=== PATIENT | male | born 1965 | race Caucasian/White ===

== ENCOUNTER → 2018-03-30 13:20 | Outpatient (CLI) | payer BC, SELFPAY ==
--- NOTE | 2018-03-30 13:27 | CT_ITS ---
CT abdomen pelvis wo con CLINICAL INDICATION: ITS.REASON: HEMATURIA, LOW ABD PAIN ORDERING PHYSICIAN: Sidney Alvarenga MD PATIENT AGE: 52 years COMPARISON: None TECHNIQUE: Axial images obtained with sagittal and coronal reformats. All CT scans at the facility use one or more dose reduction, viz: automated exposure control; ma/kV adjustment per patient size (including targeted exams where dose is matched to indication; i.e. head); or iterative reconstruction technique. PROCEDURE: Oral Contrast: None IV Contrast: None . FINDINGS: The lung bases are clear. The liver, pancreas, spleen, adrenal glands, and kidneys have an unremarkable unenhanced CT appearance. No calcified gallstones are apparent. There is a small calcific density just superior to the gallbladder fossa does appear to be within the liver at the capsular region. No renal or ureteral calculi. No hydronephrosis. There are a few small retroperitoneal lymph nodes. Unremarkable appendix. No intestinal obstruction or free air is evident. No evidence of appendicitis. No pelvic mass abnormal fluid collection or focal inflammatory change evident there is some minimal central prostate calcifications. There is a 2 mm stone at the left ureteropelvic junction within the trigone of the urinary bladder. No hydronephrosis. There is grade 2 spondylolytic spondylolisthesis of L5 on S1 with degenerative disc disease at that level there is a small cortical defect involves the left femoral head anteriorly. There are mild osteoarthritic changes of the hips. IMPRESSION: 1. 2 mm left ureterovesical junction stone. No hydronephrosis. 2. Grade 2 spondylolytic spondylolisthesis of L5 on S1 with degenerative disc disease
== END ==
PROVIDERS: PCP Family Medicine; Visit Provider Family Medicine
DX: R10.30 Lower abdominal pain, unspecified (principal)
CPT/HCPCS: 74176

== ENCOUNTER → 2018-04-25 14:29 | Outpatient (CLI) | payer BC, SELFPAY ==
[2018-04-25 20:20] LABS: Prostate Specific Ag Screen 0.8 ng/mL (0.0-4.0)
== END ==
PROVIDERS: Visit Provider Urology
DX: Z12.5 Encounter for screening for malignant neoplasm of prostate (principal); N40.0 Benign prostatic hyperplasia without lower urinary tract symptoms; Z80.42 Family history of malignant neoplasm of prostate
CPT/HCPCS: 36415; G0103

== ENCOUNTER → 2018-09-04 18:12 | Outpatient (CLI) | payer BC, SELFPAY | PROVIDERS: Visit Provider Podiatrist | DX: B35.1 Tinea unguium (principal) | CPT/HCPCS: 87102; 87206; 87220 ==

== ENCOUNTER → 2019-03-20 12:38 | Outpatient (CLI) | payer BC, SELFPAY ==
[2019-03-20 15:01] LABS: Prostate Specific Ag, Diagnost 0.46 ng/mL (0.0-4.0)
== END ==
PROVIDERS: Visit Provider Urology
DX: Z12.5 Encounter for screening for malignant neoplasm of prostate (principal); Z80.42 Family history of malignant neoplasm of prostate
CPT/HCPCS: 36415; 84153

== ENCOUNTER → 2019-05-30 11:00 | Outpatient (CLI) | payer OTHER, SELFPAY ==
--- NOTE | 2019-05-30 11:10 | MR_ITS ---
PROCEDURE: MR CERVICAL SPINE WO CON CLINICAL INDICATION: CERVICAL RADICULOPATHY Neck pain, left-sided arm pain numbness and tingling with limited range of motion COMPARISON: No exams were available for comparison TECHNIQUE: Standard multiplanar multiecho sequences are performed without contrast. 3-D MIP and myelographic images are also rendered and reviewed FINDINGS: There is normal alignment. The cranial cervical junction has an unremarkable appearance. Decreased T1 and T2 signal involves the Don toys process suggesting sclerosis of the odontoid process. There is slight reversal of cervical lordosis which could be due to patient positioning or muscle spasm C2-C3: Unremarkable. C3-C4: Mild left foraminal narrowing from uncovertebral hypertrophy. C4-C5: Small central disc protrusion slightly eccentric to the left abutting the central left aspect of the cord with minimal indentation upon the cord. There is canal stenosis at this level at 8 mm. Mild left-sided foraminal narrowing from uncovertebral hypertrophy/disc osteophyte complex in the lateral foraminal area. C5-C6: Degenerate disc disease with bulging disc slightly eccentric to the left with canal stenosis of 8 mm. There is mild flattening upon the central left aspect of the cord with moderate left lateral recess and foraminal narrowing C6-C7: Degenerate disc disease with moderate left-sided foraminal narrowing from uncovertebral hypertrophy/lateral foraminal disc osteophyte complex. There is canal stenosis at this level at 10 mm. C7-T1: Mild degenerative disc disease IMPRESSION: 1. Multilevel cervical spondylosis with degenerative disc disease along with bulging disc and endplate osteophytes and uncovertebral hypertrophy with lateral recess and foraminal narrowing and canal stenosis. Please see above for detailed description at each level. 2. C4-C5: Small central disc protrusion slightly eccentric to the left abutting the central left aspect of the cord with minimal indentation upon the cord. There is canal stenosis at this level at 8 mm. Mild left-sided foraminal narrowing from uncovertebral hypertrophy/disc osteophyte complex in the lateral foraminal area. 3. C5-C6: Degenerate disc disease with bulging disc slightly eccentric to the left with canal stenosis of 8 mm. There is mild flattening upon the central left aspect of the cord with moderate left lateral recess and foraminal narrowing 4. C6-C7: Degenerate disc disease with moderate left-sided foraminal narrowing from uncovertebral hypertrophy/lateral foraminal disc osteophyte complex. There is canal stenosis at this level at 10 mm Dictated by: Alfred Contreras MD 06/01/2019 08:47 Electronically signed by Alfred Contreras MD in [place] 06/01/2019 08:47
== END ==
PROVIDERS: PCP Family Medicine; Referring Provider Family Medicine; Visit Provider Family Medicine
DX: M54.12 Radiculopathy, cervical region (principal)
CPT/HCPCS: 72141; 76376

== ENCOUNTER → 2019-08-16 07:50 | Outpatient (CLI) | payer SELFPAY ==
--- NOTE | 2019-08-16 07:53 | MR_ITS ---
PROCEDURE: MR LUMBAR SPINE WO CON CLINICAL INDICATION: RIGHT LUMBAR RADICULOPATHY Low back pain, bilateral leg pain numbness and tingling, right hip pain, prior surgery [place] [facility] [place]/2017 MR CERVICAL SPINE WO CON from 05/30/2019 TECHNIQUE: Standard multiplanar multiecho sequences are performed without contrast. 3-D MIP and myelographic images are also rendered and reviewed FINDINGS: The the spinal cord ends at the L1 level. T11-T12, T12-L1, and L1-L2 show mild degenerative disc disease with some decrease in the disc space along with mild facet and ligamentum hypertrophy. L2-L3: There is a asymmetric bulging disc eccentric to the right causing mild right lateral recess narrowing. There facet and ligamentum hypertrophy with bilateral foraminal narrowing. Previously noted right paracentral disc protrusion at this level has improved. L3-L4: Bulging disc along with facet and ligamentum hypertrophy with canal stenosis the along with severe bilateral lateral recess and foraminal narrowing from facet and ligamentum hypertrophy. Canal stenosis may be slightly worse in the transverse dimension in the right lateral recess and foraminal narrowing may also be slightly worse. The broad-based central left paracentral disc protrusion is no longer apparent. L4-5: There is retrolisthesis of L4 by 3 mm not significantly change with bulging disc small central disc protrusion is noted with severe bilateral lateral recess and foraminal narrowing. There has been prior laminectomy at L4 and L5. Severe facet hypertrophic changes are present. L5-S1: There is 11 mm anterolisthesis of L5 on S1 with severe degenerative disc disease along with facet and ligamentum hypertrophy with severe bilateral lateral recess and foraminal narrowing. This is not significantly changed. IMPRESSION: 1. L2-L3: There is a asymmetric bulging disc eccentric to the right causing mild right lateral recess narrowing. There facet and ligamentum hypertrophy with bilateral foraminal narrowing. Previously noted right paracentral disc protrusion at this level has improved. 2. L3-L4: Bulging disc along with facet and ligamentum hypertrophy with canal stenosis the along with severe bilateral lateral recess and foraminal narrowing from facet and ligamentum hypertrophy. Canal stenosis may be slightly worse in the transverse dimension and right lateral recess and foraminal narrowing may also be slightly worse. The broad-based central left paracentral disc protrusion is no longer apparent. 3. L4-5: There is retrolisthesis of L4 by 3 mm not significantly change with bulging disc small central disc protrusion is noted with severe bilateral lateral recess and foraminal narrowing. There has been prior laminectomy at L4 and L5. Severe facet hypertrophic changes are present. 4. L5-S1: There is 11 mm anterolisthesis of L5 on S1 with severe degenerative disc disease along with facet and ligamentum hypertrophy with severe bilateral lateral recess and foraminal narrowing. This is not significantly changed. Dictated by: Alfred Contreras MD 08/16/2019 14:03 Electronically signed by Alfred Contreras MD in [place] 08/16/2019 14:03
== END ==
PROVIDERS: PCP Family Medicine; Visit Provider Family Medicine
DX: M54.16 Radiculopathy, lumbar region (principal)
CPT/HCPCS: 72148; 76376

== ENCOUNTER → 2020-02-12 10:21 | Outpatient (CLI) | payer OTHER, SELFPAY ==
[2020-02-12 12:51] LABS: Prostate Specific Ag Screen 0.9 ng/ml (0.0-4.0)
== END ==
PROVIDERS: Visit Provider Urology
DX: Z12.5 Encounter for screening for malignant neoplasm of prostate (principal)
CPT/HCPCS: 36415; G0103

== ENCOUNTER → 2020-04-23 09:53 | Outpatient (CLI) | payer OTHER, MEDICAID, SELFPAY ==
[2020-04-23 12:23] LABS: Coronavirus 19 IgG Antibody Negative (Negative); Coronavirus 19 IgM Antibody Negative (Negative)
== END ==
PROVIDERS: Visit Provider Surgery
DX: Z01.818 Encounter for other preprocedural examination (principal); Z12.11 Encounter for screening for malignant neoplasm of colon
CPT/HCPCS: 36415; 86328

== ENCOUNTER 2020-04-24 08:37 | Day surgery (SDC) | payer OTHER, MEDICAID, SELFPAY ==
[2020-04-23 12:38] VITALS: BMI 28.2
[2020-04-24 08:57] VITALS: BP 166/108; PULSE 66; RESP 18; TEMP 36.7; O2SAT 99
--- NOTE | 2020-04-24 09:16 | HMH.ANESCL ---
[facility] Anesthesia Checklist - Patient Identification Patient Identification: Arm Band - Structural Data Admitted From: Home Planned Operative Procedure/s: colonoscopy Verified Documents: Surgical Consent, History and Physical - NPO Status Verified Time NPO: 00:00 - Additional verifications Anesthesia Reactions: No - Airway Assessment C-Spine Mobility Assessed: Yes (mp2) TMJ Mobility Assessed: Yes Dentition: Good Dentition - Neurological Assessment Level of Consciousness: Awake, Alert - Anesthesia Plan Anesthesia Risk discussed: Yes Anesthesia Plan: Verified ASA Class: I Anesthesia Type: MAC [facility] History Medical History: Reports:: Aneurysm, Cancer (skin) Denies:: Diabetes Mellitus Type 1, Diabetes Mellitus Type 2, Internal Pacemaker, Lung Disease, MRSA, Seizures *Have you ever received a pneumonia vaccine?: No *Have you received a flu vaccine this season?: Yes Anesthesia experience/problems:: nac Laterality Cases: Right: Arthroscopy Knee Other Surgeries: Yes: Colonoscopy, Other. No: Pacemaker Amputation: No Fractures: No - *Social History Last grade of school completed: Advanced degree Smoking Status: Never smoker Tobacco Type: cigarettes #Yrs smoked (if former smoker): 20 Alcohol Intake: never Substance Use Type: former substance user *Occupational Status:: employed Household Members: none *Travel in the last 8 weeks: None Family Hx:: Diabetes, Cancer, Hyperlipidemia, Hypertension
[2020-04-24 09:28] VITALS: O2SAT 99
[2020-04-24 10:10] VITALS: BP 110/60; PULSE 48; RESP 18; TEMP 36.2; O2SAT 94
--- NOTE | 2020-04-24 10:12 | HMH.SCOPE ---
- Procedure: Date: 04/24/20 Procedure Performed:: Colonoscopy with polypectomy Indications:: History of large complex polyp at 15 cm Performing Provider:: Michael Mack MD Referring Provider:: . Sedation:: Monitored anesthesia care Procedure:: After informed consent was obtained the patient was taken to the endoscopy suite. Sedation ensued after the patient was transferred to the left lateral decubitus position. Pulse, blood pressure, and oxygen saturation were monitored throughout the procedure. Digital rectal exam revealed no significant abnormality. The colonoscope was placed in position. The entire colon was evaluated. The colonoscope was carefully removed and the patient was transferred to recovery in stable condition. Please see findings and specimens below for detail. Findings:: Bowel preparation fair to moderate Hemorrhoidal tags Tortuous sigmoid colon Moderate spasticity Complex lobulated polyp at 65 cm Large sessile polyp at 40 cm and adjacent polyp Specimens:: Lobulated polyp at 65 cm (snare) Large sessile polyp at 40 cm and adjacent polyp (snare and biopsy) Recommendations:: Timing of repeat colonoscopy is pending pathology but will likely be between 2-3 years secondary to history of significant complex polyp, slight limitations in visualization, and size/nature of polyps noted on this evaluation. Complications:: No immediate Estimated blood obtained (mL): 1
[2020-04-24 10:20] VITALS: BP 138/70; PULSE 59; RESP 18; O2SAT 98
[2020-04-24 10:26] VITALS: BP 138/96; PULSE 52; RESP 18; O2SAT 98
[2020-04-24 10:35] VITALS: BP 131/92; PULSE 58; RESP 18; O2SAT 98
== END 2020-04-24 10:40 | disposition home or self-care (01) ==
LOC: OUTP 08:39
PROVIDERS: PCP Family Medicine; Visit Provider Surgery
PROC: 0DJD8ZZ Inspection of Lower Intestinal Tract, Via Natural or Artificial Opening Endoscopic (ICD-10-PCS; CPT 45385; principal; 2020-04-24 09:30)
DX: Z12.11 Encounter for screening for malignant neoplasm of colon (principal); K58.9 Irritable bowel syndrome, unspecified; Q43.8 Other specified congenital malformations of intestine; K63.5 Polyp of colon; K64.0 First degree hemorrhoids; Z86.010 Personal history of colon polyps; Z85.828 Personal history of other malignant neoplasm of skin; Z86.79 Personal history of other diseases of the circulatory system; Z87.39 Personal history of other diseases of the musculoskeletal system and connective tissue; Z82.49 Family history of ischemic heart disease and other diseases of the circulatory system; Z83.438 Family history of other disorder of lipoprotein metabolism and other lipidemia; Z80.9 Family history of malignant neoplasm, unspecified
CPT/HCPCS: 45385; J2704

== ENCOUNTER → 2020-05-30 14:41 | Outpatient (CLI) | payer OTHER, MEDICAID, SELFPAY ==
[2020-05-30 15:14] LABS: Basophils % 0.9 % (0.1-2.0); Eosinophils # 0.1 K/mm3 (0.0-0.4); Eosinophils % 1.3 % (0.1-12.0); Hematocrit 47.8 % (42.0-52.0); Hemoglobin 16.7 g/dL (14.1-18.0); Lymphocytes % 19.4 % (10-50); Mean Corpuscular HGB Conc 34.8 g/dL (31.8-35.4); Mean Corpuscular Hemoglobin 30.5 pg (27.0-31.2); Mean Corpuscular Volume 87.6 fl (80-94); Mean Platelet Volume 7.5 fl (7.4-10.4); Monocytes # 0.3 K/mm3 (0.1-1.0); Monocytes % 5.7 % (1.7-9.3); Neutrophils # 3.6 K/mm3 (1.8-7.8); Neutrophils % 72.7 % (37.0-80.0); Platelet Count 292 K/mm3 (142-424); Red Blood Count 5.46 M/mm3 (4.60-6.20); Red Cell Distribution Width 13.3 % (11.5-17.5); White Blood Count 4.9 K/mm3 (4.8-10.8)
[2020-05-30 15:23] LABS: Hemoglobin A1C 5.6 % (4.0-6.0)
[2020-05-30 15:50] LABS: Chloride 103 mmol/L (98-107); Potassium 4.2 mmoL/L (3.5-5.1); Sodium 144 mmol/L (136-145)
[2020-05-30 15:52] LABS: Alanine Aminotransferase 23 U/L (12-78); Aspartate Amino Transferase 32 U/L (17-59); Bilirubin,Total 2.7 mg/dl (0.2-1.3); Blood Urea Nitrogen 20 mg/dl (9-20); Estimated Glomerular Filt Rate 70 ml/min (>60); GFR (African American) 85 ML/MIN (>60)
[2020-05-30 15:53] LABS: Albumin Level 5.1 g/dl (3.5-5.0); Albumin/Globulin Ratio 1.6 (1.1-1.8); Alkaline Phosphatase 76 U/L (38-126); Anion Gap 16.2 mEq/L (5-15); Carbon Dioxide 29 mmol/L (22.0-30.0); Chol/HDL Ratio 2.9 (1-3.5); Cholesterol 205 mg/dl (140-200); Globulin 3.2 g/dL (1.3-3.2); Glucose 112 mg/dl (74-100); HDL Cholesterol 70 mg/dl (40-60); Total Protein,Serum 8.3 g/dl (6.3-8.2); Triglycerides 97 mg/dl (30-150); VLDL Cholesterol 19 mg/dL (0-40)
[2020-05-30 16:04] LABS: Direct LDL Cholesterol 100.88 mg/dL (100-129)
== END ==
PROVIDERS: Visit Provider Family Medicine
DX: Z00.00 Encounter for general adult medical examination without abnormal findings (principal); Z83.3 Family history of diabetes mellitus
CPT/HCPCS: 36415; 80053; 80061; 83036; 85025

== ENCOUNTER → 2020-06-17 08:53 | Outpatient (CLI) | payer OTHER, MEDICAID, SELFPAY ==
--- NOTE | 2020-06-17 08:58 | US_ITS ---
PROCEDURE: US ABDOMEN LIMITED CLINICAL INDICATION: ELEVATED BILIRUBIN COMPARISON: No exams were available for comparison FINDINGS: PANCREAS: Unremarkable. No obvious mass or abnormal fluid collection. No ductal dilatation LIVER: No focal liver lesions demonstrated. Homogeneous echogenicity. No intrahepatic biliary ductal dilatation evident. There is appropriate direction of blood flow within a non dilated portal vein RIGHT KIDNEY: Unremarkable. Normal size and echogenicity. No hydronephrosis GALLBLADDER: No gallstones, gallbladder wall thickening, pericholecystic fluid, or biliary dilatation. IMPRESSION: Unremarkable limited abdominal ultrasound as detailed above disc Dictated by: Alfred Contreras MD 06/17/2020 19:35 Alfred Contreras MD in [place] 06/17/2020 19:35
== END ==
PROVIDERS: PCP Family Medicine; Visit Provider Family Medicine
DX: R17 Unspecified jaundice (principal)
CPT/HCPCS: 76705

== ENCOUNTER → 2021-02-12 14:47 | Outpatient (CLI) | payer MEDICAID, SELFPAY ==
[2021-02-12 16:41] LABS: Prostate Specific Ag Screen 0.8 ng/ml (0.0-4.0)
== END ==
PROVIDERS: Visit Provider Urology
DX: Z12.5 Encounter for screening for malignant neoplasm of prostate (principal)
CPT/HCPCS: 36415; G0103

== ENCOUNTER 2021-03-26 09:13 | Emergency (ER) | payer MEDICAID, SELFPAY ==
[2021-03-26 09:14] VITALS: BP 136/97; PULSE 44; RESP 22; O2SAT 96; BMI 26.6
[2021-03-26 09:31] VITALS: BP 162/89; PULSE 44; RESP 17; O2SAT 96
[2021-03-26 09:31] LABS: Basophils % 0.7 % (0.1-2.0); Eosinophils # 0.1 K/mm3 (0.0-0.4); Eosinophils % 3.5 % (0.1-12.0); Lymphocytes # 1.1 K/mm3 (0.7-4.5); Lymphocytes % 33.2 % (10-50); Mean Corpuscular HGB Conc 34.9 g/dL (31.8-35.4); Mean Corpuscular Hemoglobin 30.2 pg (27.0-31.2); Mean Corpuscular Volume 86.7 fl (80-94); Mean Platelet Volume 7.5 fl (7.4-10.4); Monocytes # 0.2 K/mm3 (0.1-1.0); Monocytes % 5.6 % (1.7-9.3); Neutrophils # 1.9 K/mm3 (1.8-7.8); Neutrophils % 57.1 % (37.0-80.0); Platelet Count 278 K/mm3 (142-424); Red Blood Count 5.31 M/mm3 (4.60-6.20); Red Cell Distribution Width 13.5 % (11.5-17.5); White Blood Count 3.3 K/mm3 (4.8-10.8)
--- NOTE | 2021-03-26 09:31 | CT_ITS ---
PROCEDURE: CT ABDOMEN PELVIS W CON CLINICAL INDICATION: abdominal pain Severe lower abdominal pain COMPARISON: CT ABDPELWO CT abdomen pelvis wo con from 03/30/2018 TECHNIQUE: IV Contrast: 75ML Isovue 370 Oral Contrast None Axial images obtained with sagittal and coronal reformats. All CT scans at the facility use one or more dose reduction, viz: automated exposure control, ma/kV adjustment per patient size (including targeted exams where dose is matched to indication, i.e. head), or iterative reconstruction technique. FINDINGS: LOWER THORAX: No acute finding ABDOMEN & PELVIS: Along the inferior margin of the liver on the right segment 6 there is a hypodense lesion measuring 20 x 19 mm. There may be some peripheral puddling of contrast at this area. Nonemergent MRI with hemangioma protocol suggested for further evaluation. The liver has an otherwise unremarkable appearance. The gallbladder, spleen, adrenal glands, and pancreas are unremarkable. There is mild right hydronephrosis and hydroureter. A 3 mm stone is present in the right trigone of the urinary bladder region. No renal calculi parent. Left kidney has an unremarkable appearance. Unremarkable appearing appendix. No intestinal obstruction or free air. Prostate is slightly enlarged at 4.5 cm with some central calcification. No pelvic mass or abnormal fluid collection. There is grade 2 spondylitic spondylolisthesis at L5-S1 with degenerative disc disease at that level. There are mild osteoarthritic changes of the hips. IMPRESSION: 1. 3 mm calculus in the right aspect of the urinary bladder at the region of the trigone with mild right hydronephrosis and hydroureter. 2. Indeterminate liver lesion segment 6 inferior tip. Suggest nonemergent MRI without and with gadolinium enhancement for further evaluation. This may represent a hemangioma. Further evaluation suggested. Dictated by: Alfred Contreras MD 03/26/2021 10:41 Alfred Contreras MD in [place] 03/26/2021 10:41
--- NOTE | 2021-03-26 09:37 | ECG_ITS ---
APPROVED REPORT Exam: Resting ECG HR:47 bpm ECG Measurements Heart Rate 47 AXES IL 144 P 56 QRSd 104 QRS 38 QT 520 T 25 QTc 460 Conclusion Marked sinus bradycardia Minimal voltage criteria for LVH, may be normal variant Abnormal ECG Electronically signed by : Juan Manuel Lyn, 03/26/2021 17:00:37
[2021-03-26 09:40] LABS: Chloride 105 mmol/L (98-107); Potassium 3.4 mmoL/L (3.5-5.1); Sodium 141 mmol/L (136-145)
[2021-03-26 09:43] LABS: Alanine Aminotransferase 18 U/L (12-78); Albumin Level 4.7 g/dl (3.5-5.0); Albumin/Globulin Ratio 1.8 (1.1-1.8); Alkaline Phosphatase 66 U/L (38-126); Anion Gap 14.4 mEq/L (5-15); Aspartate Amino Transferase 30 U/L (17-59); Bilirubin,Total 2.9 mg/dl (0.2-1.3); Blood Urea Nitrogen 17 mg/dl (9-20); Calcium 8.9 mg/dl (8.4-10.2); Carbon Dioxide 25 mmol/L (22.0-30.0); Creatinine Clearance Estimated 100 mL/min (50-200); Estimated Glomerular Filt Rate 88 ml/min (>60); GFR (African American) 107 ML/MIN (>60); Globulin 2.6 g/dL (1.3-3.2); Glucose 126 mg/dl (74-100); Total Protein,Serum 7.3 g/dl (6.3-8.2)
--- NOTE | 2021-03-26 10:04 | HMH.EDABDPAI ---
ED Disposition Clinical Impression: Renal lithiasis Disposition: Home, Self-Care Condition on Discharge: Good Instructions: DI for Acute Abdominal Pain Additional Instructions: Follow-up with your primary care and return to the ED for any new or worsening symptoms. Recommend discussing with Dr. Alvarenga the lesion seen in your liver for further imaging. Prescriptions: Ondansetron [Zofran 4mg ODT] 4 mg PO TIDP PRN #9 tab PRN Reason: Nausea Transmission Status: Pending to Clinic Pharm[facility] Referrals: Sidney Alvarenga MD [Primary Care Provider] - - Critical Care Critical Care Time: No Attestation: On 03/26/21, the high probability of a clinically significant, sudden or life threatening deterioration of the following system(s) required my full and direct attention, intervention and personal management. The time I documented below is in addition to time spent performing reported procedures but includes the following listed in this critical care notation. Medical Decision Making - Medical Records Medical records reviewed: Yes: I reviewed the patient's medical records. - Sourav Inquiry Pt receiving controlled substance: No Vital Signs: 03/26/21 09:14 03/26/21 09:31 03/26/21 10:20 Pulse Rate 44 L 51 L Pulse Rate [Radial] 44 L Respiratory Rate 22 17 Blood Pressure 162/89 H 190/94 H Blood Pressure [Right Radial Artery] 136/97 H Blood Pressure Mean 113 104 Blood Pressure Mean [Right Radial Artery] 110 Blood Pressure Position [Right Radial Artery] Sitting 02 Sat by Pulse Oximetry 96 96 100 Oxygen Delivery Method Room Air 03/26/21 10:30 03/26/21 11:01 Pulse Rate 39 L 40 L Pulse Rate [Radial] Respiratory Rate 16 18 Blood Pressure 182/102 H 150/81 H Blood Pressure [Right Radial Artery] Blood Pressure Mean 128 104 Blood Pressure Mean [Right Radial Artery] Blood Pressure Position [Right Radial Artery] 02 Sat by Pulse Oximetry 97 98 Oxygen Delivery Method - Lab Data Lab Results 03/26/21 09:21: WBC 3.3 L, RBC 5.31, Hgb 16.0, Hct 46.0, MCV 86.7, MCH 30.2, MCHC 34.9, RDW 13.5, Plt Count 278, MPV 7.5, Neut % (Auto) 57.1, Lymph % (Auto) 33.2, [place] % (Auto) 5.6, Eos % (Auto) 3.5, Baso % (Auto) 0.7, Neut # (Auto) 1.9, Lymph # (Auto) 1.1, [place] # (Auto) 0.2, Eos # (Auto) 0.1, Baso # (Auto) 0.0 03/26/21 09:21: Sodium 141, Potassium 3.4 L, Chloride 105, Carbon Dioxide 25, Anion Gap 14.4, BUN 17, Creatinine 0.90, Estimated Creat Clear 100, Estimated GFR 88, Est GFR ( Amer) 107, Glucose 126 H, Calcium 8.9, Total Bilirubin 2.9 H, AST 30, ALT 18, Alkaline Phosphatase 66, Total Protein 7.3, Albumin 4.7, Globulin 2.6, Albumin/Globulin Ratio 1.8 03/26/21 12:48: Urine Color Yellow, Urine Appearance Clear, Urine pH 5.0, Ur Specific [place] 1.015, Urine Protein Negative, Urine Glucose (UA) Negative, Urine Ketones Negative, Urine Blood 3+, Urine Nitrate Negative, Urine Bilirubin Negative, Urine Urobilinogen 0.2, Ur Leukocyte Esterase Negative, Urine RBC 5-10, Urine WBC None, Ur Squamous Epith Cells Occasional, Urine Bacteria None Result diagrams: 03/26/21 09:21 03/26/21 09:21 Orders (Tests/Meds): ED MEDICATIONS Generic Name Dose Route Start Last Admin Trade Name Vitaliy PRN Reason Stop Dose Admin Morphine Sulfate 4 mg 03/26/21 09:31 03/26/21 09:40 Morphine 4mg/Ml Syringe IV 04/25/21 09:30 4 mg Q4HP PRN Administration Mild to Moderate Pain Discontinued Medications Generic Name Dose Route Start Last Admin Trade Name Juan Pabloq PRN Reason Stop Dose Admin Hydromorphone HCl 1 mg 03/26/21 09:58 03/26/21 09:59 Hydromorphone 2mg/Ml Syringe IV 03/26/21 09:59 1 mg ONCE ONE Administration Sodium Chloride 1,000 mls @ 999 mls/hr 03/26/21 09:30 03/26/21 09:30 Sod Chlor 0.9% 1000ml Bag IV 03/26/21 10:30 999 mls/hr .Q1H1M ADEBAYO Administration Sodium Chloride 1,000 mls @ 999 mls/hr 03/26/21 11:15 Sod Chlor 0.9% 1000ml Bag IV 03/26/21 12:15 .Q1H1M
[2021-03-26 10:20] VITALS: BP 190/94; PULSE 51; O2SAT 100
--- NOTE | 2021-03-26 10:24 | PC.NURSE ---
bladder scanner 40ML
[2021-03-26 10:30] VITALS: BP 182/102; PULSE 39; RESP 16; O2SAT 97
[2021-03-26 11:01] VITALS: BP 150/81; PULSE 40; RESP 18; O2SAT 98
[2021-03-26 12:51] LABS: Microscopic, Urine URINE MICROSCOPIC (MICROSCOPIC)
[2021-03-26 12:56] LABS: Appearance,Urine CLEAR (Clear); Bilirubin,Urine Negative (Negative); Blood, Urine 3+ (Negative); Color,Urine YELLOW (Yellow); Glucose,Urine (UA) Negative (Negative); Ketones,Urine Negative (Negative); Leukocyte Esterase,Urine Negative (Negative); Nitrate,Urine Negative (Negative); Protein,Urine Negative (Negative); Specific Gravity, Urine 1.015 (1.005-1.030); Urobilinogen,Urine 0.2 EU/dl (0.2)
[2021-03-26 13:12] LABS: Squamous Epithelial Cell,Urine Occasional #/hpf (0-5)
[2021-03-26 14:18] VITALS: BP 150/98; PULSE 44; RESP 16; TEMP 36.6; O2SAT 98
== END 2021-03-26 14:19 | disposition home or self-care (01) ==
PROVIDERS: Emergency Provider Student in an Organized Health Care Education/Training Program; PCP Family Medicine
DX: N20.0 Calculus of kidney (principal); Z87.891 Personal history of nicotine dependence
CPT/HCPCS: 74177; 80053; 81001; 85025; 93005; 96365; 96366; 96375; 96376; 99283; J2405; Q9967

== ENCOUNTER → 2022-02-06 11:02 | Outpatient (CLI) | payer MEDICAID, SELFPAY | PROVIDERS: Visit Provider Surgery | DX: Z01.812 Encounter for preprocedural laboratory examination (principal); Z11.52 Encounter for screening for COVID-19; Z12.11 Encounter for screening for malignant neoplasm of colon; Z86.010 Personal history of colon polyps | CPT/HCPCS: C9803; U0003; U0005 ==

== ENCOUNTER 2022-02-09 09:22 | Day surgery (SDC) | payer MEDICAID, SELFPAY ==
[2022-02-08 12:32] VITALS: BMI 26.6
[2022-02-09 09:40] VITALS: BP 161/101; PULSE 71; RESP 16; TEMP 37.2; O2SAT 99
[2022-02-09 10:27] VITALS: O2SAT 97
--- NOTE | 2022-02-09 10:48 | HMH.SCOPE ---
- Procedure: Date: 02/09/22 Patient Date of :: 1965 Procedure Performed:: Colonoscopy Indications:: History of colon polyps Patient has a documented history of complex adenomatous polyp at 15 cm. His most recent colonoscopy in March 2020 revealed adenomatous polyps at 65 cm and at 40 cm. Performing Provider:: Michael Mack MD Referring Provider:: . Sedation:: Monitored anesthesia care Procedure:: After informed consent was obtained the patient was taken to the endoscopy suite. Sedation ensued after the patient was transferred to the left lateral decubitus position. Pulse, blood pressure, and oxygen saturation were monitored throughout the procedure. Digital rectal exam revealed no significant abnormality. The colonoscope was placed in position. The entire colon was evaluated. The colonoscope was carefully removed and the patient was transferred to recovery in stable condition. Please see findings and specimens below for detail. Findings:: Bowel preparation fair Hemorrhoidal tags Moderate lack of relaxation/spasticity Specimens:: none Recommendations:: Repeat colonoscopy in 3-5 years Complications:: No immediate Estimated blood obtained (mL): 0
[2022-02-09 10:50] VITALS: BP 111/67; PULSE 55; RESP 16; TEMP 36.3; O2SAT 94
--- NOTE | 2022-02-09 10:50 | HMH.ANESCL ---
[facility] Anesthesia Checklist - Structural Data Admitted From: Home Planned Operative Procedure/s: colonoscopy Consent for Planned Operative Procedure(s) Verified: Yes - Additional verifications Anesthesia Reactions: No - Airway Assessment C-Spine Mobility Assessed: Yes TMJ Mobility Assessed: Yes Dentition: Good Dentition - Neurological Assessment Level of Consciousness: Awake, Alert, Appropriate - Anesthesia Plan Anesthesia Risk discussed: Yes Anesthesia Plan: Verified ASA Class: II Anesthesia Type: MAC [facility] History I have reviewed the patient's past medical history: Yes Medical History: Reports:: Aneurysm Denies:: Cancer, Diabetes Mellitus Type 1, Diabetes Mellitus Type 2, Internal Pacemaker, Lung Disease, MRSA, Seizures *Have you ever received a pneumonia vaccine?: Yes *Have you received a flu vaccine this season?: Yes Anesthesia experience/problems:: none Laterality Cases: Right: Arthroscopy Knee Other Surgeries: Yes: No Previous Surgery, Colonoscopy, Other (lower lumbar diskectomy and laminectomy). No: Pacemaker Amputation: No Fractures: No - *Social History Last grade of school completed: Advanced degree Smoking Status: Never smoker Tobacco Type: cigarettes #Yrs smoked (if former smoker): 20 Alcohol Intake: never Substance Use Type: former substance user *Occupational Status:: unemployed Housing: house Household Members: none *Travel in the last 8 weeks: None Family Hx:: Diabetes, Cancer, Hyperlipidemia, Hypertension
[2022-02-09 11:00] VITALS: BP 104/60; PULSE 52; RESP 16; O2SAT 95
[2022-02-09 11:10] VITALS: BP 102/66; PULSE 51; RESP 16; O2SAT 95
[2022-02-09 11:40] VITALS: BP 119/54; PULSE 55; RESP 16; TEMP 36.3; O2SAT 98
== END 2022-02-09 11:40 | disposition home or self-care (01) ==
LOC: OUTP 09:23
PROVIDERS: PCP Family Medicine; Visit Provider Surgery
PROC: 0DJD8ZZ Inspection of Lower Intestinal Tract, Via Natural or Artificial Opening Endoscopic (ICD-10-PCS; CPT 45378; principal; 2022-02-09 10:30)
DX: Z12.11 Encounter for screening for malignant neoplasm of colon (principal); K58.9 Irritable bowel syndrome, unspecified; K64.9 Unspecified hemorrhoids; Z87.19 Personal history of other diseases of the digestive system; Z86.79 Personal history of other diseases of the circulatory system; Z83.3 Family history of diabetes mellitus; Z80.9 Family history of malignant neoplasm, unspecified; Z82.49 Family history of ischemic heart disease and other diseases of the circulatory system; Z83.438 Family history of other disorder of lipoprotein metabolism and other lipidemia
CPT/HCPCS: 45378

== ENCOUNTER → 2022-02-16 15:28 | Outpatient (CLI) | payer MEDICAID, SELFPAY ==
[2022-02-16 17:36] LABS: Prostate Specific Ag Screen 0.9 ng/ml (0.0-4.0)
== END ==
PROVIDERS: Visit Provider Urology
DX: Z12.5 Encounter for screening for malignant neoplasm of prostate (principal)
CPT/HCPCS: 36415; G0103

== ENCOUNTER 2022-04-29 14:53 | Emergency (ER) | payer MEDICAID, SELFPAY ==
[2022-04-29 15:14] VITALS: BP 140/85; PULSE 82; RESP 15; TEMP 36.7; O2SAT 96; BMI 27.4
[2022-04-29 15:22] VITALS: BP 140/95; PULSE 82; RESP 15; TEMP 36.7
== END 2022-04-29 15:25 | disposition home or self-care (01) ==
LOC: UTC 14:55
PROVIDERS: Emergency Provider Nurse Practitioner Family; PCP Family Medicine
DX: Z23 Encounter for immunization (principal)
CPT/HCPCS: 90471; 90632; 90714; 99212; G0463

== ENCOUNTER → 2023-01-24 13:33 | Outpatient (CLI) | payer OTHER, SELFPAY | PROVIDERS: PCP Family Medicine; Visit Provider Urology | DX: R97.20 Elevated prostate specific antigen [PSA] (principal); Z12.5 Encounter for screening for malignant neoplasm of prostate | CPT/HCPCS: 36415; G0103 ==

== ENCOUNTER → 2023-03-30 10:53 | Outpatient (CLI) | payer OTHER, SELFPAY ==
--- NOTE | 2023-03-30 11:00 | XR_ITS ---
FINAL REPORT CLINICAL HISTORY: COVID SYMPTOMS FINDINGS: SINGLE VIEW CHEST The heart size is normal. The mediastinum is normal. The lungs are clear. There is no pneumothorax. IMPRESSION: No acute cardiopulmonary process. Reviewed, Interpreted and Dictated by Arnold Tate III, MD Transcribed by Samuel Soriano Authenticated and . [facility]
[2023-03-30 11:21] LABS: Coronavirus 19, PCR Not Detected (NotDetected); Influenza A, PCR Not Detected (NotDetected); Influenza B, PCR Not Detected (NotDetected)
[2023-03-30 11:29] LABS: Basophils % 0.6 % (0.1-2.0); Eosinophils # 0.1 K/mm3 (0.0-0.4); Eosinophils % 2.4 % (0.1-12.0); Hematocrit 49.3 % (42.0-52.0); Hemoglobin 16.1 g/dL (14.1-18.0); Lymphocytes # 0.8 K/mm3 (0.7-4.5); Lymphocytes % 20.9 % (10-50); Mean Corpuscular HGB Conc 32.6 g/dL (31.8-35.4); Mean Corpuscular Hemoglobin 28.2 pg (27.0-31.2); Mean Corpuscular Volume 86.5 fl (80-94); Mean Platelet Volume 7.6 fl (7.4-10.4); Monocytes # 0.3 K/mm3 (0.1-1.0); Monocytes % 7.3 % (1.7-9.3); Neutrophils # 2.6 K/mm3 (1.8-7.8); Neutrophils % 68.9 % (37.0-80.0); Platelet Count 235 K/mm3 (142-424); Red Cell Distribution Width 13.4 % (11.5-17.5); White Blood Count 3.7 K/mm3 (4.8-10.8)
[2023-03-30 11:35] LABS: Alanine Aminotransferase 32 U/L (12-78); Albumin Level 4.7 g/dl (3.5-5.0); Albumin/Globulin Ratio 1.5 (1.1-1.8); Alkaline Phosphatase 80 U/L (38-126); Anion Gap 13.6 mEq/L (5-15); Aspartate Amino Transferase 39 U/L (17-59); Bilirubin,Total 2.1 mg/dl (0.2-1.3); Blood Urea Nitrogen 13 mg/dl (9-20); Calcium 9.5 mg/dl (8.4-10.2); Carbon Dioxide 31 mmol/L (22.0-30.0); Chloride 100 mmol/L (98-107); Estimated Glomerular Filt Rate 78 ml/min (>60); GFR (African American) 94 ML/MIN (>60); Globulin 3.2 g/dL (1.3-3.2); Glucose 95 mg/dl (74-100); Potassium 3.6 mmoL/L (3.5-5.1); Sodium 141 mmol/L (136-145); Total Protein,Serum 7.9 g/dl (6.3-8.2)
[2023-03-30 12:06] LABS: Thyroid Stimulating Hormone 1.42 uIU/mL (0.465-4.68)
== END ==
PROVIDERS: PCP Family Medicine; Visit Provider Physician Assistant
DX: Z20.822 Contact with and (suspected) exposure to COVID-19 (principal)
CPT/HCPCS: 36415; 71045; 80053; 84443; 85025; 87636

== ENCOUNTER → 2023-04-01 13:52 | Outpatient (CLI) | payer OTHER, SELFPAY ==
[2023-04-01 14:20] LABS: Adenovirus,PCR Not Detected (NotDetected); Bordetella Pertussis Not Detected (NotDetected); Chlamydophila Pneumoniae, PCR Not Detected (NotDetected); Coronavirus 19, PCR Not Detected (NotDetected); Coronavirus 229E Not Detected (NotDetected); Coronavirus NL63 Not Detected (NotDetected); Coronavirus OC43 Not Detected (NotDetected); Coronovirus HKU1,PCR Not Detected (NotDetected); Human Metapneumovirus Not Detected (NotDetected); Influenza A, PCR Not Detected (NotDetected); Influenza AH1, 2009 Not Detected (NotDetected); Influenza AH1, PCR Not Detected (NotDetected); Influenza AH3,PCR Not Detected (NotDetected); Influenza B, PCR Not Detected (NotDetected); Mycoplasma Pneumoniae, PCR Not Detected (NotDetected); Parainfluenza 1, PCR Not Detected (NotDetected); Parainfluenza 2, PCR Not Detected (NotDetected); Parainfluenza 3, PCR Not Detected (NotDetected); Parainfluenza 4, PCR Not Detected (NotDetected); Respiratory Syncytial Virus Not Detected (NotDetected); Rhinovirus/Enterovirus Not Detected (NotDetected)
[2023-04-01 14:57] LABS: Basophils % 0.7 % (0.1-2.0); Eosinophils # 0.1 K/mm3 (0.0-0.4); Eosinophils % 2.8 % (0.1-12.0); Hematocrit 47.3 % (42.0-52.0); Hemoglobin 15.8 g/dL (14.1-18.0); Lymphocytes # 0.9 K/mm3 (0.7-4.5); Mean Corpuscular HGB Conc 33.4 g/dL (31.8-35.4); Mean Corpuscular Volume 84.1 fl (80-94); Monocytes # 0.3 K/mm3 (0.1-1.0); Monocytes % 6.9 % (1.7-9.3); Neutrophils # 2.7 K/mm3 (1.8-7.8); Neutrophils % 67.6 % (37.0-80.0); Platelet Count 258 K/mm3 (142-424); Red Blood Count 5.63 M/mm3 (4.60-6.20); Red Cell Distribution Width 13.5 % (11.5-17.5); White Blood Count 3.9 K/mm3 (4.8-10.8)
[2023-04-01 15:09] LABS: D-Dimer 0.72 ug/mL (0.0-0.5)
[2023-04-01 15:33] LABS: Erythrocyte Sedimentation Rate 5 mm/hr (0-20)
[2023-04-01 16:28] LABS: Alanine Aminotransferase 26 U/L (12-78); Albumin Level 4.9 g/dl (3.5-5.0); Albumin/Globulin Ratio 1.8 (1.1-1.8); Alkaline Phosphatase 68 U/L (38-126); Aspartate Amino Transferase 29 U/L (17-59); Blood Urea Nitrogen 16 mg/dl (9-20); Calcium 9.7 mg/dl (8.4-10.2); Carbon Dioxide 29 mmol/L (22.0-30.0); Chloride 100 mmol/L (98-107); Estimated Glomerular Filt Rate 88 ml/min (>60); GFR (African American) 106 ML/MIN (>60); Globulin 2.8 g/dL (1.3-3.2); Glucose 83 mg/dl (74-100); Sodium 139 mmol/L (136-145); Total Protein,Serum 7.7 g/dl (6.3-8.2); Uric Acid 5.4 mg/dl (3.5-8.5)
[2023-04-03 08:18] LABS: Cytomegalovirus (CMV) Ab, IgG <0.60 U/mL (0.00-0.59); RA Latex Turbid. 10.8 IU/mL (<14.0)
[2023-04-03 10:26] LABS: Lyme Ab CIA Negative (Negative)
[2023-04-04 20:42] LABS: Antinuclear Antibodies, IFA Negative (.)
[2023-04-09 19:08] LABS: Testosterone, Total, LC/MS 634 ng/dL (.)
[2023-05-09 14:02] LABS: Epstein-Barr DNA Quant, PCR Negative
== END ==
PROVIDERS: PCP Physician Assistant; Visit Provider Physician Assistant
DX: R06.02 Shortness of breath (principal); R53.81 Other malaise; R68.83 Chills (without fever); R17 Unspecified jaundice; H15.103 Unspecified episcleritis, bilateral
CPT/HCPCS: 36415; 80053; 84403; 84550; 85025; 85378; 85651; 86038; 86431; 86618; 86644; 87581; 87632; 87798; 87799

== ENCOUNTER → 2023-04-06 08:20 | Outpatient (CLI) | payer OTHER, SELFPAY ==
--- NOTE | 2023-04-06 08:25 | US_ITS ---
FINAL REPORT CLINICAL HISTORY: ELEVATED LFT FINDINGS: RIGHT UPPER QUADRANT ULTRASOUND Sonographic images of the right upper quadrant were obtained. The pancreas is partially obscured. There is fatty infiltration of the liver. There is mild gallbladder wall thickening measuring 4 mm, nonspecific. The common duct was not measured but appears normal. Limited images of the right kidney are normal. IMPRESSION: Mild nonspecific gallbladder wall thickening. Fatty liver. Reviewed, Interpreted and Dictated by Arnold Tate III, MD Transcribed by Kaycee Fay Authenticated and [facility]
--- NOTE | 2023-04-06 08:25 | CT_ITS ---
FINAL REPORT TECHNIQUE: Then section axial CT images of the chest were obtained with contrast. Three-D reformatted images were also obtained.This study was performed with techniques to keep radiation doses as low as reasonably achievable (ALARA). Individualized dose reduction techniques using automated exposure control or adjustment of mA and/or kV according to the patient''s size were employed. CLINICAL HISTORY: SOB ON EXERTION COMPARISON: None FINDINGS: There is a 27 mm heterogeneous nodule in the left thyroid lobe. There is no evidence of pulmonary embolism. There is no evidence of thoracic aortic aneurysm or dissection. There is no evidence of mediastinal or hilar mass or adenopathy. There is no evidence of pulmonary mass or suspicious nodule. No localized inflammatory process is seen within the lungs. Calcified granuloma posterior left upper lobe. Limited images of the upper abdomen demonstrate questionable small stones in the gallbladder. IMPRESSION: No evidence of pulmonary embolism. No mass or localized inflammatory process. 27 mm left thyroid nodule. Recommend thyroid ultrasound. Questionable small stones in the gallbladder. If indicated, gallbladder ultrasound may be helpful. Reviewed, Interpreted and Dictated by Arnold Tate III, MD Transcribed by Amrita Xie Authenticated and [facility]
--- NOTE | 2023-04-06 08:30 | CT_ITS ---
FINAL REPORT TECHNIQUE: Pre-and postcontrast images of the abdomen and pelvis were performed by computed tomography. Extensive 3-D reconstruction images were performed. A CTA was performed. This study was performed with techniques to keep radiation doses as low as reasonably achievable (ALARA). Individualized dose reduction techniques using automated exposure control or adjustment of mA and/or kV according to the patient''s size were employed. CLINICAL HISTORY: dyspnea, HTN FINDINGS: ABDOMEN: The lung bases are clear. Precontrast images demonstrate no evidence of nephrolithiasis. No adrenal masses are identified. The liver, spleen and pancreas are unremarkable. There are questionable small gallstones. CTA: The abdominal aorta is proper caliber. The SMA, celiac axis, and LIBERTAD are patent. There is no significant stenosis or calcification. The renal arteries are patent bilaterally. PELVIS: The appendix is normal. The external and internal common iliac arteries are normal. There is mild nonspecific bladder wall thickening, likely inflammatory. There is a small left inguinal hernia containing fat. There is right L5 pars defect. IMPRESSION: No evidence of renal vascular hypertension or significant renal artery stenosis. Questionable gallstones. Reviewed, Interpreted and Dictated by Arnold Tate III, MD Transcribed by Kaycee Fay Authenticated and [facility]
--- NOTE | 2023-04-06 08:30 | US_ITS ---
FINAL REPORT TECHNIQUE: Ultrasound images of the kidneys and bladder were obtained. CLINICAL HISTORY: R06.00 - Dyspnea, unspecified FINDINGS: The right kidney measures 10.9 cm in length. It is normal in echogenicity. There is no hydronephrosis. The left kidney measures 10.6 cm in length. It is normal in echogenicity. There is no hydronephrosis. The spleen is unremarkable. IMPRESSION: Unremarkable renal ultrasound. Reviewed, Interpreted and Dictated by Arnold Tate III, MD Transcribed by Kaycee Fay Authenticated and [facility]
== END ==
PROVIDERS: PCP Physician Assistant; Visit Provider Physician Assistant
DX: I10 Essential (primary) hypertension; R94.31 Abnormal electrocardiogram [ECG] [EKG]; R06.02 Shortness of breath; R79.89 Other specified abnormal findings of blood chemistry
CPT/HCPCS: 71275; 74174; 76705; 76770; Q9967

== ENCOUNTER → 2023-04-14 07:21 | Outpatient (CLI) | payer OTHER, SELFPAY ==
--- NOTE | 2023-04-14 | CA_ITS ---
APPROVED REPORT Exam: Pharmacologic Technologist: Fatimah Cooley, Ht: 5 ft 6 in Wt: 191 lbs BSA: 1.96 m2 HR: 57 bpm BP: 149/89 mmHg Rhythm: SINUS NATY, ST-T ABNS IN LEADS III, AVF Medical History Medical History: HTN Medications: Amlodipine,,,,, Irbesartan,,,,, BenzNATATE,,,,, Allergies: No known drug allergies Cardiac Risk Factors: HTN Stress Test Details Test: Devin HR Resting HR: 65 bpm Max Heart Rate (APMHR): 165 bpm Max HR Achieved: 182 bpm Target HR (85% APMHR): 140 bpm % of APMHR: 110 Recovery HR: 105 bpm HR response to stress: Normal HR response to stress BP Resting BP: 149.0/89 mmHg Max BP: 220/80 mmHg Recovery BP: 173.0/80.0 mmHg BP response to stress: Abnormal hypertensive response to stress. ECG Resting ECG: SINUS NATY. ST-T ABNS IN LEADS III, AVF Stress EC.[address] depression in inferolateral leads Arrhythmia: PVCs Recovery ECG: Return to baseline within 5 minutes of recovery Recovery Arrhythmia: PVCs, bigeminy Clinical Exercise duration: 11:01 min Highest Stage Achieved: Exercise capacity: 12.8 METs Overall Exercise Capacity for Age: Good Stress ECG Conclusion PT EXERCISED 11:00 ON A DEVIN PROTOCOL, ACHIEVING A TOTAL OF 12.8 METS. HE HAS GOOD EXERCISE CAPACITY COMPARED TO AGE AND SEX MATCHED PEERS. HE HAS A NORMAL HR, BUT EXAGGERATED BP, RESPONSE TO EXERCISE. O2 SAT MONITOR SUGGESTED A DROP IN SATS WHILE ON TREADMILL, BUT THE ACCURACY OF THE READINGS WAS QUESTIONABLE MAX HR: 182 % OF PM: 110% MAX BP: 220/80 METS: 12.8 TEST STOPPED DUE TO: SOA NO CP OCC ISOLATED PVCS. IN RECOVERY THERE IS A BRIEF PERIOD OF VENTRICULAR BIGEMINY APPRX 1.[address] DEPRESSION INFEROLATERALLY CONCLUSION GOOD EXERCISE CAPACITY EXAGGERATED BP RESPONSE TO EXERCISE POSSIBLE HYPOXIA WITH EXERCISE (SPO2 READ MAY BE INACCURATE) EKG CHANGES SUGGESTIVE OF ISCHEMIA MYOVIEW IMAGES REPORTED SEPARATELY Test Summary REST . . . . . . . Standing REST . . . . . . . Sitting REST 04:54 0.0 0.0 65 . 149/ 89 . . Stage 1 01:00 10.0 1.7 95 . . . . Stage 1 02:00 10.0 1.7 96 . . . . Stage 1 03:00 10.0 1.7 103 . 182/ 80 . . Stage 2 01:00 12.0 2.5 111 . . . . Stage 2 02:00 12.0 2.5 121 . . . . Stage 2 03:00 12.0 2.5 126 . 204/ 86 . . Stage 3 01:00 14.0 3.4 144 . . . . Stage 3 02:00 14.0 3.4 153 . . . . Stage 3 03:00 14.0 3.4 164 . 220/ 80 . . Stage 4 01:00 16.0 4.2 179 . . . . Stage 4 02:00 16.0 4.2 181 . . . . Stage 4 02:01 16.0 4.2 181 . . . Stop exercise at 11:01 RECOVERY 01:00 0.0 0.0 155 . . . . RECOVERY 02:00 0.0 0.0 126 . . . . RECOVERY 03:00 0.0 0.0 111 . 176/ 83 . . RECOVERY 04:00 0.0 0.0 107 . 180/ 93 . . RECOVERY 05:00 0.0 0.0 109 . 180/ 93 . . RECOVERY 06:00 0.0 0.0 103 . 173/ 80 . . RECOVERY 07:00 0.0 0.0 106 . 173/ 80 . . RECOVERY 08:00 0.0 0.0 103 . 143/ 89 . . RECOVERY 09:00 0.0 0.0 103 . 143/ 89 . . RECOVERY 09:38 0.0 0.0 99 . 143/ 89 . . Electronically signed by : Amanda Keys, 04/15/2023 12:57:46
--- NOTE | 2023-04-14 07:45 | NM_ITS ---
APPROVED REPORT Exam: Nuclear Stress Test Indication: HTN, C.P., SOB, FATIGUE Patient Location: Outpatient Stress Tech: Fatimah Cooley PA Tech:Lauren MajanoOLLIE RT(R)(N) Ht: 5 ft 6 in Wt: 185 lbs HR: 65 bpm BP: 149/89 mmHg BSA: 1.93 m2 Rhythm: NSR TID: 0.84 BMI: 29.8 History: HTN, C.P., SOB, FATIGUE Procedure: Patient exercised on Devin protocol 11:01 minutes and sec, resting heart rate 65 bpm, resting blood pressure 149/89 mmHg, with exercise maximum heart rate achived was 182 bpm which is 110 % of the maximum predicted heart rate and blood pressure was 220/80 mmHg. Test was stopped due to FATIGUE. Patient denied any complaint of chest pain. Patient has Good exercise capacity, achieved 12.8 METs of workload on treadmill, the blood pressure response to exercise was Exaggerated. Cardiac Stress and Resting SPECT Images: Cardiac Stress and Resting SPECT images were obtained using technetium 99m Myoview 32.5 mCi stress and 10.22 mCi at rest. Resting and stress imaging in both supine and prone positions demonstrate a medium sized, moderate, fixed perfusion defect in the basal to mid inferior and inferoseptal LV lane. The imaging demonstrates a low normal LV global systolic function. LVEF is calculated at 52%. Conclusion: Medium sized, moderate, fixed perfusion defect in the basal to mid inferior and inferoseptal LV lane. No evidence of reversible ischemia. The imaging demonstrates a low normal LV global systolic function. LVEF is calculated at 52%. Electronically signed by : Amanda Keys, 04/15/2023 13:00:48
== END ==
LOC: RAD 07:21
PROVIDERS: PCP Physician Assistant; Visit Provider Physician Assistant
DX: R06.00 Dyspnea, unspecified (principal); I10 Essential (primary) hypertension; R94.31 Abnormal electrocardiogram [ECG] [EKG]
CPT/HCPCS: 78452; 93017; 93306; A9502

== ENCOUNTER → 2023-04-19 13:30 | Outpatient (CLI) | payer OTHER, SELFPAY ==
--- NOTE | 2023-04-19 13:36 | US_ITS ---
FINAL REPORT CLINICAL HISTORY: THYROID NODULE COMPARISON: None FINDINGS: Thyroid ultrasound: The right lobe of the thyroid measures 4.1 x 1.3 x 2.2 cm in size. The right lobe is homogeneous without evidence of any mass or nodule. The left lobe of the thyroid measures 4.8 x 1.9 x 3.5 cm in size. There is a dominant nodule in the left lobe of the thyroid gland, hypoechoic, measuring 3.2 x 1.5 x 2.5 cm in size. This is a TI-RADS 4 category nodule. No other left lobe nodules are seen. The isthmus of the thyroid gland measures 4 mm in thickness. IMPRESSION: Dominant nodule left lobe of the thyroid measuring 3.2 cm in greatest diameter. This is a TI-RADS category 4 nodule, and would recommend fine-needle aspiration under ultrasound guidance for further evaluation. Reviewed, Interpreted and Dictated by Leobardo Peck MD Transcribed by Alejandra Macias Authenticated and [facility]
== END ==
PROVIDERS: PCP Physician Assistant; Visit Provider Physician Assistant
DX: E04.1 Nontoxic single thyroid nodule (principal)
CPT/HCPCS: 76536

== ENCOUNTER → 2023-04-25 14:00 | Outpatient (CLI) | payer OTHER, SELFPAY ==
[2023-04-25 17:07] LABS: Alanine Aminotransferase 27 U/L (12-78); Alkaline Phosphatase 82 U/L (38-126); Aspartate Amino Transferase 29 U/L (17-59); Bilirubin,Direct 0.1 mg/dl (0.0-0.4); Bilirubin,Indirect 1.7 mg/dL (0.0-0.9); Bilirubin,Total 1.8 mg/dl (0.2-1.3); Bilirubin,Unconjugated 1.8 mg/dL (0.0-1.1); Chol/HDL Ratio 4.5 (1-3.5); Cholesterol 205 mg/dl (140-200); HDL Cholesterol 46 mg/dl (40-60); Total Protein,Serum 7.9 g/dl (6.3-8.2); Triglycerides 236 mg/dl (30-150); VLDL Cholesterol 47 mg/dL (0-40)
[2023-04-25 17:18] LABS: Direct LDL Cholesterol 97.52 mg/dL (100-129)
== END ==
PROVIDERS: Visit Provider Internal Medicine
DX: R06.00 Dyspnea, unspecified (principal); I10 Essential (primary) hypertension; R05.9 Cough, unspecified; R20.0 Anesthesia of skin; R94.31 Abnormal electrocardiogram [ECG] [EKG]; Z79.899 Other long term (current) drug therapy
CPT/HCPCS: 80061; 80076

== ENCOUNTER → 2023-04-25 15:21 | Outpatient (CLI) | payer OTHER, SELFPAY | PROVIDERS: PCP Family Medicine; Visit Provider Internal Medicine | DX: R06.00 Dyspnea, unspecified (principal); I10 Essential (primary) hypertension; R05.9 Cough, unspecified; R20.0 Anesthesia of skin; R94.31 Abnormal electrocardiogram [ECG] [EKG] | CPT/HCPCS: 93270 ==

== ENCOUNTER → 2023-04-28 08:34 | Outpatient (CLI) | payer OTHER, SELFPAY ==
--- NOTE | 2023-04-28 08:40 | CA_ITS ---
FINAL REPORT TECHNIQUE: Color Doppler, duplex Doppler and blount scale sonography of the bilateral neck vasculature was performed. Velocities were measured in the carotid arteries. Stenosis evaluation based on velocity criteria. CLINICAL HISTORY: facial numbness COMPARISON: None FINDINGS: The peak systolic velocity of the right common carotid artery is 108 cm/sec and internal carotid artery 88 cm/sec. The diastolic velocity in the internal carotid artery is 35 cm/sec. The ICA/CCA ratio is 0.8. Visually, a small amount of plaque is seen. These findings are consistent with less than 50% stenosis. The external carotid artery is patent. The right vertebral artery is patent with antegrade flow. The peak systolic velocity of the left common carotid artery is 127 cm/sec and internal carotid artery 103 cm/sec. The diastolic velocity in the internal carotid artery is 36 cm/sec. The ICA/CCA ratio is 1.13. Visually, a small amount of plaque is seen. These findings are consistent with less than 50% stenosis. The external carotid artery is patent. The left vertebral artery is patent with antegrade flow. IMPRESSION: No evidence of significant carotid stenosis. Bilateral patent vertebral arteries. If indicated, CTA or MRA could further evaluate. Reviewed, Interpreted and Dictated by Arnold Tate III, MD Transcribed by Alejandra Macias Authenticated and . [facility]
== END ==
PROVIDERS: PCP Family Medicine; Visit Provider Internal Medicine
DX: R06.00 Dyspnea, unspecified (principal); R20.0 Anesthesia of skin; R05.9 Cough, unspecified; I10 Essential (primary) hypertension; R94.31 Abnormal electrocardiogram [ECG] [EKG]
CPT/HCPCS: 93880

== ENCOUNTER → 2023-04-29 07:44 | Outpatient (CLI) | payer OTHER, SELFPAY ==
--- NOTE | 2023-04-29 08:03 | US_ITS ---
FINAL REPORT CLINICAL HISTORY: nodule left lobe thyroid FNA Hesham SALGADO FINDINGS: Ultrasound guided thyroid biopsy. HISTORY: Thyroid mass. PROCEDURE: After informed consent was obtained and a time-out was performed, the patient was prepped and draped in usual sterile fashion over the anterior neck. Utilizing local anesthesia and sterile technique with a 25-gauge needle, access to the lesion was obtained. Four passes were made. The patient received no conscious sedation. The patient tolerated procedure well and left the department in good condition. IMPRESSION: Status post ultrasound guided biopsy of a thyroid nodule without immediate complication. Films reviewed , interpreted and dictated by Dr. Tate Transcribed by Hesham Cruz PA-C. Reviewed, Interpreted and Dictated by Arnold Tate III, MD Transcribed by DAMIAN Landa Authenticated and . [facility]
== END ==
PROVIDERS: PCP Family Medicine; Visit Provider Physician Assistant
DX: E04.1 Nontoxic single thyroid nodule (principal)
CPT/HCPCS: 10005; 76536

== ENCOUNTER → 2023-05-05 12:33 | Outpatient (CLI) | payer OTHER, SELFPAY ==
[2023-05-05 14:40] LABS: Vitamin B12 201 pg/mL (239-931)
== END ==
PROVIDERS: PCP Family Medicine; Visit Provider Physician Assistant
DX: R20.2 Paresthesia of skin (principal)
CPT/HCPCS: 36415; 82607

== ENCOUNTER → 2023-05-23 09:52 | Outpatient (CLI) | payer OTHER, SELFPAY | PROVIDERS: PCP Physician Assistant; Visit Provider Internal Medicine Pulmonary Disease | DX: R06.09 Other forms of dyspnea (principal) | CPT/HCPCS: 94060; 94618; 94726; 94729 ==

== ENCOUNTER → 2023-06-06 12:45 | Outpatient (CLI) | payer OTHER, SELFPAY ==
[2023-06-06 14:10] LABS: Amphetamine/Metha Screen,Urine Negative ng/ml (<1000)
[2023-06-06 14:11] LABS: Barbiturates Screen,Urine Negative ng/ml (<200); Benzodiazepines Screen,Urine Negative ng/ml (<200)
[2023-06-06 14:12] LABS: Cannabinoid Screen,Urine Negative ng/ml (<50); Cocaine Screen,Urine Negative ng/ml (<300)
[2023-06-06 14:13] LABS: Methadone Screen,Urine Negative ng/ml (<300)
[2023-06-06 14:14] LABS: Opiate Screen,Urine Negative ng/ml (<300); Phencyclidine Screen,Urine Negative ng/ml (<25)
== END ==
PROVIDERS: PCP Family Medicine; Visit Provider Nurse Practitioner Family
DX: F19.11 Other psychoactive substance abuse, in remission (principal)
CPT/HCPCS: 80305

== ENCOUNTER → 2023-06-16 07:52 | Outpatient (CLI) | payer OTHER, SELFPAY ==
--- NOTE | 2023-06-16 08:28 | MR_ITS ---
FINAL REPORT CLINICAL HISTORY: RIGHT SIDED facial numbness. NUMBNESS IN RIGHT ARM TO WRIST. FINDINGS: Multiplanar MR imaging of the brain was performed without and with contrast. There are few small scattered foci of increased signal in the deep white matter. There is no evidence of intracranial hemorrhage or mass. No abnormal extra-axial fluid collection is seen. The ventricular size is within normal limits. There is no evidence of shift of the midline structures. The posterior fossa and brainstem have an unremarkable appearance. No area of abnormal restricted diffusion is identified. No abnormal contrast enhancement is seen. Normal major vessel vascular flow voids are noted. IMPRESSION: No acute intracranial abnormality identified. Few small scattered foci of increased signal in the deep white matter consistent with mild chronic microvascular ischemia. Reviewed, Interpreted and Dictated by Gabriel Bah MD Transcribed by Kaycee Fay Authenticated and . [facility]
--- NOTE | 2023-06-16 08:28 | MR_ITS ---
FINAL REPORT CLINICAL HISTORY: RIGHT SIDED facial numbness. NUMBNESS IN RIGHT ARM TO WRIST. FINDINGS: Multiple projection images of the brain arterial vasculature were obtained without contrast. raw data images were also reviewed. There is normal intracranial branching pattern. No segmental stenosis identified. There is no evidence of aneurysm. IMPRESSION: No major vessel occlusion. Reviewed, Interpreted and Dictated by Gabriel Bah MD Transcribed by Kaycee Fay Authenticated and [facility]
--- NOTE | 2023-06-16 08:28 | MR_ITS ---
FINAL REPORT CLINICAL HISTORY: neck pain, facial numbness, brisk reflexes. NUMBNESS IN RIGHT ARM TO WRIST FINDINGS: Multi planar MR imaging was obtained of the cervical spine. There is abnormal decreased signal throughout the cervical discs. The vertebrae are of normal height. There is mild reversal of the cervical lordosis. There is no malalignment. The cervical cord demonstrates normal signal and configuration. C2-C3: There is no evidence of significant disc bulge or protrusion. There is no significant facet hypertrophy. C3-C4: There is no evidence of significant disc bulge or protrusion. There is no significant facet hypertrophy. C4-C5: Mild diffuse disc bulge and endplate hypertrophy are present. There is a small left paracentral disc protrusion with mild compromise of the left side of the spinal canal. There is moderate bilateral neural foraminal narrowing. C5-C6: Moderate diffuse disc bulge and endplate hypertrophy are present. There is mild to moderate compromise of the left side of the spinal canal. There is moderate bilateral neural foraminal narrowing. C6-C7: Mild diffuse disc bulge is present with mild bilateral neural foraminal narrowing. C7-T1: There is no evidence of significant disc bulge or protrusion. There is no significant facet hypertrophy. IMPRESSION: Diffuse disc bulges at C4-5 and C5-6 with endplate hypertrophy and compromise of the left side of the spinal canal. Reviewed, Interpreted and Dictated by Gabriel Bah MD Transcribed by Kaycee Fay Authenticated and . [facility]
[2023-06-16 08:34] LABS: Blood Urea Nitrogen 17 mg/dl (9-20); Estimated Glomerular Filt Rate 69 ml/min (>60); GFR (African American) 84 ML/MIN (>60)
== END ==
PROVIDERS: PCP Family Medicine; Visit Provider Nurse Practitioner Family
DX: F19.11 Other psychoactive substance abuse, in remission (principal); R20.0 Anesthesia of skin; M54.2 Cervicalgia
CPT/HCPCS: 36415; 70544; 70553; 72141; 76376; 82565; 84520; A9576

== ENCOUNTER → 2023-08-22 15:32 | Outpatient (CLI) | payer OTHER, SELFPAY ==
[2023-08-22 15:56] LABS: Basophils % 0.9 % (0.1-2.0); Eosinophils # 0.1 K/mm3 (0.0-0.4); Eosinophils % 2.1 % (0.1-12.0); Hematocrit 46.5 % (42.0-52.0); Hemoglobin 15.6 g/dL (14.1-18.0); Lymphocytes # 1.1 K/mm3 (0.7-4.5); Lymphocytes % 26.6 % (10-50); Mean Corpuscular HGB Conc 33.6 g/dL (31.8-35.4); Mean Corpuscular Hemoglobin 29.4 pg (27.0-31.2); Mean Corpuscular Volume 87.5 fl (80-94); Mean Platelet Volume 7.7 fl (7.4-10.4); Monocytes # 0.3 K/mm3 (0.1-1.0); Monocytes % 6.3 % (1.7-9.3); Neutrophils # 2.6 K/mm3 (1.8-7.8); Neutrophils % 64.1 % (37.0-80.0); Platelet Count 233 K/mm3 (142-424); Red Blood Count 5.32 M/mm3 (4.60-6.20); Red Cell Distribution Width 13.1 % (11.5-17.5); White Blood Count 4.1 K/mm3 (4.8-10.8)
[2023-08-22 16:19] LABS: Alanine Aminotransferase 31 U/L (12-78); Albumin Level 4.9 g/dl (3.5-5.0); Alkaline Phosphatase 63 U/L (38-126); Aspartate Amino Transferase 32 U/L (17-59); Bilirubin,Indirect 2.5 mg/dL (0.0-0.9); Bilirubin,Total 2.5 mg/dl (0.2-1.3); Bilirubin,Unconjugated 2.8 mg/dL (0.0-1.1); Blood Urea Nitrogen 10 mg/dl (9-20); Calcium 9.3 mg/dl (8.4-10.2); Carbon Dioxide 30 mmol/L (22.0-30.0); Chloride 101 mmol/L (98-107); Chol/HDL Ratio 3.3 (1-3.5); Cholesterol 140 mg/dl (140-200); Estimated Glomerular Filt Rate 77 ml/min (>60); GFR (African American) 94 ML/MIN (>60); Glucose 96 mg/dl (74-100); HDL Cholesterol 43 mg/dl (40-60); Sodium 139 mmol/L (136-145); Total Protein,Serum 7.6 g/dl (6.3-8.2); Triglycerides 130 mg/dl (30-150); VLDL Cholesterol 26 mg/dL (0-40)
[2023-08-22 16:36] LABS: Free T4 (Free Thyroxine) 1.08 ng/dl (0.78-2.19)
== END ==
PROVIDERS: PCP Family Medicine; Visit Provider Internal Medicine
DX: I10 Essential (primary) hypertension (principal); R06.02 Shortness of breath; R06.00 Dyspnea, unspecified
CPT/HCPCS: 80048; 80061; 80076; 84439; 84443; 85025

== ENCOUNTER → 2023-08-24 15:41 | Outpatient (CLI) | payer OTHER, SELFPAY | PROVIDERS: PCP Family Medicine; Visit Provider Internal Medicine | DX: R00.1 Bradycardia, unspecified (principal); R94.31 Abnormal electrocardiogram [ECG] [EKG] | CPT/HCPCS: 93270 ==

== ENCOUNTER 2023-10-18 13:15 | Outpatient (CLI) | payer OTHER, SELFPAY ==
[2023-10-18 13:46] LABS: Basophils % 1.3 % (0.1-2.0); Eosinophils # 0.1 K/mm3 (0.0-0.4); Eosinophils % 3.3 % (0.1-12.0); Hematocrit 45.4 % (42.0-52.0); Hemoglobin 15.5 g/dL (14.1-18.0); Lymphocytes # 0.9 K/mm3 (0.7-4.5); Lymphocytes % 26.8 % (10-50); Mean Corpuscular HGB Conc 34.1 g/dL (31.8-35.4); Mean Corpuscular Hemoglobin 29.8 pg (27.0-31.2); Mean Corpuscular Volume 87.4 fl (80-94); Mean Platelet Volume 7.2 fl (7.4-10.4); Monocytes # 0.2 K/mm3 (0.1-1.0); Monocytes % 5.8 % (1.7-9.3); Neutrophils # 2.1 K/mm3 (1.8-7.8); Neutrophils % 62.7 % (37.0-80.0); Platelet Count 279 K/mm3 (142-424); Red Blood Count 5.19 M/mm3 (4.60-6.20); Red Cell Distribution Width 13.5 % (11.5-17.5); White Blood Count 3.3 K/mm3 (4.8-10.8)
[2023-10-18 14:44] LABS: Chloride 101 mmol/L (98-107); Potassium 4.2 mmoL/L (3.5-5.1); Sodium 137 mmol/L (136-145)
[2023-10-18 14:46] LABS: Bilirubin,Unconjugated 1.8 mg/dL (0.0-1.1); Blood Urea Nitrogen 15 mg/dl (9-20); Estimated Glomerular Filt Rate 87 ml/min (>60); GFR (African American) 106 ML/MIN (>60)
[2023-10-18 14:47] LABS: Alanine Aminotransferase 34 U/L (12-78); Albumin Level 4.5 g/dl (3.5-5.0); Alkaline Phosphatase 76 U/L (38-126); Aspartate Amino Transferase 31 U/L (17-59); Bilirubin,Indirect 1.9 mg/dL (0.0-0.9); Bilirubin,Total 1.9 mg/dl (0.2-1.3); Calcium 9.2 mg/dl (8.4-10.2); Chol/HDL Ratio 4.5 (1-3.5); Cholesterol 170 mg/dl (140-200); Glucose 94 mg/dl (74-100); HDL Cholesterol 38 mg/dl (40-60); Magnesium 1.9 mg/dl (1.6-2.3); Total Protein,Serum 7.1 g/dl (6.3-8.2); Triglycerides 77 mg/dl (30-150); VLDL Cholesterol 15 mg/dL (0-40)
[2023-10-18 15:04] LABS: Direct LDL Cholesterol 106.94 mg/dL (100-129); Free T4 (Free Thyroxine) 1.21 ng/dl (0.78-2.19)
[2023-10-18 18:20] LABS: Anion Gap 10.2 mEq/L (5-15); Carbon Dioxide 30 mmol/L (22.0-30.0)
== END 2023-10-18 23:59 ==
LOC: LAB 13:16
PROVIDERS: PCP Family Medicine; Visit Provider Internal Medicine
DX: I10 Essential (primary) hypertension (principal); R00.1 Bradycardia, unspecified; R20.0 Anesthesia of skin; R94.31 Abnormal electrocardiogram [ECG] [EKG]
CPT/HCPCS: 36415; 80048; 80061; 80076; 83735; 84439; 84443; 85025

== ENCOUNTER → 2023-10-27 14:08 | Outpatient (POV) | payer OTHER, SELFPAY ==
--- NOTE | 2023-10-27 14:17 | A.OFFVIS_ITS ---
HPI Data of Consult Patient: new to practice Consult date: 10/27/23 Requesting Physician: Radha Colbert APRN Primary Care Provider: Sidney Alvarenga MD Consult Narrative Reason for consult: Low back pain, bilateral hip pain, History of present illness: Mr. Clark is a 58 year old male who presents today as a new patient. He is a referral from Dr. Alvarenga's office. Today he rates his pain a 7 out of 10. Patient states he has pain in multiple areas however was really bothering him lately is his low back and hip symptoms that do also down into and around his groin. Patient states that he has had low back pain for years that has progressively worsened. Patient states this is a constant aching, throbbing sensation with occasional sharp shooting pains. He does state that the pain is worse with certain positioning. He does state that the hip pain is newer. He does state the pain is interfering with his ability perform activities of daily living such as cooking and cleaning. Patient has tried [id number] Tylenol and ibuprofen along with heat and ice and topicals with minimal relief. Patient has also done injection therapy in the past including lumbar facet blocks and lumbar epidurals and states these would sometimes provide better improvement but they could be hit or miss. Patient has been to physical therapy multiple sessions and continues to do at home stretching and exercise for longer than 6 weeks. Patient states that he has been to see neurosurgery and that Dr. Green out of [place] was recommending a 4 level fusion and sent him to Dr. Wu in [place]. Patient states that he did see this provider and was told it was a very extensive procedure and that whenever he was ready to proceed forward he would just have to call. Patient has had previous lumbar laminectomy in the past. Patient does have a history of heart attack and drug abuse in the past. 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 His Sourav has been reviewed and is appropriate. CC: Radha Colbert APRN [facility] Disclaimer: The information contained in this section may have been updated after the patient was seen, as this information can be updated by other users. Medical History Bradycardia Chronic cough Cough Facial numbness High diffusion capacity of lung History of heart attack Right facial numbness Surgical History History of lumbar surgery History of surgery on lower extremity Family History Other Cancer Diabetes Hypertension Social History Smoking Status: Never smoker alcohol intake: never substance use type: former substance user and crack/cocaine current occupational status: unemployed Travel in the last 8 weeks: None household members: none housing: house number of children: 1 current occupation: current occupational exposures/hazards: No caffeine: Yes Review of Systems Review of Systems Review of systems:: pertinent systems reviewed and negative unless documented below Review of systems (narrative): Review of Systems: General: No recent weight changes, no fever, no sleep disturbances Respiratory: No cough, no shortness of air, no recurring pulmonary infections Cardiovascular/peripheral vascular: No chest pain, no palpitations, no edema, no shortness of breath Gastrointestinal: No new onset incontinence, normal bowel movements reported Genitourinary: No new onset incontinence Musculoskeletal: Low back pain, bilateral hip pain, groin pain Psychiatric: [Normal mood/affect] Neurological: [Denies weakness in extremities], [denies balance issues] Meds Home Medications and Allergies Home Medications Medication Instructions Recorded Confirmed Type amlodipine 5 mg tablet 5 mg PO DAILY 03/31/23 10/24/23 History irbesartan 150 mg tablet 150 mg PO DAILY 03/31/23 10/24/23 History aspirin 81 mg tablet,delayed 81 mg PO DAILY #30 tabs 10/18/23 10/24/23 Rx release (Adult Low Dose Aspirin) folic acid 1 mg tablet 1 mg PO DAILY 10/24/23 10/24/23 History methotrexate sodium 2.5 mg tablet 15 mg PO WEEKLY 10/24/23 10/24/23 History prednisolone acetate 1 % eye 2 drp Eye-Left ONCE 10/24/23 10/24/23 History drops,suspension New Prescriptions to Start Prescriptions: Allergies Allergy/AdvReac Type Severity Reaction Status Date / Time No Known Allergies Allergy Verified 10/24/23 14:54 Objective Narrative: Physical Exam: General: Alert and oriented x3, no acute distress, pleasant and cooperative Lungs: Respirations even and unlabored, symmetrical chest expansion Eyes: PERRL Musculoskeletal: Flexion and extension of lumbar [spine] somewhat guarded secondary to pain, [antalgic gait noted] point tenderness along bilateral SIs with positive bilateral Jojo's, Emre's, Gaenslen's, compression and distraction exam Neurological: Speech clear, no gross sensory deficit Additional findings Additional findings: FINAL REPORT CLINICAL HISTORY: neck pain, facial numbness, brisk reflexes. NUMBNESS IN RIGHT ARM TO WRIST FINDINGS: Multi planar MR imaging was obtained of the cervical spine. There is abnormal decreased signal throughout the cervical discs. The vertebrae are of normal height. There is mild reversal of the cervical lordosis. There is no malalignment. The cervical cord demonstrates normal signal and configuration. C2-C3: There is no evidence of significant disc bulge or protrusion. There is no significant facet hypertrophy. C3-C4: There is no evidence of significant disc bulge or protrusion. There is no significant facet hypertrophy. C4-C5: Mild diffuse disc bulge and endplate hypertrophy are present. There is a small left paracentral disc protrusion with mild compromise of the left side of the spinal canal. There is moderate bilateral neural foraminal narrowing. C5-C6: Moderate diffuse disc bulge and endplate hypertrophy are present. There is mild to moderate compromise of the left side of the spinal canal. There is moderate bilateral neural foraminal narrowing. C6-C7: Mild diffuse disc bulge is present with mild bilateral neural foraminal narrowing. C7-T1: There is no evidence of significant disc bulge or protrusion. There is no significant facet hypertrophy. IMPRESSION: Diffuse disc bulges at C4-5 and C5-6 with endplate hypertrophy and compromise of the left side of the spinal canal. Reviewed, Interpreted and Dictated by Gabriel Bah MD Transcribed by Kaycee Fay Authenticated and [facility] FINDINGS: The the spinal cord ends at the L1 level. T11-T12, T12-L1, and L1-L2 show mild degenerative disc disease with some decrease in the disc space along with mild facet and ligamentum hypertrophy. L2-L3: There is a asymmetric bulging disc eccentric to the right causing mild right lateral recess narrowing. There facet and ligamentum hypertrophy with bilateral foraminal narrowing. Previously noted right paracentral disc protrusion at this level has improved. L3-L4: Bulging disc along with facet and ligamentum hypertrophy with canal stenosis the along with severe bilateral lateral recess and foraminal narrowing from facet and ligamentum hypertrophy. Canal stenosis may be slightly worse in the transverse dimension in the right lateral recess and foraminal narrowing may also be slightly worse. The broad-based central left paracentral disc protrusion is no longer apparent. L4-5: There is retrolisthesis of L4 by 3 mm not significantly change with bulging disc small central disc protrusion is noted with severe bilateral lateral recess and foraminal narrowing. There has been prior laminectomy at L4 and L5. Severe facet hypertrophic changes are present. L5-S1: There is 11 mm anterolisthesis of L5 on S1 with severe degenerative disc disease along with facet and ligamentum hypertrophy with severe bilateral lateral recess and foraminal narrowing. This is not significantly changed. IMPRESSION: 1. L2-L3: There is a asymmetric bulging disc eccentric to the right causing mild right lateral recess narrowing. There facet and ligamentum hypertrophy with bilateral foraminal narrowing. Previously noted right paracentral disc protrusion at this level has improved. 2. L3-L4: Bulging disc along with facet and ligamentum hypertrophy with canal stenosis the along with severe bilateral lateral recess and foraminal narrowing from facet and ligamentum hypertrophy. Canal stenosis may be slightly worse in the transverse dimension and right lateral recess and foraminal narrowing may also be slightly worse. The broad-based central left paracentral disc protrusion is no longer apparent. 3. L4-5: There is retrolisthesis of L4 by 3 mm not significantly change with bulging disc small central disc protrusion is noted with severe bilateral lateral recess and foraminal narrowing. There has been prior laminectomy at L4 and L5. Severe facet hypertrophic changes are present. 4. L5-S1: There is 11 mm anterolisthesis of L5 on S1 with severe degenerative disc disease along with facet and ligamentum hypertrophy with severe bilateral lateral recess and foraminal narrowing. This is not significantly changed. Dictated by: Alfred Contreras MD 08/16/2019 14:03 Electronically signed by Alfred Contreras MD in [place] 08/16/2019 14:03 Assessment and Plan *Assessment and plan (1) Degenerative disc disease, lumbar: Status: Acute Category: Medical Code(s): M51.36 - Other intervertebral disc degeneration, lumbar region (2) Bilateral hip pain: Status: Acute Category: Medical Code(s): M25.551 - Pain in right hip; M25.552 - Pain in left hip (3) Chronic low back pain: Status: Acute Qualifiers: Back pain laterality: bilateral Sciatica presence: with sciatica Sciatica laterality: bilateral sciatica Qualified Code(s): M54.42 - Lumbago with sciatica, left side; M54.41 - Lumbago with sciatica, right side; G89.29 - Other chronic pain Category: Medical Code(s): M54.50 - Low back pain, unspecified; G89.29 - Other chronic pain (4) Bilateral sacroiliitis: Status: Acute Category: Medical Code(s): M46.1 - Sacroiliitis, not elsewhere classified Plan Patient is experiencing significant pain in his low back and bilateral hips with limited range of motion of his lumbar spine. Patient did have point tenderness along his bilateral SIs with a positive bilateral Jojo's, Emre's, Gaenslen's, compression and distraction exam. Patient has been counseled that he may benefit from a bilateral SI injection. Risk and benefits were discussed with patient and he would like to proceed forward with this plan of care. I have also discussed with the patient due to his severe degenerative disc disease in his lumbar spine with previous laminectomy and severe stenosis that he may benefit from a intrathecal pain pump trial in the future with bupivacaine. We will follow-up with this at future visits. I will order the patient a compo unded cream. Patient will be scheduled for bilateral SI injections under fluoroscopy. Patient has been instructed to contact the clinic with any concerns before the next appointment. Dr. Hoff has reviewed this note and agrees with this plan of care. This note was dictated using voice recognition software and make contain errors or omissions.
[2023-10-27 15:35] VITALS: BP 157/95; PULSE 81; RESP 18; O2SAT 95; BMI 33.0
== END ==
LOC: SC.PAIN 14:08
PROVIDERS: PCP Family Medicine; Visit Provider Nurse Practitioner Family
DX: M51.36 Other intervertebral disc degeneration, lumbar region (principal); M25.551 Pain in right hip; M25.552 Pain in left hip; M54.42 Lumbago with sciatica, left side; M54.41 Lumbago with sciatica, right side; G89.29 Other chronic pain; M46.1 Sacroiliitis, not elsewhere classified
CPT/HCPCS: 99202; G0463

== ENCOUNTER → 2023-11-21 14:54 | Outpatient (POV) | payer OTHER, SELFPAY ==
--- NOTE | 2023-11-21 15:42 | EXP.PAIN.SOA ---
[facility] Pain Management SOAP Note Subjective:: Patient is a pleasant 58-year-old male who presents today for follow-up SI injection denial. We are currently treating the patient for bilateral sacroiliitis, low back pain, chronic pain syndrome, bilateral hip pain. Today he rates his pain a 6 out of 10. Patient denies any new trauma or injury. He still states he continues to have pain in and around his bilateral hips and does believe it is his sacral ileitis flaring up. Patient was prescribed compounded cream at his last visit and he does state that this did help some of his pain however it is more noticeable at the end of the day when he is able to put his feet up and rest. He states during the day it is not as impressive. His Sourav has been reviewed and is appropriate. Review of Systems: General: No recent weight changes, no fever, no sleep disturbances Respiratory: No cough, no shortness of air, no recurring pulmonary infections Cardiovascular/peripheral vascular: No chest pain, no palpitations, no edema, no shortness of breath Gastrointestinal: No new onset incontinence, normal bowel movements reported Genitourinary: No new onset incontinence Musculoskeletal: Low back pain, bilateral hip pain Psychiatric: [Normal mood/affect] Neurological: [Denies weakness in extremities], [denies balance issues] Objective:: Physical Exam: General: Alert and oriented x3, no acute distress, pleasant and cooperative Lungs: Respirations even and unlabored, symmetrical chest expansion Eyes: PERRL Musculoskeletal: Flexion and extension of lumbar [spine] somewhat guarded secondary to pain, [antalgic gait noted] point tenderness along bilateral SIs with positive bilateral Jojo's, Emre's, Gaenslen's, compression and distraction exam Neurological: Speech clear, no gross sensory deficit Assessment:: Degenerative disc disease of lumbar spine with lumbar radiculopathy symptoms, chronic pain syndrome, bilateral hip pain, bilateral sacroiliitis Plan:: Patient continues to have bilateral sacroiliitis symptoms with limited range of motion of his lumbar spine and point tenderness at his bilateral SIs. Patient was denied the SI injections due to not having updated imaging. I have reviewed with the patient that I will order x-ray of his lumbar spine and bilateral SIs as well as more advanced imaging of MRI without contrast of his lumbar spine. Patient will return to clinic in 1 month following this imaging for reevaluation of symptoms and plan of care. Patient has been instructed to contact the clinic with any concerns before the next appointment. Dr. Hoff has reviewed this note and agrees with this plan of care. This note was dictated using voice recognition software and make contain errors or omissions. [facility] Disclaimer: The information contained in this section may have been updated after the patient was seen, as this information can be updated by other users. Medical History Bradycardia Chronic cough Cough Facial numbness High diffusion capacity of lung History of heart attack Right facial numbness Surgical History History of lumbar surgery History of surgery on lower extremity Family History Other Cancer Diabetes Hypertension Social History (Updated 10/27/23 @ 15:36 by Julieth Amaya RN) Smoking Status: Never smoker alcohol intake: never substance use type: former substance user and crack/cocaine current occupational status: employed Travel in the last 8 weeks: None household members: none housing: house number of children: 1 current occupation: current occupational exposures/hazards: No caffeine: Yes
[2023-11-21 16:10] VITALS: BP 141/97; PULSE 80; RESP 18; O2SAT 95; BMI 33.0
== END ==
LOC: SC.PAIN 14:55
PROVIDERS: PCP Family Medicine; Visit Provider Nurse Practitioner Family
DX: M51.16 Intervertebral disc disorders with radiculopathy, lumbar region (principal); G89.4 Chronic pain syndrome; M25.551 Pain in right hip; M25.552 Pain in left hip; M46.1 Sacroiliitis, not elsewhere classified
CPT/HCPCS: 99212; G0463

== ENCOUNTER 2023-11-22 11:50 | Outpatient (CLI) | payer OTHER, SELFPAY ==
--- NOTE | 2023-11-22 | XR_ITS ---
FINAL REPORT CLINICAL HISTORY: lower back pain x 20 yrs COMPARISON: None FINDINGS: AP, lateral, and oblique views of the lumbar spine were obtained. There is grade 2 anterolisthesis of L5 on S1.. Vertebral body height is preserved. There is multilevel degenerative disc disease present, most pronounced at the L5-S1 level.. No acute paraspinal abnormality is identified. IMPRESSION: Grade 2 anterolisthesis of L5 on S1. There is also multilevel degenerative disc disease present, most pronounced at the L5-S1 level. No acute osseous abnormalities lumbar spine. Reviewed, Interpreted and Dictated by Dionne Colby MD Transcribed by Alejandra Macias Authenticated and . [facility]
--- NOTE | 2023-11-22 | XR_ITS ---
FINAL REPORT CLINICAL HISTORY: lower back pain x 20 years COMPARISON: None FINDINGS: SACROILIAC JOINTS: 3 views of the sacroiliac joints reveal that there may be a tiny erosion involving the superior iliac side of the right SI joint. The sacroiliac joints are otherwise unremarkable in appearance. No acute bony abnormality is identified. IMPRESSION: Questionable tiny erosion of the superior iliac side of the right SI joint. Reviewed, Interpreted and Dictated by Dionne Colby MD Transcribed by Alejandra Macias Authenticated and [facility]
== END 2023-11-22 23:59 ==
LOC: RAD 11:51
PROVIDERS: PCP Family Medicine; Visit Provider Nurse Practitioner Family
DX: M54.50 Low back pain, unspecified (principal); M46.1 Sacroiliitis, not elsewhere classified
CPT/HCPCS: 72110; 72202

== ENCOUNTER → 2023-11-30 14:08 | Outpatient (POV) | payer OTHER, SELFPAY ==
[2023-11-30 14:13] VITALS: BP 140/93; PULSE 69; RESP 20; BMI 32.3
--- NOTE | 2023-11-30 14:27 | EXP.PAIN.SOA ---
[facility] Pain Management SOAP Note Subjective:: Patient is a pleasant 58-year-old male who presents today for insurance denial of MRI. We are currently treating the patient for degenerative disc disease of lumbar spine with lumbar radiculopathy symptoms, bilateral hip pain, bilateral sacroiliitis, chronic pain syndrome. Today he rates his pain a 7 out of 10. Patient denies any new trauma or injury. He states he continues to have the same pains he has been experiencing. Patient was denied this imaging due to not having recent physical therapy. Patient does state that he feels like that would possibly make his symptoms worse. Patient in the past and did do exactly that causing worsening pain to his overall low back. He states that this episode has been going on since September and he did just finally get the spasms to ease up. He states he is still sleeping on the floor due to the worsening pain. Patient did have prior back surgery and has not had any updated imaging since 2019. His Sourav has been reviewed and is appropriate. Review of Systems: General: No recent weight changes, no fever, no sleep disturbances Respiratory: No cough, no shortness of air, no recurring pulmonary infections Cardiovascular/peripheral vascular: No chest pain, no palpitations, no edema, no shortness of breath Gastrointestinal: No new onset incontinence, normal bowel movements reported Genitourinary: No new onset incontinence Musculoskeletal: Low back pain, hip pain Psychiatric: [Normal mood/affect] Neurological: [Denies weakness in extremities], [denies balance issues] Objective:: Physical Exam: General: Alert and oriented x3, no acute distress, pleasant and cooperative Lungs: Respirations even and unlabored, symmetrical chest expansion Eyes: PERRL Musculoskeletal: Flexion and extension of lumbar [spine] somewhat guarded secondary to pain, [antalgic gait noted] Neurological: Speech clear, no gross sensory deficit Assessment:: Degenerative disc disease of lumbar spine with lumbar radiculopathy symptoms, bilateral hip pain, bilateral sacroiliitis, chronic pain syndrome Plan:: Patient continues to experience significant pain throughout his low back and hips. I have discussed with the patient that we can order physical therapy however due to the patient's previous episode of worsening pain after physical therapy he would like to hold off on this option. Patient does state that he may end up just calling his neurosurgeon back. I have counseled the patient that he can call and schedule his next follow-up appointment as needed with our office. Patient has been instructed to contact the clinic with any concerns before the next appointment. Dr. Hoff has reviewed this note and agrees with this plan of care. This note was dictated using voice recognition software and make contain errors or omissions. [facility] Disclaimer: The information contained in this section may have been updated after the patient was seen, as this information can be updated by other users. Medical History Bradycardia Chronic cough Cough Facial numbness High diffusion capacity of lung History of heart attack Right facial numbness Surgical History History of lumbar surgery History of surgery on lower extremity Family History Other Cancer Diabetes Hypertension Social History (Updated 10/27/23 @ 15:36 by Julieth Amaya RN) Smoking Status: Never smoker alcohol intake: never substance use type: former substance user and crack/cocaine current occupational status: other Travel in the last 8 weeks: None household members: none housing: house number of children: 1 current occupation: current occupational exposures/hazards: No caffeine: Yes
== END ==
LOC: SC.PAIN 14:08
PROVIDERS: PCP Family Medicine; Visit Provider Nurse Practitioner Family
DX: M51.16 Intervertebral disc disorders with radiculopathy, lumbar region (principal); M25.551 Pain in right hip; M25.552 Pain in left hip; M46.1 Sacroiliitis, not elsewhere classified; G89.4 Chronic pain syndrome
CPT/HCPCS: 99212; G0463

== ENCOUNTER 2024-01-27 12:14 | Outpatient (CLI) | payer OTHER, SELFPAY ==
[2024-01-27 14:36] LABS: Prostate Specific Ag Screen 1.1 ng/ml (0.0-4.0)
== END 2024-01-27 23:59 | disposition home or self-care (01) ==
LOC: LAB 12:19
PROVIDERS: PCP Family Medicine; Visit Provider Urology
DX: Z12.5 Encounter for screening for malignant neoplasm of prostate (principal)
CPT/HCPCS: 36415; G0103

== ENCOUNTER 2024-06-04 13:48 | Outpatient (CLI) | payer OTHER, SELFPAY ==
--- NOTE | 2024-06-04 | MR_ITS ---
FINAL REPORT CLINICAL HISTORY: LBP COMPARISON: 08/16/2019 FINDINGS: Multiplanar MR imaging of the lumbar spine was performed without contrast. There is motion on many sequences which somewhat limits overall image quality. On the sagittal T2-weighted images, disc degeneration is seen at multiple levels. There is 11 mm of anterolisthesis of L5 on S1, stable. There is mild retrolisthesis of L3 on L4 and L4 on L5. Severe degenerative endplate changes present at the L5-S1 level. There is no evidence of fracture. No bony mass is identified. The conus has an unremarkable appearance. T12-L1: An annular bulge is present without significant canal stenosis or neural foraminal narrowing. L1-2: An annular bulge is present with facet arthropathy. There is mild right neural foraminal narrowing. L2-3: An annular bulge is present with facet arthropathy. There is a right paracentral annular tear and small disc protrusion with moderate bilateral neural foraminal narrowing and mild canal stenosis, with an AP canal diameter of 7 mm. L3-4: An annular bulge is present with facet arthropathy and osteophytes. There is moderate bilateral neural foraminal narrowing, right lateral recess stenosis, and mild canal stenosis with an AP canal diameter of 7 mm. L4-5: An annular bulge is present with facet arthropathy and osteophytes. There are bilateral L4 laminectomies present, with bilateral lateral recess stenosis. There is severe bilateral neural foraminal narrowing, present on the previous exam. L5-S1: An annular bulge is present with facet arthropathy and osteophytes. Bilateral L5 laminectomies have been performed. There is severe bilateral neural foraminal narrowing, bilateral L5 pars defects, and grade 2 anterolisthesis. This is similar to those findings on the previous exam of 2019. IMPRESSION: Multilevel degenerative disc disease and spondylosis as described, with multilevel moderate to severe neural foraminal narrowing and mild canal stenosis at the L2-3 and L3-4 levels. Reviewed, Interpreted and Dictated by Arnold Tate III, MD Transcribed by Alejandra Macias Authenticated and . [facility]
== END 2024-06-04 23:59 | disposition home or self-care (01) ==
LOC: RAD 13:49
PROVIDERS: PCP Physician Assistant; Visit Provider Physician Assistant
DX: M48.07 Spinal stenosis, lumbosacral region (principal); M43.17 Spondylolisthesis, lumbosacral region; R29.898 Other symptoms and signs involving the musculoskeletal system; R20.2 Paresthesia of skin
CPT/HCPCS: 72148

== ENCOUNTER 2024-06-14 11:09 | Outpatient (POV) | payer OTHER, SELFPAY ==
[2024-06-14 11:33] VITALS: BP 132/83; PULSE 62; RESP 16; O2SAT 100; BMI 30.7
--- NOTE | 2024-06-14 12:12 | A.OFFVIS_ITS ---
[facility] Disclaimer: The information contained in this section may have been updated after the patient was seen, as this information can be updated by other users. Medical History Bradycardia High diffusion capacity of lung Right facial numbness History of heart attack Chronic cough Facial numbness Cough Surgical History History of surgery on lower extremity History of lumbar surgery Family History Other Cancer Diabetes Hypertension Social History Smoking Status: Never smoker alcohol intake: never substance use type: former substance user and crack/cocaine current occupational status: employed Travel in the last 8 weeks: None household members: none housing: house number of children: 1 current occupation: current occupational exposures/hazards: No caffeine: Yes PM Subjective & Objective Subjective Subjective:: Patient is a pleasant 58-year-old male who presents today for follow-up. Today he rates his pain a 9 out of 10. Patient states from his last visit with our office he has had a lot that is gone on. Patient states that back in November when he saw his last he was having more spasms and pain however it did seem like it eased off from December to February. He states that he ended up getting COVID during the summer and had a pretty severe cough. He states that this did continue and he feels like at that time he caused worsening pain in his overall back. He states he saw primary care and they did get an MRI approved that did show an annular tear. Patient states since then he has continued conservative treatment including continued at home exercise and stretching that was physician guided with minimal relief. He does state that he is also still looking into having back surgery and has narrowed it down to a neurosurgeon Dr. Lewis and an orthospine doctor Dr. Xie out of [place]. Patient had been last seen from a provider in [place] however he states he does not have the support that he had prior and does not have a way to get to this location. Patient does state that he is trying to do the conservative treatment first and that he is interested in injection therapy. Patient does state the pain is constant and feels like it is in his low back that does radiate down both his legs with nu mbness and tingling. He states he has loss of sensation in his lower extremities and really feels like he is not able to do his normal activity. Patient states the pain does interfere with activities of daily living such as cooking and cleaning. His Sourav has been reviewed and is appropriate. Review of Systems: General: No recent weight changes, no fever, no sleep disturbances Respiratory: No cough, no shortness of air, no recurring pulmonary infections Cardiovascular/peripheral vascular: No chest pain, no palpitations, no edema, no shortness of breath Gastrointestinal: No new onset incontinence, normal bowel movements reported Genitourinary: No new onset incontinence Musculoskeletal: Low back pain, leg pain Psychiatric: [Normal mood/affect] Neurological: [Denies weakness in extremities], [denies balance issues] Pain at rest (0-10 scale): 9 Objective Objective:: Physical Exam: General: Alert and oriented x3, no acute distress, pleasant and cooperative Lungs: Respirations even and unlabored, symmetrical chest expansion Eyes: PERRL Musculoskeletal: Flexion and extension of lumbar [spine] somewhat guarded secondary to pain, [antalgic gait noted] Neurological: Speech clear, no gross sensory deficit Has patient had previous pain injection?: No Conservative treatment options previously tried: Home exercise plan Length of treatment: Longer than 12 weeks Meds Home Medications and Allergies Home Medications ?Medication ?Instructions ?Recorded ?Confirmed ?Type amlodipine 5 mg tablet 5 mg PO DAILY 03/31/23 06/14/24 History irbesartan 150 mg tablet 150 mg PO DAILY 03/31/23 06/14/24 History folic acid 1 mg tablet 1 mg PO DAILY 10/24/23 06/14/24 History prednisolone acetate 1 % eye 2 drp Eye-Left ONCE 10/24/23 06/14/24 History drops,suspension aspirin 81 mg tablet,delayed See Rx Instructions .Route 04/16/24 06/14/24 Rx release .COMPLEX #90 tabs methotrexate sodium 2.5 mg tablet 20 mg PO WEEKLY 04/23/24 06/14/24 History New Prescriptions to Start Prescriptions: Allergies Allergy/AdvReac Type Severity Reaction Status Date / Time No Known Allergies Allergy Verified 06/14/24 11:36 Assessment and Plan *Assessment and plan (1) Chronic low back pain: Status: Acute Qualifiers: Back pain laterality: bilateral Sciatica presence: with sciatica Sciatica laterality: bilateral sciatica Qualified Code(s): M54.42 - Lumbago with sciatica, left side; M54.41 - Lumbago with sciatica, right side; G89.29 - Other chronic pain Category: Medical Code(s): M54.50 - Low back pain, unspecified; G89.29 - Other chronic pain (2) Bilateral hip pain: Status: Acute Category: Medical Code(s): M25.551 - Pain in right hip; M25.552 - Pain in left hip (3) Degenerative disc disease, lumbar: Status: Acute Category: Medical Code(s): M51.36 - Other intervertebral disc degeneration, lumbar region (4) Lumbar radiculopathy: Status: Acute Category: Medical Code(s): M54.16 - Radiculopathy, lumbar region (5) Lumbar spinal stenosis: Status: Acute Category: Medical Code(s): M48.061 - Spinal stenosis, lumbar region without neurogenic claudication Plan Patient is experiencing significant pain throughout his low back with radiating numbness and tingling into his bilateral lower extremities. Patient did have limited range of motion with decreased sensation during today's exam. I did discuss with patient that he may benefit from a lumbar epidural steroid injection. Risk and benefits were discussed with patient and he would like to proceed forward with this plan of care. Patient has not on any blood thinners. I have also discussed with the patient in future he may benefit from a spinal cord stimulator trial. Educational handouts and risk and benefits were discussed regarding this procedure and we will follow-up with this in future visits. Patient has tried and failed conservative therapy including continued at home stretching exercise that was physician guided for longer than 12 weeks. Patient will be scheduled for an LESI L4-L5 under fluoroscopy. Patient has been instructed to contact the clinic with any concerns before the next appointment. Dr. Hoff has reviewed this note and agrees with this plan of care. This note was dictated using voice recognition software and make contain errors or omissions. All injections are used with Lidocaine or Bupivacaine and Depo Medrol.
== END 2024-06-14 23:59 | disposition home or self-care (01) ==
LOC: SC.PAIN 11:10
PROVIDERS: PCP Family Medicine; Visit Provider Nurse Practitioner Family
DX: M51.16 Intervertebral disc disorders with radiculopathy, lumbar region (principal); G89.29 Other chronic pain; M25.551 Pain in right hip; M25.552 Pain in left hip; M48.061 Spinal stenosis, lumbar region without neurogenic claudication; Z73.89 Other problems related to life management difficulty
CPT/HCPCS: 99212; G0463

== ENCOUNTER 2024-07-17 08:02 | Day surgery (SDC) | payer OTHER, SELFPAY ==
[2024-07-17 08:42] VITALS: BP 144/83; BP 148/100; PULSE 67; PULSE 71; PULSE 83; RESP 16; RESP 18; TEMP 36.6; O2SAT 97; O2SAT 98; BMI 30.7
[2024-07-17] MEDS: methylPREDNISolone ACETATE 80MG/ML VIAL 80 MG (08:43)
[2024-07-17] MEDS: IOPAMIDOL-200 (41%);10ML VIAL 10 ML IV (08:54)
[2024-07-17 09:03] VITALS: BP 141/88; PULSE 62; RESP 16; O2SAT 98
--- NOTE | 2024-07-17 09:29 | EXP.PAIN.PRO ---
Procedure Date: 07/17/24 Time: 09:00 Anesthesiologist:: Karan Prado CRNA Complications:: None Pre-procedure Diagnosis:: Degenerative disc lumbar spine multilevels. Lumbar radiculopathy. Lumbar disc bulge L3-4 and L4-5, lumbar postlaminectomy syndrome. Post-procedure Diagnosis:: Same. Indications for Procedure:: Patient is a very pleasant 59-year-old male who comes our clinic today for lumbar epidural steroid injection at the L4-5 level. Patient describes low lumbar back pain as constant, dull, aching. Patient also reports bilateral hip and leg radicular symptoms at times. Epidural scheduled at L4-5. However, after further review under fluoroscopy the injection will be given at the L3-4 level due to previous surgeries at the L4-5 and L5-S1 level. Procedure Details:: Procedure: Lumbar epidural steroid injection under fluoroscopy Informed consent was obtained and the risks and benefits of the procedure were explained to the patient. The patient was taken to the procedure room and noninvasive monitors placed, including noninvasive blood pressure cuff and pulse oximeter. The back was viewed using C-arm Fluoroscopy and prepped using Chloraprep as a cleansing solution and the L3-4 interspace was palpated. Skin and subcutaneous tissues were anesthetized using lidocaine 1.5% and a 25-gauge needle. After this, an 18-gauge Touhy epidural needle was placed into the L3-4 interspace and advanced using fluoroscopic guidance and loss of resistance to air until the epidural space was encountered. After confirmation of needle placement in the epidural space, with dye, a solution containing normal saline, 3 mL and Depo-Medrol 80 mg were incrementally injected into the lumbar epidural space. The patient tolerated the procedure well with no complications. The patient was observed in the Pain Clinic and then discharged home neurologically intact. Plan and Disposition:: Patient was discharged without incident.
== END 2024-07-17 09:03 | disposition home or self-care (01) ==
LOC: SC.PAINP 08:03
PROVIDERS: PCP Family Medicine; Visit Provider Nurse Anesthetist, Certified Registered
DX: M51.16 Intervertebral disc disorders with radiculopathy, lumbar region (principal); M96.1 Postlaminectomy syndrome, not elsewhere classified
CPT/HCPCS: 62323; J1010; Q9966

== ENCOUNTER 2024-08-01 09:22 | Outpatient (POV) | payer OTHER, SELFPAY ==
[2024-08-01 09:53] VITALS: BP 118/90; PULSE 66; RESP 16; O2SAT 100; BMI 32.9
--- NOTE | 2024-08-01 11:27 | EXP.PAIN.SOA ---
[facility] Disclaimer: The information contained in this section may have been updated after the patient was seen, as this information can be updated by other users. Medical History Bradycardia High diffusion capacity of lung Right facial numbness History of heart attack Chronic cough Facial numbness Cough Surgical History History of surgery on lower extremity History of lumbar surgery Family History Other Cancer Diabetes Hypertension Social History Smoking Status: Never smoker alcohol intake: never substance use type: former substance user and crack/cocaine current occupational status: other Travel in the last 8 weeks: None household members: none housing: house number of children: 1 current occupation: current occupational exposures/hazards: No caffeine: Yes PM Subjective & Objective Subjective Subjective:: Patient is a pleasant 59-year-old male who presents today for follow-up of lumbar epidural steroid injection L3-L4 on 07/17/2024. Today he rates his pain a 7 out of 10. Patient does state that he approximately had 50% relief the first day however then the injection did start to decrease down and he is rating it about 33% improvement currently. Patient does state that he did feel like it helped some and that he was able to do more however just the extent of his overall back does play a significant role. Patient does have chronic pain throughout multiple areas and does state he recently went to spine and that they did do updated imaging with the plan to order additional CTs in the future. He does state that that doctor was recommending a second epidural and that possibly did discuss about additional surgery in the future including possible cage. Patient is currently starting physical therapy. His Sourav has been reviewed and is appropriate. Review of Systems: General: No recent weight changes, no fever, no sleep disturbances Respiratory: No cough, no shortness of air, no recurring pulmonary infections Cardiovascular/peripheral vascular: No chest pain, no palpitations, no edema, no shortness of breath Gastrointestinal: No new onset incontinence, normal bowel movements reported Genitourinary: No new onset incontinence Musculoskeletal: Chronic neck and low back pain Psychiatric: [Normal mood/affect] Neurological: [Denies weakness in extremities], [denies balance issues] Pain at rest (0-10 scale): 7 Objective Objective:: Physical Exam: General: Alert and oriented x3, no acute distress, pleasant and cooperative Lungs: Respirations even and unlabored, symmetrical chest expansion Eyes: PERRL Musculoskeletal: Flexion and extension of lumbar [spine] somewhat guarded secondary to pain, [antalgic gait noted] Neurological: Speech clear, no gross sensory deficit Has patient had previous pain injection?: Yes Percent improvement in pain since last injection: 50% Conservative treatment options previously tried: Home exercise plan Length of treatment: Longer than 12 weeks Meds Home Medications and Allergies Home Medications ?Medication ?Instructions ?Recorded ?Confirmed ?Type amlodipine 5 mg tablet 5 mg PO DAILY 03/31/23 08/01/24 History irbesartan 150 mg tablet 150 mg PO DAILY 03/31/23 08/01/24 History folic acid 1 mg tablet 1 mg PO DAILY 10/24/23 08/01/24 History prednisolone acetate 1 % eye 2 drp Eye-Left ONCE 10/24/23 08/01/24 History drops,suspension aspirin 81 mg tablet,delayed See Rx Instructions .Route 04/16/24 08/01/24 Rx release .COMPLEX #90 tabs methotrexate sodium 2.5 mg tablet 20 mg PO WEEKLY 04/23/24 08/01/24 History New Prescriptions to Start Prescriptions: Allergies Allergy/AdvReac Type Severity Reaction Status Date / Time No Known Allergies Allergy Verified 06/14/24 11:36 Assessment and Plan *Assessment and plan (1) Lumbar spinal stenosis: Status: Acute Category: Medical Code(s): M48.061 - Spinal stenosis, lumbar region without neurogenic claudication (2) Lumbar radiculopathy: Status: Acute Category: Medical Code(s): M54.16 - Radiculopathy, lumbar region (3) Chronic low back pain: Status: Acute Qualifiers: Back pain laterality: bilateral Sciatica presence: with sciatica Sciatica laterality: bilateral sciatica Qualified Code(s): M54.42 - Lumbago with sciatica, left side; M54.41 - Lumbago with sciatica, right side; G89.29 - Other chronic pain Category: Medical Code(s): M54.50 - Low back pain, unspecified; G89.29 - Other chronic pain Plan Patient was reviewed over all the possibilities in future or what we could tried to give overall improvement. Patient will return to clinic in 2 months for reevaluation of symptoms and plan of care. Patient has been instructed to contact the clinic with any concerns before the next appointment. Dr. Hoff has reviewed this note and agrees with this plan of care. This note was dictated using voice recognition software and make contain errors or omissions. All injections are used with Lidocaine or Bupivacaine and Depo Medrol.
== END 2024-08-01 23:59 | disposition home or self-care (01) ==
LOC: SC.PAIN 09:24
PROVIDERS: PCP Family Medicine; Visit Provider Nurse Practitioner Family
DX: M48.061 Spinal stenosis, lumbar region without neurogenic claudication (principal); M54.16 Radiculopathy, lumbar region; M54.42 Lumbago with sciatica, left side; M54.41 Lumbago with sciatica, right side; G89.29 Other chronic pain
CPT/HCPCS: 99212; G0463

== ENCOUNTER 2024-09-06 10:00 | Outpatient (RCR) | payer OTHER, SELFPAY | END 2024-09-06 23:59 | disposition home or self-care (01) | LOC: PT 10:00 | PROVIDERS: Visit Provider Nurse Practitioner Family | DX: M51.369 Other intervertebral disc degeneration, lumbar region without mention of lumbar back pain or lower extremity pain (principal); M48.07 Spinal stenosis, lumbosacral region; M51.26 Other intervertebral disc displacement, lumbar region; M48.061 Spinal stenosis, lumbar region without neurogenic claudication; M43.17 Spondylolisthesis, lumbosacral region | CPT/HCPCS: 20561; 97010; 97014; 97110; 97163; 97535; G0283 ==

== ENCOUNTER 2024-10-04 13:42 | Outpatient (CLI) | payer OTHER, SELFPAY ==
[2024-10-04 15:58] LABS: Prostate Specific Ag, Diagnost 0.749 ng/ml (0.0-4.0)
== END 2024-10-04 23:59 | disposition home or self-care (01) ==
LOC: LAB 13:43
PROVIDERS: PCP Family Medicine; Visit Provider Urology
DX: R97.20 Elevated prostate specific antigen [PSA] (principal)
CPT/HCPCS: 36415; 84153

== ENCOUNTER 2024-10-24 15:58 | Outpatient (CLI) | payer OTHER, SELFPAY ==
--- NOTE | 2024-10-24 16:00 | CA_ITS ---
APPROVED REPORT EXAM: Comprehensive 2D, Doppler, and color-flow Echocardiogram Chemical Maker: Elidia Sierra RVT Ht: 5 ft 6 in Wt: 214lbs BSA: 2.06 BP: 132/102 mmHg Indications: pre-op,abn ekg,cp,htn 2D Dimensions LA Volume 38.60 mL LA Volume Index 18.74 mL/m2 (M/F) 16-34 M-Mode Dimensions RVDd 2.97 cm (0.9-2.6) LA Diam 4.09 cm (1.9-4.0) LVDd 5.44 cm (3.5-5.7) LVDs 3.27 cm (3.5-5.7) IVSd 0.89 cm (0.6-1.1) PWd 0.76 cm (0.6-1.1) EF (Teich) 69.90% FS 39.90% EDV (Teich) 143.70 mL TAPSE 2.26 (<1.7) ESV (Teich) 43.20 mL LV Diastology E Decel Time 207 (160-240 msec) E/A Ratio 0.9 Aortic Valve DARIUSZ Index 1.43 cm2/m2 AoV Peak Raoul. 117.0 (50-130 cm/s) AO Peak GR. 5.50 mmHg AO Mean GR. 3.10 (<5 mmHg) AO VTI 21.1 (18-25 cm) DARIUSZ (VTI) 3.02 (2.5-4.5 cm2) Mitral Valve MV E Max Raoul. 64.0 (40-130 cm/s) MV A Velocity 70.0 (40-130 cm/s) E/A Ratio 0.91 MV PHT 61.0 ms Pulmonary Valve PV Peak Velocity 110.0 (50-150 cm/s) Tricuspid Valve TR P. Velocity 282.00 cm/s RAP Estimate 10.00 mmHg RVSP 41.80 mmHg Left Ventricle The left ventricle is normal size. The left ventricular systolic function is normal. The left ventricular ejection fraction is within the normal range. There is increased LV wall thickness. There is normal LV segmental wall motion. The left ventricular diastolic function is normal. LVEF is 55%. Right Ventricle The right ventricle is normal size. The right ventricular systolic function is normal. Atria The left atrium size is normal. The right atrium size is normal. There is no Doppler evidence of interatrial shunt. Aortic Valve The aortic valve is opens well. Mild aortic regurgitation. There is no aortic valvular stenosis. Mitral Valve The mitral valve is normal in structure. No evidence of mitral valve stenosis. Mild mitral regurgitation. Tricuspid Valve Tricuspid valve is grossly normal in structure and function. Trace tricuspid regurgitation. There is insufficient TR jet to estimate RVSP. Trace pulmonic regurgitation. Pulmonic Valve The pulmonary valve is normal in structure. Great Vessels The aortic root is normal in size. The ascending aorta is not well-visualized. IVC is normal in size and collapses >50% with inspiration. Pericardium There is no pericardial effusion. Other Information Study Quality: Adequate Conclusion Normal biventricular systolic function. Mild AI, mild MR. Compared to prior study from 04/14/2023, there are no significant changes. Electronically signed by : Amanda Keys MD 10/25/2024 11:49:12
== END 2024-10-24 23:59 | disposition home or self-care (01) ==
LOC: RT 15:59
PROVIDERS: PCP Family Medicine; Visit Provider Internal Medicine
DX: Z01.810 Encounter for preprocedural cardiovascular examination (principal); I35.1 Nonrheumatic aortic (valve) insufficiency; I34.0 Nonrheumatic mitral (valve) insufficiency; R07.9 Chest pain, unspecified
CPT/HCPCS: 93306

== ENCOUNTER 2024-10-25 14:17 | Outpatient (POV) | payer OTHER, SELFPAY ==
[2024-10-25 15:11] VITALS: BP 133/94; PULSE 69; RESP 14; O2SAT 97; BMI 34.7
--- NOTE | 2024-10-25 15:13 | A.OFFVIS_ITS ---
[facility] Disclaimer: The information contained in this section may have been updated after the patient was seen, as this information can be updated by other users. Medical History Bradycardia High diffusion capacity of lung Right facial numbness History of heart attack Chronic cough Facial numbness Cough Surgical History History of surgery on lower extremity History of lumbar surgery Family History Other Cancer Diabetes Hypertension Social History Smoking Status: Never smoker alcohol intake: never substance use type: former substance user and crack/cocaine current occupational status: other Travel in the last 8 weeks: None household members: none housing: house number of children: 1 current occupation: current occupational exposures/hazards: No caffeine: Yes Have you lived/traveled outside [place] in past 30 days?: No Contact w/someone who lives/traveled outside US past 30 days?: No Exposure to someone with infectious disease in past 14 days?: No Do you have a fever (greater than 100.4 F or 38 C)?: No Have you tested positive for COVID-19: No Exposed to someone with COVID-19 in past 14 days?: No Do you have a sore throat?: No Do you have a cough?: No Do you have any weakness?: No Do you have any diarrhea?: No Are you experiencing any unusual bleeding?: No Do you have any muscle aches/pain?: No Do you have any abdominal pain?: No Are you experiencing loss of taste or smell?: No PM Subjective & Objective Subjective Subjective:: Patient is a pleasant 59-year-old male who presents today for follow-up. Today he rates his pain a 9 out of 10. He denies any new trauma or injury. He does state from our last visit he has found a good surgeon to see from Pat's recommendations. He states that he did see Dr. Juliano Diaz and they are planning on doing a surgery from his L3-S1 with a cage, plates and screws. He does state that he is in the process of getting his ducks in a row with cardiology sign off and everything along those lines. He does state that he is still having chronic low back and neck symptoms. Patient states that from her last appointment he has been having to shovel snow and just realized how limited he is due to the chronic pain. His Sourav has been reviewed and is appropriate. Review of Systems: General: No recent weight changes, no fever, no sleep disturbances Respiratory: No cough, no shortness of air, no recurring pulmonary infections Cardiovascular/peripheral vascular: No chest pain, no palpitations, no edema, no shortness of breath Gastrointestinal: No new onset incontinence, normal bowel movements reported Genitourinary: No new onset incontinence Musculoskeletal: Low back pain, neck pain Psychiatric: [Normal mood/affect] Neurological: [Denies weakness in extremities], [denies balance issues] Pain at rest (0-10 scale): 9 Objective Objective:: Physical Exam: General: Alert and oriented x3, no acute distress, pleasant and cooperative Lungs: Respirations even and unlabored, symmetrical chest expansion Eyes: PERRL Musculoskeletal: Flexion and extension of lumbar [spine] somewhat guarded secondary to pain, [antalgic gait noted] Neurological: Speech clear, no gross sensory deficit Has patient had previous pain injection?: No Conservative treatment options previously tried: Home exercise plan Length of treatment: Longer than 12 weeks Meds Home Medications and Allergies Home Medications ?Medication ?Instructions ?Recorded ?Confirmed ?Type amlodipine 5 mg tablet 5 mg PO DAILY 03/31/23 10/25/24 History irbesartan 150 mg tablet 150 mg PO DAILY 03/31/23 10/25/24 History folic acid 1 mg tablet 1 mg PO DAILY 10/24/23 10/25/24 History aspirin 81 mg tablet,delayed See Rx Instructions .Route 04/16/24 10/25/24 Rx release .COMPLEX #90 tabs methotrexate sodium 2.5 mg tablet 25 mg PO WEEKLY 10/24/24 10/25/24 History New Prescriptions to Start Prescriptions: Allergies Allergy/AdvReac Type Severity Reaction Status Date / Time No Known Allergies Allergy Verified 10/24/24 15:04 Assessment and Plan *Assessment and plan (1) Lumbar radiculopathy: Status: Acute Category: Medical Code(s): M54.16 - Radiculopathy, lumbar region (2) Lumbar spinal stenosis: Status: Acute Category: Medical Code(s): M48.061 - Spinal stenosis, lumbar region without neurogenic claudication (3) Bilateral sacroiliitis: Status: Acute Category: Medical Code(s): M46.1 - Sacroiliitis, not elsewhere classified (4) Chronic low back pain: Status: Acute Qualifiers: Back pain laterality: bilateral Sciatica presence: with sciatica Sciatica laterality: bilateral sciatica Qualified Code(s): M54.42 - Lumbago with sciatica, left side; M54.41 - Lumbago with sciatica, right side; G89.29 - Other chronic pain Category: Medical Code(s): M54.50 - Low back pain, unspecified; G89.29 - Other chronic pain Plan I did review over with the patient that we are glad to help with any additional injections that he may need however due to his major back surgery coming up that we would be limited till after before he proceeded forward with this option. Patient acknowledges understanding. I did debt and budget counselor him that we will wait and let him give us a call for his next appointment. Patient does not officially have a surgery date yet scheduled but is anticipating by November. Patient has been instructed to contact the clinic with any concerns before the next appointment. Dr. Hoff has reviewed this note and agrees with this plan of care. This note was dictated using voice recognition software and make contain errors or omissions. All injections are used with Lidocaine, Bupivacaine and Depo Medrol. Occasionally urine drug screen is needed to verify patient's compliance with our office pain contract. This is ordered based off specific treatments related to chronic pain with the potential to abuse certain medications.
== END 2024-10-25 23:59 | disposition home or self-care (01) ==
LOC: SC.PAIN 14:19
PROVIDERS: PCP Family Medicine; Visit Provider Nurse Practitioner Family
DX: M54.16 Radiculopathy, lumbar region (principal); M48.061 Spinal stenosis, lumbar region without neurogenic claudication; M46.1 Sacroiliitis, not elsewhere classified; M54.42 Lumbago with sciatica, left side; M54.41 Lumbago with sciatica, right side; G89.29 Other chronic pain
CPT/HCPCS: 99212; G0463

== ENCOUNTER 2024-10-30 06:43 | Outpatient (CLI) | payer OTHER, SELFPAY ==
--- NOTE | 2024-10-30 | CA_ITS ---
APPROVED REPORT Exam: Pharmacologic Technologist: Fatimah Joyce Ht: 5 ft 6 in Wt: 215 lbs BSA: 2.06 m2 HR: 55 bpm BP: 145/87 mmHg Stress Test Details Test: Lexiscan HR Resting HR: 55 bpm Max Heart Rate (APMHR): 163.217149 bpm Max HR Achieved: 91 bpm Target HR (85% APMHR): 138.666592 bpm % of APMHR: 55.83 Recovery HR: 64 bpm BP Resting BP: 145.0/87.0 mmHg Max BP: 140.0/93.0 mmHg Recovery BP: 119.0/74.0 mmHg ECG Resting ECG: Sinus Bradycardia Stress ECG Conclusion Symptoms: - Arrhythmias/Ectopy: - ST-T Changes: Less than [address] depression Conclusion: EKG portion unremarkable due to Lexiscan infusion. Electronically signed by : Amanda Keys MD 10/30/2024 12:06:52
--- NOTE | 2024-10-30 06:54 | NM_ITS ---
APPROVED REPORT Exam: Nuclear Stress Test Indication: HTN, Hx of NC, Pre op Patient Location: Outpatient Stress Tech: Fatimah Joyce NM Tech:Lucy Plasencia, ARRT, RT (R)(N) Ht: 5 ft 6 in Wt: 215 lbs HR: 53 bpm BP: 145/87 mmHg BSA: 2.06 m2 TID: 1.04 BMI: 34.6 History: HTN, Hx of NC, Pre op Procedure: Patient received 0.4 mg of intravenous Lexiscan, resting heart rate 53 bpm, resting blood pressure 145/87 mmHg, with Lexiscan maximum heart rate achieved was 92 bpm which is % of the maximum predicted heart rate and blood pressure was 140/93 mmHg. With Lexiscan, patient denied any complaint of chest pain. Cardiac Stress and Resting SPECT Images: Cardiac Stress and Resting SPECT images were obtained using technetium 99m Myoview 29.8 mCi stress and 9.92 mCi at rest. Resting and stress imaging in supine positions demonstrate small sized, mild, tapered perfusion defect in the basal inferior LV wall. This is no longer visualized with prone stress imaging. Findings are suggestive of diaphragmatic attenuation. Gated imaging demonstrates normal global and regional LV systolic function. LVEF is calculated at 52%. Conclusion: Diaphragmatic attenuation is present. No evidence of fixed or reversible perfusion defects. Gated imaging demonstrates normal global and regional LV systolic function. LVEF is calculated at 52%. Electronically signed by : Amanda Keys MD 10/30/2024 12:00:59
[2024-10-30] MEDS: SODIUM CHLORIDE 0.9% 10ML SYR (RAD ONLY) 10 ML IV ×2 (08:35)
[2024-10-30] MEDS: REGADENOSON 0.4MG/5ML SYRINGE 0.4 MG IV (08:35)
[2024-10-30] MEDS: ISOTOPE MYOVIEW (PER STUDY) 1 DOSE IV (08:35)
== END 2024-10-30 23:59 | disposition home or self-care (01) ==
LOC: RAD 06:48
PROVIDERS: PCP Family Medicine; Visit Provider Internal Medicine
DX: R07.9 Chest pain, unspecified (principal); I10 Essential (primary) hypertension
CPT/HCPCS: 78452; 93017; 93018; A9502; J2785

== ENCOUNTER 2024-11-01 09:06 | Outpatient (CLI) | payer OTHER, SELFPAY ==
--- NOTE | 2024-11-01 09:09 | MR_ITS ---
FINAL REPORT CLINICAL HISTORY: arm weakness and neck pain from an old injury left arm p/n/t COMPARISON: 06/16/2023 FINDINGS: Multi planar MR imaging was obtained of the cervical spine. There is abnormal decreased signal in the C4-5 and C5-6 discs. The vertebrae are of normal height. There is reversal of the normal lordosis of the cervical spine. The cervical cord demonstrates normal signal and configuration. C2-C3: There is no evidence of significant disc bulge or protrusion. There is no significant facet hypertrophy. C3-C4: There is no evidence of significant disc bulge or protrusion. There is no significant facet hypertrophy. C4-C5: A moderate annular bulge is present with endplate hypertrophy, moderate canal stenosis, and moderate to severe bilateral neural foraminal narrowing. C5-C6: A moderate annular bulge is present, with endplate hypertrophy, moderate canal stenosis, and moderate to severe bilateral neural foraminal narrowing. C6-C7: A mild to moderate annular bulge is present with moderate bilateral neural foraminal narrowing. C7-T1: There is no evidence of significant disc bulge or protrusion. There is no significant facet hypertrophy. Note is made of a 3.7 cm left thyroid mass, which may represent a complicated cyst. IMPRESSION: Degenerative change as described above, with multilevel neuroforaminal narrowing, and moderate canal stenosis at the C4-5 and C5-6 levels. 3.7 cm left thyroid mass, that may represent a complicated cyst. Correlation with thyroid ultrasound is suggested for further evaluation. Reviewed, Interpreted and Dictated by Gabriel Bah MD Transcribed by Alejandra Macias Authenticated and [facility]
== END 2024-11-01 23:59 | disposition home or self-care (01) ==
LOC: RAD 09:06
PROVIDERS: PCP Family Medicine; Visit Provider Nurse Practitioner Family
DX: R29.898 Other symptoms and signs involving the musculoskeletal system (principal)
CPT/HCPCS: 72141

== ENCOUNTER 2025-04-09 06:27 | Day surgery (SDC) | payer OTHER, SELFPAY ==
[2025-04-05 11:18] VITALS: BMI 34.3
[2025-04-09 06:43] VITALS: BP 137/73; PULSE 70; RESP 18; TEMP 36.3; O2SAT 98
--- NOTE | 2025-04-09 06:53 | EXP.GEN.HP ---
HPI HPI HPI: This is a 59-year-old gentleman who returns for repeat colonoscopy. His most recent colonoscopy in January 2022 was somewhat complicated by moderate lack of relaxation. His bowel preparation was fair and he did have stable hemorrhoidal tags noted. In March 2020 a tubular adenoma at 65 cm and a tubular adenoma at 40 cm was excised. During her prior colonoscopy a complex tubular adenoma at 15 cm was excised. [facility] Disclaimer: The information contained in this section may have been updated after the patient was seen, as this information can be updated by other users. Medical History (Updated 04/09/25 @ 06:55 by Micheal Mack MD) Bradycardia High diffusion capacity of lung Right facial numbness History of heart attack Chronic cough Facial numbness Cough Surgical History (Updated 04/05/25 @ 11:06 by Jennifer Chamberlain RN) H/O laminectomy S/P left knee arthroscopy History of surgery on lower extremity History of lumbar surgery Family History Other Cancer Diabetes Hypertension Social History Smoking Status: Never smoker alcohol intake: never substance use type: former substance user and crack/cocaine current occupational status: other Travel in the last 8 weeks?: None household members: none housing: house number of children: 1 current occupation: current occupational exposures/hazards: No caffeine: Yes Have you lived/traveled outside US in past 30 days?: No Contact w/someone who lives/traveled outside US past 30 days?: No Exposure to someone with infectious disease in past 14 days?: No Do you have a fever (greater than 100.4 F or 38 C)?: No Have you tested positive for COVID-19?: No Exposed to someone with COVID-19 in past 14 days?: No Do you have a sore throat?: No Do you have a cough?: No Do you have any weakness?: No Do you have any diarrhea?: No Are you experiencing any unusual bleeding?: No Do you have any muscle aches/pain?: No Do you have any abdominal pain?: No Are you experiencing loss of taste or smell?: No Other Medical History Have you received the Flu Vaccine for this season: Yes Have you received the Pneumonia Vaccine: Yes Review of Systems Review of Systems Review of systems:: pertinent systems reviewed and negative unless documented below Meds Home Medications and Allergies Home Medications ?Medication ?Instructions ?Recorded ?Confirmed ?Type amlodipine 5 mg tablet 5 mg PO DAILY 03/31/23 04/05/25 History irbesartan 150 mg tablet 150 mg PO DAILY 03/31/23 04/05/25 History folic acid 1 mg tablet 1 mg PO DAILY 10/24/23 04/05/25 History aspirin 81 mg tablet,delayed See Rx Instructions .Route 04/16/24 04/05/25 Rx release .COMPLEX #90 tabs methotrexate sodium 2.5 mg tablet 25 mg PO WEEKLY 10/24/24 04/05/25 History New Prescriptions to Start Prescriptions: Allergies Allergy/AdvReac Type Severity Reaction Status Date / Time No Known Allergies Allergy Verified 04/05/25 11:08 Exam Constitutional Constitutional: no acute distress *Routine HEENT Exam Head: Present normocephalic Eye: Present EOMI ENT: Present mucous membranes moist *Routine Neck Exam Neck: Present full ROM *Routine Respiratory Exam Respiratory: Absent respiratory distress *Routine Cardiovascular Exam Cardiovascular: Absent tachycardia *Routine Abdominal Exam Abdominal: Present soft *Routine Rectal Exam Rectal:: deferred *Routine Genitalia Exam Genitalia:: deferred *Routine Extremities Exam Extremities: Present full ROM *Routine Skin Exam Skin: Absent erythema *Routine Neurological Exam Neurological: Present alert Assessment and Plan *Assessment and plan (1) History of colon polyps: Status: Acute Category: Medical Code(s): Z86.0100 - Personal history of colon polyps, unspecified Plan: Colonoscopy today I have discussed the risks and benefits including, but not limited to: Bleeding Infection Damage to surrounding tissue Inherent risks of sedation The patient agrees to proceed.
--- NOTE | 2025-04-09 06:55 | P.PCN_ITS ---
Procedure: Date: 04/09/25 Patient Date of :: 1965 Procedure Performed:: Colonoscopy Indications:: History of colon polyps Note: His most recent colonoscopy in January 2022 was somewhat complicated by mode rate lack of relaxation. His bowel preparation was fair and he had stable hemorrhoidal tags noted. In March 2020 a tubular adenoma at 65 cm and a tubular adenoma at 40 cm were excised. During a prior colonoscopy a complex tubular adenoma at 15 cm was excised. Performing Provider:: Michael Mack MD Referring Provider:: . Sedation:: Monitored anesthesia care Procedure:: After informed consent was obtained the patient was taken to the endoscopy suite. Sedation ensued after the patient was transferred to the left lateral decubitus position. Pulse, blood pressure, and oxygen saturation were monitored throughout the procedure. Digital rectal exam revealed no significant abnormality. The colonoscope was placed in position. The entire colon was evaluated. The colonoscope was carefully removed and the patient was transferred to recovery in stable condition. Please see findings and specimens below for detail. Findings:: Bowel preparation [id number] Unchanged hemorrhoidal tag/cushions Specimens:: None Recommendations:: Repeat colonoscopy in 3 to 5 years secondary to history of complex polyps and [id number] bowel prep. Complications:: No immediate Estimated blood obtained (mL): 0 Colonoscopy Component Colonoscopy Component Was a colonoscopy performed during today's procedure?: Yes Recommended follow up colonoscopy of at least 10 years?: No If no, follow up colonoscopy recommended in ___ years?: (See above) Reason for not recommending >/= 10 yr follow-up interval?: (See above)
[2025-04-09] MEDS: LACTATED RINGERS 1000ML 1,000 ML 50 ML IV (06:57)
--- NOTE | 2025-04-09 07:17 | EXP.ANES.CKL ---
[facility] Disclaimer: The information contained in this section may have been updated after the patient was seen, as this information can be updated by other users. Medical History Bradycardia High diffusion capacity of lung Right facial numbness History of heart attack Chronic cough Facial numbness Cough Surgical History H/O laminectomy S/P left knee arthroscopy History of surgery on lower extremity History of lumbar surgery Family History Other Cancer Diabetes Hypertension Social History Smoking Status: Never smoker alcohol intake: never substance use type: former substance user and crack/cocaine current occupational status: other Travel in the last 8 weeks?: None household members: none housing: house number of children: 1 current occupation: current occupational exposures/hazards: No caffeine: Yes Have you lived/traveled outside US in past 30 days?: No Contact w/someone who lives/traveled outside US past 30 days?: No Exposure to someone with infectious disease in past 14 days?: No Do you have a fever (greater than 100.4 F or 38 C)?: No Have you tested positive for COVID-19?: No Exposed to someone with COVID-19 in past 14 days?: No Do you have a sore throat?: No Do you have a cough?: No Do you have any weakness?: No Are you experiencing any nausea/vomitting?: No Do you have any diarrhea?: No Are you experiencing any unusual bleeding?: No Do you have any muscle aches/pain?: No Do you have any abdominal pain?: No Are you experiencing loss of taste or smell?: No [facility] Anesthesia Checklist Patient Identification Patient Identification: Arm Band and Verbal (Name & ) Structural Data Admitted From: Home Planned Operative Procedure/s: colonscopy Consent for Planned Operative Procedure(s) Verified: Yes Verified Documents: Surgical Consent and History and Physical NPO Status Verified Time NPO: 00:00 Additional verifications Anesthesia Reactions: No Previous Colonoscopy: Yes Airway Assessment Mallampati Score:: Class II Neurological Assessment Level of Consciousness: Awake, Alert and Appropriate Hx Seizures: No Numbness or tingling in extremities: No Anesthesia Plan Anesthesia Risk discussed: Yes Anesthesia Plan: Verified ASA Class: II Anesthesia Type: MAC
[2025-04-09 07:41] VITALS: BP 91/58; PULSE 62; RESP 16; TEMP 36.1; O2SAT 95
[2025-04-09 07:51] VITALS: BP 93/60; PULSE 60; RESP 16; TEMP 36.3; O2SAT 97
[2025-04-09 08:01] VITALS: BP 112/60; PULSE 56; RESP 16; TEMP 36.3; O2SAT 97
[2025-04-09 08:11] VITALS: BP 114/63; PULSE 62; RESP 17; TEMP 36.4; O2SAT 97
== END 2025-04-09 08:15 | disposition home or self-care (01) ==
PROVIDERS: PCP Family Medicine; Visit Provider Surgery
PROC: 0DJD8ZZ Inspection of Lower Intestinal Tract, Via Natural or Artificial Opening Endoscopic (ICD-10-PCS; CPT 45378; principal; 2025-04-09 07:30)
DX: Z12.11 Encounter for screening for malignant neoplasm of colon (principal); Z86.0101 Personal history of adenomatous and serrated colon polyps; K64.9 Unspecified hemorrhoids; I25.2 Old myocardial infarction; Z79.899 Other long term (current) drug therapy; Z79.82 Long term (current) use of aspirin; Z79.631 Long term (current) use of antimetabolite agent
CPT/HCPCS: 45378; J2003; J2704; J7120

== ENCOUNTER 2025-04-22 10:00 | Outpatient (RCR) | payer OTHER, SELFPAY | END 2025-04-22 23:59 | disposition home or self-care (01) | LOC: PT 10:00 | PROVIDERS: PCP Family Medicine; Visit Provider Orthopaedic Surgery | DX: Z48.89 Encounter for other specified surgical aftercare (principal); Z98.1 Arthrodesis status | CPT/HCPCS: 97110; 97112; 97163; 97530 ==

== ENCOUNTER 2025-04-24 10:40 | Outpatient (CLI) | payer OTHER, SELFPAY ==
--- OUTSIDE RECORDS SUMMARY | 2025-03-04 13:30 | XMS_ITS | Encounter Summary ---
Author Organization [facility] Address [address] [place] [address] Care Team Providers Care Route Returner Name Role Phone Sidney Alvarenga MD Primary Care Provider [phone] Reason for Visit * Reason Comments Follow-up Encounter Details Date Type Department Care Team (Latest Contact Info) Description 03/04/2025 1:30 PM EDT Office Visit [facility] [address] [place] [address] Jayce Rangel W, BILL COLLECTOR [address] [place] [address] Scleritis and episcleritis of both eyes (Primary Dx); Lumbar radiculopathy; Other secondary osteoarthritis of multiple sites; High risk medication use Social History Tobacco Use Types Packs/Day Years Used Date Smoking Tobacco: Former Cigarettes 1 20.2 0 03/26/1985 - 05/27/2005 Smokeless Tobacco: Former Chew Quit: 02/24/1991 Alcohol Use Standard Drinks/Week Comments Not Currently 0 (1 standard drink = 0.6 oz pur e alcohol) Sobriety Date: 01.10.2005 PHQ-2 Answer Date Recorded Patient Health Questionnaire-2 Score 0 03/04/2025 PHQ-9 Answer Date Recorded Patient Health Questionnaire-9 Score 18 09/03/2024 AUDIT-C Answer Date Recorded Frequency of Alcohol Consumption Not on file 03/04/2025 Q2: How many drinks containi ng alcohol do you have on a typical day when you are drinking? Patient does not drink Frequency of Binge Drinking Not on file 05/2025 Sex and Gender Information Value Date Recorded Sex Assigned at Male 09/13/2023 5:12 PM EST Legal Sex Male 7:54 PM EDT Gender Identity Male 09/13/2023 5:12 PM EST Sexual Orientation Straight 09/13/2023 5: 12 PM EST documented as of this encounter Last Filed Vital Signs Vital Sign Reading Time Taken Comments Blood Pressure 130/88 03/04/2025 1:22 PM EDT Pulse 102 03/04/2025 1:22 PM EDT Temperature 36.7 C (98 F) 03/04/2025 1:22 PM EDT Respiratory Rate 16 03/04/2025 1:22 PM EDT Oxygen Saturation 95% 03/04/2025 1:22 PM EDT Inhaled Oxygen Concentration - - Weight 91.4 kg (201 lb 8 oz) 03/04/2025 1:22 PM EDT Height 167.6 cm (5' 6 ) 03/04/2025 1:22 PM EDT Body Mass Index 32.52 03/04/2025 1:22 PM EDT documented in this encounter Functional Status * Over the past 2 weeks, how often have you been bothered by any of the following problems? Question Answer Date of Assessment Author Little interest or pleasure in doing things Not at all 03/04/2025 1:27 PM EDT Lora Peters Feeling down, depressed, or hopeless Not at all 03/04/2025 1:27 PM EDT Lora Peters Patient Health Questionnaire -2 Score 0 03/04/2025 1:27 PM EDT Lora Peters documented as of this encounter Miscellaneous Notes * Progress Notes - Jayce Rangel APRN - 03/04/2025 1:30 PM EDT Images from the original note were not included. Varghese Clark Jr. is a 59 y.o. male Chief complaint: Scleritis/episcleritis Subjective HPI Varghese Clark Jr. is a 59 y.o. male with PMH significant for coronary artery disease, hypertension,vitamin B12 deficiency, chronic low back pain, spinal stenosis, thyroid nodule following with Endocrinology who was last seen back in April of this year for episcleritis/scleritis. He developed left eye episcleritis, scleritis in 2014 that was initially treated with topical prednisone and improved. He then had a relapse in 2018 which was treated with topical steroids and NSAIDsorally PRN. From 2018 to 2022 had an bilateral scleritis, episcleritis at least twice a year with each episode treated with steroid eyedrops and NSAIDs. Thinks his last attack was possible posterior left eye scleritis and was treated with 4 weeks of steroid eyedrops. This time he did not get any dramatic improvement with steroid eyedrops. He has had complaints of lumbar back pain. He had an MRI of the lumbar spine in February of 2020 with an EMG/NCS around that time that showed some neurological deficit from impingement. He does have significant degenerative arthritis. Pruritus/episcleritis has been maintained on methotrexate 15, then initially 20 mg weekly secondaryto flares. He was still on prednisolone eyedrops 3 times a week at the time of his last visit and was seeing Ophthalmology. 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 Weekend of 07/14/2024 he is off prednisolone gtt, last flare 11/2023. Hoping without flares 06/2026. Lumbar spine pain worsened since 03/2024- acute on chronic. Surgical timetable mid-September 2024. 03/04/25: Had lumbar fusion (note reviewed). Had to hold his meds/Methotrexate once. Denies any symptoms of the eyes- pain, discharge or change in vision. Questions his immunosuppression affecting his spine issues. Back surgery had no improvement; sleeping only 2 hours at night; taking gbp and he can sleep for 4131-1716. Vaccine questions. Joints affected: Lower back- pain all the time- worse with activity; AMS noted but not better. Rheum medication hx: Methotrexate % improvement on current medication: 95 Review of Systems Constitutional: Negative for chills, fatigue and fever. Eyes: Negative for pain. Respiratory: Negative for shortness of breath. Cardiovascular: Negative for chest pain. Genitourinary: Negative for hematuria. Musculoskeletal: Positive for back pain. Negative for myalgias. Neurological: Negative for seizures. The following portions of the chart were reviewed this encounter and updated as appropriate: Past Medical History: Diagnosis Date Acquired spondylolisthesis of lumbosacral region 12/25/1986 Alcoholism ([facility]) 09.26.1982 Anxiety 1996 Arthritis 09/28/2022 Arthropathy of thoracic facet joint 04/05/2017 Back pain 03/28/2017 Lumbar/Thoracic Back pain Cervical disc disorder ..1994 Chronic cough 09/03/2024 Degenerative disc disease, lumbar ..1988 Depression 1995 Depressive disorder 09/28/2022 Displacement of lumbar intervertebral disc 04/05/2017 Dyspnea 09/03/2024 Facial numbness 09/03/2024 Foraminal stenosis of lumbosacral region 03/06/2020 History of substance abuse 04/05/2017 Hypertension 03.30.2023 Irregular heart beat 09/28/2022 Kidney stone 09/28/2022 Low back pain ..1986 Lumbar postlaminectomy syndrome 01/31/2020 Mild obesity 04/05/2017 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 Osteoarthritis of spine with radiculopathy, lumbosacral region 03/06/2020 Pain in right leg Bilateral leg pain Pain in right leg Lower extremity pain, right Plantar fasciitis 06..2005 Radiculopathy ..1988 Radiculopathy, lumbar region Lumbar radiculitis Rotator cuff syndrome 09.26.1999 Sciatica 09.26.1986 Scleritis 10/17/2015 Spinal stenosis 09.26.1986 Substance abuse 09.26.1982 Thoracic disc herniation 04/05/2017 Past Surgical History: Procedure Laterality Date KNEE ARTHROPLASTY 02.24.1982 LUMBAR DISCECTOMY 10.10.2001 LUMBAR LAMINECTOMY OTHER SURGICAL HISTORY Social History Socioeconomic History Marital status: Single Spouse name: Not on file Number of children: Not on file Years of education: Not on file Highest education level: Not on file Occupational History Not on file Tobacco Use Smoking status: Former Current packs/day: 0.00 Average packs/day: 1 pack/day for 20.2 years (20.2 ttl pk-yrs) Types: Cigarettes Start date: 03/26/1985 Quit date: 05/27/2005 Years since quittin.7 Smokeless tobacco: Former Types: Chew Quit date: 02/24/1991 Vaping Use Vaping status: Never Used Substance and Sexual Activity Alcohol use: Not Currently Comment: Sobriety Date: 01.10.2005 Drug use: Not Currently Types: Crack cocaine, Cocaine, LSD, Marijuana, MDMA (ecstacy), Methamphetamines, Nitrous oxide Comment: Sobriety Date: 01.10.2005 Sexual activity: Not Currently Partners: Female control/protection: Condom Male, Injection, I.U.D. Other Topics Concern Not on file Social History Narrative Not on file Social Drivers of Health Financial Resource Strain: Not on file Food Insecurity: Not on file Transportation Needs: Not on file Physical Activity: Not on file Stress: Not on file Social Connections: Unknown (07/04/2023) Received from [facility] Family and Community Support Help with Day-to-Day Activities: Not on file Lonely or Isolated: Not on file Intimate Partner Violence: Not At Risk (02/01/2025) Received from [facility] Abuse Screen Feels Unsafe at Home or Work/School: no Feels Threatened by Someone: no Does Anyone Try to Keep You From Having Contact with Others or Doing Things Outside Your Home?: no Physical Signs of Abuse Present: no Housing Stability: Unknown (02/02/2025) Received from [facility] Housing Stability Current Living Arrangements: home Potentially Unsafe Housing Conditions: Not on file Family History Problem Relation Name Age of Onset Cancer Mother Dilia Depression Mother Dilia Diabetes Mother Dilia Mental illness Mother Dilia Obesity Mother Dilia Diabetes type I Mother Dilia Hypertension Mother Dilia Cancer Father Varghese Diabetes Father Varghese Intellectual Disability Father Varghese Diabetes type I Father Varghese Hypertension Father Varhgese Heart disease Father Varghese Alcohol abuse Father's Brother Konrad Arthritis Mother's Sister Jewels Autoimmune disease Mother's Sister Jewels Depression Mother's Sister Jewels Drug abuse Mother's Sister Jewels Early natural Mother's Sister Jewels Obesity Mother's Sister Jewels Arthritis Mother's Sister Vivien Autoimmune disease Mother's Sister Vivien Obesity Mother's Sister Vivien No Known Allergies Current Outpatient Medications Medication Sig Dispense Refill amLODIPine (Norvasc) 5 MG tablet 1 tablet (5 mg). ASPIRIN 81 MG chewable tablet Cyanocobalamin (B-12 COMPLIANCE INJECTION IJ) Infuse into a venous catheter every 15 (fifteen) days. Twice a month folic acid (Folvite) 1 MG tablet Take 1 tablet (1 mg) by mouth 1 (one) time each day. 90 tablet 1 gabapentin (Neurontin) 100 MG capsule TAKE ONE CAPSULE BY MOUTH UP TO THREE TIMES DAILY NEEDED MAY CAUSE DROWSINESS irbesartan (Avapro) 150 MG tablet 1 tablet (150 mg) 1 (one) time each day. methotrexate 2.5 MG tablet Take 10 tablets (25 mg total) by mouth 1 time per week. Follow directions carefully, and ask to explain any part you do not understand. Take exactly as directed. 40 tablet 2 No current facility-administered medications for this visit. Objective Last visit labs: Appointment on 09/03/2024 Component Date Value Ref Range Status Glucose, Plasma 09/03/2024 89 74 - 99 mg/dL Final BUN, Plasma 09/03/2024 11 7 - 21 mg/dL Final Creatinine, Plasma 09/03/2024 1.01 0.70 - 1.20 mg/dL Final BUN/Creatinine Ratio 09/03/2024 11 Final Sodium, Plasma 09/03/2024 144 136 - 145 mmol/L Final Potassium, Plasma 09/03/2024 4.0 3.6 - 4.9 mmol/L Final Chloride, Plasma 09/03/2024 105 97 - 107 mmol/L Final CO2, Plasma 09/03/2024 27 22 - 29 mmol/L Final Anion Gap 09/03/2024 12 6 - 16 mmol/L Final Total Calcium, Plasma 09/03/2024 9.7 8.9 - 10.2 mg/dL Final Total Protein 09/03/2024 7.4 6.3 - 7.9 g/dL Final Albumin, Plasma 09/03/2024 4.8 3.5 - 5.2 g/dL Final AST, Plasma 09/03/2024 28 10 - 50 U/L Final ALT, Plasma 09/03/2024 39 10 - 50 U/L Final Alkaline Phosphatase, Plasma 09/03/2024 92 40 - 115 U/L Final Total Bilirubin, Plasma 09/03/2024 1.7 (H) 0.2 - 1.1 mg/dL Final eGFRcr 09/03/2024 86.7 mL/min/1.73m*2 Final Reported eGFRcr in mL/min/1.73m2 is based the CKD-EPI 2020 equation that does not use a race coefficient. WBC Count 09/03/2024 4.62 3.70 - 10.30 10*3/uL Final RBC Count 09/03/2024 4.77 4.60 - 6.10 10*6/uL Final HGB 09/03/2024 14.9 13.7 - 17.5 g/dL Final HCT 09/03/2024 42.9 40.0 - 51.0 % Final Platelet Count 09/03/2024 344 155 - 369 10*3/uL Final MCV 09/03/2024 90 79 - 98 fL Final MCH 09/03/2024 31.2 26.0 - 32.0 pg Final MCHC 09/03/2024 34.7 30.7 - 35.5 g/dL Final RDW 09/03/2024 13.0 11.5 - 14.5 % Final MPV 09/03/2024 9.3 8.8 - 12.5 fL Final nRBC 09/03/2024 0.0 <=0.0 per 100 WBCs Final Differential Type 09/03/2024 Automated Final Neutrophils % 09/03/2024 70 % Final Lymphocytes % 09/03/2024 20 % Final Monocytes % 09/03/2024 7 % Final Eosinophils % 09/03/2024 2 % Final Basophils % 09/03/2024 1 % Final Immature Granulocytes % 09/03/2024 0 % Final Neutrophils Absolute 09/03/2024 3.22 1.60 - 6.10 10*3/uL Final Lymphocytes Absolute 09/03/2024 0.91 (L) 1.20 - 3.90 10*3/uL Final Monocytes Absolute 09/03/2024 0.34 0.30 - 0.90 10*3/uL Final Eosinophils Absolute 09/03/2024 0.09 0.00 - 0.50 10*3/uL Final Basophils Absolute 09/03/2024 0.04 0.00 - 0.10 10*3/uL Final Immature Granulocytes Absolute 09/03/2024 0.02 0.00 - 0.06 10*3/uL Final Sedimentation Rate 09/03/2024 6 <20 mm/hr Final CRP, Plasma 09/03/2024 <3.0 <=8.0 mg/L Final Conjugated Bilirubin, Plasma 09/03/2024 0.3 <=0.3 mg/dL Final Vitals: 03/04/25 1322 BP: 130/88 Pulse: 102 Resp: 16 Temp: 36.7 ??C (98 ??F) SpO2: 95% Physical Exam Vitals reviewed. Constitutional: General: He is not in acute distress. Appearance: Normal appearance. HENT: Head: Normocephalic. Mouth/Throat: Mouth: Mucous membranes are moist. Eyes: Conjunctiva/sclera: Conjunctivae normal. Cardiovascular: Rate and Rhythm: Normal rate and regular rhythm. Pulses: Normal pulses. Heart sounds: No murmur heard. Pulmonary: Effort: Pulmonary effort is normal. Breath sounds: Normal breath sounds. Abdominal: Palpations: Abdomen is soft. Musculoskeletal: General: No swelling or tenderness. Normal range of motion. Right lower leg: No edema. Left lower leg: No edema. Skin: General: Skin is warm. Findings: No rash. Neurological: General: No focal deficit present. Mental Status: He is alert and oriented to person, place, and time. Psychiatric: Mood and Affect: Mood normal. Behavior: Behavior normal. Thought Content: Thought content normal. Judgment: Judgment normal. Joint Exam 03/04/2025 All documented joints were normal 09/03/2024 03/04/2025 ROBERTSON-28 (ESR) -- -- ROBERTSON-28 (CRP) -- -- Tender (ROBERTSON-28) 0 / 28 0 / 28 Swollen (ROBERTSON-28) 0 / 28 0 / 28 Provider Global -- -- Patient Global -- -- ESR -- -- CRP -- -- Swollen Joint Count: Swollen: 0 Tender Joint Count: Tender: 0 Patient global assessment: 3/10 Rapid 3 score: Assessment/Plan 1. Scleritis and episcleritis of both eyes First episode in 2014. Had recurrent attacks involving both eyes in 2018 and then at least every 6 months. Most recent attack in 07/2023 had posterior sclera involvement. He doesn't have history or exam suggestive of rheumatoid arthritis, GPA, behcet's disease, Julian disease, relapsing polychondritis, SLE, SpA or Psoriasis. ROS positive for mechanical back pain, shoulder pain, knee pain, dry eye. Labs ( 04/17) : RF, ESR, CRP, HARDY negative. Labs ( 09/28/2023) : HARDY by IFA, RF, CCP, Álvarez, SM/STREET LIGHT REPAIRER HELPER, SSA 52, SSA 60, SSB, ANCA by IFA, MPO, [place]-3,CRP, ESR, Complement C3, C4 all negative. Hepatitis panel, CBC, CMP, Quantiferon negative/normal. - Started on methotrexate 15 mg weekly on 09/2023, increased to 20 mg weekly on 12/2023 due to flaresand then 04/2024 to 25mg qw. - Tolerating methotrexate- plan 06/2026 remission without flare in between now. - plans for vaccines the day before his normal dose and then hold the dose the following day for a week - continue Methotrexate/FA - basic blood work and APR today 2. Lumbar radiculopathy 3. Other secondary osteoarthritis of multiple sites He repaired his meniscus in 1984, and back surgery ( L5/S1 laminectomy) in 2001 for spinal stenosis. He has residual chronic back pain. He was recommended to have L2-S1 spinal surgery by [facility] spinal surgery team, but he is trying to manage it conservatively. His last MRI lumbar spine was February2020. His EMG/NCS around that time also showed some neurological deficit from impingement. He has undergone PT in summer 2019. He also has chronic neck pain. His prior injury from [place] caused C4/C5,and managed conservatively. 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 - Tylenol, topical NSAID PRN. - failed formal PHYSICAL THERAPY - now post-op 1 month from fusion and he is struggling 4. High risk medication use CBC, CMP 04/18 within normal limits. No alcohol use. Hepatitis panel, Quantiferon negative. - basic blood work and APR today - folic acid - cmp/cbc RTC 6 months Thanks so much for allowing me to participate in the care of this patient. If you have any questions or concerns please feel free to reach out for further clarification. Jayce Rangel, YOSELIN The patient was counseled about diagnostic results, instruction for management, risk factors reduction, prognosis, compliance with visits and treatment, risks and benefits of treatments options. Prior notes (by external physicians) and results were reviewed by me with independent interpretation of labs and imaging. My note will be sent to PCP and other consulting physicians. documented in this encounter Plan of Treatment Upcoming Encounters Date Type Department Care Team (Late st Contact Info) Description 05/13/2025 2:20 PM EDT Office Visit [facility] [address] [place] [phone] Bob Wolf MD [address] [place] [address] 09/03/2025 1:30 PM EST Office Visit [facility] [address] [place] [address] Jayce Rangel APRN [address] [place] [address] documented as of this encounter Results * T4, free (03/04/2025 2:32 PM EDT) Free T4, Plasma 1.3 0.8 - 1.7 ng/dL 03/04/2025 4:25 PM EDT [facility] Blood Venous blood specimen / Unknown Venipuncture / Unknown 03/04/2025 2:32 PM EDT 03/04/2025 2:32 PM EDT us Jayce Rangel APRN LAB BLOOD ORDERABLES Final Res ult [facility] [address] [place] [address] * Thyroid Stimulating Hormone, Plasma (03/04/2025 2:32 PM EDT) Thyroid Stimulating Hormone, Plasma 1.16 0.40 - 4.20 uIU/mL 03/04/2025 4:25 PM EDT [facility] Blood Venous blood specimen / Unknown Venipuncture / Unknown 03/04/2025 2:32 PM EDT 03/04/2025 2:32 PM EDT us Jayce Omer Juan Carlos BILL COLLECTOR LAB BLOOD ORDERABLES Final Res ult [facility] [address] [place] [address] documented in this encounter Visit Diagnoses Diagnosis Scleritis and episcleritis of both eyes- Primary Lumbar radiculopathy Thoracic or lumbosacral neuritis or radiculitis, unspecified Other secondary osteoarthritis of multiple sites High risk medication use documented in this encounter Additional Health Concerns Assessment Noted Time PHQ-9 Depression Total Score: 18 024 12:49 PM EST A fall risk assessment has been complete d for the patient 03/04/2025 1:28 PM EDT A Body Mass Index follow-up plan has been documented for the patient 03/04/2025 2:48 PM EDT documented as of this encounter Care Teams Route Returner Relationship Specialty Start Date End Date Sidney Alvarenga MD [address] [place] [address] PCP - General 02/06/21 documented as of this encounter
--- OUTSIDE RECORDS SUMMARY | 2025-04-03 09:00 | XMS_ITS ---
Author Organization Emiliano Address [facility] [address] [place] [phone] Care Team Providers Care Technical Recruiter Name Role Phone Roberto Alvarenga Primary Care Provider REASON FOR VISIT B12 shot Medications Medication [...] Encounters Encounter Location Date Provider Diagnosis Emiliano [address] [place] [address] AM[place] [phone] 04/03/2025 Roberto Alvarenga Vitamin B 12 deficiency [...] :1965 A ge:59 Y S ex:Male Date:04/03/2025 Address:[address] [place] [address] YAD[place]EL ANTHONY [id number] Subjective: * Chief Complaints: * 1 . [...] deficiency) * Procedure Codes: J 3420 B-12, 98098 ADMINISTRATION OF INJECTION * Images: Billing Information: * Visit Code: * Procedure Codes: J3420 B-12. 51489 ADMINISTRATION OF INJECTION. * Electronic signature of Roberto Alvarenga MD on 04/25/2025 at 10:43 AM EDT Sign off status: Pending * Provider: Roberto Alvarenga M.D. Date: 04/03/2025 Generated for Stefany perez/Olu/Sin on: 04/25/2025 10:43 AM EDT
--- OUTSIDE RECORDS SUMMARY | 2025-04-17 07:45 | XMS_ITS ---
Author Organization Emiliano Address [address] [facility] [address] [place] [phone] Care Team Providers Care Securities Teller Name Role Phone Roberto Alvarenga Primary Care Provider Tanvi Capps [phone] REASON FOR VISIT B12 shot Medications Medication SIG (Take, Route, Frequency, Duration) Notes Start Date End Date Status Methotrexate Sodium 2.5 MG 10 tabs Orall y once a week Active amLODIPine Besylate 5 mg 1 tablet orally once a day; Duration: 30 days Active Aspirin 81 MG 1 tablet Orally Once a day; Duration: 30 day(s) Active Folic Acid 1 MG 1 tablet Orally Once a day; Duration: 30 day(s) Active Irbesartan 150 mg 1 tablet orally once a day; Duration: 30 days Active Encounters Encounter Location Date Provider Diagnosis Emiliano [facility] [address] [place] [phone] 04/17/2025 Tanvi Capps Vitamin B 12 deficie ncy E53.8 Assessments Encounter Date Diagnosis (ICD Code) Assessment Notes Treatment Notes Treatment Clinical Notes Section Notes 04/17/2025 Vitamin B 12 deficiency (ICD-10 - E53.8) Plan Of Treatment No Information Medications Administered Medication Instructions Date of Administration Dosage Notes B-12 04/17/2025 1 mL Progress Notes * RAMA MARESDOB: [birth year] (59 yo M)Acc No.[id number]:04/17/2025 Patient: Juve RAMA WEAVER Provider: DAMIAN Marie :1965 A ge:59 Y S ex:Male Date:04/17/2025 Address:[address] [place] [address] , Y[place] GE[place], [id number] Pcp:Roberto Alvarenga Subjective: * Chief Complaints: * 1 . B12 shot. * Medical History: * Medications: T aking Aspirin 81 MG Tablet Delayed Release 1 tablet Orally Once a day , Taking Folic Acid 1 MG Tablet 1 tablet Orally Once a day , Taking Methotrexate Sodium 2.5 MG Tablet 10 tabs Orally once a week , Taking amLODIPine Besylate 5 mg Tablet 1 tablet orally once a day , Taking Irbesartan 150 mg Tablet 1 tablet orally once a day , Medication List reviewed and reconciled with the patient Objective: * Vitals: Assessment: * Assessment: 1. V itamin B 12 deficiency - E53.8 (Primary) Plan: * Treatment: * Therapeutic Injections: B-12 : 1 mL (Route: Intramuscular) given by MAYNOR Dickens on left gluteus (Vitamin B 12 deficiency) * Procedure Codes: J 3420 B-12, 02675 ADMINISTRATION OF INJECTION * Images: Billing Information: * Visit Code: * Procedure Codes: J3420 B-12. 88822 ADMINISTRATION OF INJECTION. * Electronic signature of DAMIAN Christiansen on 04/25/2025 at 10:43 AM EDT Sign off status: Pending * Provider: DAMIAN Marie Date: 04/17/2025 Generated for Stefany perez/Olu/Sin on: 04/25/2025 10:43 AM EDT
--- OUTSIDE RECORDS SUMMARY | 2025-04-18 11:00 | XMS_ITS ---
Author Organization [facility] 1210 [facility] [address] [place] [id number] Care Team Providers Care Traveling Crane Operator Name Role Phone Roberto Alvarenga Primary Care Provider Tanvi Capps Unavailable [phone] Allergies Allergen (clinical drug ingredient) Drug/Non Drug [...] [address] [place] [phone] 04/18/2025 Tanvi Capps Acute URI J06.9 Assessments [...] Reason: Progress Notes * RAMA MARESDOB: [birth year] (59 yo M)Acc No.[id number]:04/18/2025 Progress Notes Patient: RAMA HUBBARD Provider: DAMIAN Marie :1965 A ge:59 Y S ex:Male Date:04/18/2025 Address:[address] [place] [address] [address] [place], [id number] Pcp:Roberto Alvarenga Subjective: * Chief Complaints: * [...] and alcoholic - clean since admission to [facility] in 2004, Lumbar spinal stenosis, [...] Flu Test- Nasal Swab, Modifiers: QW , 87582 COVID TEST IN HOUSE, Modifiers: QW , 46021 CAPILLARY BLOOD DRAW, 22384 CBC WITH AUTO DIFF, 1036F TOBACCO NON-USER, 3074F SYST BP LT 130 MM HG, 3078F DIAST BP < 80 MM HG * Follow Up: p rn * Images: Billing Information: * Visit Code: 42764 Office Visit, Est Pt., Level 3. * Procedure Codes: 54911 Flu Test- Nasal Swab. Modifiers: QW 84504 COVID TEST IN HOUSE. Modifiers: QW 95402 CAPILLARY BLOOD DRAW. 63450 CBC WITH AUTO DIFF. 1036F TOBACCO NON-USER. 3074F SYST BP LT 130 MM HG. 3078F DIAST BP < 80 MM HG. * Electronic signature of DAMIAN Christiansen on 04/25/2025 at 10:44 AM EDT Sign off status: Pending * Provider: DAMIAN Marie Date: 04/18/2025 Generated for Stefany perez/Olu/Sin on: 04/25/2025 10:44 AM EDT History and Physical Notes * HPI (History [...]
[2025-04-24 14:48] LABS: Coronavirus 19, PCR Not Detected (NotDetected); Influenza A, PCR Not Detected (NotDetected); Influenza B, PCR Not Detected (NotDetected)
--- OUTSIDE RECORDS SUMMARY | 2025-04-25 10:43 | XMS_ITS | Encounter Summary ---
Author Organization [facility] Address [address] [place] [address] Care Team Providers Care Living Coach Name Role Phone [place] Alvarenga MD Primary Care Provider +1- [phone] Encounter Details Date Type Department Care Team (Late st Contact Info) Description 06/16/2023 Orders Only External Location [address] [place] [phone] Provider, External Social History Tobacco Use Types Packs/Day Years Used Date Smoking Tobacco: Never Sex and Gender Information Value Date Recorded Sex Assigned at Male 09/13/2023 5:12 PM EST Legal Sex Male 7:54 PM EDT Gender Identity Male 09/13/2023 5:12 PM EST Sexual Orientation Straight 09/13/2023 5: 12 PM EST documented as of this encounter Plan of Treatment Upcoming Encounters Date Type Department Care Team (Late st Contact Info) Description 05/13/2025 2:20 PM EDT Office Visit [facility] Endocrinology [address] [place] [address] Bob Wolf MD [address] [place] [address] 09/03/2025 1:30 PM EST Office Visit [facility] [address], [address] [place] [address] Jayce Rangel, TRUCK HOPPER [address] [place] [address] documented as of this encounter Procedures Procedure Name Priority Date/Time Associated Diagnosis Comments MR NEURO OUTSIDE IMAGES 06/16/2023 8:25 AM EDT documented in this encounter Results * MR NEURO OUTSIDE IMAGES (06/16/2023 8:25 AM EDT) Anatomical Region Laterality Modality Magnetic Resonan ce 06/16/2023 8:25 AM EDT us External Provider IMG MRI PROCEDURES Final Resul t documented in this encounter Visit Diagnoses Not on filedocumented in this encounter Care Teams Living Coach Relationship Specialty Start Date End Date [place] Alvarenga MD [address] [place] [address] PCP - General 02/06/21 documented as of this encounter
--- OUTSIDE RECORDS SUMMARY | 2025-04-25 10:43 | XMS_ITS | Clinical Summary ---
Author Organization [facility] Address [address] [place] [address] Care Team Providers Care Hot Tar Roofer Helper Name Role Phone [place] Alvarenga MD Primary Care Provider +1- [phone] Allergies No known active allergies Medications amLODIPine (Norvasc) 5 MG tablet 1 tablet (5 mg). 3 Active ASPIRIN 81 MG chewable tablet 3 Active irbesartan (Avapro) 150 MG tablet 1 tablet (150 mg) 1 (one) time each day. 3 Active Cyanocobalamin (B-12 COMPLIANCE INJECTION IJ) Infuse into a venous catheter every 15 (fifteen) days. Twice a month Active folic acid (Folvite) 1 MG tabletIndications :High risk medication use Take 1 tablet (1 mg) by mouth 1 (one) time each day. 90 tablet 1 4 Active gabapentin (Neurontin) 100 MG capsule TAKE ONE CAPSULE BY MOUTH UP TO THREE TIMES DAILY NEEDED MAY CAUSE DROWSINESS 5 Active methotrexate 2.5 MG tabletIndications :Scleritis and episcleritis of both eyes Take 10 tablets (25 mg total) by mouth 1 time per week. Follow directions carefully, and ask to explain any part you do not understand. Take exactly as directed. 40 tablet 2 5 Active Resolved Problems Problem Noted Date Diagnosed Date Resolved Date Chronic cough 09/03/2024 09/03/2024 Dyspnea 09/03/2024 09/03/2024 Facial numbness 09/03/2024 09/03/2024 Arthritis 09/28/2022 09/03/2024 Depressive disorder 09/28/2022 09/03/20 Irregular heart beat 09/28/2022 024 Kidney stone 09/28/2022 09/03/2024 Osteoarthritis of spine with radiculopathy, lumbosacral region 03/06/2020 09/03/2024 Foraminal stenosis of lumbosacral region 03/06/2020 09/03/2024 Lumbar postlaminectomy syndrome 01/31/2020 09/03/2024 Myofascial pain 01/31/2020 09/03/2024 Arthropathy of thoracic facet joint 04/05/2017 09/03/2024 Displacement of lumbar intervertebral disc 04/05/2017 09/03/2024 History of substance abuse 04/05/2017 1 11/04/2023 Mild obesity 04/05/2017 09/03/2024 Thoracic disc herniation 04/05/201705/2024 Back pain 03/28/2017 09/03/2024 Overview (09/03/2024): Lumbar/Thoracic Scleritis 10/17/2015 09/03/2024 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 09/03/2024 Acquired spondylolisthesis o f lumbosacral region 12/25/1986 09/03/2024 Encounters Date Type Department Care Team Description 03/04/2025 1:30 PM EDT Office Visit [facility] Medicine Specialties [address] [place] [address] Jayce Rangel, YOSELIN Scleritis and episcleritis of both eyes (Primary Dx); Lumbar radiculopathy; Other secondary osteoarthritis of multiple sites; High risk medication use 03/04/2025 Travel 02/25/2025 Travel 02/22/2025 Refill [facility] Medicine Specialties [address] [place] [address] Jade Vicente, PharmD Scleritis and episcleritis of both eyes from Last 3 Months Immunizations Immunization Administration Dates Next Due Hep A, Adult 04/29/2022,03/05/2019,08/30/2018 Influenza, Unspecified 07/05/2017 Influenza, injectable, MDCK, preservative free, quadrivalent 06/21/2022 Influenza, injectable, quadrivalent 05/31/2020 Influenza, recombinant, quad rivalent, injectable, preservative free 06/08/2021 Influenza, seasonal, injecta ble, preservative free 06/14/2018 Moderna Covid-19 Vaccine 12y +, Barry Protein, Preservative free 06/27/2023 Td (adult) 04/29/2022 Family History Medical History Relation Name Comments Cancer Father Varghese Diabetes Father Varghese Diabetes type I Father Varghese Heart disease Father Varghese Hypertension Father Varghese Intellectual Disability Father Varghese Alcohol abuse Father's Brother Konrad Cancer Mother Dilia Depression Mother Dilia Diabetes Mother Dilia Diabetes type I Mother Dilia Hypertension Mother Dilia Mental illness Mother Dilia Obesity Mother Dilia Arthritis Mother's Sister 1 Jewels Autoimmune disease Mother's Sister 1 Jewels Depression Mother's Sister 1 Jewels Drug abuse Mother's Sister 1 Jewels Early natural Mother's Sister 1 Jewels Obesity Mother's Sister 1 Jewels Arthritis Mother's Sister 2 Vivien Autoimmune disease Mother's Sister 2 Vivien Obesity Mother's Sister 2 Vivien Relation Name Status Comments Father Varghese Father's Brother Konrad Mother Dilia Mother's Sister 1 Jewels Mother's Sister 2 Vivien Social History Tobacco Use Types Packs/Day Years Used Date Smoking Tobacco: Former Cigarettes 1 20.2 0 03/26/1985 - 05/27/2005 Smokeless Tobacco: Former Chew Quit: 02/24/1991 Tobacco Cessation:Counseling Given: Not Answered Alcohol Use Standard Drinks/Week Comments Not Currently [...] Orientation Straight 09/13/2023 5: 12 PM EST Last Filed Vital Signs Vital Sign Reading [...] Mass Index 32.52 03/04/2025 1:22 PM EDT Plan of Treatment Upcoming Encounters Date Type Department Care Team (Late st Contact Info) Description 05/13/2025 2:20 PM EDT Office Visit [facility] Endocrinology [address] [place] [address] Bob Wolf MD [address] [place] [address] 09/03/2025 1:30 PM EST Office Visit [facility] [address] [place] [address] Jayce Rangel, YOSELIN [address] [place] [address] Health Maintenance Due Date Last Done Comments [facility]-HIV Screening 1967 [facility]-/Child/Adol SDOH Screenings 1967 [facility]- SDOH Screenings 1985 [facility]-Adult SDOH Screenings 1985 [facility]-Hepatitis B Vaccines (1 of 3 - 19+ 3-dose series) 1986 [facility]-Zoster Vaccines (1 of 2) 1986 CT Colonography 2012 Colonoscopy 2012 FIT-DNA 2012 FIT 2012 FOBT 2012 Sigmoidoscopy 2012 [facility]-Colorectal Cancer Screening 2012 [facility]-Pneumococcal Vaccine: 50+ Years (1 of 1 - PCV) 2017 [facility]-DTaP,Tdap,and Td Vaccines (1 - Tdap) 04/30/2022 04/29/2022 [id number] Vaccine (7 - 2023-25 season) 2024 06/27/2023, 06/09/2022, 12/23/2021, Additional history exists [facility]-Influenza Vaccine (#1) 05/27/202507/27, 06/21/2022, 06/08/2021, Additional history exists [facility]-Depression Screening 03/04/2026 03/04/2025, 12/0 05/2024 [facility]-Hepatitis A Vaccines Completed 022, 03/05/2019, 08/30/2018 [facility]-Hepatitis C Screening Completed 09/28/2023 [facility]-RSV Vaccine: 60+ Years or Discontinued 07/27/2024 [facility]-Obesity Intervention Completed 025, 12/07/2024, 10/19/2024, Additional history exists HPV Vaccines Aged Out No longer eligi ble based on patient's age to complete this topic [facility]-HIB Vaccines Aged Out No longer e ligible based on patient's age to complete this topic [facility]-IPV Vaccines Aged Out No longer e ligible based on patient's age to complete this topic [facility]-Rotavirus Vaccines Aged Out No lo nger eligible based on patient's age to complete this topic Procedures Procedure Name Priority Date/Time Associated Diagnosis Comments TSH Routine 03/04/2025 2:32 PM EDT Scleritis and episcleritis of both eyes High risk medication use FREE T4, PLASMA Routine 03/04/2025 2:32 PM EDT Scleritis and episcleritis of both eyes High risk medication use ACUTE HEPATITIS PANEL Routine 09/28/2023 5:04 PM EST High risk medication use from Last 3 Months or Most Recently Relevant to Health Maintenance Results * Thyroid Stimulating Hormone, Plasma (03/04/2025 2:32 PM EDT) Thyroid Stimulating Hormone, Plasma 1.16 0.40 - 4.20 uIU/mL 03/04/2025 4:25 PM EDT [facility] Blood Venous blood specimen / Unknown Venipuncture / Unknown 03/04/2025 2:32 PM EDT 03/04/2025 2:32 PM EDT Jayce Rangel HATCHERY WORKER LAB BLOOD ORDERABLES Final Res ult Performing Organization Address City/[facility] Co de Phone Number [facility] [address] [place] [address] * T4, free (03/04/2025 2:32 PM EDT) Pathologist [facility] Free T4, Plasma 1.3 0.8 - 1.7 ng/dL 03/04/2025 4:25 PM EDT [facility] Blood Venous blood specimen / Unknown Venipuncture / Unknown 03/04/2025 2:32 PM EDT 03/04/2025 2:32 PM EDT Jayce Rangel APRN LAB BLOOD ORDERABLES Final Res ult Performing Organization Address City/[facility]/ZIP Co de Phone Number [facility] [address] [place] [address] * Hepatitis panel, acute (09/28/2023 5:04 PM EST) Pathologist [facility] Hepatitis B Surf Antigen Negative Negative 09/28/2023 8:01 PM EST [facility] Hepatitis C Antibody Negative Negative 09/28/2023 8:01 PM EST [facility] Hepatitis A Antibody IgM Negative Negative 09/28/2023 8:01 PM EST [facility] Hepatitis B Core Antibody IgM Negative Negative 09/28/2023 8:01 PM EST [facility] Blood Venous blood specimen / Unknown Venipuncture / Unknown 09/28/2023 5:04 PM EST 09/28/2023 5:05 PM EST us Noris Martins MD LAB BLOOD ORDERABLES Fi nal Result [facility] [address] [place] [address] from Last 3 Months or Most Recently Relevant to Health Maintenance Insurance [place] [id number] [employer] [facility] MEDICAID Care Teams Hot Tar Roofer Helper Relationship Specialty Start Date End Date [place] Alvarenga MD [address] [place] [address] PCP - General 02/06/21
--- OUTSIDE RECORDS SUMMARY | 2025-04-25 10:43 | XMS_ITS | Encounter Summary ---
Author Organization [facility] Address [address] [place] [address] Care Team Providers Care Oliver Filter Operator Name Role Phone [place] Alvarenga MD Primary Care Provider +1- [phone] Encounter Details Date Type Department Care Team (Late st Contact Info) Description 06/04/2024 Orders Only External Location [address] [place] [address] Tanvi Capps [place] [address] [facility] [address] [place] [id number] Social History Tobacco Use Types Packs/Day Years Used Date Smoking Tobacco: Former Cigarettes 1 20.2 0 03/26/1985 - 05/27/2005 Smokeless Tobacco: Former Chew Quit: 02/24/1991 Alcohol Use Standard Drinks/Week Comments Not Currently 0 (1 standard drink = 0.6 oz pur e alcohol) PHQ-2 Answer Date Recorded Patient Health Questionnaire-2 Score 0 05/15/2024 PHQ-9 Answer Date Recorded Patient Health Questionnaire-9 Score 16 12/29/2023 Sex and Gender Information Value Date Recorded Sex Assigned at Male 09/13/2023 5:12 PM EST Legal Sex Male 7:54 PM EDT Gender Identity Male 09/13/2023 5:12 PM EST Sexual Orientation Straight 09/13/2023 5: 12 PM EST documented as of this encounter Plan of Treatment Upcoming Encounters Date Type Department Care Team (Late st Contact Info) Description 05/13/2025 2:20 PM EDT Office Visit [facility] Endocrinology [address] [place] [address] Bob Wolf MD [address] [place] [address] 09/03/2025 1:30 PM EST Office Visit [place] [facility] [address] [place] [address] Jayce Rangel, WAITER/WAITRESS INFORMAL [address] [place] [address] documented as of this encounter Procedures Procedure Name Priority Date/Time Associated Diagnosis Comments MR OUTSIDE IMAGES 06/04/2024 1:56 PM EDT documented in this encounter Results * MR transfer of outside films (06/04/2024 1:56 PM EDT) Anatomical Region Laterality Modality Magnetic Resonan ce 06/04/2024 1:56 PM EDT us Tanvi SALGADO IMG MRI PROCEDURES Final Result documented in this encounter Visit Diagnoses Not on filedocumented in this encounter Additional Health Concerns Assessment Noted Time PHQ-9 Depression Total Score: 16 12/28/ 024 10:19 AM EDT A fall risk assessment has been complete d for the patient 05/15/2024 12:32 PM EDT A Body Mass Index follow-up plan has been documented for the patient 05/15/2024 1:11 PM EDT documented as of this encounter Care Teams Oliver Filter Operator Relationship Specialty Start Date End Date [place] Alvarenga MD [address] [place] [address] PCP - General 02/06/21 documented as of this encounter
--- OUTSIDE RECORDS SUMMARY | 2025-04-25 10:43 | XMS_ITS | Encounter Summary ---
Author Organization [facility] Address [address] [place] [address] Care Team Providers Care Hr Internship Name Role Phone [place] Alvarenga MD Primary Care Provider +1- [phone] Encounter Details Date Type Department Care Team (Late st Contact Info) Description 06/16/2023 Orders Only External Location [address] [place] [address] Provider, External Social History Tobacco Use Types [...] Description 05/13/2025 2:20 PM EDT Office Visit [facility] Endocrinology [address] [place] [address] Bob Wolf MD [address] [place] [address] 09/03/2025 1:30 PM EST Office Visit [place] [facility] [address], [address] [place] [address] Jayce Rangel, ASSISTANT FINANCE MANAGER [address] [place] [address] documented as of this encounter Procedures Procedure [...] on filedocumented in this encounter Care Teams Hr Internship Relationship Specialty Start Date End Date [place] Alvarenga MD [address] [place] [address] PCP - General 02/06/21 documented as of this encounter
--- OUTSIDE RECORDS SUMMARY | 2025-04-25 10:43 | XMS_ITS | Encounter Summary ---
Author Organization [facility] Address [address] [place] [address] Care Team Providers Care Brazer Controlled Atmospheric Furnace Name Role Phone [place] Alvarenga MD Primary Care Provider +1- [phone] Encounter Details Date Type Department Care Team (Late st Contact Info) Description 09/01/2010 Orders Only External Location [address] [place] [address] Provider, External Social History Tobacco Use Types Packs/Day Years Used Date Smoking Tobacco: Never Assessed Sex and Gender Information Value Date Recorded Sex Assigned at Male 09/13/2023 5:12 PM EST Legal Sex Male 7:54 PM EDT Gender Identity Male 09/13/2023 5:12 PM EST Sexual Orientation Straight 09/13/2023 5: 12 PM EST documented as of this encounter Plan of Treatment Upcoming Encounters Date Type Department Care Team (Late st Contact Info) Description 05/13/2025 2:20 PM EDT Office Visit [facility] Endocrinology [address] [place] [address] Bob Wolf MD [address] [place] [address] 09/03/2025 1:30 PM EST Office Visit [place] [facility] [address] [place] [address] Jayce Rangel, CLINICAL ADMINISTRATIVE COORDINATOR [address] [place] [address] documented as of this encounter Procedures Procedure Name Priority Date/Time Associated Diagnosis Comments MR OUTSIDE IMAGES 09/01/2010 10:11 AM EST documented in this encounter Results * MR transfer of outside films (09/01/2010 10:11 AM EST) Anatomical Region Laterality Modality Magnetic Resonan ce 09/01/2010 10:1 1 AM EST us External Provider IMG MRI PROCEDURES Final Resul t documented in this encounter Visit Diagnoses Not on filedocumented in this encounter Care Teams Brazer Controlled Atmospheric Furnace Relationship Specialty Start Date End Date [place] Alvarenga MD [address] [place] [address] PCP - General 02/06/21 documented as of this encounter
--- OUTSIDE RECORDS SUMMARY | 2025-04-25 10:43 | XMS_ITS | Clinical Summary ---
Author Organization [facility] Address [address] [place] [address] Care Team Providers Care Filemaker Developer Name Role Phone None, Physician Primary Care Provider Unavailabl e Medications No known medications Active Problems Problem Noted Date Diagnosed Date Spondylolisthesis of lumbosacral region 03/06/20 20 Hx of decompressive lumbar laminectomy 0 Spinal stenosis of lumbar re gion with neurogenic claudication 03/06/2020 Osteoarthritis of spine with radiculopathy, lumbosacral region 03/06/2020 Foraminal stenosis of lumbosacral region 020 Immunizations Immunization Administration Dates Next Due Influenza, Injectable, MDCK, Preservative Free 1 09/26/2023 Family History Medical History Relation Comments Cancer, Other or Unknown Type Father Diabetes Father Cancer, Other or Unknown Type Mother Diabetes Mother Heart disease Mother Relation Status Comments Father Mother Social History Tobacco Use Types Packs/Day Years Used Date Smoking Tobacco: Former Smokeless Tobacco: Former Chew Alcohol Use Standard Drinks/Week Comments Not Currently 0 (1 standard drink = 0.6 oz pur e alcohol) Sex and Gender Information Value Date Recorded Sex Assigned at Male 06/19/2022 3:03 PM EDT Legal Sex Male 11:47 AM EDT Gender Identity Male 06/19/2022 3:03 PM EDT Sexual Orientation Straight 06/19/2022 3: 03 PM EDT Last Filed Vital Signs Vital Sign Reading Time Taken Comments Blood Pressure - - Pulse - - Temperature - - Respiratory Rate - - Oxygen Saturation - - Inhaled Oxygen Concentration - - Weight 86.6 kg (191 lb) 03/06/2020 2:26 PM EDT Height 167.6 cm (5' 6 ) 03/06/2020 2:26 PM EDT Body Mass Index 30.83 03/06/2020 2:26 PM EDT Plan of Treatment Health Maintenance Due Date Last Done Comments CT Colonography 1967 Colonoscopy 1967 Colorectal Cancer Screening 1967 FIT-DNA 1967 FIT 1967 FOBT 1967 Sigmoidoscopy 1967 Hepatitis B (HepB) Vaccine (1 of 3 - 19+ 3-dose series) 1986 Pneumococcal Vaccines >50 yo (1 of 1 - PCV) 2017 Shingles (Shingrix) (1 of 2) 2017 Tdap/Td Vaccine >11 yo (1 - Tdap) 04/30/2022 04/29/2022 Annual SDOH Screening 09/26/2024 Influenza Vaccine (#1) 2025 , 06/21/2022, 06/08/2021, Additional history exists Hepatitis A (HepA) Vaccine Completed 04/29, 03/05/2019, 08/30/2018 Haemophilus Influenzae Type B (Hib) Vaccine Aged Out No longer eligible based on patient's age to complete this topic Meningococcal ACWY Aged Out No longer eligible based on patient's age to complete this topic Polio (IPV) Aged Out No longer eligi ble based on patient's age to complete this topic Rotavirus (RV) Vaccine Aged Out No lo nger eligible based on patient's age to complete [place] [address] [facility] EXCH[facility] Advance Directives Documents on File Type Date Recorded Patient Radiation Therapy Technician Expl anation Living Will 02/04/2020 Care Teams Filemaker Developer Relationship Specialty Start Date End Date None, Physician PCP - General 02/04/20
--- OUTSIDE RECORDS SUMMARY | 2025-04-25 10:43 | XMS_ITS | Encounter Summary ---
Author Organization [facility] Address [address] [place] [address] Care Team Providers Care Service Worker Name Role Phone [place] Alvarenga MD Primary Care Provider +1- [phone] Reason for Referral * Consultation (Routine) - Closed Specialty Diagnoses / Procedures Referred By Nghia pantoja Referred To Contact Rheumatology Diagnoses Episcleritis of left eye Rubio Zhou MD [address] [place] [address] Phone: tel: fax: [facility] [address] [place] [address] Phone: tel: fax: Referral ID Status Reason Start Date Expiration Date V isits Requested Visits Authorized [id number] Closed Specialty Services Required 09/13/2023 03/14/2025 1 1 Encounter Details Date Type Department Care Team (Latest Contact Info) Description 09/13/2023 Community [facility] [address] [place] [address] Rubio Zhou MD [address] [place] [address] Episcleritis of left eye (Primary Dx) Social History Tobacco Use Types Packs/Day Years [...] Description 05/13/2025 2:20 PM EDT Office Visit [facility] Endocrinology [address] [place] [address] Bob Wolf MD [address] [place] [address] 09/03/2025 1:30 PM EST Office Visit [facility] [address] [place] [address] Jayce Rangel APRN [address] [place] [address] Scheduled Referrals Name Type Priority Associated Diagnoses Order Schedule Ambulatory referral to Rheumatology Outpatient Referral Routine Episcleritis of left eye Expected: 09/13/2023 (Approximate), Expires: 03/14/2025 documented as of this encounter Visit Diagnoses Diagnosis Episcleritis of left eye- Primary documented in this encounter Care Teams Service Worker Relationship Specialty Start Date End Date [place] Alvarenga MD [address] [place] [address] PCP - General 02/06/21 documented as of this encounter
--- OUTSIDE RECORDS SUMMARY | 2025-04-25 10:43 | XMS_ITS | Encounter Summary ---
Author Organization [facility] Address [address] [place] [address] Care Team Providers Care Lighting Engineer Name Role Phone [place] Alvarenga MD Primary Care Provider +1- [phone] Encounter Details Date Type Department Care Team (Late st Contact Info) Description 06/16/2023 Orders Only External Location [address] [place] [phone] Provider, External Social History Tobacco Use Types [...] Description 05/13/2025 2:20 PM EDT Office Visit [facility] Endocrinology [address] [place] [address] Bob Wolf MD [address] [place] [address] 09/03/2025 1:30 PM EST Office Visit [place] [facility] [address] [place] [address] Jayce Rangel, CONTROL CLERK SUBASSEMBLY [address] [place] [address] documented as of this encounter Procedures Procedure [...] on filedocumented in this encounter Care Teams Lighting Engineer Relationship Specialty Start Date End Date [place] Alvarenga MD [address] [place] [address] PCP - General 02/06/21 documented as of this encounter
--- OUTSIDE RECORDS SUMMARY | 2025-04-25 10:44 | XMS_ITS | Clinical Summary ---
Author Organization [facility] Address [address] [place] [address] Care Team Providers Care Instrument Checker Name Role Phone Tanvi Capps Primary Care Provider [phone] Allergies Active Allergy Reactions Criticality Noted Date Comments Morphine Itching 01/25/2025 Medications amLODIPine (NORVASC) 5 MG tablet 1 tablet. 03/31/2023 Active aspirin 81 MG EC tablet 1 tablet. 04/25/2023 Active irbesartan (AVAPRO) 150 MG tablet 1 tablet Daily. 03/31/2023 Active Cyanocobalamin (B-12 COMPLIANCE INJECTION IJ) Inject as directed Every 30 (Thirty) Days. Active folic acid (FOLVITE) 1 MG tablet Take 1 tablet by mouth Daily. Active methotrexate 2.5 MG tablet Take 10 tablets by mouth 1 (One) Time Per Week. Take 12.5 mg PO Tuesday QHS. 12.5mg Sun AM. 09/03/2024 Active Active Problems Problem Noted Date Diagnosed Date HTN (hypertension) 02/02/2025 S/P lumbar fusion 02/02/2025 Post-operative state 02/01/2025 Spondylolisthesis of lumbar region 01/31/2020 Myofascial pain 01/31/2020 Lumbar postlaminectomy syndrome 01/31/2020 Thoracic disc herniation 04/05/2017 Foraminal stenosis of thoracic region 04/05/2017 Arthropathy of thoracic facet joint 04/05/2017 History of substance abuse 04/05/2017 History of lumbar laminectomy 04/05/2017 Mild obesity 04/05/2017 Displacement of lumbar intervertebral disc 04/05 Lumbar foraminal stenosis 04/05/2017 Spondylosis of lumbar region without myelopathy or radiculopathy 04/05/2017 Lumbar stenosis without neurogenic claudication 04/05/2017 Back pain 03/28/2017 Overview (03/28/2017): Lumbar/Thoracic Encounters Date Type Department Care Team Description 02/01/2025 7:36 AM EDT Anesthesia Event [facility] [address] [place] [place] [address] Arnold Gray Jr., MD Meacham, Chad, HARISH 02/01/2025 7:00 AM EDT - 02/01/2025 12:00 PM EDT Surgery [facility] [address] [place] [address] Hussein Hastings MD ANTERIOR LUMBAR INTERBODY FUSION L5-S1 [80143 (CPT )] 02/01/2025 5:38 AM EDT - 02/05/2025 3:51 PM EDT Hospital Encounter [facility] 3H [address] [place] [address] Hussein Hastings MD Discharge Disposition: Home or Self Care 02/01/2025 Travel 01/25/2025 12:30 PM EDT Pre-Admission Testing [facility] PREAD[facility] T [address] [place] [address] Laboratory test (Primary Dx) 01/25/2025 Travel from Last 3 Months Family History Medical History Relation Name Comments Arthritis Father skin Cancer Father skin Diabetes Father skin Heart disease Father skin Hypertension Father skin Cancer Mother colon Diabetes Mother colon Hypertension Mother colon Relation Name Status Comments Father skin Alive Mother colon Alive Social History Tobacco Use Types Packs/Day Years Used Date Smoking Tobacco: Former Cigarettes 0.5 21.2 0 02/1985 - 05/01/2006 Smokeless Tobacco: Never Tobacco Cessation:Counseling Given: Not Answered Alcohol Use Standard Drinks/Week Comments No 0 (1 standard drink = 0.6 oz pur e alcohol) Abuse Screen Answer Date Recorded Feels Unsafe at Home or Work/School no 02/01/2025 Feels Threatened by Someone no 05/2025 Does Anyone Try to Keep You From Having Contact with Others or Doing Things Outside Your Home? no 02/01/2025 Physical Signs of Abuse Present no 02/01/2025 Housing Stability Answer Date Recorded Current Living Arrangements home 01/24 Potentially Unsafe Housing Conditions Not on laverne e 02/02/2025 Education Answer Date Recorded Help with school or training? Not on file Preferred Language Croatian 01/25/2025 Sex and Gender Information Value Date Recorded Sex Assigned at Not on file Legal Sex Male 10:17 AM EDT Gender Identity Not on file Sexual Orientation Not on file Last Filed Vital Signs Vital Sign Reading Time Taken Comments Blood Pressure 107/61 02/05/2025 11:12 AM EDT Pulse 85 02/05/2025 11:12 AM EDT Temperature 36.8 C (98.3 F) 02/05/2025 11:12 AM EDT Respiratory Rate 16 02/05/2025 11:12 AM EDT Oxygen Saturation 91% 02/05/2025 11:12 AM EDT Inhaled Oxygen Concentration - - Weight 98 kg (216 lb) 02/01/2025 6:15 AM EDT Height 165.1 cm (5' 5 ) 02/01/2025 6:15 AM EDT Body Mass Index 35.94 02/01/2025 6:15 AM EDT Plan of Treatment Health Maintenance Due Date Last Done Comments COLOGUARD 2012 COLON CANCER SCREENING 5 YEA R SIGMOIDOSCOPY 2012 COLONOSCOPY 2012 [address]AL CANCER SCREENING 2012 CT COLONOGRAPHY 2012 FECAL OCCULT BLOOD TEST 2012 FIT Testing (1 year) 2012 ANNUAL PHYSICAL 03/28/2017 PT PLAN OF CARE 04/01/2017 Pneumococcal Vaccine 50+ (1 of 1 - PCV) 2017 ZOSTER VACCINE (1 of 2) 2017 TDAP/TD VACCINES (1 - Tdap) 04/30/2022 04/29/2022 COVID-19 Vaccine (6 - 2023-2 5 season) 2024 06/27/2023, 12/23/2021, 07/06/2021, Additional history exists INFLUENZA VACCINE 06/26/2025 07/27/2024, , 06/08/2021, Additional history exists HEPATITIS C SCREENING Completed 09/28/2023 Medical Devices Implanted Type Area Corporate Securities Research Analyst Device Identifier Shelf Expiration Date Model / Serial / Lot Hemost Abs Surgifoam Sz100 8x12 10mm - [id number] Implanted:Qt y: 1 on 02/01/2025 by Hussein Solano MD at [facility] Implant N/A: Spine Lumbar ETH[employer] DIV OF J AND J [id number] 11/01/2028 [id number] / / [id number] Scrw Anti/Backout Bowti Ti 25mm - [id number] Implanted:Qt y: 1 on 02/01/2025 by Hussein Solano MD at [facility] Implant N/A: Spine Lumbar DEPUY SPINE [id number] / / Stpl Bone Bowti Ti 24mm - [id number] Implanted:Qt y: 1 on 02/01/2025 by Hussein Solano MD at [facility] Implant N/A: Spine Lumbar DEPUY SPINE [id number] / / Allogrft Bone Vivigen Celluar Matrx Formable 10cc - [id number] Implanted:Qt y: 1 on 02/01/2025 by Hussein Solano MD at [facility] Implant N/A: Spine Lumbar [facility] 12/25/2025 [id number] / / [id number] Allogrft Bone Vivigen Celluar Matrx Formable 5cc - [id number] Implanted:Qt y: 1 on 02/01/2025 by Hussein Solano MD at [facility] Implant N/A: Spine Lumbar [facility] [id number] 01/14/2026 [id number] / / Scrw Pa Fen 6.5x50mm - [id number] Implanted:Qt y: 2 on 02/01/2025 by Hussein Solano MD at [facility] Implant N/A: Spine Lumbar DEPUY SPINE [id number] / / Scrw Trialtis A/Poly 7.5x40mm - [id number] Implanted:Qt y: 2 on 02/01/2025 by Hussein Solano MD at [facility] Implant N/A: Spine Lumbar DEPUY SPINE [id number] / / Nikhil Trialtis Ti 5.5x95mm - [id number] Implanted:Qt y: 2 on 02/01/2025 by Hussein Solano MD at [facility] Implant N/A: Spine Lumbar DEPUY SPINE [id number] / / Scrw St Trialtis - [id number] Implanted:Qt y: 8 on 02/01/2025 by Hussein Solano MD at [facility] Implant N/A: Spine Lumbar DEPUY SYNTHES [id number] / / Wax Bone Hemo Lukens Sharpoint 2.5gm Wht - [id number] Implanted:Qt y: 1 on 02/01/2025 by Hussein Solano MD at [facility] Implant N/A: Spine Lumbar [employer]DA [id number] 03/27/2029 [id number] / / [id number] Scrw Fen Trialtis 6.5x45mm - [id number] Implanted:Qt y: 4 on 02/01/2025 by Hussein Solano MD at [facility] Implant N/A: Spine Lumbar DEPUY SPINE [id number] / / Kt Seal Hemos Abs Floseal Matrx Fast/Prep 10ml - [id number] Implanted:Qt y: 1 on 02/01/2025 by Hussein Solano MD at [facility] Implant N/A: Spine Lumbar Izzui [id number] 08/30/2026 [id number] / / [id number] Chiquis M/ Endo Ligaclip 20clp 11in - [id number] Implanted:Qt y: 1 on 02/01/2025 by Junior Broderick MD at [facility] Implant N/A: Spine Lumbar [employer] END[employer] DIV OF J AND J 09/25/2029 [id number] / / [id number] Clipapplr M/ Endo Ligaclip 13in Yahir - [id number] Implanted:Qt y: 1 on 02/01/2025 by Junior Broderick MD at [facility] Implant N/A: Spine Lumbar [employer] ENDO SURGERY DIV OF J AND J 08/25/2027 [id number] / / [id number] Allogrft Bone Vivigen Celluar Matrx Formable 1cc - [id number] Implanted:Qt y: 1 on 02/01/2025 by Hussein Solano MD at [facility] Implant N/A: Spine Lumbar [facility] [id number] 12/11/2025 [id number] / / Allogrft Bone Vivigen Celluar Matrx Formable 1cc - [id number] Implanted:Qt y: 1 on 02/01/2025 by Hussein Solano MD at [facility] Implant N/A: Spine Lumbar [facility] [id number] / / Cage Ib Alif Conduit Ti 3d/Prnt 20deg 16mm Lg - [id number] Implanted:Qt y: 1 on 02/01/2025 by Hussein Solano MD at [facility] Implant N/A: Spine Lumbar DEPUY SPINE 11/23/2034 [id number] / / [id number] Explanted Type Area Corporate Securities Research Analyst Device Identifier Shelf Expiration Date Model / Serial / Lot Stpl Bone Bowti Ti 24mm - [id number] Explanted:Qty : 1 on 02/01/2025 by Hussein Weaver MD at [facility] Implant N/A: Spine Lumbar DEPUY SPINE [id number] / / Scrw Anti/Backout Bowti Butrs/Plt Ti 20mm - [id number] Explanted:Qty : 1 on 02/01/2025 by Hussein Weaver MD at [facility] Implant N/A: Spine Lumbar DEPUY SPINE [id number] / / Cage Ib Alif Conduit Ti 3d/Prnt 20deg 14mm Lg - [id number] Explanted:Qty : 1 on 02/01/2025 by Hussein Weaver MD at [facility] Implant N/A: Spine Lumbar DEPUY SPINE 09/25/2034 [id number] / / [id number] Procedures Procedure Name Priority Date/Time Associated Diagnosis Comments CBC AND DIFFERENTIAL Routine 02/02/2025 12:13 PM EDT CBC WITH AUTO DIFFERENTIAL Routine 02/02/2025 12:13 PM EDT BASIC METABOLIC PANEL Routine 02/02/2025 12:13 PM EDT FL C ARM DURING SURGERY Routine 02/01/2025 1:41 PM EDT POCT SURGERY LABS Routine 02/01/2025 1:1 2 PM EDT FL O ARM DURING SURGERY Routine 02/01/2025 12:26 PM EDT XR LOST NEEDLE/INSTRUMENT Routine 02/01/2025 11:00 AM EDT ANESTHESIA INTUBATION Routine 02/01/2025 8:04 AM EDT HI WYATT FACETECTOMY & FORAMOTOMY 1 VRT SGM LUMBAR 02/01/2025 7:05 AM EDT Special Needs * HI ARTHRD ANT INTERBODY MIN DSC THORACIC 02/01/2025 7:05 AM EDT Special Needs * TYPE AND SCREEN STAT 02/01/2025 6:00 AM EDT SCANNED EKG 02/01/2025 ABORH 2ND SPECIMEN VERIFICATION Routine 01/25/2025 1:43 PM EDT Laboratory test CBC AND DIFFERENTIAL Routine 01/25/2025 1:08 PM EDT CBC WITH AUTO DIFFERENTIAL Routine 01/25/2025 1:08 PM EDT COMPREHENSIVE METABOLIC PANEL Routine 01/25/2025 1:08 PM EDT from Last 3 Months Results * (ABNORMAL) CBC Auto Differential (02/02/2025 12:13 PM EDT) Only the most recent of2 resultswithin the time period is included. WBC 11.49(H) 3.40 - 10.80 10*3/mm3 02/02/2025 1:11 PM EDT [facility] RBC 3.36(L) 4.14 - 5.80 10*6/mm3 02/02/2025 1:11 PM EDT [facility] Hemoglobin 10.3(L) 13.0 - 17.7 g/dL 02/02/2025 1:11 PM EDT [facility] Hematocrit 30.8(L) 37.5 - 51.0 % [facility] MCV 91.7 79.0 - 97.0 fL 02/[facility]2025 [facility] MCH 30.7 26.6 - 33.0 pg 02/02/2025 1:11 PM EDT [facility] MCHC 33.4 31.5 - 35.7 g/dL 02/[facility]2025 [facility] RDW 14.1 12.3 - 15.4 % 02/02/2025 [facility] RDW-SD 46.6 37.0 - 54.0 fl 02/02/2025 [facility] MPV 9.3 6.0 - 12.0 fL 02/02/2025 1:11 PM EDT [facility] Platelets 282 140 - 450 10*3/mm3 02/02/2025 1:11 PM EDT [facility] Neutrophil % 85.5(H) 42.7 - 76.0 % 02/02/2025 1:11 PM EDT [facility] Lymphocyte % 4.3(L) 19.6 - 45.3 % [facility] Monocyte % 9.6 5.0 - 12.0 % 02/02/2025 1:11 PM EDT [facility] Eosinophil % 0.0(L) 0.3 - 6.2 % 02/02/2025 1:11 PM EDT [facility] Basophil % 0.1 0.0 - 1.5 % 02/02/2025 1:11 PM EDT [facility] Immature Grans % 0.5 0.0 - 0.5 % 02/02/2025 1:11 PM EDT [facility] Neutrophils, Absolute 9.83(H) 1.70 - 7.00 10*3/mm3 02/02/2025 1:11 PM EDT [facility] Lymphocytes, Absolute 0.49(L) 0.70 - 3.10 10*3/mm3 02/02/2025 1:11 PM EDT [facility] Monocytes, Absolute 1.10(H) 0.10 - 0.90 10*3/mm3 02/02/2025 1:11 PM EDT [facility] Eosinophils, Absolute 0.00 0.00 - 0.40 10*3/mm3 02/02/2025 1:11 PM EDT [facility] Basophils, Absolute 0.01 0.00 - 0.20 10*3/mm3 02/02/2025 1:11 PM EDT [facility] Immature Grans, Absolute 0.06(H) 0.00 - 0.05 10*3/mm3 02/02/2025 1:11 PM EDT [facility] nRBC 0.0 0.0 - 0.2 /100 WBC 02/02/2025 1:11 PM EDT [facility] Blood Venipuncture / Unknown 02/02/2025 12:13 PM EDT 02/02/2025 1:06 PM EDT [facility] Mike Hastings MD LAB BLOOD ORDER BALTAZAR Final Result [facility]
[address] [place] [address], [place] [phone] * (ABNORMAL) Basic Metabolic Panel (02/02/2025 12:13 PM EDT) Glucose 114(H) 65 - 99 mg/dL 02/02/2025 1:32 PM EDT [facility] BUN 14 6 - 20 mg/dL 02/02/2025 1:32 PM EDT [facility] Creatinine 1.10 0.76 - 1.27 mg/dL 02/02/2025 1:32 PM EDT [facility] Sodium 136 136 - 145 mmol/L 02/02/2025 1:32 PM EDT [facility] Potassium 4.2 3.5 - 5.2 mmol/L 02/02/2025 1:32 PM EDT [facility] Chloride 100 98 - 107 mmol/L 02/02/2025 1:32 PM EDT [facility] CO2 26.0 22.0 - 29.0 mmol/L 02/02/2025 1:32 PM EDT [facility] Calcium 8.8 8.6 - 10.5 mg/dL 02/02/2025 1:32 PM EDT [facility] BUN/Creatinine Ratio 12.7 7.0 - 25.0 02/02/2025 1:32 PM EDT [facility] Anion Gap 10.0 5.0 - 15.0 mmol/L 02/02/2025 1:32 PM EDT [facility] eGFR 78.3 >60.0 mL/min/1.7 3 02/02/2025 1:32 PM EDT [facility] Blood Venipuncture / Unknown 02/02/2025 12:13 PM EDT 02/02/2025 1:05 PM EDT [facility] - 02/02/2025 1:32 PM EDT GFR Categories in Chronic Kidney Disease (CKD) GFR Category GFR (mL/min/1.73) Interpretation G1 90 or greater Normal or high (1) G2 60-89 Mild decrease (1) G3a 45-59 Mild to moderate decrease G3b 30-44 Moderate to severe decrease G4 15-29 Severe decrease G5 14 or less Kidney failure (1)In the absence of evidence of kidney disease, neither GFR category G1 or G2 fulfill the criteria for CKD. eGFR calculation 2020 CKD-EPI creatinine equation, which does not include race as a factor us Hussein Hastings MD LAB BLOOD ORDER BALTAZAR Final Result [facility]
[address] [place] [address], * FL C Arm During Surgery (02/01/2025 1:41 PM EDT) Narrative SYSTEMGENERATED, DOCUMENTATION - 02/01/2025 1:43 PM EDT This procedure was auto-finalized with no dictation required. Hussein Hastings MD IMG FLUOROSCOPY ORDERABLES Final Result * (ABNORMAL) POC Surgery Labs (02/01/2025 1:12 PM EDT) Ionized Calcium 1.11(L) 1.20 - 1.32 mmol/L 02/01/2025 7:18 PM EDT [facility] POC Potassium 3.5 3.5 - 4.9 mmol/L 02/01/2025 7:18 PM EDT [facility] Sodium 136(L) 138 - 146 mmol/L 02/01/2025 7:18 PM EDT [facility] Total CO2 20(L) 24 - 29 mmol/L 02/01/2025 7:18 PM EDT [facility] Hemoglobin 10.2(L) 12.0 - 17.0 g/dL 02/01/2025 7:18 PM EDT [facility] Hematocrit 30(L) 38 - 51 % 02/01/2025 7:18 PM EDT [facility] pCO2, Arterial 30.7(L) 35 - 45 mm Hg 02/01/2025 7:18 PM EDT [facility] pO2, Arterial 467(H) 80 - 105 mmHg 02/01/2025 7:18 PM EDT [facility] Comment:Serial Number: [id number]: [id number] Base Excess -5.0000 -5 - 5 mmol/L 02/01/2025 7:18 PM EDT [facility] O2 Saturation, Arterial 100(H) 95 - 98 % 02/01/2025 7:18 PM EDT [facility] pH, Arterial 7.41 7.35 - 7.6 pH units 02/01/2025 7:18 PM EDT [facility] HCO3, Arterial 19.3(L) 22 - 26 mmol/L 02/01/2025 7:18 PM EDT [facility] Glucose 189(H) 70 - 130 mg/dL 02/01/2025 7:18 PM EDT [facility] Blood 02/01/2025 1:12 PM EDT 02/01/2025 7:18 PM EDT Hussein Hastings MD POINT OF CARE T EST ORDERABLES Final Result [facility]
[address] [place] [address], * FL O Arm During Surgery (02/01/2025 12:26 PM EDT) Narrative SYSTEMGENERATED, DOCUMENTATION - 02/01/2025 12:30 PM EDT This procedure was auto-finalized with no dictation required. Hussein Hastings MD IMG FLUOROSCOPY ORDERABLES Final Result * XR Surgical Count Protocol (02/01/2025 11:00 AM EDT) Anatomical Region Laterality Modality Body N/A Radiographic Ailyn ging 02/05/2025 3:25 PM EDT Impressions 02/05/2025 3:32 PM EDT Impression: Alonso catheter is noted. ALIF hardware is seen. No unexpected unexplained foreign body. Electronically Signed: Philip Garland MD 02/05/2025 3:32 PM EDT Workstation ID: [id number] Narrative 02/05/2025 3:32 PM EDT XR SURGICAL COUNT PROTOCOL Date of Exam: 02/01/2025 10:48 AM EDT Indication: L5-S1 ALIF Comparison: None available. Findings: Alonso catheter is noted. ALIF hardware is seen. No unexpected unexplained foreign body. There is evidence of laminectomy. Procedure Note Philip Garland MD - 02/05/2025 XR SURGICAL COUNT PROTOCOL Date of Exam: 02/01/2025 10:48 AM EDT Indication: L5-S1 ALIF Comparison: None available. Findings: Alonso catheter is noted. ALIF hardware is seen. No unexpected unexplainedforeign body. There is evidence of laminectomy. IMPRESSION: Impression: Alonso catheter is noted. ALIF hardware is seen. No unexpected unexplainedforeign body. Electronically Signed: Philip Garland MD 02/05/2025 3:32 PM EDT Workstation ID: [id number] [facility] Mike Hastings MD IMG DIAGNOSTIC IMAGING ORDERABLES Final Result * BH AN ETT AIRWAY (02/01/2025 8:04 AM EDT) Narrative Pa James CRNA - 02/01/2025 8:04 AM EDT Pa James CRNA 02/01/2025 8:04 AM Airway Reason: elective Date/Time: 02/01/2025 7:46 AM Airway not difficult General Information and Staff Patient location during procedure: OR PRESSROOM SUPERVISOR/CAA: Pa James CRNA Indications and Patient Condition Indications for airway management: airway protection Preoxygenated: yes MILS not maintained throughout Mask difficulty assessment: 2 - vent by mask + OA or adjuvant +/- NMBA Final Airway Details Final airway type: endotracheal airway Successful airway: ETT Cuffed: yes Successful intubation technique: video laryngoscopy Endotracheal tube insertion site: oral Blade: Johnson Blade size: 3 ETT size (mm): 7.5 Cormack-Lehane Classification: grade I - full view of glottis Placement verified by: chest auscultation and capnometry Cuff volume (mL): 10 Measured from: lips ETT/EBT to lips (cm): 22 Number of attempts at approach: 1 Assessment: lips, teeth, and gum same as pre-op and atraumatic intubation Additional Comments Negative epigastric sounds, Breath sound equal bilaterally with symmetric chest rise and fall Arnold Gray Jr., MD ANESTHESIA ORDERABLES F inal Result * Type & Screen (02/01/2025 6:00 AM EDT) ABO Type O 02/01/2025 6:51 AM EDT [facility] RH type Positive 02/01/2025 6:51 AM EDT [facility] Antibody Screen Negative 02/01/2025 6:51 AM EDT [facility] T&S Expiration Date 02/04/2025 11:59:59 PM 02/01/2025 6:51 AM EDT [facility] Blood 02/01/2025 6:00 AM EDT 02/01/2025 6:18 AM EDT Hussein Hastings MD BLOOD BANK TEST ORDERABLES Edited Result - Final [facility]
[address] [place] [address], * ECG Scan (02/01/2025) [facility] ECG ORDERABLES Final Result * ABORH 2ND SPECIMEN VERIFICATION (01/25/2025 1:43 PM EDT) ABO Type O 01/25/2025 10:33 PM EDT [facility] RH type Positive 01/25/2025 10:33 PM EDT [facility] Blood Venipuncture / Unknown 01/25/2025 1:43 PM EDT 01/25/2025 2:07 PM EDT [facility] Mike Hastings MD BLOOD BANK TEST ORDERABLES Final Result [facility]
[address] [place] [address], * (ABNORMAL) Comprehensive Metabolic Panel (01/25/2025 1:08 PM EDT) Glucose 100(H) 65 - 99 mg/dL 01/25/2025 2:11 PM EDT [facility] BUN 13 6 - 20 mg/dL 01/25/2025 2:11 PM EDT [facility] Creatinine 0.91 0.76 - 1.27 mg/dL 01/25/2025 2:11 PM EDT [facility] Sodium 140 136 - 145 mmol/L 01/25/2025 2:11 PM EDT [facility] Potassium 4.4 3.5 - 5.2 mmol/L 01/25/2025 2:11 PM EDT [facility] Comment:Slight hemolysis det ected by analyzer. Result may be falsely elevated. Chloride 101 98 - 107 mmol/L 01/25/2025 2:11 PM EDT [facility] CO2 25.0 22.0 - 29.0 mmol/L 01/25/2025 2:11 PM EDT [facility] Calcium 9.5 8.6 - 10.5 mg/dL 01/25/2025 2:11 PM EDT [facility] Total Protein 7.1 6.0 - 8.5 g/dL 01/25/2025 2:11 PM EDT [facility] Albumin 5.0 3.5 - 5.2 g/dL 01/25/2025 2:11 PM EDT [facility] ALT (SGPT) 47(H) 1 - 41 U/L 01/25/2025 2:11 PM EDT [facility] AST (SGOT) 27 1 - 40 U/L 01/25/2025 2:11 PM EDT [facility] Alkaline Phosphatase 88 39 - 117 U/L 01/25/2025 2:11 PM EDT [facility] Total Bilirubin 1.7(H) 0.0 - 1.2 mg/dL 01/25/2025 2:11 PM EDT [facility] Globulin 2.1 gm/dL 01/25/2025 2:11 PM EDT [facility] Comment:Calculated Result A/G Ratio 2.4 g/dL 01/25/2025 2:11 PM EDT [facility] BUN/Creatinine Ratio 14.3 7.0 - 25.0 01/25/2025 2:11 PM EDT [facility] Anion Gap 14.0 5.0 - 15.0 mmol/L 01/25/2025 2:11 PM EDT [facility] eGFR 98.3 >60.0 mL/min/1.7 3 01/25/2025 2:11 PM EDT [facility] Blood Venipuncture / Unknown 01/25/2025 1:08 PM EDT 01/25/2025 1:48 PM EDT Narrative [facility] - 01/25/2025 2:11 PM EDT GFR Categories in Chronic Kidney Disease (CKD) GFR Category GFR (mL/min/1.73) Interpretation G1 90 or greater Normal or high (1) G2 60-89 Mild decrease (1) G3a 45-59 Mild to moderate decrease G3b 30-44 Moderate to severe decrease G4 15-29 Severe decrease G5 14 or less Kidney failure (1)In the absence of evidence of kidney disease, neither GFR category G1 or G2 fulfill the criteria for CKD. eGFR calculation 2020 CKD-EPI creatinine equation, which does not include race as a factor [facility] Mike Hastings MD LAB BLOOD ORDER BALTAZAR Final Result [facility]
[address] [place] [address], [place] [phone] from Last 3 Months Insurance [facility] Advance Directives * CPR (Attempt to Resuscitate) (Latest Code Status on File) Date Activated Date Inactivated Comments 02/01/2025 3:51 PM 02/05/2025 5:57 PM Question Answer Comments Code Status (Patient has no pulse and is not breathing): CPR (Attempt to Resuscitate) Medical Interventions (Patie nt has pulse or is breathing): Full Support Level Of Support Discussed With: Patient Care Teams Instrument Checker Relationship Specialty Start Date End Date Tanvi Capps PA [address] [place] [address] [facility] [address] [place] [id number] PCP - General Physician [employer] Specialist 06/30/23
--- OUTSIDE RECORDS SUMMARY | 2025-04-25 10:44 | XMS_ITS | Encounter Summary ---
Author Organization [facility] Address [address] [place] [address] Care Team Providers Care Metal Control Worker Name Role Phone Sidney Alvarenga MD Primary Care Provider [phone]- [phone] Encounter Details Date Type Department Care Team (Latest Contact Info) Description 03/04/2025 Travel Social History Tobacco Use Types Packs/Day Years [...] PM EST documented as of this encounter Functional Status * Over the [...] Lora Peters documented as of this encounter Plan of Treatment Upcoming Encounters Date Type Department Care Team (Late st Contact Info) Description 05/13/2025 2:20 PM EDT Office Visit [facility] Endocrinology [address] [place] [phone] Bob Wolf MD [address] [place] [phone] 09/03/2025 1:30 PM EST Office Visit [facility] [address] [place] [address] Jayce Rangel, GLOBAL MOBILITY SPECIALIST [address] [place] [address] documented as of this encounter Visit Diagnoses Not on filedocumented in this encounter Additional Health Concerns Assessment Noted Time PHQ-9 Depression Total Score: 18 024 12:49 PM EST A fall risk assessment has been complete d for the patient 03/04/2025 1:28 PM EDT A Body Mass Index follow-up plan has been documented for the patient 03/04/2025 2:48 PM EDT documented as of this encounter Care Teams Metal Control Worker Relationship Specialty Start Date End Date Sidney Alvarenga MD [address] [place] [address] PCP - General 02/06/21 documented as of this encounter
--- OUTSIDE RECORDS SUMMARY | 2025-04-25 10:44 | XMS_ITS | Patient Health Record ---
[facility] [address] [facility] [address] [place], [place] [id number] Care Team Providers Care Environmental Journalist Name Role Phone Roberto Alvarenga Primary Care Provider [phone] Wilson Pacheco Unavailable [phone] Tanvi Capps Unavailable [phone] Allergies Allergen (clinical drug ingredient) Drug/Non Drug Allergy documented on EMR Reaction Allergy Type Onset Date Status hydrocodone HYDROcodone Unknown Drug Allergy Act amanda Results Component Value Reference Range Notes P-Comprehensive Metabolic Pa geronimo (CMP) Reviewed date:03/20/2025 04:02:08 PM Interpretation:Satisfactory Performing Lab: Notes/Report: Test performed by [facility], [facility] [address] [place] [address] , [address], [place] [address] Johnathan Whiteside MD, Chief Dog License Inspector CLIA: [id number] Sodium 141 135-145 mmol/L Potassium 4.1 3.5-5.3 mmol/L Chloride 103 97-108 mmol/L CO2 26 22-32 mmol/L Glucose 94 65-99 mg/dL BUN 12 6-20 mg/dL Creatinine 0.95 0.70-1.30 mg/dL Calcium 9.9 8.6-10.4 mg/dL eGFR by Creatinine 93 >59 mL/min/1.73m2 Protein 7.1 6.0-8.3 g/dL Albumin 4.7 3.5-5.3 g/dL Alkaline Phosphatase 137 40-129 IU/L ALT (SGPT) 29 <5-55 IU/L AST (SGOT) 20 <5-46 IU/L Bilirubin, Total 1.0 <0.2-1.2 mg/dL A/G Ratio 2.0 1.1-2.5 Influenza Screen (in house) Reviewed date:04/18/2025 04:32:23 [...] PM Interpretation: Performing Lab: Notes/Report: Result: neg MRI : Spine, Lumbosacral, wi thout contrast Reviewed date:06/06/2024 01:00:54 PM Interpretation:multilevel DDD and spondylosis, moderate to severe foraminal narrowing and mild stenosis Performing Lab: Notes/Report: multilevel DDD and spondylosis, moderate to severe foraminal narrowing and mild stenosis CBC Venipuncture (in house) Reviewed date:02/20/2025 06:03:37 PM Interpretation: Performing Lab: Notes/Report: wbc 4.5 3.5 - 10 lymph 23.4 15 - 50 mid 5.7 2 - 15 gran 70.9 35 - 80 rbc 4.05 3.5 - 5.5 hgb 12.2 11.5 - 16.5 hct 35.9 35 - 55 mcv 88.7 75 - 100 mch 30.1 25 - 35 mchc 33.9 31 - 38 platlet 690 100 - 400 P-Vitamin B12 Reviewed date:02/22/2025 09:34:23 AM Interpretation: Performing Lab: Notes/Report: Test performed by [facility] [address] [place], [place] [address] [place] , [address], [place] [address] Johnathan Whiteside MD, Chief Dog License Inspector CLIA: [id number] Vitamin B12 1953 555-8276 pg/mL P-Comprehensive Metabolic Pa geronimo (CMP) Reviewed date:02/22/2025 09:34:23 AM Interpretation: Performing Lab: Notes/Report: Test performed by [facility] [address] [facility] , [place] [address] Johnathan Whiteside MD, Chief Dog License Inspector CLIA: [id number] Sodium 133 135-145 mmol/L Potassium 3.9 3.5-5.3 mmol/L Chloride 93 97-108 mmol/L CO2 28 22-32 mmol/L Glucose 117 65-99 mg/dL BUN 22 6-20 mg/dL Creatinine 1.33 0.70-1.30 mg/dL Calcium 10.3 8.6-10.4 mg/dL eGFR by Creatinine 62 >59 mL/min/1.73m2 Protein 7.5 6.0-8.3 g/dL Albumin 4.6 3.5-5.3 g/dL Alkaline Phosphatase 143 40-129 IU/L ALT (SGPT) 19 <5-55 IU/L AST (SGOT) 26 <5-46 IU/L Bilirubin, Total 1.6 <0.2-1.2 mg/dL A/G Ratio 1.6 1.1-2.5 P-T4 Free (thyroxine) Reviewed date:02/22/2025 09:34:23 AM Interpretation: Performing Lab: Notes/Report: Test performed by [facility] [address] [place] [address] , [place] [address] Johnathan Whiteside MD, Chief Dog License Inspector CLIA: [id number] Thyroxine Free (free T4) 1.89 0.86-1.76 ng/dL P-Lipid Panel Reviewed date:02/22/2025 09:34:24 AM Interpretation: Performing Lab: Notes/Report: Test performed by [facility] [address] [place] [address] , [address], [place] [address] Johnathan Whiteside MD, Chief Dog License Inspector CLIA: [id number] Cholesterol 232 <200 mg/dL Triglycerides 179 <150 mg/dL HDL Cholesterol 34 >39 mg/dL Cholesterol / HDL Ratio 6.82 0.00-4.99 Ratio Non-HDL Cholesterol 198 <130 mg/dL LDL Cholesterol (Calculation) 162 <130 mg/dL LDL Cholesterol Levels* Less than 100 mg/dL Optimal 100 to 129 mg/dL Near Optimal/ Above Optimal 130 to 159 mg/dL Borderline High 160 to 189 mg/dL High 190 mg/dL and above Very High * Categories as recommended by the 2004 ATPIII guidelines LDL/HDL Ratio 4.8 <3.3 Ratio LDL Cholesterol Patient History Test Date: 02/20/2025 LDL Results: 162 Units: mg/dL % Change: - P-TSH Reviewed date:02/22/2025 09:34:24 AM Interpretation: Performing Lab: Notes/Report: Test performed by [facility] [address] [place], [place] [address] [place] [address] Johnathan Whiteside MD, Chief Dog License Inspector CLIA: [id number] TSH 0.94 0.43-5.25 mU/L Intrinsic Factor Blocking An tibody Reviewed date:05/04/2024 12:00:19 PM Interpretation:Negative Performing Lab: Notes/Report: Intrinsic Factor Blocking Antibody Negative Negative Performed By: [facility] [address] [place] [address] Chief Dog License Inspector: Madi Bueno MD, PhD CLIA Number: [id number] P-Intrinsic Factor Blocking Antibody Reviewed date:05/02/2024 08:37:17 AM Interpretation: Performing Lab: Notes/Report: P-Vitamin B12 Reviewed date:06/13/2024 12:33:25 PM Interpretation:Normal Performing Lab: Notes/Report: Test performed by [facility] [address] [place], [place] [address] [place] [id number] Johnathan Whiteside MD, Chief Dog License Inspector CLIA: [id number] Vitamin B12 540 613-6280 pg/mL P-Comprehensive Metabolic Pa geronimo (CMP) Reviewed date:06/13/2024 12:33:25 PM Interpretation:bili 1.4 Performing Lab: Notes/Report: Test performed by [facility], [address] , [address], [place] [address] Johnathan Whiteside MD, Chief Dog License Inspector CLIA: [id number] Sodium 142 135-145 mmol/L Potassium 4.1 3.5-5.3 mmol/L Chloride 103 97-108 mmol/L CO2 29 22-32 mmol/L Glucose 92 65-99 mg/dL BUN 12 6-20 mg/dL Creatinine 0.91 0.70-1.30 mg/dL Calcium 9.9 8.6-10.4 mg/dL eGFR by Creatinine 98 >59 mL/min/1.73m2 Protein 6.8 6.0-8.3 g/dL Albumin 4.7 3.5-5.3 g/dL Alkaline Phosphatase 102 40-129 IU/L ALT (SGPT) 28 <5-55 IU/L AST (SGOT) 17 <5-46 IU/L Bilirubin, Total 1.4 <0.2-1.2 mg/dL A/G Ratio 2.2 1.1-2.5 Medications Medication SIG (Take, Route, Frequency, Duration) [...] once a day; Duration: 30 days Active Benzonatate 200 MG 1 capsule Orally Thr ee times a day, prn 04/18/2025 Active Cefdinir 300 MG 1 cap(s) Orally Two times a day; Duration: 10 days 04/18/2025 Active Immunizations Vaccine Route Administration Date Status Comme nts xFluzone Intradermal (18-64yrs)-trivalent ID Intradermal 07/12/2013 Administered xFlu shot- 6months-36 months of ttt-ESPC-VOER-trivalent Unknown 06/14/2018 Administered MMR IM Intramuscular 04/04/2008 Administered Hepatitis A (adult) Unknown 08/30/2018 Administered Hepatitis A (adult) Unknown 03/05/2019 Administered Hepatitis A (adult) Unknown 04/29/2022 Administered Fluzone Quad (6months&older) Unknown 06/25/2019 Administered Fluzone Quad (6months&older) Unknown 05/30/2020 Pending Fluzone Quad (6months&older) IM Intramuscular 05/31/2020 Administered Fluzone Quad (6months&older) IM Intramuscular 06/06/2023 Administered COVID 19 Pfizer Unknown 12/02/2020 Administered COVID 19 Pfizer Unknown 12/24/2020 Administered COVID 19 Pfizer Unknown 07/06/2021 Administered Problems Problem Type SNOMED Code ICD Code Onset Dates Problem Status W/U Status Risk Notes Problem Murmur (154228835) Murmur (785.2) Active confir med Problem Benign prostatic hypertrophy (842722989) Benign prostatic hypertrophy NOS (600.00) Active confirmed Problem BMI 30+ - obesity (478349441) BMI 32.0-32.9,adult (Z68.32) Active confirmed Problem Vitamin B12 deficiency (non anemic) (96104547) Vitamin B 12 deficiency (E53.8) Active confirmed Problem Thyroid nodule (489363016) Thyroid nodule (E04.1) Active confirmed Problem Kidney stone (48517127) Kidney stone on left side (N20.0) Active confirmed Problem Displacement of lumbar intervertebral disc without myelopathy (00969717) Protrusion of lumbar intervertebral disc (M51.26) Active confirmed Problem Annular tear of lumbar disc (378170067) Annular tear of lumbar disc (M51.36) Active confirmed Problem Rhinosinusitis (374986631) Rhinosinusitis (J32.9) Active confirmed Problem Prolapsed thoracic intervertebral disc (014658676) Thoracic disc herniation (M51.24) Active confirmed Problem Degenerative lumbar spinal stenosis (511021179) Degenerative lumbar spinal stenosis (M48.061) Active confirmed Problem Facial paresthesia (84296132) Facial paresthesia (R20.2) Active confirmed Problem Primary hypertension (78582291) Primary hypertension (I10) Active confirmed Problem Acquired spondylolisthesis (736171105) Anterolisthesis of lumbosacral spine (M43.17) Active confirmed Problem Skin sensation disturbance (91252850) Left leg paresthesias (R20.2) Active confirmed Vital Signs Heart Rate 74 /min 04/18/2025 Blood pressure diastolic 70 mm Hg 04/18/2025 Height 65.25 in 04/18/2025 Blood pressure systolic 122 mm Hg 04/18/2025 Weight 210.6 lbs 04/18/2025 BMI 34.77 kg/m2 04/18/2025 Encounters Encounter Location Date Provider Diagnosis Ke 1210 [facility] [address] [place] [id number] 04/25/2024 Wilson Davenport Acute left-sided low back pain without sciatica M54.50 and Muscle spasm of back M62.830 [facility]10 [facility] [address] [place] [id number] 04/27/2024 Wilson Davenport Vitamin B 12 deficie ncy E53.8 [facility] [address] [place] [id number] 05/11/2024 Tanvi Crowdy Vitamin B 12 deficie ncy E53.8 [facility] [address] [place], [place] [id number] 05/16/2024 Tanvi Crowdy Spinal stenosis of lumbosacral region M48.07 ; Anterolisthesis of lumbosacral spine M43.17 ; Weakness of left leg R29.898 and Left leg paresthesias R20.2 [facility] [address] [place] [id number] 05/31/2024 Tanvi Crowdy Vitamin B 12 deficie ncy E53.8 [facility] 121 [facility] [address] [place], [place] [id number] 06/08/2024 Atnvi Crowdy Annular tear of lumb ar disc M51.36 ; Protrusion of lumbar intervertebral disc M51.26 ; Leg weakness, bilateral R29.898 ; Numbness of leg R20.0 ; Spinal stenosis of lumbar region, unspecified whether neurogenic claudication present M48.061 ; Elevated bilirubin R17 and Vitamin B12 deficiency E53.8 [facility] [address] [place], [place] [id number] 06/14/2024 Tanvi Crowdy Vitamin B 12 deficie ncy E53.8 [facility] [address] [place], [place] [id number] 06/29/2024 Tanvi Crowdy Vitamin B 12 deficie ncy E53.8 [facility] [address] [place], [place] [id number] 07/13/2024 R Gianni Lyle Vitamin B 12 deficie ncy E53.8 [facility] [address] [place], [place] [id number] 07/27/2024 Tanvi Crowdy Vitamin B 12 deficie ncy E53.8 [facility] [address] [place], [place] [id number] 08/09/2024 R Gianni Lyle Vitamin B 12 deficie ncy E53.8 [facility] [address] [place], [place] [id number] 08/28/2024 R Gianni Lyle Vitamin B 12 deficie ncy E53.8 [facility] [address] [place], [place] [id number] 09/14/2024 Tanvi Crowdy Vitamin B 12 deficie ncy E53.8 [facility] [address] [place], [place] [id number] 09/28/2024 R Gianni Lyle [facility] [address] [place], [place] [id number] 10/12/2024 R Gianni Lyle Vitamin B 12 deficie ncy E53.8 [facility] [address] [place], [place] [id number] 10/30/2024 R Gianni Lyle Vitamin B 12 deficie ncy E53.8 [facility] [address] [place], [place] [id number] 11/16/2024 R Gianni Lyle Vitamin B 12 deficie ncy E53.8 [facility] [address] [place], [place] [id number] 11/30/2024 R Gianni Lyle Vitamin B 12 deficie ncy E53.8 [facility] [address] [place], [place] [id number] 12/14/2024 R Gianni Lyle Vitamin B 12 deficie ncy E53.8 [facility] [address] [place], [place] [id number] 12/28/2024 Tanvi Crowdy Vitamin B 12 deficie ncy E53.8 [facility] [address] [place], [place] [id number] 01/11/2025 Tanvi Crowdy Vitamin B 12 deficie ncy E53.8 [facility] [address] [place], [place] [id number] 01/24/2025 Tanvi Crowdy Vitamin B 12 deficie ncy E53.8 [facility] [address] [place], [place] [id number] 02/20/2025 Tanvi Crowdy Vitamin B 12 deficie ncy E53.8 ; Primary hypertension I10 ; Elevated bilirubin R17 ; Degenerative lumbar spinal stenosis M48.061 ; Elevated LFTs R79.89 ; Thyroid nodule E04.1 ; Screening for prostate cancer Z12.5 ; Screening, lipid Z13.220 and BMI 32.0-32.9,adult Z68.32 [facility] [address] [place], [place] [id number] 03/08/2025 Tanvi Crowdy Primary hypertension I10 and Vitamin B 12 deficiency E53.8 [facility] [address] [place], [place] [id number] 03/22/2025 Tanvi Crowdy Vitamin B 12 deficie ncy E53.8 [facility] [address] [place], [place] [id number] 04/03/2025 R Gianni Lyle Vitamin B 12 deficie ncy E53.8 [facility] [address] [place] [id number] 04/17/2025 Tanvi Ariasstewart Vitamin B 12 deficie ncy E53.8 [facility] [address] [place], [place] [id number] 04/18/2025 Tanvi Ariasstewart Acute URI J06.9 [facility] [address] [place], [place] [id number] 05/04/2024 Tanviazul Capps [facility] [address] [place], [place] [id number] 06/06/2024 Tanviazul Capps [facility] [address] [place], [place] [id number] 06/13/2024 Tanvi Capps [facility] [address] [place], [place] [id number] 02/08/2025 Roberto Alvarenga [facility] [address] [place], [place] [id number] 02/22/2025 Tanvi Ariasstewart Assessments Encounter Date Diagnosis (ICD Code) Assessment Notes Treatment Notes Treatment Clinical Notes Section Notes 04/25/2024 Muscle spasm of back (ICD-10 - M62.830) 04/25/2024 Acute left-sided low back pain without sciatica (ICD-10 - M54.50) 05/11/2024 Vitamin B 12 deficiency (ICD-10 - E53.8) 05/16/2024 Spinal stenosis of lumbosacral region (ICD-10 - M48.07) 05/16/2024 Anterolisthesis of lumbosacral spine (ICD-10 - M43.17) 06/08/2024 Protrusion of lumbar intervertebral disc (ICD-10 - M51.26) 06/08/2024 Annular tear of lumbar disc (ICD-10 - M51.36) 06/14/2024 Vitamin B 12 deficiency (ICD-10 - E53.8) 06/29/2024 Vitamin B 12 deficiency (ICD-10 - E53.8) 07/13/2024 Vitamin B 12 deficiency (ICD-10 - E53.8) 07/27/2024 Vitamin B 12 deficiency (ICD-10 - E53.8) 08/09/2024 Vitamin B 12 deficiency (ICD-10 - E53.8) 08/28/2024 Vitamin B 12 deficiency (ICD-10 - E53.8) 09/14/2024 Vitamin B 12 deficiency (ICD-10 - E53.8) 10/12/2024 Vitamin B 12 deficiency (ICD-10 - E53.8) 10/30/2024 Vitamin B 12 deficiency (ICD-10 - E53.8) 11/16/2024 Vitamin B 12 deficiency (ICD-10 - E53.8) 11/30/2024 Vitamin B 12 deficiency (ICD-10 - E53.8) 05/31/2024 Vitamin B 12 deficiency (ICD-10 - E53.8) 12/14/2024 Vitamin B 12 deficiency (ICD-10 - E53.8) 12/28/2024 Vitamin B 12 deficiency (ICD-10 - E53.8) 01/11/2025 Vitamin B 12 deficiency (ICD-10 - E53.8) 01/24/2025 Vitamin B 12 deficiency (ICD-10 - E53.8) 02/20/2025 Vitamin B 12 deficiency (ICD-10 - E53.8) 03/08/2025 Primary hypertension (ICD-10 - I10) 03/22/2025 Vitamin B 12 deficiency (ICD-10 - E53.8) 04/03/2025 Vitamin B 12 deficiency (ICD-10 - E53.8) 04/17/2025 Vitamin B 12 deficiency (ICD-10 - E53.8) 04/18/2025 Acute URI (ICD-10 - J06.9) 02/20/2025 Primary hypertension (ICD-10 - I10) 03/08/2025 Vitamin B 12 deficiency (ICD-10 - E53.8) 06/08/2024 Leg weakness, bilateral (ICD-10 - R29.898) 05/16/2024 Weakness of left leg (ICD-10 - R29.898) 04/27/2024 Vitamin B 12 deficiency (ICD-10 - E53.8) 05/16/2024 Left leg paresthesias (ICD-10 - R20.2) 06/08/2024 Numbness of leg (ICD-10 - R20.0) 02/20/2025 Elevated bilirubin (ICD-10 - R17) 02/20/2025 Degenerative lumbar spinal stenosis (ICD-10 - M48.061) 06/08/2024 Spinal stenosis of lumbar region, unspecified whether neurogenic claudication present (ICD-10 - M48.061) 06/08/2024 Elevated bilirubin (ICD-10 - R17) 02/20/2025 Elevated LFTs (ICD-10 - R79.89) 06/08/2024 Vitamin B12 deficiency (ICD-10 - E53.8) 02/20/2025 Thyroid nodule (ICD-10 - E04.1) 02/20/2025 Screening for prostate cancer (ICD-10 - Z12.5) 02/20/2025 Screening, lipid (ICD-10 - Z13.220) 02/20/2025 BMI 32.0-32.9,adult (ICD-10 - Z68.32) Plan Of Treatment Pending Test Test Name Order Date P-Bilirubin, Total 06/06/2023 P-Bilirubin, Total 08/08/2023 P-Bilirubin, Total 11/25/2023 Insurance Providers Payer Name Payer Address Payer Phone Subscriber Number Group Number Insured Name Patient Relationship to Insured Coverage Start Date Coverage End Date [facility] [address] [place], [place] [id number] RAMA MARES Self - patient is the insured Medications Administered Medication Instructions Date of Administration Dosage Notes B-12 05/11/2023 1 mL B-12 05/18/2023 1 mL Pt requested i njection in the right hip again B-12 05/25/2023 1 mL B-12 06/01/2023 1 mL B-12 07/01/2023 1 mL B-12 08/02/2023 1 mL B-12 08/31/2023 1 mL B-12 09/29/2023 1 mL B-12 10/28/2023 1 mL B-12 11/25/2023 1 mL B-12 12/28/2023 1 mL B-12 01/27/2024 1 mL B-12 03/02/2024 1 mL B-12 03/26/2024 1 mL B-12 04/27/2024 1 mL B-12 05/11/2024 1 mL B-12 05/31/2024 1 mL B-12 06/14/2024 1 mL B-12 06/29/2024 1 mL B-12 07/13/2024 1 mL B-12 07/27/2024 1 mL B-12 08/09/2024 1 mL B-12 08/28/2024 1 mL B-12 09/14/2024 1 mL B-12 09/28/2024 1 mL B-12 10/12/2024 1 mL B-12 10/30/2024 1 mL B-12 11/16/2024 1 mL B-12 11/30/2024 1 mL B-12 12/14/2024 1 mL B-12 12/28/2024 1 mL B-12 01/11/2025 1 mL B-12 01/24/2025 1 mL B-12 02/20/2025 1 mL B-12 03/08/2025 1 mL B-12 03/22/2025 1 mL B-12 04/03/2025 1 mL B-12 04/17/2025 1 mL Medical (General) History Medical History History ICD Code hypomania recovering drug(cocaine) add ict 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 knee 1985 laminectomy and lumbar disc L5 S1 2001 Lumbar Fusion 02/01/25 Hospitalization History Reason Date(Month/Year)
--- OUTSIDE RECORDS SUMMARY | 2025-04-25 10:44 | XMS_ITS | Encounter Summary ---
Author Organization [facility] Address [address] [place] [address] Care Team Providers Care Sports Attorney Name Role Phone Sidney Alvarenga MD Primary Care Provider [phone]- [phone] Encounter Details Date Type Department Care Team (Latest Contact Info) Description 02/25/2025 Travel Social History Tobacco Use Types Packs/Day Years Used Date Smoking Tobacco: Former Cigarettes 1 20.2 0 03/26/1985 - 05/27/2005 Smokeless Tobacco: Former Chew Quit: 02/24/1991 Alcohol Use Standard Drinks/Week Comments Not Currently 0 (1 standard drink = 0.6 oz pur e alcohol) Sobriety Date: 01.10.2005 PHQ-2 Answer Date Recorded Patient Health Questionnaire-2 Score 5 09/03/2024 PHQ-9 Answer Date Recorded Patient Health Questionnaire-9 Score 18 09/03/2024 Sex and Gender Information Value Date Recorded Sex Assigned at Male 09/13/2023 5:12 PM EST Legal Sex Male 7:54 PM EDT Gender Identity Male 09/13/2023 5:12 PM EST Sexual Orientation Straight 09/13/2023 5: 12 PM EST documented as of this encounter Plan of Treatment Upcoming Encounters Date Type Department Care Team (Late st Contact Info) Description 05/13/2025 2:20 PM EDT Office Visit [facility] [address] [place] [phone] Bob Wolf MD [address] [place] [address] 09/03/2025 1:30 PM EST Office Visit [facility] [address] [place] [address] Jayce Rangel, YOSELIN [address] [place] [address] documented as of this encounter Visit Diagnoses Not on filedocumented in this encounter Additional Health Concerns Assessment Noted Time PHQ-9 Depression Total Score: 18 024 12:49 PM EST A fall risk assessment has been complete d for the patient 12/07/2024 8:44 AM EDT A Body Mass Index follow-up plan has been documented for the patient 12/09/2024 9:31 PM EDT documented as of this encounter Care Teams Sports Attorney Relationship Specialty Start Date End Date Sidney Alvarenga MD [address] [place] [address] PCP - General 02/06/21 documented as of this encounter
== END 2025-04-24 23:59 | disposition home or self-care (01) ==
LOC: LAB.DROPOF 04-25 10:33
PROVIDERS: PCP Student in an Organized Health Care Education/Training Program; Visit Provider Student in an Organized Health Care Education/Training Program
DX: J06.9 Acute upper respiratory infection, unspecified (principal)
CPT/HCPCS: 87631

== ENCOUNTER 2025-05-20 10:00 | Outpatient (RCR) | payer OTHER, SELFPAY | END 2025-05-20 23:59 | disposition home or self-care (01) | LOC: PT 10:00 | PROVIDERS: PCP Family Medicine; Visit Provider Orthopaedic Surgery | DX: Z47.89 Encounter for other orthopedic aftercare (principal); Z98.1 Arthrodesis status | CPT/HCPCS: 97032; 97110; 97112; 97164 ==

== ENCOUNTER 2025-05-31 11:02 | Outpatient (CLI) | payer OTHER, SELFPAY ==
--- OUTSIDE RECORDS SUMMARY | 2025-04-03 09:00 | XMS_ITS ---
Author Organization [facility] Address [facility] [address] [place] [id number] Care Team Providers Care Medical Authorization Specialist Name Role Phone Roberto Alvarenga Primary Care Provider [phone] REASON FOR VISIT B12 shot Medications Medication SIG (Take, Route, Frequency, Duration) Notes Start Date End Date Status Folic Acid 1 MG 1 tablet Orally Once a day; Duration: 30 day(s) Active Methotrexate Sodium 2.5 MG 10 tabs Orall y once a week Active Aspirin 81 MG 1 tablet Orally Once a day; Duration: 30 day(s) Active Irbesartan 150 mg TAKE ONE TABLET BY M OUTH EVERY DAY; Duration: 30 Active amLODIPine Besylate 5 mg TAKE ONE TABLET BY MOUTH EVERY DAY; Duration: 30 Active Encounters Encounter Location Date Provider Diagnosis [facility] [address] [place] [address] [place] [id number] 04/03/2025 Roberto Alvarenga Vitamin B 12 deficiency E53.8 Assessments Encounter Date Diagnosis (ICD Code) Assessment Notes Treatment Notes Treatment Clinical Notes Section Notes 04/03/2025 Vitamin B 12 deficiency (ICD-10 - E53.8) Plan Of Treatment No Information Medications Administered Medication Instructions Date of Administration Dosage Notes B-12 04/03/2025 1 mL Progress Notes * RAMA MARESDOB: [birth year] (59 yo M)Acc No.[id number]:04/03/2025 Patient: Juve WEAVERRAMA Provider: Roberto Alvarenga M.D. :1965 A ge:59 Y S ex:Male Date:04/03/2025 Address:[address] [place] [address] [place]THONY [id number] Subjective: * Chief Complaints: * 1 . B12 shot. * Medical History: * Medications: T aking Aspirin 81 MG Tablet Delayed Release 1 tablet Orally Once a day , Taking Folic Acid 1 MG Tablet 1 tablet Orally Once a day , Taking Methotrexate Sodium 2.5 MG Tablet 10 tabs Orally once a week , Taking Irbesartan 150 mg Tablet TAKE ONE TABLET BY MOUTH EVERY DAY , Taking amLODIPine Besylate 5 mg Tablet TAKE ONE TABLET BY MOUTH EVERY DAY , Medication List reviewed and reconciled with the patient Objective: * Vitals: Assessment: * Assessment: 1. V itamin B 12 deficiency - E53.8 (Primary) Plan: * Treatment: * Therapeutic Injections: B-12 : 1 mL (Route: Intramuscular) given by Rosey Hampton on left gluteus (Vitamin B 12 deficiency) * Procedure Codes: J 3420 B-12, 16991 ADMINISTRATION OF INJECTION * Images: Billing Information: * Visit Code: * Procedure Codes: J3420 B-12. 27489 ADMINISTRATION OF INJECTION. * Electronic signature of Roberto Alvarenga MD on 05/31/2025 at 11:05 AM EDT Sign off status: Pending * Provider: Roberto Alvarenga M.D. Date: 0 04/03/2025 Generated for Stefany perez/Olu/Sin on: 05/31/2025 11:05 AM EDT
--- OUTSIDE RECORDS SUMMARY | 2025-04-17 07:45 | XMS_ITS ---
Author Organization Emiliano Address 12[address] [facility] [address] [place] [phone] Care Team Providers Care Paper Bag Maker Name Role Phone Roberto Alvarenga Primary Care Provider Tanvi Capps [phone] REASON FOR VISIT B12 shot Medications Medication [...] Encounter Location Date Provider Diagnosis Emiliano [address] [facility] [address] [place] [phone] 04/17/2025 Tanvi Capps Vitamin B 12 deficie [...] :1965 A ge:59 Y S ex:Male Date:04/17/2025 Address:[address] [place] [address] , [place] GE[place], [id number] Pcp:Roberto Alvarenga Subjective: * Chief Complaints: * [...] deficiency) * Procedure Codes: J 3420 B-12, 25585 ADMINISTRATION OF INJECTION * Images: Billing Information: * Visit Code: * Procedure Codes: J3420 B-12. 81242 ADMINISTRATION OF INJECTION. * Electronic signature of DAMIAN Christiansen on 05/31/2025 at 11:06 AM EDT Sign off status: Pending * Provider: DAMIAN Marie Date: 0 04/17/2025 Generated for Stefany perez/Olu/Sin on: 0 05/31/2025 11:06 AM EDT
--- OUTSIDE RECORDS SUMMARY | 2025-04-18 11:00 | XMS_ITS ---
Author Organization [facility] 12[facility] [address] [place] [phone] Care Team Providers Care Sizing End Bander Name Role Phone Roberto Alvarenga Primary Care Provider Tanvi Capps Unavailable [phone] Allergies Allergen (clinical drug ingredient) Drug/Non Drug [...] [address] [place] [phone] 04/18/2025 Tanvi Capps Acute URI J06.9 Assessments [...] A ge:59 Y S ex:Male Date:04/18/2025 Address:[address] [place] [address] [address] [place], [id number] Pcp:Roberto Alvarenga Subjective: * Chief Complaints: * [...] and alcoholic - clean since admission to [facility] in 2004, Lumbar spinal stenosis, Chronic [...] Flu Test- Nasal Swab, Modifiers: QW , 20444 COVID TEST IN HOUSE, Modifiers: QW , 23773 CAPILLARY BLOOD DRAW, 19225 CBC WITH AUTO DIFF, 1036F TOBACCO NON-USER, 3074F SYST BP LT 130 MM HG, 3078F DIAST BP < 80 MM HG * Follow Up: p rn * Images: Billing Information: * Visit Code: 64199 Office Visit, Est Pt., Level 3. * Procedure Codes: 06278 Flu Test- Nasal Swab. Modifiers: QW 21924 COVID TEST IN HOUSE. Modifiers: QW 29181 CAPILLARY BLOOD DRAW. 41823 CBC WITH AUTO DIFF. 1036F TOBACCO NON-USER. 3074F SYST BP LT 130 MM HG. 3078F DIAST BP < 80 MM HG. * Electronic signature of DAMIAN Christiansen on 05/31/2025 at 11:06 AM EDT Sign off status: Pending * Provider: DAMIAN Marie Date: 0 04/18/2025 Generated for Stefany perez/Olu/Sin on: 0 05/31/2025 11:06 AM EDT History and Physical Notes * [...]
--- OUTSIDE RECORDS SUMMARY | 2025-05-03 07:30 | XMS_ITS ---
Author Organization [facility] Address 1210 [facility] [address] [place] [phone] Care Team Providers Care Egg Tester Name Role Phone Roberto Alvarenga Primary Care Provider Tanvi Capps Unavailable [phone] Allergies Allergen (clinical drug ingredient) Drug/Non Drug [...] Provider Diagnosis [facility] [address] [place] [address] [place] [phone] 05/03/2025 Tanvi Capps B12 deficiency E53.8 and [...] * RAMA MARESDOB: [birth year] (59 yo M)Acc No.[id number]:05/03/2025 Progress Notes Patient: RAMA HUBBARD Provider: DAMIAN Marie :1965 A ge:59 Y S ex:Male Date:05/03/2025 Address:[address] [place] [address] , [place]-[id number] Pcp:Roberto Alvarenga Subjective: * [...] and alcoholic - clean since admission to [facility] in 2004, Lumbar spinal stenosis, Chronic [...] Procedure Codes: 3 6416 CAPILLARY BLOOD DRAW, 26931 CBC WITH AUTO DIFF, 91991 Flu Test- Nasal Swab, Modifiers: QW , 07062 COVID TEST IN HOUSE, Modifiers: QW , J3420 B-12, 54919 ADMINISTRATION OF INJECTION, 1036F TOBACCO NON-USER, 3074F SYST BP LT 130 MM HG, 3078F DIAST BP < 80 MM HG * Follow Up: v ia phone to report test results * Images: Billing Information: * Visit Code: 20983 Office Visit, Est Pt., Level 3. * Procedure Codes: 52498 CAPILLARY BLOOD DRAW. 51342 CBC WITH AUTO DIFF. 80920 Flu Test- Nasal Swab. Modifiers: QW 08280 COVID TEST IN HOUSE. Modifiers: QW J3420 B-12. 08457 ADMINISTRATION OF INJECTION. 1036F TOBACCO NON-USER. 3074F SYST BP LT 130 MM HG. 3078F DIAST BP < 80 MM HG. * Electronic signature of DAMIAN Christiansen on 05/31/2025 at 11:05 AM EDT Sign off status: Pending * Provider: DAMIAN Marie Date: 0 05/03/2025 Generated for Stefany perez/Olu/Demetrioitting on: 0 05/31/2025 11:05 AM EDT History and Physical Notes * [...]
--- OUTSIDE RECORDS SUMMARY | 2025-05-17 11:45 | XMS_ITS ---
Author Organization [facility] Address 1210 [facility] [address] [place] [phone] Care Team Providers Care Horizontal Boring Mill Set Up Operator Name Role Phone Roberto Alvarenga Primary Care Provider Tanvi Capps [phone] Allergies Allergen (clinical drug ingredient) Drug/Non Drug [...] Active Encounters Encounter Location Date Provider Diagnosis [facility] [place] [address] [place] [phone] 05/17/2025 Tanvi Capps Vitamin B 12 deficie ncy E53.8 Assessments Encounter Date Diagnosis (ICD Code) Assessment Notes Treatment Notes Treatment Clinical Notes Section Notes 05/17/2025 Vitamin B 12 deficiency (ICD-10 - E53.8) Plan Of Treatment No Information Medications Administered Medication Instructions Date of Administration Dosage Notes B-12 05/17/2025 1 mL Progress Notes * RAMA MARESDOB: [birth year] (59 yo M)Acc No.[id number]:05/17/2025 Patient: RAMA HUBBARD Provider: DAMIAN Marie :1965 A ge:59 Y S ex:Male Date:05/17/2025 Address:[address] [place] [address] , [place], [id number] Pcp:Roberto Alvarenga Subjective: * Chief Complaints: * 1 . B12. * Medical History: H ypomania, recovering drug(cocaine) addict and alcoholic - clean since admission to [facility] in 2004, Lumbar spinal stenosis, Chronic [...] deficiency) * Procedure Codes: J 3420 B-12, 59810 ADMINISTRATION OF INJECTION * Images: Billing Information: * Visit Code: * Procedure Codes: J3420 B-12. 41696 ADMINISTRATION OF INJECTION. * Electronic signature of DAMIAN Christiansen on 05/31/2025 at 11:06 AM EDT Sign off status: Pending * Provider: DAMIAN Marie Date: 0 05/17/2025 Generated for Stefany perez/Olu/Sin on: 0 05/31/2025 11:06 AM EDT
--- NOTE | 2025-05-31 11:00 | US_ITS ---
FINAL REPORT TECHNIQUE: Sonographic images of the thyroid gland were obtained in the longitudinal and transverse planes. CLINICAL HISTORY: Thyroid nodule COMPARISON: 04/19/2023 FINDINGS: The right lobe measures 2.5 x 4.7 x 1.6 cm. The right lobe is homogeneous. There are no cystic or solid nodules. The left lobe measures 3.8 x 4.6 x 2.3 cm. There is a hypoechoic nodule which has increased in size now measuring 41 mm, was 32 mm. Nodule is wider than tall. No calcification identified. This is consistent with TR 4. The isthmus measures 3 mm. This is normal. IMPRESSION: Interval increase in size in left thyroid lobe nodule. If this has not already been biopsied, biopsy is recommended. Reviewed, Interpreted and Dictated by Dionne Colby MD Transcribed by Kaycee Fay Authenticated and [facility]
--- OUTSIDE RECORDS SUMMARY | 2025-05-31 11:06 | XMS_ITS | Encounter Summary ---
Author Organization [facility] Address [address] [place] [address] Care Team Providers Care Water Sander Name Role Phone iSdney Alvarenga MD Primary Care Provider [phone] Reason for Referral * Consultation (Routine) - Closed Specialty Diagnoses / Procedures Referred By Nghia pantoja Referred To Contact Rheumatology Diagnoses Episcleritis of left eye Rubio Zhou MD [address] [place] [address] Phone: tel: fax: [facility] [address] [place] [address] Phone: tel: fax: Referral ID Status Reason Start Date Expiration Date V isits Requested Visits Authorized [id number] Closed Specialty Services Required 09/13/2023 03/14/2025 1 1 Encounter Details Date Type Department Care Team (Latest Contact Info) Description 09/13/2023 [facility] [address] [place] [address] Rubio Zhou MD [address] [place] [address] Episcleritis of left eye (Primary [...] Care Team (Late st Contact Info) Description 09/03/2025 1:30 PM EST Office Visit [facility] [address] [place] [address] Jayce Rangel, MANUFACTURING ENGINEER AUTOMOTIVE [address] [place] [address] Scheduled Referrals Name Type Priority Associated Diagnoses Order Schedule Ambulatory referral to Rheumatology Outpatient Referral Routine Episcleritis of left eye Expected: 09/13/2023 (Approximate), Expires: 03/14/2025 documented as of this encounter Visit Diagnoses Diagnosis Episcleritis of left eye- Primary documented in this encounter Care Teams Water Sander Relationship Specialty Start Date End Date Sidney Alvarenga MD [address] [place] [address] PCP - General 02/06/21 documented as of this encounter
--- OUTSIDE RECORDS SUMMARY | 2025-05-31 11:06 | XMS_ITS | Patient Health Record ---
Author [facility] Address [address] [facility] [address] [facility] [address] [place], [place] [address] Care Team Providers Care Technical Instructor Course Developer Name Role Phone Roberto Alvarenga Primary Care Provider [phone] Tanvi Capps Unavailable [phone] Allergies Allergen (clinical drug ingredient) Drug/Non Drug Allergy documented on EMR Reaction Allergy Type Onset Date Status hydrocodone HYDROcodone Unknown Drug Allergy Act amanda Results Component Value Reference Range Notes P-Comprehensive Metabolic Pa geronimo (CMP) Reviewed date:03/20/2025 04:02:08 PM Interpretation:Satisfactory Performing Lab: Notes/Report: Test performed by [employer] [facility] , [address], [place] [address] Johnathan Whiteside MD, Corrections Corporal CLIA: [id number] Sodium 141 135-145 mmol/L Potassium 4.1 3.5-5.3 [...] 1.0 <0.2-1.2 mg/dL A/G Ratio 2.0 1.1-2.5 CBC Fingerstick (in house) Reviewed date:04/18/2025 04:36:07 [...] PM Interpretation: Performing Lab: Notes/Report: Result: neg Influenza Screen (in house) Reviewed date:05/06/2025 09:38:46 [...] Interpretation:neg Performing Lab: Notes/Report: neg Result: neg Influenza Screen (in house) Reviewed date:04/18/2025 04:32:23 PM Interpretation: Performing Lab: Notes/Report: results neg P-TSH Reviewed date:02/22/2025 09:34:24 AM Interpretation: Performing Lab: Notes/Report: Test performed by [employer], [employer] [address] [place] [address] , [address], [place] [address] Johnathan Whiteside MD, Corrections Corporal CLIA: [id number] TSH 0.94 0.43-5.25 mU/L P-Lipid Panel Reviewed date:02/22/2025 09:34:24 AM Interpretation: Performing Lab: Notes/Report: Test performed by [facility] [address] [facility] , [address], [place] [address] Johnathan Whiteside MD, Corrections Corporal CLIA: [id number] Cholesterol 232 <200 mg/dL Triglycerides 179 <150 [...] Results: 162 Units: mg/dL % Change: - P-T4 Free (thyroxine) Reviewed date:02/22/2025 09:34:23 AM Interpretation: Performing Lab: Notes/Report: Test performed by [facility] [address] [facility] , [address], [place] [address] Johnathan Whiteside MD, Corrections Corporal SHAIIA: [id number] Thyroxine Free (free T4) 1.89 0.86-1.76 ng/dL P-Comprehensive Metabolic Pa geronimo (CMP) Reviewed date:02/22/2025 09:34:23 AM Interpretation: Performing Lab: Notes/Report: Test performed by [facility] [address] [place] [address] , [address], [place] [address] Johnathan Whiteside MD, Corrections Corporal CLIA: [id number] Sodium 133 135-145 mmol/L Potassium 3.9 3.5-5.3 [...] 1.6 <0.2-1.2 mg/dL A/G Ratio 1.6 1.1-2.5 P-Vitamin B12 Reviewed date:02/22/2025 09:34:23 AM Interpretation: Performing Lab: Notes/Report: Test performed by [facility] [address] [place] [address] , [address], [place] [address] Johnathan Whiteside MD, Corrections Corporal CLIA: [id number] Vitamin B12 5975 848-3242 pg/mL CBC Venipuncture (in house) Reviewed date:02/20/2025 06:03:37 [...] 690 100 - 400 P-Vitamin B12 Reviewed date:06/13/2024 12:33:25 PM Interpretation:Normal Performing Lab: Notes/Report: Test performed by [employer], [address] , [address], [place] [address] Johnathan Whiteside MD, Corrections Corporal CLIA: [id number] Vitamin B12 724 088-6331 pg/mL P-Comprehensive Metabolic Pa geronimo ([facility]) Reviewed date:06/13/2024 12:33:25 PM Interpretation:bili 1.4 Performing Lab: Notes/Report: Test performed by [employer], [address] , [address], [place] [address] Johnathan Whiteside MD, Corrections Corporal CLIA: [id number] Sodium 142 135-145 mmol/L Potassium 4.1 3.5-5.3 [...] Duration) Notes Start Date End Date Status Aspirin 81 MG 1 tablet Orally Once a day; Duration: 30 day(s) Active Folic Acid 1 MG 1 tablet Orally Once a day; Duration: 30 day(s) Active Zithromax Z-Sergio 250 MG as directed Orally [...] Orally every 6 hours, prn 05/03/2025 Not-Taking Methotrexate Sodium 2.5 MG 10 tabs Orally once a week Active amLODIPine Besylate 5 mg 1 tablet orally once a day; Duration: 30 days Active Immunizations Vaccine Route Administration Date Status Commivan nts xFluzone Intradermal (18-64yrs)-trivalent ID Intradermal 07/12/2013 Administered xFlu shot- 6months-36 months of tzx-MIJO-FYZO-trivalent Unknown 06/14/2018 Administered MMR IM Intramuscular 04/04/2008 [...] Status W/U Status Risk Notes Problem Murmur (499781463) Murmur (785.2) Active confir med Problem Benign prostatic hypertrophy (654138304) Benign prostatic hypertrophy NOS (600.00) Active confirmed Problem BMI 30+ - obesity (032989013) BMI 32.0-32.9,adult (Z68.32) Active confirmed Problem Vitamin B12 deficiency (non anemic) (12389432) Vitamin B 12 deficiency (E53.8) Active confirmed Problem Thyroid nodule (738216830) Thyroid nodule (E04.1) Active confirmed Problem Kidney stone (21860783) Kidney stone on left side (N20.0) Active confirmed Problem Displacement of lumbar intervertebral disc without myelopathy (73121696) Protrusion of lumbar intervertebral disc (M51.26) Active confirmed Problem Annular tear of lumbar disc (077897940) Annular tear of lumbar disc (M51.36) Active confirmed Problem Rhinosinusitis (191236247) Rhinosinusitis (J32.9) Active confirmed Problem Prolapsed thoracic intervertebral disc (611117080) Thoracic disc herniation (M51.24) Active confirmed Problem Degenerative lumbar spinal stenosis (871217208) Degenerative lumbar spinal stenosis (M48.061) Active confirmed Problem Facial paresthesia (18214332) Facial paresthesia (R20.2) Active confirmed Problem Primary hypertension (70353169) Primary hypertension (I10) Active confirmed Problem Acquired spondylolisthesis (700910741) Anterolisthesis of lumbosacral spine (M43.17) Active confirmed Problem Skin sensation disturbance (21895617) Left leg paresthesias (R20.2) Active confirmed Vital Signs Heart Rate 68 /min 05/03/2025 Blood pressure diastolic 68 mm Hg 05/03/2025 Height 65.25 in 05/03/2025 Blood pressure systolic 124 mm Hg 05/03/2025 Weight 211.0 lbs 05/03/2025 BMI 34.84 kg/m2 05/03/2025 Encounters Encounter Location Date Provider Diagnosis [facility] 12[address] [facility] [address] [id number] 05/31/2024 Tanvi Crowdy Vitamin B 12 deficie ncy E53.8 [facility] [address] [id number] 06/08/2024 Tanvi Crowdy Annular tear of lumb ar disc M51.36 ; Protrusion of lumbar intervertebral disc M51.26 ; Leg weakness, bilateral R29.898 ; Numbness of leg R20.0 ; Spinal stenosis of lumbar region, unspecified whether neurogenic claudication present M48.061 ; Elevated bilirubin R17 and Vitamin B12 deficiency E53.8 [facility] 1210 [facility] [address] [place] [id number] 06/14/2024 Tanvi Crowdy Vitamin B 12 deficie ncy E53.8 [facility] [address] [id number] 06/29/2024 Tanvi Crowdy Vitamin B 12 deficie ncy E53.8 [facility] [address] [place], [place] [id number] 07/13/2024 R Gianni Lyle Vitamin B 12 deficie ncy E53.8 [facility] [address] [place], [place] [id number] 07/27/2024 Tanvi Crowdy Vitamin B 12 deficie ncy E53.8 [facility] [address] [place], [place] [id number] 08/09/2024 R Gianni Lyle Vitamin B 12 deficie ncy E53.8 [facility] [address] [place], [place] [id number] 08/28/2024 R Gianni Lyle Vitamin B 12 deficie ncy E53.8 [facility] [address] [place], [place] [id number] 09/14/2024 Tanvi Crowdy Vitamin B 12 deficie ncy E53.8 [facility] [address] [place], [place] [id number] 09/28/2024 R Gianni Lyle [facility] [address] [place], [place] [id number] 10/12/2024 R Gianni Lyel Vitamin B 12 deficie ncy E53.8 [facility] [address] [place], [place] [id number] 10/30/2024 R Gianni Lyle Vitamin B 12 deficie ncy E53.8 [facility] [address] [place], [place] [id number] 11/16/2024 R Gianni Lyle Vitamin B 12 deficie ncy E53.8 [facility] [address] [place] [id number] 11/30/2024 R Gianni Lyle Vitamin B 12 deficie ncy E53.8 [facility] [address] [place] [id number] 12/14/2024 R Gianni Lyle Vitamin B 12 deficie ncy E53.8 [facility] [address] [place], [place] [id number] 12/28/2024 Tanvi Crowdy Vitamin B 12 deficie ncy E53.8 [facility] [address] [place], [place] [id number] 01/11/2025 Tanvi Crowdy Vitamin B 12 deficie ncy E53.8 [facility] [address] [place] [id number] 01/24/2025 Tanvi Crowdy Vitamin B 12 deficie ncy E53.8 [facility] [address] [place] [id number] 02/20/2025 Tanvi Crowdy Vitamin B 12 deficie ncy E53.8 ; Primary hypertension I10 ; Elevated bilirubin R17 ; Degenerative lumbar spinal stenosis M48.061 ; Elevated LFTs R79.89 ; Thyroid nodule E04.1 ; Screening for prostate cancer Z12.5 ; Screening, lipid Z13.220 and BMI 32.0-32.9,adult Z68.32 [facility] [address] [facility] [address] [place], [place] [id number] 03/08/2025 Tanvi Crowdy Primary hypertension I10 and Vitamin B 12 deficiency E53.8 [facility] [address] [place] [id number] 03/22/2025 Tanvi Crowdy Vitamin B 12 deficie ncy E53.8 [facility] [address] [facility] [address] [place] [id number] 04/03/2025 R Gianni Alvarenga Vitamin B 12 deficie ncy E53.8 [facility] [address] [place] [id number] 04/17/2025 Tanvi Crowdy Vitamin B 12 deficie ncy E53.8 [facility] [address] [place], [place] [id number] 04/18/2025 Tanvi Crowdy Acute URI J06.9 [facility] [address] [place], [place] [id number] 05/03/2025 Tanvi Crowdy B12 deficiency E53.8 and Acute URI J06.9 [facility] [address] [place], [place] [id number] 05/17/2025 Tanvi Capps Vitamin B 12 deficie ncy E53.8 [facility] [address] [place] [id number] 06/06/2024 Tanvi Crowdy [facility] [address] [place] [id number] 06/13/2024 Tanvi Génesis [facility] [address] [place] [id number] 02/08/2025 R Gianni Lyle [facility] [address] [place] [id number] 02/22/2025 Tanvi Crowstewart [facility] [address] [place] [id number] 04/30/2025 R Gianni Lyle [facility] [address] [place] [id number] 05/06/2025 Tanvi Génesis [facility] [address] [place] [id number] 05/21/2025 R Gianni Lyle [facility] [address] [place], [place] [id number] 05/01/2025 Tanvi Capps Assessments Encounter Date Diagnosis (ICD Code) Assessment Notes Treatment Notes Treatment Clinical Notes Section Notes 03/08/2025 Primary hypertension (ICD-10 - I10) 03/22/2025 Vitamin B 12 deficiency (ICD-10 - E53.8) 04/03/2025 Vitamin B 12 deficiency (ICD-10 - E53.8) 04/17/2025 Vitamin B 12 deficiency (ICD-10 - E53.8) 04/18/2025 Acute URI (ICD-10 - J06.9) 05/17/2025 Vitamin B 12 deficiency (ICD-10 - E53.8) 05/03/2025 B12 deficiency (ICD-10 - E53.8) 05/03/2025 Acute URI (ICD-10 - J06.9) 05/31/2024 Vitamin B 12 deficiency (ICD-10 - E53.8) 06/14/2024 Vitamin B 12 deficiency (ICD-10 - [...] B 12 deficiency (ICD-10 - E53.8) 06/08/2024 Protrusion of lumbar intervertebral disc (ICD-10 - M51.26) 06/08/2024 Annular tear of lumbar disc (ICD-10 - M51.36) 02/20/2025 Vitamin B 12 deficiency (ICD-10 - E53.8) 01/11/2025 Vitamin B 12 deficiency (ICD-10 - E53.8) 02/20/2025 Primary hypertension (ICD-10 - I10) 03/08/2025 Vitamin B 12 deficiency (ICD-10 - E53.8) 06/08/2024 Leg weakness, bilateral (ICD-10 - R29.898) 02/20/2025 Elevated bilirubin (ICD-10 - R17) 06/08/2024 Numbness of leg (ICD-10 - R20.0) 02/20/2025 Degenerative lumbar spinal stenosis (ICD-10 - M48.061) 06/08/2024 Spinal stenosis of lumbar region, unspecified whether neurogenic claudication present (ICD-10 - M48.061) 06/08/2024 Elevated bilirubin (ICD-10 - R17) 02/20/2025 Elevated LFTs (ICD-10 - R79.89) 02/20/2025 Thyroid nodule (ICD-10 - E04.1) 06/08/2024 Vitamin B12 deficiency (ICD-10 - E53.8) 02/20/2025 Screening for prostate cancer (ICD-10 - Z12.5) 02/20/2025 Screening, lipid (ICD-10 - Z13.220) 02/20/2025 BMI 32.0-32.9,adult (ICD-10 - Z68.32) Plan Of Treatment Pending Test Test Name Order Date P-Bilirubin, Total 06/06/2023 P-Bilirubin, Total 08/08/2023 P-Bilirubin, Total 11/25/2023 Insurance Providers Payer Name Payer Address Payer Phone Subscriber Number Group Number Insured Name Patient Relationship to Insured Coverage Start Date [facility]age End Date [facility] [address] [place], [place] [id number] [phone] [id number] RAMA MARES Self - patient is the [...] 04/03/2025 1 mL B-12 04/17/2025 1 mL B-12 05/03/2025 1 mL B-12 05/17/2025 1 mL Medical (General) History Medical History History ICD Code 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 knee 1985 laminectomy and lumbar disc L5 S1 2001 Lumbar Fusion 02/01/25 Hospitalization History Reason Date(Month/Year)
--- OUTSIDE RECORDS SUMMARY | 2025-05-31 11:06 | XMS_ITS | Encounter Summary ---
Author Organization [facility] Address [address] [place] [address] Care Team Providers Care Detacher Name Role Phone Sidney Alvarenga MD Primary Care Provider [phone] Encounter Details Date Type Department Care Team (Late st Contact Info) Description 06/16/2023 Orders Only External Location [address] [place] [address] Provider, External Social History Tobacco Use Types [...] Description 09/03/2025 1:30 PM EST Office Visit [facility] [address] [place] [address] Jayce Rangel, ELECTRICIAN YARD [address] [place] [address] documented as of this encounter Procedures Procedure [...] on filedocumented in this encounter Care Teams Detacher Relationship Specialty Start Date End Date Sidney Alvarenga MD [address] [place] [address] PCP - General 02/06/21 documented as of this encounter
--- OUTSIDE RECORDS SUMMARY | 2025-05-31 11:06 | XMS_ITS | Clinical Summary ---
Author Organization [facility] Address [address] [place] [address] Care Team Providers Care Marine Electrician Name Role Phone Sidney Alvarenga MD Primary Care Provider [phone] Allergies No known active allergies Medications amLODIPine [...] Arthritis 09/28/2022 09/03/2024 Depressive disorder 09/28/2022 09/03/20 24 Irregular heart beat 09/28/2022 024 Kidney stone [...] Description 03/04/2025 1:30 PM EDT Office Visit [facility] [address] [place] [address] Jayce Rangel, YOSELIN Scleritis and episcleritis of both eyes (Primary Dx); Lumbar radiculopathy; Other secondary osteoarthritis of multiple sites; High risk medication use 03/04/2025 Travel from Last 3 Months Immunizations Immunization Administration [...] Description 09/03/2025 1:30 PM EST [facility] [address] [place] [address] Jayce Rangel, NURSE ADVISOR [address] [place] [address] Health Maintenance Due Date Last Done Comments [...] Td Vaccines (1 - Tdap) 04/30/2022 04/29/2022 [id number] Vaccine ( season) 2024 06/27/2023, 06/09/2022, 12/23/2021, Additional history exists [facility]-Influenza Vaccine (#1) 05/27/202507/27, 06/21/2022, 06/08/2021, Additional history exists [facility]-Depression Screening 03/04/2026 03/04/2025, 12/05/2024 [facility]-Hepatitis A Vaccines Completed 022, 03/05/2019, 08/30/2018 [...] - 4.20 uIU/mL 03/04/2025 4:[address] [facility] Blood Venous blood specimen / Unknown Venipuncture / Unknown 03/04/2025 2:32 PM EDT 03/04/2025 2:32 PM EDT Jayce Rangel APRN LAB BLOOD ORDERABLES Final Res ult [facility] [address] [place] [address] * T4, free (03/04/2025 2:32 PM EDT) Pathologist [facility] Free T4, Plasma 1.3 0.8 - 1.7 ng/dL 03/04/2025 4:[address] [facility] Blood Venous blood specimen / Unknown Venipuncture / Unknown 03/04/2025 2:32 PM EDT 03/04/2025 2:32 PM EDT Jayce Tello Juan Carlos COATSN LAB BLOOD ORDERABLES Final Res ult Performing Organization Address City/[facility]/ZIP Co de Phone Number [facility] [address] [place] [address] * Hepatitis panel, acute (09/28/2023 5:04 PM EST) [facility] Hepatitis B Surf Antigen Negative Negative 09/28/2023 8:01 PM EST [facility] Hepatitis C Antibody Negative Negative 09/28/2023 8:01 PM EST [facility] Hepatitis A Antibody IgM Negative Negative 09/28/2023 8:01 PM EST [facility] Hepatitis B Core Antibody IgM Negative Negative 09/28/2023 8:01 PM EST [facility] Blood Venous blood specimen / Unknown Venipuncture / Unknown 09/28/2023 5:04 PM EST 09/28/2023 5:05 PM EST Noris Martins MD LAB BLOOD ORDERABLES Fi nal Result [facility] [address] [place] [address] from Last 3 Months or Most Recently Relevant to Health [place] [address] [place] [address] [facility] [facility] MEDICAID Care Teams Marine Electrician Relationship Specialty Start Date End Date Sidney Alvarenga MD [address] [place] [address] PCP - General 02/06/21
--- OUTSIDE RECORDS SUMMARY | 2025-05-31 11:06 | XMS_ITS | Clinical Summary ---
Author Organization [facility] Address [address] [place] [address] Care Team Providers Care Test Inspection Engineer Name Role Phone Tanvi Capps Primary Care Provider [phone] Allergies Active Allergy Reactions Criticality Noted Date [...] 04/05/2017 Back pain 03/28/2017 Overview (03/28/2017): Lumbar/Thoracic Family History Medical History Relation Name Comments [...] or training? Not on file Preferred Language Dominican 01/25/2025 Sex and Gender Information Value Date [...] Tdap) 04/30/2022 04/29/2022 COVID-19 Vaccine (6 - 2024-2 6 season) 2025 06/27/2023, 12/23/2021, 07/06/2021, Additional history exists INFLUENZA VACCINE 06/26/2025 07/27/2024, , 06/08/2021, Additional history exists HEPATITIS C SCREENING Completed 09/28/2023 Medical Devices Implanted Type Area Grooving Lathe Tender Device Identifier Shelf Expiration Date Model / Serial / Lot Hemost Abs Surgifoam Sz100 8x12 10mm - [id number] Implanted:Qt y: 1 on 02/01/2025 by Hussein Solano MD at [facility] Implant N/A: Spine Lumbar [employer] DIV OF J AND J [id number] 11/01/2028 [id number] / / [id number] Scrw Anti/Backout Bowti Ti 25mm - [id number] Implanted:Qt y: 1 on 02/01/2025 by Hussein Solano MD at [facility] Implant N/A: Spine Lumbar DEPUY SPINE [id number] / / Stpl Bone Bowti Ti 24mm - [id number] Implanted:Qt y: 1 on 02/01/2025 by Hussein Solano MD at [facility] Implant N/A: Spine Lumbar DEPU[employer] SPINE [id number] / / Allogrft Bone Vivigen Celluar Matrx Formable 10cc - [id number] Implanted:Qt y: 1 on 02/01/2025 by Hussein Solano MD at [facility] Implant N/A: Spine Lumbar [facility] 12/25/2025 [id number] / / [id number] Allogrft Bone Vivigen Celluar Matrx Formable 5cc - [id number] Implanted:Qt y: 1 on 02/01/2025 by Hussein Solano MD at [facility] Implant N/A: Spine Lumbar [facility] [id number] 01/14/2026 [id number] / / Scrw Pa Fen 6.5x50mm - [id number] Implanted:Qt y: 2 on 02/01/2025 by Hussein Solano MD at [facility] Implant N/A: Spine Lumbar DEPUY SPINE [id number] / / Scrw Trialtis A/Poly 7.5x40mm - [id number] Implanted:Qt y: 2 on 02/01/2025 by Hussein Solano MD at [facility] Implant N/A: Spine Lumbar DEPUY SPINE [id number] / / Nikhil Trialtis Ti 5.5x95mm - [id number] Implanted:Qt y: 2 on 02/01/2025 by Hussein Solano MD at [facility] Implant N/A: Spine Lumbar DEPUY SPINE [id number] / / Scrw St Trialtis - [id number] Implanted:Qt y: 8 on 02/01/2025 by Hussein Solano MD at [facility] Implant N/A: Spine Lumbar DEPUY SYNTHES [id number] / / Wax Bone Hemo Lukens Sharpoint 2.5gm Wht - [id number] Implanted:Qt y: 1 on 02/01/2025 by Hussein Solano MD at [facility] Implant N/A: Spine Lumbar [employer] [facility] [id number] 03/27/2029 901 / / [id number] Scrw Fen Trialtis 6.5x45mm - [id number] Implanted:Qt y: 4 on 02/01/2025 by Hussein Solano MD at [facility] Implant N/A: Spine Lumbar DEPUY SPINE [id number] / / Kt Seal Hemos Abs Floseal Matrx Fast/Prep 10ml - [id number] Implanted:Qt y: 1 on 02/01/2025 by Hussein Solano MD at [facility] Implant N/A: Spine Lumbar [facility] [id number] 08/30/2026 [id number] / / [id number] Clipapplr M/ Endo Ligaclip 20clp 11in Md - [id number] Implanted:Qt y: 1 on 02/01/2025 by Junior Broderick MD at [facility] Implant N/A: Spine Lumbar [employer] [facility] DIV OF J AND J 09/25/2029 [id number] / / [id number] Clipapplr M/ Endo Ligaclip 13in Lg - [id number] Implanted:Qt y: 1 on 02/01/2025 by Junior Broderick MD at [facility] Implant N/A: Spine Lumbar [employer] [facility] DIV OF J AND J 08/25/2027 [id number] / / [id number] Allogrft Bone Vivigen Celluar Matrx Formable 1cc - [id number] Implanted:Qt y: 1 on 02/01/2025 by Hussein Solano MD at [facility] Implant N/A: Spine Lumbar [facility] [id number] 12/11/2025 [id number] / / Allogrft Bone Vivigen Celluar Matrx Formable 1cc - [id number] Implanted:Qt y: 1 on 02/01/2025 by Hussein Solano MD at [facility] Implant N/A: Spine Lumbar [facility] [id number] / / Cage Ib Alif Conduit Ti 3d/Prnt 20deg 16mm Lg - [id number] Implanted:Qt y: 1 on 02/01/2025 by Hussein Solano MD at [facility] Implant N/A: Spine Lumbar DEPUY SPINE 11/23/2034 [id number] / / [id number] Explanted Type Area Grooving Lathe Tender Device Identifier Shelf Expiration Date Model / Serial / Lot Stpl Bone Bowti Ti 24mm - [id number] Explanted:Qty : 1 on 02/01/2025 by Hussein Weaver MD at [facility] Implant N/A: Spine Lumbar DEPUY SPINE [id number] / / Scrw Anti/Backout Bowti Butrs/Plt Ti 20mm - [id number] Explanted:Qty : 1 on 02/01/2025 by Hussein Weaver MD at [facility] Implant N/A: Spine Lumbar DEPUY SPINE [id number] / / Cage Ib Alif Conduit Ti 3d/Prnt 20deg 14mm Lg - [id number] Explanted:Qty : 1 on 02/01/2025 by Hussein Weaver MD at [facility] Implant N/A: Spine Lumbar DEPUY SPINE 09/25/2034 [id number] / / [id number] Insurance Advance Directives * CPR (Attempt to Resuscitate) (Latest Code Status on File) Date Activated Date Inactivated Comments 02/01/2025 3:51 PM 02/05/2025 5:57 PM Question Answer Comments Code Status (Patient has no pulse and is not breathing): CPR (Attempt to Resuscitate) Medical Interventions (Patie nt has pulse or is breathing): Full Support Level Of Support Discussed With: Patient Care Teams Test Inspection Engineer Relationship Specialty Start Date End Date Tanvi Capps PA [address] [facility] [address] [address] PCP - General Physician Cloth Bolt Bander 06/30/23
--- OUTSIDE RECORDS SUMMARY | 2025-05-31 11:06 | XMS_ITS | Encounter Summary ---
Author Organization [facility] Address [address] [place] [address] Care Team Providers Care Trainman Name Role Phone Sidney Alvarenga MD Primary Care Provider +1- [phone] Encounter Details Date Type Department Care Team (Late st Contact Info) Description 06/04/2024 Orders Only External Location [address] [place] [address] Tanvi Capps [place] [address] [facility] [address] [place] [address] Social History Tobacco Use Types Packs/Day Years [...] Description 09/03/2025 1:30 PM EST Office Visit [facility] [address] [place] [address] BiJayce jacinto W, PANEL GLUER [address] [place] [address] documented as of this encounter Procedures Procedure Name Priority Date/Time Associated Diagnosis Comments MR OUTSIDE IMAGES 06/04/2024 1:56 PM EDT documented in this encounter Results * MR transfer of outside films (06/04/2024 1:56 PM EDT) Anatomical Region Laterality Modality Magnetic Resonan ce 06/04/2024 1:56 PM EDT Tanvi SALGADO IMG MRI PROCEDURES Final Result documented in this encounter Visit Diagnoses Not on filedocumented in this encounter Additional Health Concerns Assessment Noted Time PHQ-9 Depression Total Score: 16 04/2 024 10:19 AM EDT A fall risk assessment has been complete d for the patient 05/15/2024 12:32 PM EDT A Body Mass Index follow-up plan has been documented for the patient 05/15/2024 1:11 PM EDT documented as of this encounter Care Teams Trainman Relationship Specialty Start Date End Date Sidney Alvarenga MD [address] [place] [address] PCP - General 02/06/21 documented as of this encounter
--- OUTSIDE RECORDS SUMMARY | 2025-05-31 11:06 | XMS_ITS | Clinical Summary ---
Author Organization [facility] Address [address] [place] [address] Care Team Providers Care Patent Agent Name Role Phone None, Physician Primary Care [...] complete [place] [address] [facility] Directives Documents on File Type Date Recorded Patient Fund Accounting Manager Expl anation Living Will 02/04/2020 Care Teams Patent Agent Relationship Specialty Start Date End Date None, Physician PCP - General 02/04/20
--- OUTSIDE RECORDS SUMMARY | 2025-05-31 11:06 | XMS_ITS | Encounter Summary ---
Author Organization [facility] Address [address] [place] [address] Care Team Providers Care Informatica Mdm Developer Name Role Phone Sidney Alvarenga MD Primary Care Provider +1- [phone] Encounter Details Date Type Department Care Team (Late st Contact Info) Description 09/01/2010 Orders Only External Location [address] [place] [address] Provider, External Social History Tobacco Use Types [...] Description 09/03/2025 1:30 PM EST Office Visit [place] [facility] [address] [place] [address] Jayce Rangel, CLINICAL LABORATORY TECHNOLOGIST [address] [place] [address] documented as of this encounter Procedures Procedure [...] on filedocumented in this encounter Care Teams Informatica Mdm Developer Relationship Specialty Start Date End Date Sidney Alvarenga MD [address] [place] [address] PCP - General 02/06/21 documented as of this encounter
--- OUTSIDE RECORDS SUMMARY | 2025-05-31 11:06 | XMS_ITS | Encounter Summary ---
Author Organization [facility] Address [address] [place] [address] Care Team Providers Care Sdv Pilot/Navigator/Dds Operator Name Role Phone Sidney Alvarenga MD Primary Care Provider +1- [phone] Encounter Details Date Type Department Care Team (Late st Contact Info) Description 06/16/2023 Orders Only External Location [address] [place] [address] Provider, External Social History Tobacco Use Types [...] Description 09/03/2025 1:30 PM EST Office Visit [place] [facility] [address] [place] [address] Jayce Rangel, TRANSPORTATION EQUIPMENT PAINTER [address] [place] [address] documented as of this encounter Procedures Procedure [...] on filedocumented in this encounter Care Teams Sdv Pilot/Navigator/Dds Operator Relationship Specialty Start Date End Date Sidney Alvarenga MD [address] [place] [address] PCP - General 02/06/21 documented as of this encounter
--- OUTSIDE RECORDS SUMMARY | 2025-05-31 11:06 | XMS_ITS | Encounter Summary ---
Author Organization [facility] Address [address] [place] [address] Care Team Providers Care Behavioral Health Counselor Name Role Phone Sidney Alvarenga MD Primary Care Provider +1- [phone] Encounter Details Date Type Department Care Team (Late st Contact Info) Description 06/16/2023 Orders Only External Location [address] [place] [address] Provider, External Social History Tobacco Use Types [...] Description 09/03/2025 1:30 PM EST Office Visit [facility] [address] [place] [address] Jayce Rangel, HEEL CEMENTER MACHINE [address] [place] [address] documented as of this encounter Procedures Procedure [...] on filedocumented in this encounter Care Teams Behavioral Health Counselor Relationship Specialty Start Date End Date Sidney Alvarenga MD [address] [place] [address] PCP - General 02/06/21 documented as of this encounter
== END 2025-05-31 23:59 | disposition home or self-care (01) ==
LOC: RAD 11:03
PROVIDERS: PCP Family Medicine; Visit Provider Student in an Organized Health Care Education/Training Program
DX: E04.1 Nontoxic single thyroid nodule (principal)
CPT/HCPCS: 76536

== ENCOUNTER 2025-06-20 10:00 | Outpatient (RCR) | payer OTHER, SELFPAY | END 2025-06-20 23:59 | disposition home or self-care (01) | LOC: PT 10:00 | PROVIDERS: PCP Family Medicine; Visit Provider Orthopaedic Surgery | DX: Z47.89 Encounter for other orthopedic aftercare (principal); Z98.1 Arthrodesis status | CPT/HCPCS: 97110; 97112; 97164 ==

== ENCOUNTER 2025-07-25 10:00 | Outpatient (RCR) | payer OTHER, SELFPAY | END 2025-07-25 23:59 | disposition home or self-care (01) | LOC: PT 10:00 | PROVIDERS: PCP Family Medicine; Visit Provider Orthopaedic Surgery | DX: Z47.89 Encounter for other orthopedic aftercare (principal); Z98.1 Arthrodesis status | CPT/HCPCS: 97014; 97110; 97112; 97140; G0283 ==

== ENCOUNTER 2025-08-12 09:00 | Outpatient (RCR) | payer OTHER, SELFPAY | END 2025-08-12 23:59 | disposition home or self-care (01) | LOC: PT 09:00 | PROVIDERS: PCP Family Medicine; Visit Provider Orthopaedic Surgery | DX: M54.50 Low back pain, unspecified (principal); G89.29 Other chronic pain; Z98.1 Arthrodesis status | CPT/HCPCS: 97110; 97112; 97140 ==

== ENCOUNTER 2025-09-11 12:39 | Outpatient (CLI) | payer OTHER, SELFPAY ==
--- OUTSIDE RECORDS SUMMARY | 2025-04-18 10:00 | XMS_ITS ---
[facility] [address] [place] [phone] Care Team Providers Care Career And Guidance Counselor Name Role Phone Roberto Alvarenga Primary Care Provider [phone] Tanvi Capps Unavailable [phone] Allergies Allergen (clinical drug ingredient) Drug/Non Drug Allergy documented on EMR Reaction Allergy Type Onset Date Status hydrocodone HYDROcodone Unknown Drug Allergy Act amanda Results Component Value Reference Range Notes Influenza Screen (in house) Reviewed date:04/18/2025 04:32:23 PM Interpretation: Performing Lab: Notes/Report: results neg CBC Fingerstick (in house) Reviewed date:04/18/2025 04:36:07 PM Interpretation: Performing Lab: Notes/Report: wbc 6.0 3.5 - 10 lym 17.7 15 - 50 mid 5.4 2 - 15 gran 76.9 35 - 80 rbc 4.54 3.5 - 5.5 hgb 13.3 11.5 - 16.5 hct 40.2 35 - 55 mcv 88.4 75 - 100 mch 29.4 25 - 35 mchc 33.3 31 - 38 plat 345 100 - 400 Covid test (in house) Reviewed date:04/18/2025 04:32:31 PM Interpretation: Performing Lab: Notes/Report: Result: neg REASON FOR VISIT flu like symptoms, sweating, fever Medications Medication SIG (Take, Route, Frequency, Duration) Notes Start Date End Date Status Methotrexate Sodium 2.5 MG 10 tabs Orall y once a week Active Aspirin 81 MG 1 tablet Orally Once a day; Duration: 30 day(s) Active Folic Acid 1 MG 1 tablet Orally Once a day; Duration: 30 day(s) Active Benzonatate 200 MG 1 capsule Orally Thr ee times a day, prn 04/18/2025 Active Cefdinir 300 MG 1 cap(s) Orally Two times a day; Duration: 10 days 04/18/2025 Active amLODIPine Besylate 5 mg 1 tablet orally once a day; Duration: 30 days Active Irbesartan 150 mg 1 tablet orally once a day; Duration: 30 days Active Vital Signs Weight 210.6 lbs 04/18/2025 Blood pressure systolic 122 mm Hg 04/18/20 25 Blood pressure diastolic 70 mm Hg 025 Heart Rate 74 /min 04/18/2025 Height 65.25 in 04/18/2025 BMI 34.77 kg/m2 04/18/2025 Encounters Encounter Location Date Provider Diagnosis [facility] [address] [place] [phone] 04/18/2025 Tanvi Capps Acute URI J06.9 Assessments Encounter Date Diagnosis (ICD Code) Assessment Notes Treatment Notes Treatment Clinical Notes Section Notes 04/18/2025 Acute URI (ICD-10 - J06.9) Plan Of Treatment Medication Medication Name Sig Start Date Stop Date Notes Benzonatate 200 MG 1 capsule Orally Three times a day, prn 04/18/2025 Cefdinir 300 MG 1 cap(s) Orally Two times a day; Duration: 10 days 04/18/2025 Next Appt Details Follow Up: prn, Reason: Progress Notes * RAMA MARESDOB: [birth year] (60 yo M)Acc No.[id number]:04/18/2025 Progress Notes Patient: RAMA HUBBARD Provider: DAMIAN Marie :1965 A ge:59 Y S ex:Male Date:04/18/2025 Address:[address] [place] [address] DR [place], [id number] Pcp:Roberto Alvarenga Subjective: * Chief Complaints: * 1 . Flu like symptoms, sweating, fever. * HPI: E NT/respiratory: Pt states that flu symptoms stared a week ago then fever and chills last 24 hours. Pt states right side of neck hurts. 59 year old male presents with c/o Fever. * ROS: D ERMATOLOGY: no R alyssa. n o H tolu. G ASTROENTEROLOGY: no N ausea. n o V omiting. n o D iarrhea.? U ROLOGY: no D ifficulty urinating. n o B lood in urine. * Medical History: H ypomania, recovering drug(cocaine) addict and alcoholic - clean since admission to [facility] in 2004, Lumbar spinal stenosis, Chronic back pain. * Surgical History: R T. knee 1984, laminectomy and lumbar disc L5 S1 2001, Lumbar Fusion 02/01/25. * Family History: F ather: alive 66 yrs. M other: 62 yrs, colon cancer. 1 daughter(s) - healthy. . * Social History: C URRENT TOBACCO USE S moking Status: Patient does NOT smoke. H ome smoke detector use: yes. Marital Status: Single. Past smoking status: no. Alcohol: No. Sexually active: yes. * Medications: T aking Aspirin 81 MG [...] List reviewed and reconciled with the patient * Allergies: H YDROcodone. Objective: * Vitals: W t: 210.6, Temp: 98.9, BP: 122/70, HR: 74, Nurse: pe, Ht: 65.25, BMI:34.77. * Examination: E NT/Respiratory: General Appearance: N AD. E ars: a uditory canals normal bilaterally, TM's WNL. N ose : n o edema, good color. S inuses : n on tender bilaterally. O ral cavity : e rythema without exudate on pharynx. N maria elena : s upple, bilateral tender lymphadenopathy. H eart : R RR, normal S1 S2, no murmurs. L ungs: c lear to auscultation bilaterally. Assessment: * Assessment: 1. Jeffrey george URI - J06.9 (Primary) Plan: * Treatment: Value Reference Range r esults neg * Sissy Kuo 04/18/2025 0 4:30:47 PM EDT > Provider reviewed results while patient in office.Tanvi Capps 04/18/2025 04:32:21 PM EDT > ?LAB: CBC Fingerstick (in house) (Collection Date & Time - 04/18/2025)* Value Reference Range w bc 6.0 3.5 - 10 * l ym 17.7 15 - 50 * m id 5.4 2 - 15 * g ran 76.9 35 - 80 * r bc 4.54 3.5 - 5.5 * h gb 13.3 11.5 - 16.5 * h ct 40.2 35 - 55 * m cv 88.4 75 - 100 * m ch 29.4 25 - 35 * m chc 33.3 31 - 38 * p lat 345 100 - 400 * Sissy Kuo 04/18/2025 0 4:32:45 PM EDT > Provider reviewed results while patient in office.Tanvi Capps 04/18/2025 04:36:04 PM EDT > ?LAB: Covid test (in house) (Collection Date & Time - 04/18/2025)* Value Reference Range R esult: neg * Sissy Kuo 04/18/2025 0 4:30:29 PM EDT > Provider reviewed results while patient in office.Tanvi Capps 04/18/2025 04:32:28 PM EDT > * Procedure Codes: 8 7804 Flu Test- Nasal Swab, Modifiers: QW , 62821 COVID TEST IN HOUSE, Modifiers: QW , 37191 CAPILLARY BLOOD DRAW, 70927 CBC WITH AUTO DIFF, 1036F TOBACCO NON-USER, 3074F SYST BP LT 130 MM HG, 3078F DIAST BP < 80 MM HG * Follow Up: p rn * Images: Billing Information: * Visit Code: 13222 Office Visit, Est Pt., Level 3. * Procedure Codes: 87647 Flu Test- Nasal Swab. Modifiers: QW 18418 COVID TEST IN HOUSE. Modifiers: QW 98286 CAPILLARY BLOOD DRAW. 74790 CBC WITH AUTO DIFF. 1036F TOBACCO NON-USER. 3074F SYST BP LT 130 MM HG. 3078F DIAST BP < 80 MM HG. * Electronic signature of DAMIAN Christiansen on 09/11/2025 at 01:28 PM EST Sign off status: Pending * Provider: DAMIAN Marie Date: 0 04/18/2025 Generated for Stefany perez/Olu/Sin on: 1 11/12/2024 01:28 PM EST History and Physical Notes * HPI (History of Present Illness) Category Sub-Category Detail Notes Category Not es ENT/respiratory Fever Examination Category Sub-Category Detail Notes Category Not es ENT/Respiratory Oral cavity : erythema without exudate on pharynx Sinuses : non tender bilateral ly Ears: auditory canals norm al bilaterally, TM's WNL Neck : supple, bilateral te nder lymphadenopathy Heart : RRR, normal S1 S2, n o murmurs Lungs: clear to auscultatio n bilaterally General Appearance: NAD Nose : no edema, good color
--- OUTSIDE RECORDS SUMMARY | 2025-05-03 06:30 | XMS_ITS ---
Author Organization [facility] Address 1210 [facility] [address] [place] [id number] Care Team Providers Care Mechanical Systems Design Engineer Name Role Phone Roberto Alvarenga Primary Care Provider [phone] Tanvi Capps Unavailable [phone] Allergies Allergen (clinical drug ingredient) Drug/Non Drug Allergy documented on EMR Reaction Allergy Type Onset Date Status hydrocodone HYDROcodone Unknown Drug Allergy Act amanda Results Component Value Reference Range Notes Influenza Screen (in house) Reviewed date:05/06/2025 09:38:46 AM Interpretation:neg Performing Lab: Notes/Report: neg results neg CBC Fingerstick (in house) Reviewed date:05/06/2025 08:49:48 AM Interpretation: Performing Lab: Notes/Report: wbc 3.0 3.5 - 10 lym 17.3 15 - 50 mid 4.0 2 - 15 gran 78.7 35 - 80 rbc 4.35 3.5 - 5.5 hgb 12.8 11.5 - 16.5 hct 38.2 35 - 55 mcv 87.9 75 - 100 mch 29.5 25 - 35 mchc 33.5 31 - 38 plat 220 100 - 400 TEN-Upper Respiratory PCR Reviewed date:05/06/2025 09:38:33 AM Interpretation:Abnormal Performing Lab: Notes/Report: Abnormal Covid test (in house) Reviewed date:05/06/2025 09:38:46 AM Interpretation:neg Performing Lab: Notes/Report: neg Result: neg REASON FOR VISIT congestion, fever, cough Medications Medication SIG (Take, Route, Frequency, Duration) Notes Start Date End Date Status Benzonatate 200 MG 1 capsule Orally Thr ee times a day, prn 04/18/2025 Not-Taking Methotrexate Sodium 2.5 MG 10 tabs Orally once a week Active amLODIPine Besylate 5 mg 1 tablet orally once a day; Duration: 30 days Active Irbesartan 150 mg 1 tablet orally once a day; Duration: 30 days Active Cefdinir 300 MG 1 cap(s) Orally Two times a day; Duration: 10 days 04/18/2025 Not-Taking Bromfed DM 30-2-10 MG/5ML 5-10 mL Orally every 6 hours, prn 05/03/2025 Active Aspirin 81 MG 1 tablet Orally Once a day; Duration: 30 day(s) Active Folic Acid 1 MG 1 tablet Orally Once a day; Duration: 30 day(s) Active Vital Signs Weight 211.0 lbs 05/03/2025 Blood pressure systolic 124 mm Hg 05/03/20 25 Blood pressure diastolic 68 mm Hg 025 Heart Rate 68 /min 05/03/2025 Height 65.25 in 05/03/2025 BMI 34.84 kg/m2 05/03/2025 Encounters Encounter Location Date Provider Diagnosis [facility] [address] [place] [address] [place] [phone] 05/03/2025 Tanvi Capps B12 deficiency E53.8 and Acute URI J06.9 Assessments Encounter Date Diagnosis (ICD Code) Assessment Notes Treatment Notes Treatment Clinical Notes Section Notes 05/03/2025 B12 deficiency (ICD-10 - E53.8) 05/03/2025 Acute URI (ICD-10 - J06.9) Plan Of Treatment Medication Medication Name Sig Start Date Stop Date Notes Bromfed DM 30-2-10 MG/5ML 5-10 mL Orally every 6 hours, prn 05/03/2025 Next Appt Details Follow Up: via phone to repo rt test results, Reason: Medications Administered Medication Instructions Date of Administration Dosage Notes B-12 05/03/2025 1 mL Progress Notes * RAMA MARESDOB: [birth year] (60 yo M)Acc No.[id number]:05/03/2025 Progress Notes Patient: RAMA HUBBARD Provider: DAMIAN Marie :1965 A ge:59 Y S ex:Male Date:05/03/2025 Address:[address] [place] [address] , [id number] Pcp:Roberto Alvarenga Subjective: * Chief Complaints: * 1 . Congestion, fever, cough. * HPI: E NT/respiratory: 59 year old male presents with c/o cough d ry cough. Pt sts he did finish the antibiotics, but sts they did not help at all. c/o nasal congestion. c/o Fever P t sts he has had a low grade fever for going on 3 weeks. Pt sts he has still had a fever of 99.1-99.8. c/o ear pain P t sts sometimes he gets pain in his ears that then travels down into his lymph nodes and goes away. * ROS: D ERMATOLOGY: no R alyssa. n o H tolu. G ASTROENTEROLOGY: no N ausea. n o V omiting. n o D iarrhea.? U ROLOGY: no D ifficulty urinating. n o B lood in urine. * Medical History: H ypomania, recovering drug(cocaine) addict and alcoholic - clean since admission to [facility] in 2004, Lumbar spinal stenosis, Chronic back [...] 1 tablet orally once a day , Not-Taking Cefdinir 300 MG Capsule 1 cap(s) Orally Two times a day , Not-Taking Benzonatate 200 MG Capsule 1 capsule Orally Three times a day, prn , Medication List reviewed and reconciled with the patient * Allergies: H YDROcodone. Objective: * Vitals: W t: 211.0, Temp: 99.1, BP: 124/68, HR: 68, O2 Sat: 98% on RA, Nurse: ely, Ht: 65.25, BMI:34.84. * Examination: E NT/Respiratory: General Appearance: N AD. E ars: a uditory canals normal bilaterally, TM's WNL. N ose : t urbinates red, congested. S inuses : t alida maxillary sinuses bilaterally. O ral cavity : e rythema without exudate on pharynx. N maria elena : n o cervical lymphadenopathy. H eart : R RR, normal S1 S2, no murmurs. L ungs:?clear to auscultation bilaterally. Assessment: * Assessment: 1. A alexie URI - J06.9 (Primary) 2 . B 12 deficiency - E53.8 ? Plan: * Treatment: Value Reference Range r esults neg * Radha Bunn 05/03/2025 12:09 :02 PM EDT > Provider reviewed results while patient in office. ?LAB: CBC Fingerstick (in house) (Collection Date & Time - 05/03/2025)* Value Reference Range w bc 3.0 3.5 - 10 * l ym 17.3 15 - 50 * m id 4.0 2 - 15 * g ran 78.7 35 - 80 * r bc 4.35 3.5 - 5.5 * h gb 12.8 11.5 - 16.5 * h ct 38.2 35 - 55 * m cv 87.9 75 - 100 * m ch 29.5 25 - 35 * m chc 33.5 31 - 38 * p lat 220 100 - 400 * Radha Bunn 05/03/2025 12:09 :53 PM EDT > Provider reviewed results while patient in office. ?LAB: TEN-Upper Respiratory PCR (Collection Date & Time - 05/03/2025)? Abnormal* Tanvi Capps 05/06/2025 0 9:38:25 AM EDT >see TE ?LAB: Covid test (in house) (Collection Date & Time - 05/03/2025)?neg* Value Reference Range R esult: neg * Radha Bunn 05/03/2025 12:09 :37 PM EDT > Provider reviewed results while patient in office. * Therapeutic Injections: B-12 : 1 mL (Route: Intramuscular) given by MAYNOR Dickens on left gluteus (B12 deficiency) * Procedure Codes: 3 6416 CAPILLARY BLOOD DRAW, 85599 CBC WITH AUTO DIFF, 10393 Flu Test- Nasal Swab, Modifiers: QW , 57944 COVID TEST IN HOUSE, Modifiers: QW , J3420 B-12, 25671 ADMINISTRATION OF INJECTION, 1036F TOBACCO NON-USER, 3074F SYST BP LT 130 MM HG, 3078F DIAST BP < 80 MM HG * Follow Up: v ia phone to report test results * Images: Billing Information: * Visit Code: 59820 Office Visit, Est Pt., Level 3. * Procedure Codes: 40851 CAPILLARY BLOOD DRAW. 75827 CBC WITH AUTO DIFF. 02788 Flu Test- Nasal Swab. Modifiers: QW 91520 COVID TEST IN HOUSE. Modifiers: QW J3420 B-12. 90161 ADMINISTRATION OF INJECTION. 1036F TOBACCO NON-USER. 3074F SYST BP LT 130 MM HG. 3078F DIAST BP < 80 MM HG. * Electronic signature of DAMIAN Christiansen on 09/11/2025 at 01:25 PM EST Sign off status: Pending * Provider: DAMIAN Marie Date: 0 05/03/2025 Generated for Stefnay perez/Olu/Briansmitting on: 1 11/12/2024 01:25 PM EST History and Physical Notes * HPI (History of Present Illness) Category Sub-Category Detail Notes Category Not es ENT/respiratory ear pain Pt sts sometimes he gets pain in his ears that then travels down into his lymph nodes and goes away cough dry cough. Pt sts he did finish the antibiotics, but sts they did not help at all Fever Pt sts he has had a low grade fever for going on 3 weeks. Pt sts he has still had a fever of 99.1-99.8 nasal congestion Examination Category Sub-Category Detail Notes Category Not es ENT/Respiratory Oral cavity : erythema without exudate on pharynx Sinuses : tender maxillary sin uses bilaterally Ears: auditory canals norm al bilaterally, TM's WNL Neck : no cervical lymphade nopathy Heart : RRR, normal S1 S2, n o murmurs Lungs: clear to auscultatio n bilaterally General Appearance: NAD Nose : turbinates red, donna ested
--- OUTSIDE RECORDS SUMMARY | 2025-05-17 10:45 | XMS_ITS ---
Author Organization [facility] Address 1210 [facility] [address] [place] [phone] Care Team Providers Care Lead Quality Control Technician Name Role Phone Roberto Alvarenga Primary Care Provider Tanvi Capps [phone] Allergies Allergen (clinical drug ingredient) Drug/Non Drug Allergy documented on EMR Reaction Allergy Type Onset Date Status hydrocodone HYDROcodone Unknown Drug Allergy Act amanda REASON FOR VISIT B12 Medications Medication SIG (Take, Route, Frequency, Duration) Notes Start Date End Date Status Zithromax Z-Sergio 250 MG as directed Orally 05/06/20 Not-Taking Cefdinir 300 MG 1 cap(s) Orally Two times a day; Duration: 10 days 04/18/2025 Not-Taking Benzonatate 200 mg TAKE ONE CAPSULE BY MOUTH THREE TIMES DAILY NEEDED; Duration: 10 Not-Taki ng Irbesartan 150 mg 1 tablet orally once a day; Duration: 30 days Active Bromfed DM 30-2-10 MG/5ML 5-10 mL Orally every 6 hours, prn 05/03/2025 Not-Taking Aspirin 81 MG 1 tablet Orally Once a day; Duration: 30 day(s) Active Folic Acid 1 MG 1 tablet Orally Once a day; Duration: 30 day(s) Active Methotrexate Sodium 2.5 MG 10 tabs Orally once a week Active amLODIPine Besylate 5 mg 1 tablet orally once a day; Duration: 30 days Active Encounters Encounter Location Date [place] [address] [place] [address] [place] [phone] 05/17/2025 Tanvi Capps Vitamin B 12 deficie ncy E53.8 Assessments Encounter Date Diagnosis (ICD Code) Assessment Notes Treatment Notes Treatment Clinical Notes Section Notes 05/17/2025 Vitamin B 12 deficiency (ICD-10 - E53.8) Plan Of Treatment No Information Medications Administered Medication Instructions Date of Administration Dosage Notes B-12 05/17/2025 1 mL Progress Notes * RAMA MARESDOB: [birth year] (60 yo M)Acc No.[id number]:05/17/2025 Patient: RAMA HUBBARD Provider: DAMIAN Marie :1965 A ge:59 Y S ex:Male Date:05/17/2025 Address:[address] [place] [address] , [place], [id number] Pcp:Roberto Alvarenga Subjective: * Chief Complaints: * 1 . B12. * Medical History: H ypomania, recovering drug(cocaine) addict and alcoholic - clean since admission to [facility] in 2004, Lumbar spinal stenosis, Chronic back pain. * Medications: T aking Aspirin 81 MG [...] tablet orally once a day , Not-Taking Bromfed DM 30-2-10 MG/5ML Syrup 5-10 mL Orally every 6 hours, prn , Not-Taking Benzonatate 200 mg Capsule TAKE ONE CAPSULE BY MOUTH THREE TIMES DAILY NEEDED , Not-Taking Zithromax Z-Sergio 250 MG Tablet as directed Orally , Not- Taking Cefdinir 300 MG Capsule 1 cap(s) Orally Two times a day , Medication List reviewed and reconciled with the patient * Allergies: H YDROcodone. Objective: * Vitals: Assessment: * Assessment: 1. V itamin B 12 deficiency - E53.8 (Primary) Plan: * Treatment: * Therapeutic Injections: B-12 : 1 mL (Route: Intramuscular) given by OKSANA Booth on left gluteus (Vitamin B 12 deficiency) * Procedure Codes: J 3420 B-12, 93588 ADMINISTRATION OF INJECTION * Images: Billing Information: * Visit Code: * Procedure Codes: J3420 B-12. 64608 ADMINISTRATION OF INJECTION. * Electronic signature of DAMIAN Christiansen on 09/11/2025 at 01:27 PM EST Sign off status: Pending * Provider: DAMIAN Marie Date: 0 05/17/2025 Generated for Stefany perez/Olu/Sin on: 1 11/12/2024 01:27 PM EST
--- OUTSIDE RECORDS SUMMARY | 2025-05-31 06:40 | XMS_ITS ---
Author Organization [facility] Address 1210 [facility] [address] [place] [phone] Care Team Providers Care Dural Mechanic Name Role Phone Roberto Alvarenga Primary Care Provider Tanvi Capps [phone] Allergies Allergen (clinical drug ingredient) Drug/Non Drug Allergy documented on EMR Reaction Allergy Type Onset Date Status hydrocodone HYDROcodone Unknown Drug Allergy Act amanda REASON FOR VISIT B12 shot Medications Medication SIG (Take, Route, Frequency, Duration) Notes Start Date End Date Status Irbesartan 150 mg 1 tablet orally once a day; Duration: 30 days Active Bromfed DM 30-2-10 MG/5ML 5-10 mL Orally every 6 hours, prn 05/03/2025 Not-Taking Benzonatate 200 mg TAKE ONE CAPSULE BY MOUTH THREE TIMES DAILY NEEDED; Duration: 10 Not-Taki ng Zithromax Z-Sergio 250 MG as directed Orally 05/06/20 25 Not-Taking Cefdinir 300 MG 1 cap(s) Orally Two times a day; Duration: 10 days 04/18/2025 Not-Taking Aspirin 81 MG 1 tablet Orally Once a day; Duration: 30 day(s) Active Folic Acid 1 MG 1 tablet Orally Once a day; Duration: 30 day(s) Active Methotrexate Sodium 2.5 MG 10 tabs Orally once a week Active amLODIPine Besylate 5 mg 1 tablet orally once a day; Duration: 30 days Active Encounters Encounter Location Date Provider Diagnosis [place] [address] [place] [address] [place] [phone] 05/31/2025 Tanvi Capps Vitamin B 12 deficie ncy E53.8 Assessments Encounter Date Diagnosis (ICD Code) Assessment Notes Treatment Notes Treatment Clinical Notes Section Notes 05/31/2025 Vitamin B 12 deficiency (ICD-10 - E53.8) Plan Of Treatment No Information Medications Administered Medication Instructions Date of Administration Dosage Notes B-12 05/31/2025 1 mL Progress Notes * RAMA MARESDOB: [birth year] (60 yo M)Acc No.[id number]:05/31/2025 Patient: RAMA HUBBARD Provider: DAMIAN Marie :1965 A ge:59 Y S ex:Male Date:05/31/2025 Address:[address] [place] [address] , [place], [id number] Pcp:Roberto Alvarenga Subjective: * Chief Complaints: * 1 . B12 shot. * ROS: D ERMATOLOGY: no R alyssa. n o H tolu. G ASTROENTEROLOGY: no N ausea. n o V omiting. n o D iarrhea.? U ROLOGY: no D ifficulty urinating. n o B lood in urine. * Medical History: H ypomania, recovering drug(cocaine) addict and alcoholic - clean since admission to [facility] in 2004, Lumbar spinal stenosis, Chronic back [...] deficiency) * Procedure Codes: J 3420 B-12, 76394 ADMINISTRATION OF INJECTION * Images: Billing Information: * Visit Code: * Procedure Codes: J3420 B-12. 28472 ADMINISTRATION OF INJECTION. * Electronic signature of DAMIAN Christiansen on 09/11/2025 at 01:25 PM EST Sign off status: Pending * Provider: DAMIAN Marie Date: 0 05/31/2025 Generated for Stefany perez/Olu/Demetrioitting on: 1 11/12/2024 01:25 PM EST
--- OUTSIDE RECORDS SUMMARY | 2025-06-12 11:30 | XMS_ITS ---
[facility] [address] [place] [address] [place] [id number] Care Team Providers Care Antiquer Name Role Phone Roberto Alvarenga Primary Care Provider Tanvi Capps Unavailable [phone] Allergies Allergen (clinical drug ingredient) Drug/Non Drug Allergy documented on EMR Reaction Allergy Type Onset Date Status hydrocodone HYDROcodone Unknown Drug Allergy Act amanda Results Component Value Reference Range Notes CBC Fingerstick (in house) Reviewed date:06/13/2025 04:54:55 PM Interpretation: Performing Lab: Notes/Report: wbc 7.4 3.5 - 10 lym 27.7% 15 - 50 mid 6.4% 2 - 15 gran 65.9% 35 - 80 rbc 4.84 3.5 - 5.5 hgb 14.2 11.5 - 16.5 hct 42.5 35 - 55 mcv 87.7 75 - 100 mch 29.4 25 - 35 mchc 33.5 31 - 38 plat 188 100 - 400 REASON FOR VISIT tongue feels raw and bleeding Medications Medication SIG (Take, Route, Frequency, Duration) Notes Start Date End Date Status Nystatin 381249 UNIT/ML 5 mL Mouth/Throa t Four times a day; Duration: 14 days 06/12/2025 Active Aspirin 81 MG 1 tablet Orally Once a day; Duration: 30 day(s) Active Fluconazole 150 MG 1 tablet Orally; Duration: 10 days 06/12/2025 Active Methotrexate Sodium 2.5 MG 10 tabs Orall y once a week Active Folic Acid 1 MG 1 tablet Orally Once a day; Duration: 30 day(s) Active Irbesartan 150 mg 1 tablet orally once a day; Duration: 30 days Active amLODIPine Besylate 5 mg 1 tablet orally once a day; Duration: 30 days Active Vital Signs Weight 213.2 lbs 06/12/2025 Blood pressure systolic 110 mm Hg 06/12/20 25 Blood pressure diastolic 72 mm Hg 025 Heart Rate 64 /min 06/12/2025 Height 65.25 in 06/12/2025 BMI 35.2 kg/m2 06/12/2025 Encounters Encounter Location Date Provider Diagnosis [facility] [address] [place] [id number] 06/12/2025 Tanvi Crowstewart Thrush B37.0 ; Acute diarrhea R19.7 and Vitamin B 12 deficiency E53.8 Assessments Encounter Date Diagnosis (ICD Code) Assessment Notes Treatment Notes Treatment Clinical Notes Section Notes 06/12/2025 Thrush (ICD-10 - B37.0) 06/12/2025 Acute diarrhea (ICD-10 - R19.7) Will get stool panel if diarrhea does not resolve in the next few days. 06/12/2025 Vitamin B 12 deficiency (ICD-10 - E53.8) Plan Of Treatment Medication Medication Name Sig Start Date Stop Date Notes Nystatin 946094 UNIT/ML 5 mL Mouth/Throa t Four times a day; Duration: 14 days 06/12/2025 Fluconazole 150 MG 1 tablet Orally; Duration: 10 days 05/27 Treatment Notes Assessment Notes Acute diarrhea Will get stool panel if diarrhea does not resolve in the next few days. Next Appt Details Follow Up: prn, Reason: Medications Administered Medication Instructions Date of Administration Dosage Notes B-12 06/12/2025 1 mL Progress Notes * RAMA MARESDOB: [birth year] (60 yo M)Acc No.[id number]:06/12/2025 Progress Notes Patient: RAMA HUBBARD Provider: DAMIAN Marie :1965 A ge:59 Y S ex:Male Date:06/12/2025 Address:[address] [place] [address] [address] [place], [id number] Pcp:Roberto Alvarenga Subjective: * Chief Complaints: * 1 . Tongue feels raw and bleeding. * HPI: G astroenterology: Pt states it started Tuesday night and his tongue was sore and coated, a few days later he began feeling like there was something in his esophagus that was causing irritation, no he is having diarrhea. 59 year old male presents with c/o Heartburn. c/o Diarrhea w atery. Denies : Acid Reflux. D enies : Nausea. D enies : Vomiting. * ROS: D ERMATOLOGY: no R alyssa. n o H tolu. G ASTROENTEROLOGY: no N ausea. n o V omiting. n o D iarrhea.? U ROLOGY: no B lood in urine. n o F requent urination. ? * Medical History: H ypomania, recovering drug(cocaine) addict and alcoholic - clean since admission to [facility] in 2004, Lumbar spinal stenosis, Chronic back [...] 1 tablet orally once a day , Discontinued Bromfed DM 30-2-10 MG/5ML Syrup 5-10 mL Orally every 6 hours, prn , Discontinued Benzonatate 200 mg Capsule TAKE ONE CAPSULE BY MOUTH THREE TIMES DAILY NEEDED , Discontinued Zithromax Z-Sergio 250 MG Tablet as directed Orally , Discontinued Cefdinir 300 MG Capsule 1 cap(s) Orally Two times a day , Medication List reviewed and reconciled with the patient * Allergies: H YDROcodone. Objective: * Vitals: W t: 213.2, Temp: 98.4, BP: 110/72, HR: 64, Nurse: pe, Ht: 65.25, BMI:35.2. * Examination: G eneral Examination: General Appearance: N AD. H EENT: s clera and conjunctiva clear, PERRLA, TM's normal, translucent. O ral cavity: m ucosa moist and WNL, no erythema, white patches on tongue. N maria elena: s upple, no lymphadenopathy. C hest: n ormal shape and expansion. H eart: R SR. L ungs: c lear to auscultation. A bdomen:?bowel sounds present, soft and nontender. N eurologic Exam: I ntact, gait normal. S kin: n ormal, no rash. P eripheral pulses: n ormal (2+) bilaterally. E xtremities: no leg edema. Assessment: * Assessment: 1. T hrush - B37.0 (Primary) 2 . A cute diarrhea - R19.7 3 . V itamin B 12 deficiency - E53.8 Plan: * Treatment: 2. A cute diarrhea L AB: CBC Fingerstick (in house) (Collection Date & Time - 06/12/2025) Value Reference Range w bc 7.4 3.5 - 10 * l ym 27.7% 15 - 50 * m id 6.4% 2 - 15 * g ran 65.9% 35 - 80 * r bc 4.84 3.5 - 5.5 * h gb 14.2 11.5 - 16.5 * h ct 42.5 35 - 55 * m cv 87.7 75 - 100 * m ch 29.4 25 - 35 * m chc 33.5 31 - 38 * p lat 188 100 - 400 * Sissy Kuo 06/12/2025 0 5:16:51 PM EDT > Provider reviewed results while patient in office. Notes: Will get stool panel if diarrhea does not resolve in the next few days.?? * Therapeutic Injections: B-12 : 1 mL (Route: Intramuscular) given by MAYNOR Dickens on left gluteus (Vitamin B 12 deficiency) * Procedure Codes: 3 6416 CAPILLARY BLOOD DRAW, 73632 CBC WITH AUTO DIFF, J3420 B-12, 55273 ADMINISTRATION OF INJECTION, 1036F TOBACCO NON-USER, 3074F SYST BP LT 130 MM HG, 3078F DIAST BP < 80 MM HG * Follow Up: p rn * Images: Willising Information: * Visit Code: 14201 Office Visit, Est Pt., Level 4. * Procedure Codes: 50480 CAPILLARY BLOOD DRAW. 46645 CBC WITH AUTO DIFF. J3420 B-12. 29379 ADMINISTRATION OF INJECTION. 1036F TOBACCO NON-USER. 3074F SYST BP LT 130 MM HG. 3078F DIAST BP < 80 MM HG. * Electronic signature of DAMIAN Christiansen on 09/11/2025 at 01:25 PM EST Sign off status: Pending * Provider: DAMIAN Marie Date: 0 06/12/2025 Generated for Daojiai ng/Faclaudiog/eTransmitting on: 1 11/12/2024 01:25 PM EST History and Physical Notes * HPI (History of Present Illness) Category Sub-Category Detail Notes Category Not es Gastroenterology Vomiting Diarrhea watery Nausea Heartburn Acid Reflux Examination Category Sub-Category Detail Notes Category Not es General Examination HEENT: sclera and c onjunctiva clear, PERRLA, TM's normal, translucent Heart: RSR Lungs: clear to auscultatio n Abdomen: bowel sounds present , soft and nontender Extremities: no leg edema General Appearance: NAD Skin: normal, no rash Neurologic Exam: Intact, gait normal Neck: supple, no lymphaden opathy Oral cavity: mucosa moist and WNL , no erythema, white patches on tongue Peripheral pulses: normal (2+) bilatera lly Chest: normal shape and exp ansion
--- OUTSIDE RECORDS SUMMARY | 2025-06-28 06:45 | XMS_ITS ---
Author Organization [facility] Address [facility] [address] [place] [id number] Care Team Providers Care Design Leader Name Role Phone Roberto Alvarenga Primary Care Provider [phone] Tanvi Capps [phone] REASON FOR VISIT B12 shot Medications Medication SIG (Take, Route, Frequency, Duration) Notes Start Date End Date Status Irbesartan 150 mg 1 tablet orally once a day; Duration: 30 days Active Nystatin 922240 UNIT/ML 5 mL Mouth/Throa t Four times a day; Duration: 14 days 06/12/2025 Active Fluconazole 150 mg TAKE ONE TABLET BY M OUTH ONCE DIRECTED; Duration: 10 Active Methotrexate Sodium 2.5 MG 10 tabs Orall y once a week Active amLODIPine Besylate 5 mg 1 tablet orally once a day; Duration: 30 days Active Aspirin 81 MG 1 tablet Orally Once a day; Duration: 30 day(s) Active Folic Acid 1 MG 1 tablet Orally Once a day; Duration: 30 day(s) Active Encounters Encounter Location Date Provider Diagnosis [facility] [address] [facility] [address] [place] [phone] 06/28/2025 Tanvi Capps Vitamin B 12 deficie ncy E53.8 Assessments Encounter Date Diagnosis (ICD Code) Assessment Notes Treatment Notes Treatment Clinical Notes Section Notes 06/28/2025 Vitamin B 12 deficiency (ICD-10 - E53.8) Plan Of Treatment No Information Medications Administered Medication Instructions Date of Administration Dosage Notes B-12 06/28/2025 1 mL Progress Notes * RAMA MARESDOB: [birth year] (60 yo M)Acc No.[id number]:06/28/2025 Patient: RAMA HUBBARD Provider: DAMIAN Marie :1965 A ge:59 Y S ex:Male Date:06/28/2025 Address:[address] [place] [address] , [place], [id number] Pcp:Roberto Alvarenga Subjective: * Chief Complaints: * [...] tablet orally once a day , Taking Nystatin 691174 UNIT/ML Suspension 5 mL Mouth/Throat Four times a day , Taking Fluconazole 150 mg Tablet TAKE ONE TABLET BY MOUTH ONCE DIRECTED , Medication List reviewed and reconciled with the patient Objective: * Vitals: Assessment: * Assessment: 1. V itamin B 12 deficiency - E53.8 (Primary) Plan: * Treatment: * Therapeutic Injections: B-12 : 1 mL (Route: Intramuscular) given by MAYNOR Dickens on left gluteus (Vitamin B 12 deficiency) * Procedure Codes: J 3420 B-12, 81983 ADMINISTRATION OF INJECTION * Images: Billing Information: * Visit Code: * Procedure Codes: J3420 B-12. 87132 ADMINISTRATION OF INJECTION. * Electronic signature of DAMIAN Christiansen on 09/11/2025 at 01:27 PM EST Sign off status: Pending * Provider: DAMIAN Marie Date: Generated for Stefany perez/Olu/Demetrioitting on: 1 11/12/2024 01:27 PM EST
--- OUTSIDE RECORDS SUMMARY | 2025-07-12 06:30 | XMS_ITS ---
Author Organization [facility] Address [address] [facility] [address] [place] [id number] Care Team Providers Care Technician Preventative Medicine Name Role Phone Roberto Alvarenga Primary Care Provider Tanvi Capps [phone] REASON FOR VISIT B 12 Encounters Encounter Location Date Provider Diagnosis [place] [address] [facility] [address] [place] [id number] 07/12/2025 Tanvi Capps Vitamin B12 deficien cy E53.8 Assessments Encounter Date Diagnosis (ICD Code) Assessment Notes Treatment Notes Treatment Clinical Notes Section Notes 07/12/2025 Vitamin B12 deficiency (ICD-10 - E53.8) Plan Of Treatment No Information Medications Administered Medication Instructions Date of Administration Dosage Notes B-12 07/12/2025 1 mL Progress Notes * RAMA MARESDOB: [birth year] (60 yo M)Acc No.[id number]:07/12/2025 Patient: Juve WEAVER RAMA Long Provider: DAMIAN Marie :1965 A ge:60 Y S ex:Male Date:07/12/2025 Address:[address] [place] [address] DR [id number] Pcp:Roberto Alvarenga Subjective: * Chief Complaints: * 1 . B 12. * Medical History: Objective: * Vitals: Assessment: * Assessment: 1. V itamin B12 deficiency - E53.8 (Primary) Plan: * Treatment: * Therapeutic Injections: B-12 : 1 mL (Route: Intramuscular) given by OKSANA Booth on left gluteus (Vitamin B12 deficiency) * Procedure Codes: J 3420 B-12, 24774 ADMINISTRATION OF INJECTION * Images: Billing Information: * Visit Code: * Procedure Codes: J3420 B-12. 30378 ADMINISTRATION OF INJECTION. * Electronic signature of DAMIAN Christiansen on 09/11/2025 at 01:27 PM EST Sign off status: Pending * Provider: DAMIAN Marie Date: 1 Generated for Stefany perez/Olu/Briansmdimas on: 11/12/2024 01:27 PM EST
--- OUTSIDE RECORDS SUMMARY | 2025-07-25 06:20 | XMS_ITS ---
Author Organization [facility] Address [address] [facility] [address] [place] [id number] Care Team Providers Care Coal Chute Worker Name Role Phone Roberto Alvarenga Primary Care Provider Tanvi Capps [phone] REASON FOR VISIT B 12shot Medications Medication SIG (Take, Route, Frequency, Duration) Notes Start Date End Date Status Methotrexate Sodium 2.5 MG 10 tabs Orall y once a week Active Folic Acid 1 MG 1 tablet Orally Once a day; Duration: 30 day(s) Active Fluconazole 150 mg TAKE ONE TABLET BY M OUTH ONCE DIRECTED; Duration: 10 Active Nystatin 983614 UNIT/ML 5 mL Mouth/Throa t Four times a day; Duration: 14 days 06/12/2025 Active amLODIPine Besylate 5 mg 1 tablet orally once a day; Duration: 30 days Active Irbesartan 150 mg 1 tablet orally once a day; Duration: 30 days Active Aspirin 81 MG 1 tablet Orally Once a day; Duration: 30 day(s) Active Encounters Encounter Location Date Provider Diagnosis [facility] [address] [facility] [address] [place] [phone] 07/25/2025 Tanvi Capps Vitamin B12 deficien cy E53.8 Assessments Encounter Date Diagnosis (ICD Code) Assessment Notes Treatment Notes Treatment Clinical Notes Section Notes 07/25/2025 Vitamin B12 deficiency (ICD-10 - E53.8) Plan Of Treatment No Information Medications Administered Medication Instructions Date of Administration Dosage Notes B-12 07/25/2025 1 mL Progress Notes * RAMA MARESDOB: [birth year] (60 yo M)Acc No.[id number]:07/25/2025 Patient: RAMA HUBBARD Provider: DAMIAN Marie :1965 A ge:60 Y S ex:Male Date:07/25/2025 Address:[address] [place] [address] , [place], [id number] Pcp:Roberto Alvarenga Subjective: * Chief Complaints: * 1 . B 12shot. * Medical History: * Medications: T aking Aspirin 81 MG Tablet Delayed Release 1 tablet Orally Once a day , Taking Folic Acid 1 MG Tablet 1 tablet Orally Once a day , Taking Methotrexate Sodium 2.5 MG Tablet 10 tabs Orally once a week , Taking Nystatin 446555 UNIT/ML Suspension 5 mL Mouth/Throat Four times a day , Taking Fluconazole 150 mg Tablet TAKE ONE TABLET BY MOUTH ONCE DIRECTED , Taking amLODIPine Besylate 5 mg Tablet [...] deficiency) * Procedure Codes: J 3420 B-12, 57449 ADMINISTRATION OF INJECTION * Images: Billing Information: * Visit Code: * Procedure Codes: J3420 B-12. 24079 ADMINISTRATION OF INJECTION. * Electronic signature of DAMIAN Christiansen on 09/11/2025 at 01:26 PM EST Sign off status: Pending * Provider: DAMIAN Marie Date: Generated for Stefany perez/Olu/Demetrioitting on: 11/12/2024 01:26 PM EST
--- OUTSIDE RECORDS SUMMARY | 2025-08-09 10:25 | XMS_ITS ---
Author Organization [facility] Address [address] [facility] [address] [place] [id number] Care Team Providers Care Sleeve Presser Operator Name Role Phone Roberto Alvarenga Primary Care Provider [phone] REASON FOR VISIT B 12 Medications Medication SIG (Take, Route, Frequency, Duration) [...] M OUTH ONCE DIRECTED; Duration: 10 Active amLODIPine Besylate 5 mg 1 tablet orally once a day; Duration: 30 days Active Methotrexate Sodium 2.5 MG 10 tabs Orall y once a week Active Nystatin 391729 UNIT/ML 5 mL Mouth/Throa t Four times a day; Duration: 14 days 06/12/2025 Active Encounters Encounter Location Date Provider Diagnosis [facility] [address] [place] [phone] 08/09/2025 Roberto Alvarenga Vitamin B 12 deficiency E53.8 Assessments Encounter Date Diagnosis (ICD Code) Assessment Notes Treatment Notes Treatment Clinical Notes Section Notes 08/09/2025 Vitamin B 12 deficiency (ICD-10 - E53.8) Plan Of Treatment No Information Medications Administered Medication Instructions Date of Administration Dosage Notes B-12 08/09/2025 1 mL Progress Notes * RAMA MARESDOB: [birth year] (60 yo M)Acc No.[id number]:08/09/2025 Patient: RAMA HUBBARD Provider: Roberto Alvarenga M.D. DOB:1965 A ge:60 Y S ex:Male Date:08/09/2025 Address:[address] [place] [address] [address] [place], [id number] Subjective: * Chief Complaints: * 1 . B 12. * Medical History: * Medications: T aking Aspirin 81 MG Tablet Delayed Release 1 tablet Orally Once a day , Taking Folic Acid 1 MG Tablet 1 tablet Orally Once a day , Taking Methotrexate Sodium 2.5 MG Tablet 10 tabs Orally once a week , Taking Nystatin 100811 UNIT/ML Suspension 5 mL Mouth/Throat Four times [...] : 1 mL (Route: Intramuscular) given by Marsha Raza on left gluteus (Vitamin B 12 deficiency) * Procedure Codes: J 3420 B-12, 82268 ADMINISTRATION OF INJECTION * Images: Billing Information: * Visit Code: * Procedure Codes: J3420 B-12. 70394 ADMINISTRATION OF INJECTION. * Electronic signature of Roberto Alvarenga MD on 09/11/2025 at 01:26 PM EST Sign off status: Pending * Provider: Roberto Alvarenga M.D. Date: 10/09/2024 Generated for Stefany perez/Olu/Sin on: 11/12/2024 01:26 PM EST
--- OUTSIDE RECORDS SUMMARY | 2025-08-26 06:20 | XMS_ITS ---
Author Organization [facility] Address [address] [place] [address] AMIE Watkins [id number] Care Team Providers Care Rod Buster Helper Name Role Phone Roberto Alvarenga Primary Care Provider [phone] Tanvi Capps [phone] REASON FOR VISIT b12 Medications Medication SIG (Take, Route, Frequency, Duration) Notes Start Date End Date Status Nystatin 221273 UNIT/ML 5 mL Mouth/Throa t Four times a day; Duration: 14 days 06/12/2025 Active Fluconazole 150 mg TAKE ONE TABLET BY M OUTH ONCE DIRECTED; Duration: 10 Active Folic Acid 1 MG 1 tablet Orally Once a day; Duration: 30 day(s) Active Methotrexate Sodium 2.5 MG 10 tabs Orall y once a week Active Aspirin 81 MG 1 tablet Orally Once a day; Duration: 30 day(s) Active amLODIPine Besylate 5 mg 1 tablet orally once a day; Duration: 30 days Active Irbesartan 150 mg 1 tablet orally once a day; Duration: 30 days Active Encounters Encounter Location Date Provider Diagnosis [facility] [address] [place] Watkins [id number] 08/26/2025 Tanvi Capps B12 deficiency E53.8 Assessments Encounter Date Diagnosis (ICD Code) Assessment Notes Treatment Notes Treatment Clinical Notes Section Notes 08/26/2025 B12 deficiency (ICD-10 - E53.8) Plan Of Treatment No Information Medications Administered Medication Instructions Date of Administration Dosage Notes B-12 08/26/2025 1 mL Progress Notes * RAMA MARESDOB: [birth year] (60 yo M)Acc No.[id number]:08/26/2025 Patient: RAMA HUBBARD Provider: DAMIAN Marie :1965 A ge:60 Y S ex:Male Date:08/26/2025 Address:[address] [place] [address] , [place], [id number] Pcp:Roberto Alvarenga Subjective: * Chief Complaints: * 1 . B12. * Medical History: * Medications: T aking Aspirin 81 MG Tablet Delayed Release 1 tablet Orally Once a day , Taking Folic Acid 1 MG Tablet 1 tablet Orally Once a day , Taking Methotrexate Sodium 2.5 MG Tablet 10 tabs Orally once a week , Taking Nystatin 164665 UNIT/ML Suspension 5 mL Mouth/Throat Four times a day , Taking Fluconazole 150 mg Tablet TAKE ONE TABLET BY MOUTH ONCE DIRECTED , Taking amLODIPine Besylate 5 mg Tablet 1 tablet orally once a day , Taking Irbesartan 150 mg Tablet 1 tablet orally once a day , Medication List reviewed and reconciled with the patient Objective: * Vitals: Assessment: * Assessment: 1. B 12 deficiency - E53.8 (Primary) Plan: * Treatment: * Therapeutic Injections: B-12 : 1 mL (Route: Intramuscular) given by MAYNOR Dickens on left gluteus (B12 deficiency) * Procedure Codes: J 3420 B-12, 23342 ADMINISTRATION OF INJECTION * Images: Billing Information: * Visit Code: * Procedure Codes: J3420 B-12. 03707 ADMINISTRATION OF INJECTION. * Electronic signature of DAMIAN Christiansen on 09/11/2025 at 01:27 PM EST Sign off status: Pending * Provider: DAMIAN Marie Date: 10/27/2024 Generated for Stefany perez/Olu/Briansmitting on: 11/12/2024 01:27 PM EST
--- OUTSIDE RECORDS SUMMARY | 2025-09-03 13:30 | XMS_ITS | Encounter Summary ---
Author Organization [facility] Address [address] [place] [address] Care Team Providers Care Conditioning Coach Name Role Phone Sidney Alvarenga MD Primary Care Provider [phone] Reason for Visit * Reason Comments Scleritis and episcleritis of both eyes Telehealth -Verified they are i n [place]- Confirmed they are agreeable with a appt Encounter Details Date Type Department Care Team (Latest Contact Info) Description 09/03/2025 1:30 PM EST Office Visit [place] [facility] [address] [place] [address] Jayce Rangel, YOSELIN [address] [place] [address] Scleritis and episcleritis of both [...] Score 18 09/03/2024 AUDIT-C Answer Date Recorded Q1: How often do you have a drink containing alcohol? Never 09/03/2025 Q2: How many drinks containi ng alcohol do you have on a typical day when you are drinking? Patient does not drink Q3: How often do you have si x or more drinks on one occasion? Never 09/03/2025 Sex and Gender Information Value Date Recorded [...] - Inhaled Oxygen Concentration - - Weight 97.5 kg (215 lb) 09/03/2025 1:23 PM EST Height 167.6 cm (5' 6 ) 09/03/2025 1:23 PM EST Body Mass Index 34.7 09/03/2025 1:23 PM EST documented in this encounter Functional Status * AUDIT-C Score Answer Date of Assessment Author 0 09/03/2025 1:24 PM EST Larisa Melendrez * Question Answer Date of Assessment Author Q1: How often do you have a drink containing alcohol? Never 09/03/2025 1:24 PM EST Bruce Melendrez Q2: How many drinks containing alcohol do you have on a typical day when you are drinking? Patient does not drink 09/03/2025 1:24 PM EST Larisa Melendrez Q3: How often do you have six or more drinks on one occasion? Never 09/03/2025 1:24 PM EST Bruce Melendrez documented as of this encounter Miscellaneous Notes * Progress Notes - Jayce Rangel APRN - 09/03/2025 1:30 PM EST Images from the original note were not included. Varghese Clark Jr. is a 60 y.o. male Chief complaint: Scleritis/episcleritis Subjective HPI Varghese Clark Jr. is a 60 y.o. male with PMH significant for coronary [...] acute on chronic. Surgical timetable mid-September 2024. 03/20: Had lumbar fusion (note reviewed). Had to hold his meds/Methotrexate once. Denies any symptoms of the eyes- pain, discharge or change in vision. Questions his immunosuppression affecting his spine issues. Back surgery had no improvement; sleeping only 2 hours at night; taking gbp and he can sleep for 6424-1026. Vaccine questions. 09/03/2025: Ethan- got all of his vaccinations. C/o slow burning infection x3-4 days of LAD of his neck starting in March- then progress to pharyngitis and chest congestion, tested neg for covid x4 and then 5th try he +, tried zpack just prior to this and then cough cocktail but symptoms persisted early 05/2025- 2 weeks later and had GERD upon waking. Then felt it was vidal and treated with diflucan and then had diarrhea. Has had not had any flare ups- has had some feeling some eye strain/occasional eye pain but feels it could be 2/2 onset of episcleritis, painful twinges are momentary and never precipitate any further pain- which is genreally been his experience during significant flares or times of suboptimal treatment. No longer on steroid eye gtt. Still having issues with his back and surgery didn't go as well as he hoped. Joints affected: Lower back- pain all the time- worse with activity; AMS noted but not better. Rheum medication hx: Methotrexate % improvement on current medication: 95 Review of Systems Constitutional: Negative for chills, fatigue and fever. Eyes: Positive for pain. Respiratory: Negative for shortness of breath. Cardiovascular: Negative for chest pain. Genitourinary: Negative for hematuria. Musculoskeletal: Positive for back pain. Negative for myalgias. Neurological: Negative for seizures. The following portions of the chart were reviewed this encounter and updated as appropriate: Past Medical History: Diagnosis Date Acquired spondylolisthesis of lumbosacral region 12/25/1986 Alcoholism ([facility]) 09.26.1982 Anxiety 1995 Arthritis 09/28/2022 Arthropathy of thoracic facet joint 04/05/2017 Back pain 03/28/2017 Lumbar/Thoracic Back pain Cervical disc disorder 02.24.1994 Chronic cough 09/03/2024 Degenerative disc disease, lumbar 12.25.1988 Depression 1995 Depressive disorder 09/28/2022 Displacement of lumbar intervertebral disc 04/05/2017 Dyspnea 09/03/2024 Facial numbness 09/03/2024 Foraminal stenosis of lumbosacral region 03/06/2020 History of substance abuse 04/05/2017 Hypertension 03.30.2023 Irregular heart beat 09/28/2022 Kidney stone 09/28/2022 Low back pain ..1986 Lumbar postlaminectomy syndrome 01/31/2020 Mild obesity 04/05/2017 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 Myocardial infarction ([facility]) ~[id number] Myofascial pain 01/31/2020 Osteoarthritis 09.26.2019 Osteoarthritis of spine with radiculopathy, lumbosacral region 03/06/2020 Pain in right leg Bilateral leg pain Pain in right leg Lower extremity pain, right Plantar fasciitis 02.24.2005 Radiculopathy 12.25.1988 Radiculopathy, lumbar region Lumbar radiculitis Rotator cuff [...] date: 03/26/1985 Quit date: 05/27/2005 Years since quittin.2 Smokeless tobacco: Former Types: Chew Quit date: [...] file Social Connections: Unknown (07/04/2023) Received from [facility] Family and Community Support Help with Day-to-Day Activities: Not on file Lonely or Isolated: Not on file Intimate Partner Violence: Not At Risk (02/01/2025) Received from [facility] Abuse Screen Feels Unsafe at Home or Work/School: no Feels Threatened by Someone: no Does Anyone Try to Keep You From Having Contact with Others or Doing Things Outside Your Home?: no Physical Signs of Abuse Present: no Housing Stability: Unknown (02/02/2025) Received from [facility] Housing Stability Current Living Arrangements: home Potentially Unsafe Housing Conditions: Not on file Family History Problem Relation Name Age of Onset Cancer Mother Dilia Depression Mother Dilia Diabetes Mother Dilia Mental illness Mother Dilia Obesity Mother Dilia Diabetes type I Mother Dilia Hypertension Mother Dilia Cancer Father Varghese Diabetes Father Varghese Intellectual Disability Father Varghese Diabetes type I Father Varghese Hypertension Father Varghese Heart disease Father Varghese Alcohol abuse Father's [...] (Folvite) 1 MG tablet Take 1 tablet by mouth daily. 90 tablet 0 gabapentin (Neurontin) 100 MG capsule TAKE ONE [...] visit. Objective Last visit labs: Appointment on 03/04/2025 Component Date Value Ref Range Status Free T4, Plasma 03/04/2025 1.3 0.8 - 1.7 ng/dL Final Thyroid Stimulating Hormone, Plasma 03/04/2025 1.16 0.40 - 4.20 uIU/mL Final There were no vitals filed for this visit. Physical Exam Pulmonary: Effort: Pulmonary effort is normal. Neurological: General: No focal deficit present. Mental Status: He is alert. Mental status is at baseline. Psychiatric: Mood and Affect: Mood normal. Behavior: Behavior normal. Thought Content: Thought content normal. Judgment: Judgment normal. There is currently no information documented on the homunculus. Go to the Rheumatology activity andcomplete the homunculus joint exam. Joint Exam 09/03/2025 No joint exam has been documented for this visit 09/03/2024 03/04/2025 ROBERTSON-28 (ESR) -- -- ROBERTSON-28 (CRP) -- -- Tender (ROBERTSON-28) 0 / 28 0 / 28 Swollen (ROBERTSON-28) 0 / 28 0 / 28 Provider Global -- -- Patient Global -- -- ESR -- -- CRP -- -- Swollen Joint Count: Swollen: -- Tender Joint Count: Tender: -- Patient global assessment: 06/05 Rapid 3 score:23.8 Assessment/Plan 1. Scleritis and episcleritis of both [...] : HARDY by IFA, RF, CCP, Álvarez, SM/CONTRACT PROJECT MANAGER, SSA 52, SSA 60, SSB, ANCA by IFA, MPO, [place]-3,CRP, ESR, Complement C3, C4 all negative. Hepatitis panel, CBC, CMP, Quantiferon negative/normal. - Started on methotrexate 15 mg weekly on 09/2023, increased to 20 mg weekly on 12/2023 due to flaresand then 04/2024 to 25mg qw with good response - Tolerating methotrexate- plan 06/2026 remission without flare in between now. - plans for vaccines the day before his normal dose and then hold the dose the following day for a week - continue Methotrexate/FA- advised optho appt sid to eval- if eye quiet will not change anything,if showing active symptoms will have to consider tnf - basic blood work and APR today - continue to f/u with optho 2. Lumbar radiculopathy 3. Other secondary osteoarthritis of multiple sites He repaired his meniscus in 1984, and back surgery ( L5/S1 laminectomy) in 2001 for spinal stenosis. He has residual chronic back pain. He was recommended to have L2-S1 spinal surgery by [facility] spinal surgery team, but he is trying [...] failed formal PHYSICAL THERAPY - now post-op 7 month from fusion and he is doing a bit better than past but still with symptoms 4. High risk medication use CBC, CMP 03/20 within normal limits. No alcohol use. Hepatitis panel, Quantiferon negative. - basic blood work and APR today - folic acid - cmp/cbc RTC 6 months Thanks so much for allowing me to participate in the care of this patient. If you have any questions or concerns please feel free to reach out for further clarification. Jayce Rangel APRN The patient was counseled about diagnostic results, instruction for management, risk factors reduction, prognosis, compliance with visits and treatment, risks and benefits of treatments options. Prior notes (by external physicians) and results were reviewed by me with independent interpretation of labs and imaging. My note will be sent to PCP and other consulting physicians. Telehealth Statement Patient Verification Patient identity has been confirmed using name and date of ? Yes Authorizations and Agreements/Telemedicine Consent sent and consent confirmed? Yes Patient Location: Home/Other Patient confirms they are physically located in [place]? Yes If the patient is not physically located in [place], the provider has confirmed with [facility] thatthe provider is authorized to provide services in patient's stated location? N/A Provider Location: [facility] facility Audio and video or audio only? Audio and video Total visit time: 35 minutes documented in this encounter Plan of Treatment Upcoming Encounters Date Type Department Care Team (Late st Contact Info) Description 10/04/2025 9:20 AM EST Office Visit [place] [facility] [address] [place] [address] Yoni Jean MD [address] [place] [address] 03/05/2026 11:00 AM EDT Office Visit [facility] Medicine Specialties [address] [place] [address] Jacye Rangel APRN [address] [place] [address] documented as of this encounter Results * C-Reactive Protein, Plasma (09/03/2025 3:23 PM EST) CRP, Plasma <3.0 <=8.0 mg/L 09/03/2025 7:17 PM EST [facility] Blood Venous blood specimen / Unknown Venipuncture / Unknown 09/03/2025 3:23 PM EST 09/03/2025 3:23 PM EST Narrative [facility] - 09/03/2025 7:17 PM EST This CRP test is appropriate for assessment of infection, systemic inflammation and/or tissue injury. To assess cardiovascular disease risk order high sensitivity CRP (CRPH). us Jayce Rangel APRN LAB BLOOD ORDERABLES Final Res ult [facility] [address] [place] [address] * Sedimentation Rate, Automated (09/03/2025 3:23 PM EST) Sedimentation Rate 17 <20 mm/hr 2024 6:40 PM EST [facility] Blood Venous blood specimen / Unknown Venipuncture / Unknown 09/03/2025 3:23 PM EST 09/03/2025 3:23 PM EST us Jayce W Juan Carlos WYATT LAB BLOOD ORDERABLES Final Res ult [facility] [address] [place] [address] * (ABNORMAL) CBC and Differential (09/03/2025 3:23 PM EST) WBC Count 4.99 3.70 - 10.30 10*3/uL LAB HEMATOLOGY METHOD 09/03/2025 6:34 PM EST [facility] RBC Count 4.76 4.60 - 6.10 10*6/uL LAB HEMATOLOGY METHOD 09/03/2025 6:34 PM EST [facility] HGB 14.1 13.7 - 17.5 g/dL LAB HEMATOLOGY METHOD 09/03/2025 6:34 PM EST [facility] HCT 42.0 40.0 - 51.0 % LAB HEMATOLOGY METHOD 09/03/2025 6:34 PM EST [facility] Platelet Count 355 155 - 369 10*3/uL LAB HEMATOLOGY METHOD 09/03/2025 6:34 PM EST [facility] MCV 88 79 - 98 fL LAB HEMATOLOGY METHOD 09/03/2025 6:34 PM EST [facility] MCH 29.6 26.0 - 32.0 pg LAB HEMATOLOGY METHOD 09/03/2025 6:34 PM EST [facility] MCHC 33.6 30.7 - 35.5 g/dL LAB HEMATOLOGY METHOD 09/03/2025 6:34 PM EST [facility] RDW 13.9 11.5 - 14.5 % LAB HEMATOLOGY METHOD 09/03/2025 6:34 PM EST [facility] MPV 9.3 8.8 - 12.5 fL LAB HEMATOLOGY METHOD 09/03/2025 6:34 PM EST [facility] nRBC 0.0 <=0.0 per 100 WBCs LAB HEMATOLOGY METHOD 09/03/2025 6:34 PM EST [facility] Differential Type Automated LAB HEMATOLOGY METHOD 09/03/2025 6:34 PM EST [facility] Neutrophils % 67 % LAB HEMATOLOGY METHOD 09/03/2025 6:34 PM EST [facility] Lymphocytes % 21 % LAB HEMATOLOGY METHOD 09/03/2025 6:34 PM EST [facility] Monocytes % 9 % LAB HEMATOLOGY METHOD 09/03/2025 6:34 PM EST [facility] Eosinophils % 2 % LAB HEMATOLOGY METHOD 09/03/2025 6:34 PM EST [facility] Basophils % 1 % LAB HEMATOLOGY METHOD 09/03/2025 6:34 PM EST [facility] Immature Granulocytes % 0 % LAB HEMATOLOGY METHOD 09/03/2025 6:34 PM EST [facility] Neutrophils Absolute 3.29 1.60 - 6.10 10*3/uL LAB HEMATOLOGY METHOD 09/03/2025 6:34 PM EST [facility] Lymphocytes Absolute 1.07(L) 1.20 - 3.90 10*3/uL LAB HEMATOLOGY METHOD 09/03/2025 6:34 PM EST [facility] Monocytes Absolute 0.46 0.30 - 0.90 10*3/uL LAB HEMATOLOGY METHOD 09/03/2025 6:34 PM EST [facility] Eosinophils Absolute 0.10 0.00 - 0.50 10*3/uL LAB HEMATOLOGY METHOD 09/03/2025 6:34 PM EST [facility] Basophils Absolute 0.06 0.00 - 0.10 10*3/uL LAB HEMATOLOGY METHOD 09/03/2025 6:34 PM EST [facility] Immature Granulocytes Absolute 0.01 0.00 - 0.06 10*3/uL LAB HEMATOLOGY METHOD 09/03/2025 6:34 PM EST [facility] Blood Venous blood specimen / Unknown Venipuncture / Unknown 09/03/2025 3:23 PM EST 09/03/2025 3:23 PM EST Narrative [facility] - 09/03/2025 6:34 PM EST Therapeutic decision making should be based on absolute values, rather than percentages. us Jayce Rangel APRN LAB BLOOD ORDERABLES Final Res ult [facility] [address] [place] [address] * (ABNORMAL) Hepatic Function Panel (09/03/2025 3:23 PM EST) Direct Bilirubin, Plasma 0.3 <=0.3 mg/dL 09/03/2025 7:17 PM EST [facility] Alkaline Phosphatase, Plasma 109 40 - 115 U/L 09/03/2025 7:17 PM EST [facility] Total Bilirubin, Plasma 1.3(H) 0.2 - 1.1 mg/dL 09/03/2025 7:17 PM EST [facility] Albumin, Plasma 4.6 3.5 - 5.2 g/dL 09/03/2025 7:17 PM EST [facility] Total Protein 7.5 6.3 - 7.9 g/dL 09/03/2025 7:17 PM EST [facility] ALT, Plasma 31 10 - 50 U/L 09/03/2025 7:17 PM EST [facility] AST, Plasma 26 10 - 50 U/L 09/03/2025 7:17 PM EST [facility] Blood Venous blood specimen / Unknown Venipuncture / Unknown 09/03/2025 3:23 PM EST 09/03/2025 3:23 PM EST Jayce Rangel APRN LAB BLOOD ORDERABLES Final Res ult Performing Organization Address City/[facility]/ZIP Co de Phone Number [facility] [address] [place] [address] * Creatinine, Plasma (09/03/2025 3:23 PM EST) Creatinine, Plasma 1.08 0.70 - 1.20 mg/dL 09/03/2025 7:17 PM EST [facility] eGFRcr 79.5 mL/min/1.7 3m*2 09/03/2025 7:17 PM EST [facility] Comment:Reported eGFRcr in m L/min/1.73m2 is based the CKD-EPI 2020 equation that does not use a race coefficient. Blood Venous blood specimen / Unknown Venipuncture / Unknown 09/03/2025 3:23 PM EST 09/03/2025 3:23 PM EST Jayce Rangel APRN LAB BLOOD ORDERABLES Final Res ult Performing Organization Address City/[facility]/ZIP Co de Phone Number [facility] [address] [place] [address] documented in this encounter Visit Diagnoses Diagnosis Scleritis and episcleritis of both eyes- Primary Lumbar radiculopathy Thoracic or lumbosacral neuritis or radiculitis, unspecified Other secondary osteoarthritis of multiple sites High risk medication use documented in this encounter Additional Health Concerns Assessment Noted Time PHQ-9 Depression Total Score: 18 024 12:49 PM EST A fall risk assessment has been complete d for the patient 09/03/2025 1:24 PM EST A Body Mass Index follow-up plan has been documented for the patient 09/03/2025 2:00 PM EST documented as of this encounter Care Teams Conditioning Coach Relationship Specialty Start Date End Date Sidney Alvarenga MD [address] [place] [address] PCP - General 02/06/21 documented as of this encounter
--- NOTE | 2025-09-11 12:41 | XR_ITS ---
FINAL REPORT CLINICAL HISTORY: left hip pain FINDINGS: AP and frog leg views of the left hip were obtained. There is no acute fracture or dislocation. There is degenerative disease bilaterally. Soft tissues are unremarkable. IMPRESSION: Degenerative disease bilaterally. Reviewed, Interpreted and Dictated by Dionne Colby MD Transcribed by Kaycee Fay Authenticated and [facility]
--- OUTSIDE RECORDS SUMMARY | 2025-09-11 13:25 | XMS_ITS | Data Portability ---
Author Organization [facility] Address [address] [place] [address] Assessment No assessment recorded. Plan of Treatment Reminders Order Date Submit Date Provider Last Modified By Organization Details Last Modified Time Details Appointments None record ed. Lab urinal ysis, dipsti ck, auto 018 04/12/20 18 [email or web address] [facility], [address], [address], [place], [address], 8 17:47:16 Referral None record ed. Procedures None record ed. Surgeries None record ed. Imaging None record ed. Medication Orders None record ed. Patient TargetsNo targets recorded. Patient Instructions Encounter Date Encounter Id Patient Instructions Last Modified By Organization Details Last Modified Time 04/12/2018 [id number] healthy together [email or web address] Not availabl e 04/12/2018 17:47:16 learning about high blood pressure [email or web address] Not available 04/12/2018 17:47:16 kidney stone: care instructions [email or web address] Not available 04/12/2018 17:47:16 Reason for Referral None Reported. Results Created Date Observation Date Name Description Value Unit Range Abnormal Flag Note LastModifiedBy Organization Detail LastModifiedTime 04/12/20 18 04/12/2018 urina lysis , dipst ick, auto Unknown Analyte Yellow Not Available [facility] [address], [place], [address], 04/12/2018 15:05:02 04/12/20 18 04/12/2018 urina lysis , dipst ick, auto Unknown Analyte Clear Not Available [facility] [address], [place], [address], 04/12/2018 15:05:02 04/12/20 18 04/12/2018 urina lysis , dipst ick, auto Unknown Analyte 1.020 Not Available [facility] [address], [place], [address], 04/12/2018 15:05:02 04/12/20 18 04/12/2018 urina lysis , dipst ick, auto Unknown Analyte 5.0 Not Available [facility] [address], [place], [address], 04/12/2018 15:05:02 04/12/20 18 04/12/2018 urina lysis , dipst ick, auto Unknown Analyte Negati ve Not Available [facility] [address], [place], [address], 04/12/2018 15:05:02 04/12/20 18 04/12/2018 urina lysis , dipst ick, auto Unknown Analyte Negati ve Not Available [facility] [address], [place], [address], 04/12/2018 15:05:02 04/12/20 18 04/12/2018 urina lysis , dipst ick, auto Unknown Analyte Negtiv e Not Available [facility] [address], [place], [address], 04/12/2018 15:05:02 04/12/20 18 04/12/2018 urina lysis , dipst ick, auto Unknown Analyte Normal Not Available [facility] [address], [place], [address], 04/12/2018 15:05:02 04/12/20 18 04/12/2018 urina lysis , dipst ick, auto Unknown Analyte Negati ve Not Available [facility] [address], [place], [address], 04/12/2018 15:05:02 04/12/20 18 04/12/2018 urina lysis , dipst ick, auto Unknown Analyte Normal Not Available [facility] [address], [place], [address], 04/12/2018 15:05:02 04/12/20 18 04/12/2018 urina lysis , dipst ick, auto Unknown Analyte Negati ve Not Available [facility] [address], [place], [address], 04/12/2018 15:05:02 04/12/20 18 04/12/2018 urina lysis , dipst ick, auto Unknown Analyte Negati ve Not Available [facility] [address], [place], [address], 04/12/2018 15:05:02 04/12/20 18 04/12/2018 urina lysis , dipst ick, auto Unknown Analyte Clean Catch Not Available [facility] [address], [place], [address], 04/12/2018 15:05:02 0704/12/2018 urina lysis , dipst ick, auto Unknown Analyte Automa fabian Not Available [facility] [address], [place], [address], 04/12/2018 15:05:02 04/07/20 18 03/30/2018 CT, abdom en + pelvi s, w/o contr ast No observ ation record ed. [email or web address] [facility] [address], [place], [address], 04/13/2018 10:49:58 Result Notes None recorded. Medical Equipment None Reported. Allergies No known drug allergies Medications Not known to be on any medication Vitals Date Recorded Body height Body mass index (BMI) Body weight Heart rate Systolic And Diastolic Provider Name and Address Organization Details Last Updated DateTime 04/12/2018 167.64 cm 34.7 kg/m2 14787.36 g 78 /min 185/114 mm[Hg] Justine Tomlinsonles [facility] 04/12/2018 15:03:06 Social History Question Answer Notes LastModified by Organizat ion Details LastModified Time Tobacco Smoking Status Former Smoker Justine Tomlinsonles [facility] 04/12/2018 15:03:33 Marital Status Single [email or web address] Informatio n not available 04/12/2018 What Was The Date Of Your Most Recent Tobacco Screening? 04/12/2018 Information n ot available 11/13/2019 Sex: Unknown Functional Status Question Answer Note LastModified by Organization D etails LastModified Time What is your level of alcohol consumption? None [email or web address] Information not available 04/12/2018 Mental Status None recorded. Family History Relationship Description Onset Age of this Age Resolved Age Notes LastModified by Organization Details LastModified Time Father Diabetes mellitus [email or web address] Not available 04/12 15:03:26 Mother Diabetes mellitus [email or web address] Not available 04/12 15:03:26 Medical History No medical history recorded. Past Encounters Encounter ID Performer Location Encounter Start Date Encounter Closed Date Diagnosis/Indication Diagnosis SNOMED-CT Code Diagnosis ICD10 Code Diagnosis IMO Codes Diagnosis Note [id number] JOSEPH VILA MD [facility] [address] [place] [address] 04/12/2018 14:07:55 04/12/2018 15:34:33 Ureteric stone 43431401 N20.1 due to persistenc e of his symptoms I suggested a stone likely still present. He would like to try to pass this spontaneou sly. We will see him back in 2 weeks and if his symptoms persist arrange for cystoscopy left retrograde pyelogram, possible ureterosco pic stone extraction .consideri ng that the previous medication did not improve his symptoms he would like to continue to observe this without additional medication .discussio n time 30 minutes Health Concerns Section Related Observation LastModified by Organization Detai ls LastModified Time None Recorded Concern Status LastModified by Organization Details LastModified Time None Recorded Advance Directives Directive None Recorded Payers Insurance Date Sequence Insurance Name Policy Number Policy Keyes Covered Member ID Keyes Member ID Guarantor Name 08/20/2020 1 [employer] [id number] Varghese Clark [id number] Varghese Clark Notes Date Note Type Note Provider Name and Address Organization Details Recorded Time 04/12/2018 text/html patient is here for initial visit. I'll see his father in [place] for history of prostate cancer. He is here today with urgency and bladder spasms symptoms. His symptoms relate back several weeks actually first noted in December of this year but have been intermittent. 2 weeks ago however he had a severe spasm symptom. He has had no flank pain. He was initially seen by us PCP and placed on Bactrim and then switched to doxycycline he was also treated with Flomax as he had significant urgency symptoms. None of those medicines seem to improve his symptoms. On March 30 he had a severe bout of urgency and lower abdominal spasm. He had a CT scan at [facility] which revealed a 2 mm stone left ureterovesical junction. He had no additional stones. He continues to have moderate symptoms. To his knowledge he has not passed a stone he has no previous history of stones. He has had no fever or chills. JOSEPH VILA MD [address] [place], [address], [facility] 04/12/2018 17:48:02
--- OUTSIDE RECORDS SUMMARY | 2025-09-11 13:25 | XMS_ITS | Encounter Summary ---
Author Organization [facility] Address [address] [place] [address] Care Team Providers Care Utilization Supervisor Name Role Phone Sidney Alvarenga MD Primary Care Provider [phone]- [phone] Encounter Details Date Type Department Care Team (Late st Contact Info) Description 06/04/2024 Orders Only External Location [address] [place] [address] Tanvi Capps [address] [place] [address] Social History Tobacco Use Types Packs/Day Years [...] Visit [place] [facility] [address] [place] [address] Yoni Jean MD [address] [place] [address] 03/05/2026 11:00 AM EDT Office Visit [facility] [address] [place] [address] Jayce Rangel, SENSOR OPERATOR [address] [place] [address] documented as of this encounter [...] documented as of this encounter Care Teams Utilization Supervisor Relationship Specialty Start Date End Date Sidney Alvarenga MD [address] [place] [address] PCP - General 02/06/21 documented as of this encounter
--- OUTSIDE RECORDS SUMMARY | 2025-09-11 13:26 | XMS_ITS | Clinical Summary ---
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
--- OUTSIDE RECORDS SUMMARY | 2025-09-11 13:26 | XMS_ITS | Encounter Summary ---
Author Organization [facility] Address [address] [place] [address] Care Team Providers Care Manager Of Program Name Role Phone Sidney Alvarenga MD Primary Care Provider [phone]- [phone] Encounter Details Date Type Department Care Team (Late st Contact Info) Description 09/01/2010 Orders Only External Location [address] [place] [id number] Provider, External Social History Tobacco Use Types [...] Description 10/04/2025 9:20 AM EST Office Visit [facility] [address] [place] [address] Yoni Jean MD [address] [place] [address] 03/05/2026 11:00 AM EDT Office Visit [facility]ties [address] [place] [address] Jayce Rangel, YOSELIN [address] [place] [address] documented as of this encounter Procedures Procedure [...] on filedocumented in this encounter Care Teams Manager Of Program Relationship Specialty Start Date End Date Sidney Alvarenga MD [address] [place] [address] PCP - General 02/06/21 documented as of this encounter
--- OUTSIDE RECORDS SUMMARY | 2025-09-11 13:26 | XMS_ITS | Clinical Summary ---
Author Organization [facility] Address [address] [address] Care Team Providers Care Toe Trimmer Name Role Phone Sidney Alvarenga MD Primary Care Provider +1- [phone] Allergies No known active allergies Medications amLODIPine (Norvasc) 5 MG tablet 1 tablet (5 mg). 3 Active ASPIRIN 81 MG chewable tablet 3 Active irbesartan (Avapro) 150 MG tablet 1 tablet (150 mg) 1 (one) time each day. 3 Active Cyanocobalamin (B-12 COMPLIANCE INJECTION IJ) Infuse into a venous catheter every 15 (fifteen) days. Twice a month Active gabapentin (Neurontin) 100 MG capsule TAKE ONE CAPSULE BY MOUTH UP TO THREE TIMES DAILY NEEDED MAY CAUSE DROWSINESS 5 Active benzonatate (Tessalon) 200 MG capsule Take 1 capsule by mouth 3 times a day as needed. 5 Active methotrexate 2.5 MG tabletIndication s:Scleritis and episcleritis of both eyes Take 10 tablets (25 mg total) by mouth 1 time per week. Follow directions carefully, and ask to explain any part you do not understand. Take exactly as directed. 40 tablet 2 5 Active folic acid (Folvite) 1 MG tabletIndication s:High risk medication use Take 1 tablet by mouth daily. 90 tablet 5 Active methotrexate 2.5 MG tabletIndication s:Scleritis and episcleritis of both eyes Take 10 tablets (25 mg total) by mouth 1 time per week. Follow directions carefully, and ask to explain any part you do not understand. Take exactly as directed. 40 tablet 2 5 025 Discontin ued(Reord er) folic acid (Folvite) 1 MG tabletIndication s:High risk medication use Take 1 tablet by mouth daily. 90 tablet 5 025 Discontin ued(Reord er) Resolved Problems Problem Noted Date Diagnosed Date [...] Encounters Date Type Department Care Team Description 09/04/2025 Results [facility]-Up [facility] [address], [address] [place] [address] Jayce Rangel APRN 09/03/2025 1:30 PM EST Office Visit [facility] Medicine Specialties [address], [address] [place] [address] Jayce Rangel, YOSELIN Scleritis and episcleritis of both eyes (Primary Dx); Lumbar radiculopathy; Other secondary osteoarthritis of multiple sites; High risk medication use 09/03/2025 Travel 08/28/2025 Travel 07/26/2025 Telephone [facility] [address], [address] [place] [address] Yoni Jean MD [facility] - Patient Message from Last 3 Months Immunizations Immunization Administration Dates Next Due Hep A, Adult 04/29/2022,03/05/2019,08/30/2018 Influenza, Injectable, MDCK, trivalent, PF 07/27 Influenza, Unspecified 07/05/2017 Influenza, injectable, MDCK, preservative free, quadrivalent 06/21/2022 Influenza, injectable, quadrivalent 05/31/2020 Influenza, recombinant, quad rivalent, injectable, preservative free 06/08/2021 Influenza, seasonal, injecta ble, preservative free 06/14/2018 Influenza, seasonal, intrade rmal, preservative free 07/12/2013 MMR 04/04/2008 Moderna Covid-19 Vaccine 12y +, Barry Protein, Preservative free 06/27/2023 Rsvpref, Recombinant, Protei n Subunit, Adjuvent 07/27/2024 Td (adult) 04/29/2022 Family History Medical History [...] EDT Inhaled Oxygen Concentration - - Weight 97.5 kg (215 lb) 09/03/2025 1:23 PM EST Height 167.6 cm (5' 6 ) 09/03/2025 1:23 PM EST Body Mass Index 34.7 09/03/2025 1:23 PM EST Plan of Treatment Upcoming Encounters Date Type Department Care Team (Late st Contact Info) Description 10/04/2025 9:20 AM EST Office Visit [place] [facility] [address], [address] [place] [address] Yoni Jean MD [address] [place] [address] 03/05/2026 11:00 AM EDT Office Visit [facility] Medicine Specialties [address], [address] [place] [address] Jayce Rangel, SERVER ASSISTANT [address] [place] [address] Health Maintenance Due Date Last [...] Td Vaccines (1 - Tdap) 04/30/2022 04/29/2022 [id number] Vaccine ( season) 2025 06/27/2023, 06/09/2022, 12/23/2021, Additional history exists [facility]-Influenza Vaccine (#1) 05/27/202507/27, 06/21/2022, 06/08/2021, Additional history exists [facility]-Depression Screening 03/04/2026 03/04/2025, 12/0 05/2024 [facility]-Hepatitis A Vaccines Completed 022, 03/05/2019, 08/30/2018 [facility]-Hepatitis C Screening Completed 09/28/2023 [facility]-RSV Vaccine: 60+ Years or Discontinued 07/27/2024 [facility]-Obesity Intervention Completed 025, 03/04/2025, 12/07/2024, Additional history exists HPV Vaccines (No Doses Required) Completed [facility]-HIB Vaccines Aged Out No longer e ligible based on patient's age to complete this topic [facility]-IPV Vaccines Aged Out No longer e ligible based on patient's age to complete this topic [facility]-Rotavirus Vaccines Aged Out No lo nger eligible based on patient's age to complete this topic Procedures Procedure Name Priority Date/Time Associated Diagnosis Comments CREATININE, PLASMA Routine 09/03/2025 3: 23 PM EST Scleritis and episcleritis of both eyes High risk medication use HEPATIC FUNCTION PANEL Routine 09/03/2025 3:23 PM EST Scleritis and episcleritis of both eyes High risk medication use CBC WITH AUTO DIFFERENTIAL Routine 09/03/2025 3:23 PM EST Scleritis and episcleritis of both eyes High risk medication use SEDIMENTATION RATE, AUTOMATED Routine 09/03/2025 3:23 PM EST Scleritis and episcleritis of both eyes High risk medication use C-REACTIVE PROTEIN, PLASMA Routine 09/03/2025 3:23 PM EST Scleritis and episcleritis of both eyes High risk medication use ACUTE HEPATITIS PANEL Routine 09/28/2023 5:04 PM EST High risk medication use from Last 3 Months or Most Recently Relevant to Health Maintenance Results * Creatinine, Plasma (09/03/2025 3:23 PM EST) Creatinine, Plasma 1.08 0.70 - 1.20 mg/dL 09/03/2025 7:17 PM EST [facility] eGFRcr 79.5 mL/min/1.7 3m*2 09/03/2025 7:17 PM EST [facility] Comment:Reported eGFRcr in m L/min/1.73m2 is based the CKD-EPI 2020 equation that does not use a race coefficient. Blood Venous blood specimen / Unknown Venipuncture / Unknown 09/03/2025 3:23 PM EST 09/03/2025 3:23 PM EST Jayce Rangel APRN LAB BLOOD ORDERABLES Final Res ult Performing Organization Address City/[facility]/ZIP Co de Phone Number [facility] [address] [place] [address] * Sedimentation Rate, Automated (09/03/2025 3:23 PM EST) Sedimentation Rate 17 <20 mm/hr 2024 6:40 PM EST [facility] Blood Venous blood specimen / Unknown Venipuncture / Unknown 09/03/2025 3:23 PM EST 09/03/2025 3:23 PM EST Jayce Rangel APRN LAB BLOOD ORDERABLES Final Res ult Performing Organization Address City/[facility] Co de Phone Number [facility] [address] [place] [address] * (ABNORMAL) CBC and Differential (09/03/2025 3:23 PM EST) WBC Count 4.99 3.70 - 10.30 10*3/uL LAB HEMATOLOGY METHOD 09/03/2025 6:34 PM EST [facility] RBC Count 4.76 4.60 - 6.10 10*6/uL LAB HEMATOLOGY METHOD 09/03/2025 6:34 PM EST [facility] HGB 14.1 13.7 - 17.5 g/dL LAB HEMATOLOGY METHOD 09/03/2025 6:34 PM EST [facility] HCT 42.0 40.0 - 51.0 % LAB HEMATOLOGY METHOD 09/03/2025 6:34 PM EST [facility] Platelet Count 355 155 - 369 10*3/uL LAB HEMATOLOGY METHOD 09/03/2025 6:34 PM EST [facility] MCV 88 79 - 98 fL LAB HEMATOLOGY METHOD 09/03/2025 6:34 PM [facility] MCH 29.6 26.0 - 32.0 pg LAB HEMATOLOGY METHOD 09/03/2025 6:34 PM [facility] MCHC 33.6 30.7 - 35.5 g/dL LAB HEMATOLOGY METHOD 09/03/2025 6:34 PM [facility] RDW 13.9 11.5 - 14.5 % LAB HEMATOLOGY METHOD 09/03/2025 6:34 PM [facility] MPV 9.3 8.8 - 12.5 fL LAB HEMATOLOGY METHOD 09/03/2025 6:34 PM [facility] nRBC 0.0 <=0.0 per 100 WBCs LAB HEMATOLOGY METHOD 09/03/2025 6:34 PM [facility] Differential Type Automated LAB HEMATOLOGY METHOD 09/03/2025 6:34 PM [facility] Neutrophils % 67 % LAB HEMATOLOGY METHOD 09/03/2025 6:34 PM [facility] Lymphocytes % 21 % LAB HEMATOLOGY METHOD 09/03/2025 6:34 PM [facility] Monocytes % 9 % LAB HEMATOLOGY METHOD 09/03/2025 6:34 PM [facility] Eosinophils % 2 % LAB HEMATOLOGY METHOD 09/03/2025 6:34 PM [facility] Basophils % 1 % LAB HEMATOLOGY METHOD 09/03/2025 6:34 PM [facility] Immature Granulocytes % 0 % LAB HEMATOLOGY METHOD 09/03/2025 6:34 PM [facility] Neutrophils Absolute 3.29 1.60 - 6.10 10*3/uL LAB HEMATOLOGY METHOD 09/03/2025 6:34 PM [facility] Lymphocytes Absolute 1.07(L) 1.20 - 3.90 10*3/uL LAB HEMATOLOGY METHOD 09/03/2025 6:34 PM [facility] Monocytes Absolute 0.46 0.30 - 0.90 10*3/uL LAB HEMATOLOGY METHOD 09/03/2025 6:34 PM [facility] Eosinophils Absolute 0.10 0.00 - 0.50 10*3/uL LAB HEMATOLOGY METHOD 09/03/2025 6:34 PM [facility] Basophils Absolute 0.06 0.00 - 0.10 10*3/uL LAB HEMATOLOGY METHOD 09/03/2025 6:34 PM [facility] Immature Granulocytes Absolute 0.01 0.00 - 0.06 10*3/uL LAB HEMATOLOGY METHOD 09/03/2025 6:34 PM EST [facility] Blood Venous blood specimen / Unknown Venipuncture / Unknown 09/03/2025 3:23 PM EST 09/03/2025 3:23 PM EST Narrative [facility] - 09/03/2025 6:34 PM EST Therapeutic decision making should be based on absolute values, rather than percentages. us Jayce Toddophelia SERVER ASSISTANT LAB BLOOD ORDERABLES Final Res ult Performing Organization Address City/[facility]/ZIP Co de Phone Number [facility] [address] [place] [address] * C-Reactive Protein, Plasma (09/03/2025 3:23 PM EST) CRP, Plasma <3.0 <=8.0 mg/L 09/03/2025 7:17 PM EST [facility] Blood Venous blood specimen / Unknown Venipuncture / Unknown 09/03/2025 3:23 PM EST 09/03/2025 3:23 PM EST Narrative [facility] - 09/03/2025 7:17 PM EST This CRP test is appropriate for assessment of infection, systemic inflammation and/or tissue injury. To assess cardiovascular disease risk order high sensitivity CRP (CRPH). us Jayce Toddophelia SERVER ASSISTANT LAB BLOOD ORDERABLES Final Res ult [facility] [address] [place] [address] * (ABNORMAL) Hepatic Function Panel (09/03/2025 3:23 PM EST) Direct Bilirubin, Plasma 0.3 <=0.3 mg/dL 09/03/2025 7:17 PM EST [facility] Alkaline Phosphatase, Plasma 109 40 - 115 U/L 09/03/2025 7:17 PM EST [facility] Total Bilirubin, Plasma 1.3(H) 0.2 - 1.1 mg/dL 09/03/2025 7:17 PM EST [facility] Albumin, Plasma 4.6 3.5 - 5.2 g/dL 09/03/2025 7:17 PM EST [facility] Total Protein 7.5 6.3 - 7.9 g/dL 09/03/2025 7:17 PM EST [facility] ALT, Plasma 31 10 - 50 U/L 09/03/2025 7:17 PM EST [facility] AST, Plasma 26 10 - 50 U/L 09/03/2025 7:17 PM EST [facility] Blood Venous blood specimen / Unknown Venipuncture / Unknown 09/03/2025 3:23 PM EST 09/03/2025 3:23 PM EST us Jayce Rangel APRN LAB BLOOD ORDERABLES Final Res ult Performing Organization Address City/[facility]/ZIP Co de Phone Number [facility] [address] [place] [address] * Hepatitis panel, acute (09/28/2023 5:04 PM EST) Hepatitis B Surf Antigen Negative Negative 09/28/2023 8:01 PM EST [facility] Hepatitis C Antibody Negative Negative 09/28/2023 8:01 PM EST [facility] Hepatitis A Antibody IgM Negative Negative 09/28/2023 8:01 PM EST [facility] Hepatitis B Core Antibody IgM Negative Negative 09/28/2023 8:01 PM EST [facility] Blood Venous blood specimen / Unknown Venipuncture / Unknown 09/28/2023 5:04 PM EST 09/28/2023 5:05 PM EST Noris Martins MD LAB BLOOD ORDERABLES Fi nal Result Performing Organization Address City/[facility]/ZIP Co de Phone Number [facility] [address] [place] [address] from Last 3 Months or Most Recently Relevant to Health [place] [address] [place] [address] [employer] Care Teams Toe Trimmer Relationship Specialty Start Date End Date Sidney Alvarenga MD [address] [place] [address] PCP - General 02/06/21
--- OUTSIDE RECORDS SUMMARY | 2025-09-11 13:26 | XMS_ITS | Encounter Summary ---
Author Organization [facility] Address [address] [place] [address] Care Team Providers Care Grain Unloader Name Role Phone Sidney Alvarenga MD Primary Care Provider +1- [phone] Encounter Details Date Type Department Care Team (Late st Contact Info) Description 06/16/2023 Orders Only External Location [address] [place] [phone] Provider, External Social History Tobacco Use Types [...] Description 10/04/2025 9:20 AM EST Office Visit [facility] [address], 1st [place] [address] Yoni Jean MD [address] [place] [address] 03/05/2026 11:00 AM EDT Office Visit [facility] Medicine Specialties [address], [address] [place] [address] Jayce Rangel, YOSELIN [address] [place] [address] documented as of this encounter Procedures Procedure [...] on filedocumented in this encounter Care Teams Grain Unloader Relationship Specialty Start Date End Date Sidney Alvarenga MD [address] [place] [address] PCP - General 02/06/21 documented as of this encounter
--- OUTSIDE RECORDS SUMMARY | 2025-09-11 13:26 | XMS_ITS | Encounter Summary ---
Author Organization [facility] Address [address] [place] [address] Care Team Providers Care Petroleum Refinery Laborer Name Role Phone Sidney Alvarenga MD Primary Care Provider +1- [phone] Encounter Details Date Type Department Care Team (Late st Contact Info) Description 06/16/2023 Orders Only External Location [address] [place] [phone] Provider, External Social History Tobacco Use Types [...] Description 10/04/2025 9:20 AM EST Office Visit [facility] [address], [address]st [place] [phone] Yoni Jean MD [address] [place] [address] 03/05/2026 11:00 AM EDT Office Visit [facility] [address], [address] [place] [address] Jayce Rangel, YOSELIN [address] [place] [address] documented as of this encounter Procedures Procedure [...] on filedocumented in this encounter Care Teams Petroleum Refinery Laborer Relationship Specialty Start Date End Date Sidney Alvarenga MD [address] [place] [address] PCP - General 02/06/21 documented as of this encounter
--- OUTSIDE RECORDS SUMMARY | 2025-09-11 13:26 | XMS_ITS | Encounter Summary ---
Author Organization [facility] Address [address] [place] [address] Care Team Providers Care Scientist Engineer Name Role Phone Sidney Alvarenga MD Primary Care Provider +1- [phone] Reason for Referral * Consultation (Routine) - Closed Specialty Diagnoses / Procedures Referred By Nghia pantoja Referred To Contact Rheumatology Diagnoses Episcleritis of left eye Rubio Zhou MD [address] [place] [address] Phone: tel: fax: [facility] [address] [place] [address] Phone: tel: fax: Referral ID Status Reason Start Date Expiration Date V isits Requested Visits Authorized [id number] Closed Specialty Services Required 09/13/2023 03/14/2025 1 1 Encounter Details Date Type Department Care Team (Latest Contact Info) Description 09/13/2023 Community [facility] [address] [place] [address] Rubio Zhou MD [address] [place] [address] Episcleritis of left eye (Primary [...] Description 10/04/2025 9:20 AM EST Office Visit [facility] [address], [address] [place] [address] Yoni Jean MD [address] [place] [address] 03/05/2026 11:00 AM EDT Office Visit [facility] Medicine Specialties [address], [address] [place] [address] Jayce Rangel, YOSELIN [address] [place] [address] Scheduled Referrals Name Type Priority Associated Diagnoses Order Schedule Ambulatory referral to Rheumatology Outpatient Referral Routine Episcleritis of left eye Expected: 09/13/2023 (Approximate), Expires: 03/14/2025 documented as of this encounter Visit Diagnoses Diagnosis Episcleritis of left eye- Primary documented in this encounter Care Teams Scientist Engineer Relationship Specialty Start Date End Date Sidney Alvarenga MD [address] [place] [address] PCP - General 02/06/21 documented as of this encounter
--- OUTSIDE RECORDS SUMMARY | 2025-09-11 13:26 | XMS_ITS | Encounter Summary ---
Author Organization [facility] Address [address] [place] [address] Care Team Providers Care Oracle Bpm Developer Name Role Phone Sidney Alvarenga MD Primary Care Provider +1- [phone] Encounter Details Date Type Department Care Team (Late st Contact Info) Description 06/16/2023 Orders Only External Location [address] [place] [phone] Provider, External Social History Tobacco Use Types [...] Description 10/04/2025 9:20 AM EST Office Visit [facility] [address], [address]st [place] [phone] Yoni Jean MD [address] [place] [address] 03/05/2026 11:00 AM EDT Office Visit [facility] Medicine Specialties [address], [address] [place] [phone] Jayce Rangel, YOSELIN [address] [place] [address] documented as of this encounter Procedures Procedure [...] on filedocumented in this encounter Care Teams Oracle Bpm Developer Relationship Specialty Start Date End Date Sidney Alvarenga MD [address] [place] [address] PCP - General 02/06/21 documented as of this encounter
--- OUTSIDE RECORDS SUMMARY | 2025-09-11 13:27 | XMS_ITS | Patient Health Record ---
[facility] Address [address] [facility] [address] [place], [place] [id number] Care Team Providers Care Low Raw Sugar Cutter Name Role Phone Roberto Alvarenga Primary Care Provider Tanvi Capps Unavailable [phone] Allergies Allergen (clinical drug ingredient) Drug/Non Drug Allergy documented on EMR Reaction Allergy Type Onset Date Status hydrocodone HYDROcodone Unknown Drug Allergy Act amanda Results Component Value Reference Range Notes P-Comprehensive Metabolic Pa geronimo (CMP) Reviewed date:03/20/2025 04:02:08 PM Interpretation:Satisfactory Performing Lab: Notes/Report: CLIA: [id number] Johnathan Whiteside MD, Neurology Technician [facility][note 3]0 [facility] , [address], [place] [address] Test performed by [facility], [facility] Sodium 141 135-145 mmol/L Potassium 4.1 3.5-5.3 [...] 2.0 1.1-2.5 Influenza Screen (in house) Reviewed date:05/06/2025 09:38:46 [...] Interpretation:neg Performing Lab: Notes/Report: neg Result: neg CBC Fingerstick (in house) Reviewed date:06/13/2025 04:54:55 [...] - 38 plat 188 100 - 400 P-TSH Reviewed date:02/22/2025 09:34:24 AM Interpretation: Performing Lab: Notes/Report: Test performed by [facility] [address] [place] [address] , [address], [place] [address] Johnathan Whiteside MD, Neurology Technician CLIA: [id number] TSH 0.94 0.43-5.25 mU/L P-Lipid Panel Reviewed date:02/22/2025 09:34:24 AM Interpretation: Performing Lab: Notes/Report: Test performed by [facility] [address] [place], [place] [address] , [address], [place] [address] Johnathan Whiteside MD, Neurology Technician CLIA: [id number] Cholesterol 232 <200 mg/dL Triglycerides 179 <150 [...] Interpretation: Performing Lab: Notes/Report: Test performed by [facility] [place] [address] Johnathan Whiteside MD, Neurology Technician CLIA: [id number] Thyroxine Free (free T4) 1.89 0.86-1.76 ng/dL P-Comprehensive Metabolic Pa geronimo (CMP) Reviewed date:02/22/2025 09:34:23 AM Interpretation: Performing Lab: Notes/Report: [facility] [address], [place] [address] Johnathan Whiteside MD, Neurology Technician CLIA: [id number] Sodium 133 135-145 mmol/L Potassium 3.9 3.5-5.3 [...] Interpretation: Performing Lab: Notes/Report: Test performed by [facility] [address] [place] [address] , [address], [place] [address] Johnathan Whiteside MD, Neurology Technician CLIA: [id number] Vitamin B12 3526 071-7264 pg/mL CBC Venipuncture (in house) Reviewed date:02/20/2025 [...] - 38 platlet 690 100 - 400 Covid test (in house) Reviewed date:04/18/2025 04:32:31 PM Interpretation: Performing Lab: Notes/Report: Result: neg CBC Fingerstick (in house) Reviewed date:04/18/2025 [...] - 38 plat 345 100 - 400 Influenza Screen (in house) Reviewed date:04/18/2025 04:32:23 PM Interpretation: Performing Lab: Notes/Report: results neg Medications Medication SIG (Take, Route, Frequency, Duration) Notes Start Date End Date Status amLODIPine Besylate 5 mg 1 tablet orally once a day; Duration: 30 days Active Irbesartan 150 mg 1 tablet orally once a day; Duration: 30 days Active Nystatin 518473 UNIT/ML 5 mL Mouth/Throa t Four times [...] Once a day; Duration: 30 day(s) Active Immunizations Vaccine Route Administration Date Status Comme nts xFluzone Intradermal (18-64yrs)-trivalent ID Intradermal 07/12/2013 Administered xFlu shot- 6months-36 months of yqc-MELA-ILYE-trivalent Unknown 06/14/2018 Administered MMR IM Intramuscular 04/04/2008 [...] Status W/U Status Risk Notes Problem Murmur (426755187) Murmur (785.2) Active confir med Problem Benign prostatic hypertrophy (226520845) Benign prostatic hypertrophy NOS (600.00) Active confirmed Problem BMI 30+ - obesity (113670163) BMI 32.0-32.9,adult (Z68.32) Active confirmed Problem Vitamin B12 deficiency (non anemic) (03575610) Vitamin B 12 deficiency (E53.8) Active confirmed Problem Thyroid nodule (509934728) Thyroid nodule (E04.1) Active confirmed Problem Kidney stone (86757788) Kidney stone on left side (N20.0) Active confirmed Problem Displacement of lumbar intervertebral disc without myelopathy (22417344) Protrusion of lumbar intervertebral disc (M51.26) Active confirmed Problem Annular tear of lumbar disc (691590180) Annular tear of lumbar disc (M51.36) Active confirmed Problem Rhinosinusitis (786130535) Rhinosinusitis (J32.9) Active confirmed Problem Prolapsed thoracic intervertebral disc (370960447) Thoracic disc herniation (M51.24) Active confirmed Problem Degenerative lumbar spinal stenosis (017960513) Degenerative lumbar spinal stenosis (M48.061) Active confirmed Problem Facial paresthesia (70010628) Facial paresthesia (R20.2) Active confirmed Problem Primary hypertension (36810800) Primary hypertension (I10) Active confirmed Problem Acquired spondylolisthesis (236282593) Anterolisthesis of lumbosacral spine (M43.17) Active confirmed Problem Skin sensation disturbance (70530990) Left leg paresthesias (R20.2) Active confirmed Vital Signs Heart Rate 64 /min 06/12/2025 Blood pressure diastolic 72 mm Hg 06/12/2025 Height 65.25 in 06/12/2025 Blood pressure systolic 110 mm Hg 06/12/2025 Weight 213.2 lbs 06/12/2025 BMI 35.2 kg/m2 06/12/2025 Encounters Encounter Location Date Provider Diagnosis [facility] [address] [facility] [address] [place] [id number] 09/14/2024 Tanvi Capps Vitamin B 12 deficie ncy E53.8 [facility] [address] [facility] [address] [place] [id number] 09/28/2024 R Gianni Lyle [facility] [address] [place], [place] [id number] 10/12/2024 R Gianni Lyle Vitamin B 12 deficie ncy E53.8 [facility] [address] [place] [id number] 10/30/2024 R Gianni Lyle Vitamin B 12 deficie ncy E53.8 [facility] [address] [place] [id number] 11/16/2024 R Gianni Lyle Vitamin B 12 deficie ncy E53.8 [facility] [address] [place] [id number] 11/30/2024 R Gianni Lyle Vitamin B 12 deficie ncy E53.8 [facility] [address] [place] [id number] 12/14/2024 R Gianni Lyle Vitamin B 12 deficie ncy E53.8 [facility] [address] [place], [place] [id number] 12/28/2024 Tanvi Crowdy Vitamin B 12 deficie ncy E53.8 [facility] [address] [place] [id number] 01/11/2025 Tanvi Crowdy Vitamin B 12 deficie ncy E53.8 [facility] [address] [place] [id number] 01/24/2025 Tanvi Crowdy Vitamin B 12 deficie ncy E53.8 [facility] [address] [place] [id number] 02/20/2025 Tanvi Crowdy Vitamin B 12 deficie ncy E53.8 ; Primary hypertension I10 ; Elevated bilirubin R17 ; Degenerative lumbar spinal stenosis M48.061 ; Elevated LFTs R79.89 ; Thyroid nodule E04.1 ; Screening for prostate cancer Z12.5 ; Screening, lipid Z13.220 and BMI 32.0-32.9,adult Z68.32 [facility] [address] [place], [place] [id number] 03/08/2025 Tanvi Crowdy Primary hypertension I10 and Vitamin B 12 deficiency E53.8 [facility] [address] [place] [id number] 03/22/2025 Tanvi Crowdy Vitamin B 12 deficie ncy E53.8 [facility] [address] [place] [id number] 04/03/2025 R Gianni Alvarenga Vitamin B 12 deficie ncy E53.8 [facility] [address] [place] [id number] 04/17/2025 Tanvi Crowdy Vitamin B 12 deficie ncy E53.8 [facility] [address] [place] [id number] 04/18/2025 Tanvi Crowdy Acute URI J06.9 [facility] [address] [place] [id number] 05/03/2025 Tanvi Crowdy B12 deficiency E53.8 and Acute URI J06.9 [facility] [address] [place], [place] [id number] 05/17/2025 Tanvi Crowdy Vitamin B 12 deficie ncy E53.8 [facility] [address] [place] [id number] 05/31/2025 Tanvi Crowdy Vitamin B 12 deficie ncy E53.8 [facility] [address] [place] [id number] 06/12/2025 Tanvi Crowdy Thrush B37.0 ; Acute diarrhea R19.7 and Vitamin B 12 deficiency E53.8 [facility] [address] [place], [place] [id number] 06/28/2025 Tanvi Crowdy Vitamin B 12 deficie ncy E53.8 [facility] [address] [place] [id number] 07/12/2025 Tanvi Crowdy Vitamin B12 deficien cy E53.8 [facility] [address] [place] [id number] 07/25/2025 Tanvi Hugody Vitamin B12 deficien cy E53.8 [facility] [address] [place] [id number] 08/09/2025 R Ginani Lyle Vitamin B 12 deficie ncy E53.8 [facility] [address] [place] [id number] 08/26/2025 Tanvi Crowdy B12 deficiency E53.8 [facility] [address] [place] [id number] 02/08/2025 R Ginani Lyle [facility] [address] [place] [id number] 02/22/2025 Tanvi Crowdy [facility] [address] [place] [id number] 04/30/2025 R Gianni Lyle [facility] [address] [place] [id number] 05/06/2025 Tanvi Crowdy [facility] [address] [place] [id number] 05/21/2025 R Gianni Lyle [facility] [address] [place] [id number] 05/01/2025 Tanvi Crowdy [facility] [address] [place] [id number] 06/04/2025 Tanvi Crowdy [facility] [address] [place] [id number] 09/03/2025 Tanvi Hugody Assessments Encounter Date Diagnosis (ICD Code) Assessment Notes Treatment Notes Treatment Clinical Notes Section Notes 09/14/2024 Vitamin B 12 deficiency (ICD-10 - [...] E53.8) 04/18/2025 Acute URI (ICD-10 - J06.9) 05/03/2025 B12 deficiency (ICD-10 - E53.8) 05/03/2025 Acute URI (ICD-10 - J06.9) 05/17/2025 Vitamin B 12 deficiency (ICD-10 - E53.8) 05/31/2025 Vitamin B 12 deficiency (ICD-10 - E53.8) 06/12/2025 Thrush (ICD-10 - B37.0) 06/12/2025 Acute diarrhea (ICD-10 - R19.7) Will get stool panel if diarrhea does not resolve in the next few days. 06/28/2025 Vitamin B 12 deficiency (ICD-10 - E53.8) 07/12/2025 Vitamin B12 deficiency (ICD-10 - E53.8) 07/25/2025 Vitamin B12 deficiency (ICD-10 - E53.8) 08/09/2025 Vitamin B 12 deficiency (ICD-10 - E53.8) 08/26/2025 B12 deficiency (ICD-10 - E53.8) 06/12/2025 Vitamin B 12 deficiency (ICD-10 - E53.8) 02/20/2025 Primary hypertension (ICD-10 - I10) 03/08/2025 Vitamin B 12 deficiency (ICD-10 - E53.8) 02/20/2025 Elevated bilirubin (ICD-10 - R17) 02/20/2025 Degenerative lumbar spinal stenosis (ICD-10 - M48.061) 02/20/2025 Elevated LFTs (ICD-10 - R79.89) 02/20/2025 Thyroid nodule (ICD-10 - E04.1) 02/20/2025 [...] Insured Coverage Start Date [facility]age End Date [facility] [address] [place], [place] [id number] [phone] [id number] RAMA MARES Self - patient is the [...] 05/03/2025 1 mL B-12 05/17/2025 1 mL B-12 05/31/2025 1 mL B-12 06/12/2025 1 mL B-12 06/28/2025 1 mL B-12 07/12/2025 1 mL B-12 07/25/2025 1 mL B-12 08/09/2025 1 mL B-12 08/26/2025 1 mL Medical (General) History Medical History History ICD Code hypomania recovering drug(cocaine) 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 knee 1985 laminectomy and lumbar disc L5 S1 2001 Lumbar Fusion 02/01/25 Hospitalization History Reason Date(Month/Year)
--- OUTSIDE RECORDS SUMMARY | 2025-09-11 13:27 | XMS_ITS | Clinical Summary ---
Author Organization [facility] Address [address] [place] [address] Care Team Providers Care Marketing Project Lead Name Role Phone Tanvi Capps Primary Care Provider [phone] Allergies Active Allergy Reactions Criticality Noted Date [...] or training? Not on file Preferred Language Equ[place]inean 01/25/2025 Sex and Gender Information Value Date [...] TDAP/TD VACCINES (1 - Tdap) 04/30/2022 04/29/2022 INFLUENZA VACCINE 04/26/2025 07/27/2024, , 06/08/2021, Additional history exists HEPATITIS C SCREENING Completed 09/28/2023 Medical Devices Implanted Type Area Mechanical Engineering Professor Device Identifier Shelf Expiration Date Model / Serial / Lot Hemost Abs Surgifoam Sz100 8x12 10mm - [id number] Implanted:Qt y: 1 on 02/01/2025 by Hussein Solano MD at [facility] Implant N/A: Spine Lumbar ETH[employer] DIV OF J AND J [id number] 11/01/2028 [id number] / / [id number] Scrw Anti/Backout Bowti Ti 25mm - [id number] Implanted:Qt y: 1 on 02/01/2025 by Hussein Solano MD at [facility] Implant N/A: Spine Lumbar DEPUY SPINE [id number] / / Stpl Bone Bowti Ti 24mm - [id number] Implanted:Qt y: 1 on 02/01/2025 by Hussein Solano MD at [facility] Implant N/A: Spine Lumbar DEPUY SPINE [id number] / / Allogrft Bone Vivigen Celluar Matrx Formable 10cc - [id number] Implanted:Qt y: 1 on 02/01/2025 by Hussein Solano MD at [facility] Implant N/A: Spine Lumbar [facility] 12/25/2025 [id number] / / [id number] Allogrft Bone Vivigen Celluar Matrx Formable 5cc - [id number] Implanted:Qt y: 1 on 02/01/2025 by Hussein Solano MD at [facility] Implant N/A: Spine Lumbar [facility] [id number] 01/14/2026 [id number] / / Scrw Pa Fen 6.5x50mm - [id number] Implanted:Qt y: 2 on 02/01/2025 by Hussein Sloano MD at [facility] Implant N/A: Spine Lumbar DEPUY SPINE [id number] / / Scrw Trialtis A/Poly 7.5x40mm - [id number] Implanted:Qt y: 2 on 02/01/2025 by Hussein Solano MD at [facility] Implant N/A: Spine Lumbar DEPUY SPINE [id number] / / Nikhil Trialtis Ti 5.5x95mm - [id number] Implanted:Qt y: 2 on 02/01/2025 by Hussein Solano MD at [facility] Implant N/A: Spine Lumbar DEPUY SPINE [id number] / / Scrw St Trialtis - [id number] Implanted:Qt y: 8 on 02/01/2025 by Hussein Solano MD at [facility] Implant N/A: Spine Lumbar DEPUY SYNTHES [id number] / / Wax Bone Hemo Lukens Sharpoint 2.5gm Wht - [id number] Implanted:Qt y: 1 on 02/01/2025 by Hussein Solano MD at [facility] Implant N/A: Spine Lumbar [employer] LUCINDA [id number] 03/27/2029 [id number] / / [id number] Scrw Fen Trialtis 6.5x45mm - [id number] Implanted:Qt y: 4 on 02/01/2025 by Hussein Solano MD at [facility] Implant N/A: Spine Lumbar DEPUY SPINE [id number] / / Kt Seal Hemos Abs Floseal Matrx Fast/Prep 10ml - [id number] Implanted:Qt y: 1 on 02/01/2025 by Hussein Solano MD at [facility] Implant N/A: Spine Lumbar COUNTS INCLUDE 234 BEDS AT [facility] [id number] 08/30/2026 [id number] / / [id number] Clipapplr M/ Endo Ligaclip 20clp 11in Md - [id number] Implanted:Qt y: 1 on 02/01/2025 by Junior Broderick MD at [facility] Implant N/A: Spine Lumbar [employer] END[employer] DIV OF J AND J 09/25/2029 [id number] / / [id number] Clipapplr M/ Endo Ligaclip 13in Lg - [id number] Implanted:Qt y: 1 on 02/01/2025 by Junior Broderick MD at [facility] Implant N/A: Spine Lumbar [employer] ENDO SURGERY DIV OF J AND J 08/25/2027 [id number] / / [id number] Allogrft Bone Vivigen Celluar Matrx Formable 1cc - [id number] Implanted:Qt y: 1 on 02/01/2025 by Hussein Solano MD at [facility] Implant N/A: Spine Lumbar [facility] [id number] 12/11/2025 [id number] / / Allogrft Bone Vivigen Celluar Matrx Formable 1cc - [id number] Implanted:Qt y: 1 on 02/01/2025 by Hussein Solano MD at [facility] Implant N/A: Spine Lumbar [facility] [id number] / / Cage Ib Alif Conduit Ti 3d/Prnt 20deg 16mm Lg - [id number] Implanted:Qt y: 1 on 02/01/2025 by Hussein Solano MD at [facility] Implant N/A: Spine Lumbar DEPUY SPINE 11/23/2034 [id number] / / [id number] Explanted Type Area Mechanical Engineering Professor Device Identifier Shelf Expiration Date Model / Serial / Lot Stpl Bone Bowti Ti 24mm - [id number] Explanted:Qty : 1 on 02/01/2025 by Hussein Weaver MD at [facility] Implant N/A: Spine Lumbar DEPUY SPINE [id number] / / Scrw Anti/Backout Bowti Butrs/Plt Ti 20mm - [id number] Explanted:Qty : 1 on 02/01/2025 by Hussein Weaver MD at [facility] Implant N/A: Spine Lumbar DEPUY SPINE [id number] / / Cage Ib Alif Conduit Ti 3d/Prnt 20deg 14mm Lg - [id number] Explanted:Qty : 1 on 02/01/2025 by Hussein Weaver MD at [facility] Implant N/A: Spine Lumbar DEPUY SPINE 09/25/2034 [id number] / / [id number] Insurance Advance Directives * CPR (Attempt to Resuscitate) (Latest Code Status on File) Date Activated Date Inactivated Comments 02/01/2025 3:51 PM 02/05/2025 5:57 PM Question Answer Comments Code Status (Patient has no pulse and is not breathing): CPR (Attempt to Resuscitate) Medical Interventions (Patie nt has pulse or is breathing): Full Support Level Of Support Discussed With: Patient Care Teams Marketing Project Lead Relationship Specialty Start Date End Date Tanvi Capps PA [address] [place] [address] PCP - General Physician Deckhand [employer] 06/30/23
--- OUTSIDE RECORDS SUMMARY | 2025-09-11 13:28 | XMS_ITS | Encounter Summary ---
Author Organization [facility] Address [address] [place] [address] Care Team Providers Care Washing Machine Operator Name Role Phone Sidney Alvarenga MD Primary Care Provider [phone] Reason for Visit * Reason Onset Date Comments HCN - Patient Message 07/26/2025 Encounter Details Date Type Department Care Team (Late st Contact Info) Description 07/26/2025 Telephone [place] [facility] [address] [place] [address] Yoni Jean MD [address] [place] [address] HCN - Patient Message Social History Tobacco Use Types Packs/Day Years [...] PM EST documented as of this encounter Miscellaneous Notes * Telephone Encounter - Mahesh Jaye - 07/26/2025 11:28 AM EDT Patient Phone Message Reason for Call: Wants to make an appt Thinks he is about ready to go forward with surgery Request a call to coordinate Best contact number and optimal time of day to reach caller: Pt / [phone] Note: Please do not reply to this message. Follow-up communication and further actions as a result of this message need to be communicated with the patient directly, if the patient is not active onMyChart. If the patient is active on MyChart, they will receive notification of the communication/outcome via [employer]. documented in this encounter Plan of Treatment Upcoming Encounters Date Type Department Care Team (Late st Contact Info) Description 10/04/2025 9:20 AM EST Office Visit [place] [facility] [address] [place] [address] Yoni Jean MD [address] [place] [address] 03/05/2026 11:00 AM EDT Office Visit [facility] [address] [place] [address] Jayce Rangel APRN [address] [place] [phone] documented as of this encounter Visit Diagnoses [...] documented as of this encounter Care Teams Washing Machine Operator Relationship Specialty Start Date End Date Sidney Alvarenga MD [address] [place] [address] PCP - General 02/06/21 documented as of this encounter
--- OUTSIDE RECORDS SUMMARY | 2025-09-11 13:28 | XMS_ITS | Encounter Summary ---
Author Organization [facility] Address [address] [place] [address] Care Team Providers Care Quality Measurement Specialist Name Role Phone Sidney Alvarenga MD Primary Care Provider [phone]- [phone] Encounter Details Date Type Department Care Team (Latest Contact Info) Description 09/03/2025 Travel Social History Tobacco Use Types Packs/Day [...] as of this encounter Functional Status * AUDIT-C Score [...] Bruce Melendrez documented as of this encounter Plan of Treatment Upcoming Encounters Date Type Department Care Team (Late st Contact Info) Description 10/04/2025 9:20 AM EST Office Visit [place] [facility] [address] [place] [address] Yoni Jean MD [address] [facility] [address] [place] [address] 03/05/2026 11:00 AM EDT Office Visit [facility] [address] [place] [address] Jayce Rangel APRN [address] [place] [address] documented as of this encounter [...] documented as of this encounter Care Teams Quality Measurement Specialist Relationship Specialty Start Date End Date Sidney Alvarenga MD [address] [place] [address] PCP - General 02/06/21 documented as of this encounter
--- OUTSIDE RECORDS SUMMARY | 2025-09-11 13:28 | XMS_ITS | Encounter Summary ---
Author Organization [facility] Address [address] [place] [address] Care Team Providers Care Wire Stripper Name Role Phone Sidney Alvarenga MD Primary Care Provider +1- [phone] Encounter Details Date Type Department Care Team (Late st Contact Info) Description 09/04/2025 Results Follow-Up [facility] [address] [place] [address] Jayce Rangel, FARM OPERATIONS MANAGER [address] [place] [address] Social History Tobacco Use Types Packs/Day Years [...] Description 10/04/2025 9:20 AM EST Office Visit [place] [facility] [address] [place] [address] Yoni Jean MD [address] [place] [address] 03/05/2026 11:00 AM EDT Office Visit [facility] [address] [place] [address] Jayce Rangel APRN [address] [place] [address] documented as of this encounter [...] documented as of this encounter Care Teams Wire Stripper Relationship Specialty Start Date End Date Sidney Alvarenga MD [address] [place] [address] PCP - General 02/06/21 documented as of this encounter
--- OUTSIDE RECORDS SUMMARY | 2025-09-11 13:28 | XMS_ITS | Encounter Summary ---
Author Organization [facility] Address [address] [place] [address] Care Team Providers Care Internal Communications Intern Name Role Phone Sidney Alvarenga MD Primary Care Provider +1- [phone] Encounter Details Date Type Department Care Team (Latest Contact Info) Description 08/28/2025 Travel Social History Tobacco Use Types Packs/Day [...] Visit [place] [facility] [address] [place] [address] Yoni Jean MD [address] [place] [address] 03/05/2026 11:00 AM EDT Office Visit [facility] [address] [place] [address] Jayce Rangel APRN [address] [place] [address] documented as of this encounter [...] documented as of this encounter Care Teams Internal Communications Intern Relationship Specialty Start Date End Date Sidney Alvarenga MD [address] [place] [address] PCP - General 02/06/21 documented as of this encounter
== END 2025-09-11 23:59 | disposition home or self-care (01) ==
LOC: RAD 12:39
PROVIDERS: PCP Family Medicine; Visit Provider Student in an Organized Health Care Education/Training Program
DX: M16.0 Bilateral primary osteoarthritis of hip (principal)
CPT/HCPCS: 73502

== ENCOUNTER 2025-09-12 10:00 | Outpatient (RCR) | payer OTHER, SELFPAY | END 2025-09-12 23:59 | disposition home or self-care (01) | LOC: PT 10:00 | PROVIDERS: PCP Family Medicine; Visit Provider Orthopaedic Surgery | DX: Z47.89 Encounter for other orthopedic aftercare (principal); Z98.1 Arthrodesis status | CPT/HCPCS: 97110; 97112; 97530 ==